=== PATIENT | female | born 1940 | race Caucasian/White ===

== ENCOUNTER → 2017-11-23 17:00 | Outpatient (REF) | payer MEDICARE, SELFPAY ==
[2017-11-23 17:24] LABS: HCT 23.8 % (36.0-46.0); HGB 7.2 g/dL (12.0-15.5)
== END ==
LOC: LBN 17:00
PROVIDERS: PCP Family Medicine; Visit Provider Family Medicine
DX: D63.8 Anemia in other chronic diseases classified elsewhere (principal); D46.9 Myelodysplastic syndrome, unspecified; I50.30 Unspecified diastolic (congestive) heart failure; I10 Essential (primary) hypertension
CPT/HCPCS: 85014; 85018

== ENCOUNTER 2017-12-15 16:42 | Outpatient (REF) | payer MEDICARE, SELFPAY ==
[2017-12-15 19:30] LABS: HGB 5.9 g/dL (12.0-15.5)
[2017-12-15 19:31] LABS: HCT 20.2 % (36.0-46.0)
== END 2017-12-15 17:02 ==
LOC: NCHCN 16:42
PROVIDERS: Family Medicine; PCP Family Medicine; Visit Provider Family Medicine
DX: D64.9 Anemia, unspecified (principal)
CPT/HCPCS: 85014; 85018

== ENCOUNTER 2017-12-15 20:45 | Emergency (ER) | payer MEDICARE, SELFPAY ==
[2017-12-15 20:50] VITALS: BP 103/63; PULSE 67; RESP 16; TEMP 36.4; O2SAT 97
[2017-12-15 21:36] LABS: Abs Immature Grans 0.03 k/cumm (0.0-0.09); Absolute Basophil Count 0.02 k/cumm (0.0-0.2); Absolute Eosinophil Count 0.04 k/cumm (0.0-0.7); Absolute Lymphocyte Count 0.98 k/cumm (1.2-3.4); Absolute Monocyte Count 0.38 k/cumm (0.11-0.7); Absolute Neutrophil Count 3.56 k/cumm (1.2-6.7); Basophils % 0.4; Eosinophils % 0.8; Immature Grans % 0.6; Lymphocytes % 19.6; Mean Corp. HGB Concentration 29.5 g/dL (32.0-36.0); Mean Corpuscular Hemoglobin 31.6 pg (27.0-33.0); Monocytes % 7.6; Platelet Count 248 x1000/uL (130-400); RBC 1.87 m/cumm (4.00-5.20); White Blood Cell Count 5.01 k/cumm (4.4-10.8)
[2017-12-15 21:53] LABS: ALT 10 U/L (12-78); AST 13 U/L (15-37); Albumin 2.9 g/dL (3.4-5.0); Alkaline Phosphatase 150 U/L (46-116); BUN 55 mg/dL (7-18); Bilirubin, Total 0.4 mg/dL (0.2-1.0); CREATININE 1.39 mg/dL (0.55-1.02); Calcium 8.6 mg/dL (8.5-10.1); Chloride 96 mmol/L (98-107); Estimated GFR 36.77 (mL/min/1.73m2); Glucose 135 mg/dL (70-100); Potassium 4.7 mmol/L (3.5-5.1); Sodium 128 mmol/L (136-145); Total Protein 8.4 g/dL (6.4-8.2)
[2017-12-15 22:33] LABS: HGB 5.9 g/dL (12.0-15.5)
[2017-12-15 22:55] LABS: Anisocytosis 3+; Diff Comment Diff Reviewed; Macrocytosis 3+
[2017-12-16] VITALS (21 sets, daily range): BP systolic 96–113; BP diastolic 40–49; PULSE 56–69; RESP 16–18; TEMP 36.5–36.7; O2SAT 98–100
--- NOTE | 2017-12-16 02:20 | W.ED.GENAD ---
Discharge Plan Discharge Details Chief Complaint: GenMedical Clinical Impression: Anemia, MDS (myelodysplastic syndrome) Primary Care Provider: Maude Dickey ED Provider: Cheko Watters Disposition Patient Disposition: HOME Condition: Improving Home Meds and New Rx's Prescriptions: No Action polyethylene glycol 1000(bulk) 500 GM powder 17 gm PO DAILY PRNQty: 500 RF: 12 nitroglycerin [Nitrostat] 0.4 MG tablet, sublingual 0.4 mg Sublingual Q5 MIN PRN X3 PRNQty: 1 RF: 0 escitalopram oxalate 20 MG tablet 20 mg PO DAILY Qty: 90 RF: 12 pen needle, diabetic [BD Ultra-Fine Jessica Pen Needle] 1 EACH needle 1 ea Miscellaneous QID Qty: 400 RF: 4 levothyroxine 75 MCG tablet 75 mcg PO DAILY Qty: 90 RF: 12 sennosides [Senokot] 1 TAB tablet 1 tab PO BID PRN PRNQty: 60 RF: 12 nystatin 15 GM ointment 15 gm Topical BID PRNRF: 0 aspirin 81 MG tablet,delayed release (DR/EC) 81 mg PO DAILY RF: 0 metoprolol tartrate 25 MG tablet 25 mg PO BID RF: 0 ostomy supplies [Stomahesive Protective] 28.3 GM powder 1 - 2 gm Topical TID PRNQty: 28.3 RF: 12 insulin aspart U-100 [Novolog Flexpen U-100 Insulin] 300 UNITS/3 ML insulin pen Sub-Q 0800,1200,1700 Qty: 5 RF: 0 atorvastatin 40 MG tablet 40 mg PO HS Qty: 0 RF: 0 albuterol sulfate 2.5 MG/0.5 ML solution for nebulization 2.5 mg Inhalation QID PRNQty: 100 RF: 2 acetaminophen [Tylenol] 325 MG tablet 2 tab PO PRN PRNRF: 0 simethicone [Gas-X Extra Strength] 125 MG capsule 1 tab PO PRN PRNRF: 0 linagliptin [Tradjenta] 5 MG tablet 5 mg PO DAILY RF: 0 spironolactone 50 MG tablet 25 mg PO BID RF: 0 insulin aspart U-100 [Novolog Flexpen U-100 Insulin] 300 UNITS/3 ML insulin pen 4 units Sub-Q AC RF: 0 furosemide 40 MG tablet 60 mg PO BID RF: 0 potassium chloride [Klor-Con M20] 20 MEQ tablet,ER particles/crystals 20 meq PO .QHS RF: 0 gabapentin 300 MG capsule 300 mg PO BID RF: 0 insulin detemir U-100 [Levemir FlexTouch U-100 Insuln] 100 UNIT/ML insulin pen 15 unit SQ .BEDTIME RF: 0 Discharge Instructions Instructions: Anemia (ED) Additional Instructions: If you notice any worsening of your symptoms, or any new symptoms such as vomiting, diarrhea, fever, chills, shortness of breath, chest pain, numbness, weakness, or fainting , please return immediately to the emergency department for reevaluation. Please follow up with your primary care provider as soon as possible for reassessment and reevaluation. As always, it was a pleasure participating in your medical care today. Referrals: Maude Dickey MD, [place] [Primary Care Provider] - Medical Decision Making MDM Narrative Medical decision making narrative: This is a 76-year-old female with a history of myelodysplastic syndrome, recurrent anemia, secondary to the myelodysplastic syndrome, and multiple previous transfusions. She presents today for evaluation of anemia. Her hemoglobin was noted to be in the fives today at her rehab facility and she was sent in for transfusion. Currently aside for fatigue the patient has no other significant complaints. She denies any red flags of hematochezia, melena, acholic stool, hematemesis, or hematuria. Patient's laboratory workup does demonstrate notable anemia with a hemoglobin of 5.9. Her creatinine is slightly elevated at 1.39. She has been high like this in the past. I do feel that this may be secondary to her anemia and mild dehydration. We will get the patient 2 units of PRBCs, and if she is doing well after transfusion I feel she can be safely discharged back to a rehab facility. 4:22 AM Patient has been given 2 units of PRBCs. She tolerated this very well. She has shown no signs of trolley or taco. Vital signs have remained stable. This point I feel that the patient be safely discharged back to her rehab facility. I have extensively reviewed the treatment plan and discharge instructions with the patient. I have addressed all patient concerns at this time. The patient was made aware of what symptoms to monitor for that would warrant a return to the emergency department. Discussed the plan with the patient, they demonstrate verbal understanding and agreement with our assessment and plan at this time. Lab Data Lab Results 12/15/17 12/15/17 12/15/17 Range/Units 21:25 21:25 21:25 WBC 5.01 (4.4-10.8) k/cumm RBC 1.87 L (4.00-5.20) m/cumm Hgb 5.9 L* (12.0-15.5) g/dL Hct 20.0 L* (36.0-46.0) % MCV 107.0 H (80-95) fL MCH 31.6 (27.0-33.0) pg MCHC 29.5 L (32.0-36.0) g/dL RDW 21.0 H (11.7-14.6) % Plt Count 248 (130-400) x1000/uL MPV (8.0-11.0) fL Immature Gran % 0.6 Neutrophils % 71.0 Lymphocytes % 19.6 Monocytes % 7.6 Eosinophils % 0.8 Basophils % 0.4 Absolute Neutrophils 3.56 (1.2-6.7) k/cumm Absolute Lymphocytes 0.98 L (1.2-3.4) k/cumm Absolute Monocytes 0.38 (0.11-0.7) k/cumm Absolute Eosinophils 0.04 (0.0-0.7) k/cumm Absolute Basophils 0.02 (0.0-0.2) k/cumm Differential Comment Diff reviewed RBC Morphology See below Anisocytosis 3+ Macrocytosis 3+ Sodium 128 L (136-145) mmol/L Potassium 4.7 (3.5-5.1) mmol/L Chloride 96 L (98-107) mmol/L Carbon Dioxide 27.0 (21.0-32.0) mmol/L Anion Gap 5.0 (3-11) mmol/L BUN 55 H (7-18) mg/dL Creatinine 1.39 H (0.55-1.02) mg/dL Estimated GFR/1.73 m2 36.77 (mL/min/1.73m2) Glucose 135 H (70-100) mg/dL Calcium 8.6 (8.5-10.1) mg/dL Total Bilirubin 0.4 (0.2-1.0) mg/dL AST 13 L (15-37) U/L ALT 10 L (12-78) U/L Alkaline Phosphatase 150 H (46-116) U/L Total Protein 8.4 H (6.4-8.2) g/dL Albumin 2.9 L (3.4-5.0) g/dL Patient ABO/Rh B Positive Antibody Screen Negative Crossmatch See Detail HPI - General Adult General Date/Time Provider Initiated Documentation: 12/15/17 20:48. HPI Narrative: This is a pleasant 76-year-old female with a past medical history of myelodysplastic syndrome, COPD, congestive heart failure, diabetes mellitus as well as chronic anemia requiring multiple transfusions, usually on a monthly to bimonthly basis, has a history of bone marrow depletion and lack of appropriate RBC production. She presents today after being sent from a rehab facility for anemia. Daily blood draws revealed hemoglobin of 5. The patient has been fatigued over the last few days, however she denies any fevers, chills, hematochezia, melena, acholic stool, hematemesis, hematuria. She has had extensive workups in the past for the sources of her bleeding, with no history of severe significant GI bleeding. Patient has no other complaints at this time she denies any recent pertinent surgeries, any pertinent family history. She denies IV or illicit drug use Related Data Home Medications Medication Instructions Recorded Confirmed aspirin 81 mg PO DAILY tab-cap 10/20/16 10/13/17 metoprolol tartrate 25 mg PO BID tab-cap 10/20/16 10/13/17 nystatin 15 gm TOPICAL BID PRN 10/20/16 10/13/17 acetaminophen [Tylenol] 2 tab PO PRN PRN 03/15/17 10/13/17 linagliptin [Tradjenta] 5 mg PO DAILY 03/15/17 10/13/17 simethicone [Gas-X Extra Strength] 1 tab PO PRN PRN 03/15/17 10/13/17 gabapentin 300 mg PO BID 10/13/17 10/13/17 insulin detemir U-100 [Levemir 15 unit SQ .BEDTIME 10/13/17 10/13/17 Flextouch] potassium chloride [Klor-Con M20] 20 meq PO .QHS 10/13/17 10/13/17 Previous Rx's Medication Instructions Recorded albuterol sulfate 2.5 mg INHALATION QID PRN #100 dose 01/01/17 atorvastatin 40 mg PO HS #0 tab-cap 01/01/17 insulin aspart U-100 [Novolog See Protocol SUB-Q 0800,1200,1700 01/01/17 Flexpen U-100 Insulin] #5 pkg furosemide 60 mg PO BID tab 03/18/17 insulin aspart U-100 [Novolog 4 units SUB-Q AC pen 03/18/17 Flexpen U-100 Insulin] spironolactone 25 mg PO BID tab 03/18/17 Allergies Allergy/AdvReac Type Severity Reaction Status Date / Time mupirocin Allergy Intermediate BLISTERS Unverified 10/13/17 17:52 Penicillins AdvReac Intermediate STOMACH Unverified 10/13/17 17:52 UPSET aspirin AdvReac Unknown GI Unverified 10/13/17 17:52 ibuprofen AdvReac Unknown Unverified 10/13/17 17:52 metformin AdvReac diarrhea Unverified 10/13/17 17:52 General Stated Complaint: GenMedical MONE: 3 Review of Systems Review of Systems 10 point review of systems was performed, pertinent positives and negatives are noted in the history of present illness. [facility] Social History Smoking/Tobacco Use Status: Former Tobacco Use Surgical History Amputation Cholecystectomy Extraction of cataract (12/13/12) Ligation of fallopian tube bone marrow biopsy (11/05/15) Exam Narrative Exam Narrative: 1.Const: appearing stated age 2.Eyes: PERRL, no conjunctival injection, and symmetrical lids. Mild conjunctival pallor 3.ENT: Atraumatic external nose and ears. Moist MM. Neck: Symmetric, trachea midline, No thyromegaly. 4.CVS: +S1/S2, No murmurs or gallops. Peripheral pulses 2+ and equal in all extremities. Brisk capillary refill in all extremities. 5.RESP: Unlabored respiratory effort. Clear to auscultation bilaterally. No wheezes rales or rhonchi 6.GI: Soft, Nontender/Nondistended, No hepatosplenomegaly. No guarding or rebound. 7.MSK: Normocephalic/Atraumatic, Extremities w/o deformity or ttp No cyanosis or clubbing, Normal movement of all extremities 8.Skin: Slightly pale, warm, Dry. No rashes or lesions. 9.Neuro: acetylene burner II-XII grossly intact. Sensation grossly intact, no focal neurologic deficits. 10.Psych: (AAO) x3. Appropriate mood and affect Course Vital Signs Temperature 36.4 C L 12/15/17 20:50 Pulse 67 12/15/17 20:50 Respiratory Rate 16 12/15/17 20:50 Blood Pressure 103/63 12/15/17 20:50 Pulse Oximetry 97 12/15/17 20:50 Temperature 36.6 C 12/16/17 01:57 Pulse 69 12/16/17 01:57 Respiratory Rate 17 12/16/17 01:57 Blood Pressure 99/43 L 12/16/17 01:57 Pulse Oximetry 99 12/16/17 01:57 Lab/Test Results Lab/Test Results: Laboratory Tests 12/15/17 12/15/17 12/15/17 21:25 21:25 21:25 WBC 5.01 RBC 1.87 L Hgb 5.9 L* Hct 20.0 L* MCV 107.0 H MCH 31.6 MCHC 29.5 L RDW 21.0 H Plt Count 248 MPV Immature Gran % 0.6 Neutrophils % 71.0 Lymphocytes % 19.6 Monocytes % 7.6 Eosinophils % 0.8 Basophils % 0.4 Absolute Neutrophils 3.56 Absolute Lymphocytes 0.98 L Absolute Monocytes 0.38 Absolute Eosinophils 0.04 Absolute Basophils 0.02 Differential Comment Diff reviewed RBC Morphology See below Anisocytosis 3+ Macrocytosis 3+ Sodium 128 L Potassium 4.7 Chloride 96 L Carbon Dioxide 27.0 Anion Gap 5.0 BUN 55 H Creatinine 1.39 H Estimated GFR/1.73 m2 36.77 Glucose 135 H Calcium 8.6 Total Bilirubin 0.4 AST 13 L ALT 10 L Alkaline Phosphatase 150 H Total Protein 8.4 H Albumin 2.9 L Patient ABO/Rh B Positive Antibody Screen Negative Crossmatch See Detail
--- NOTE | 2017-12-16 05:07 | NUR.NOTE ---
Nursing Note: Spoke with Jose to inform them that the patient (their resident) is ready to be discharged from the emergency department, and for them to set up transportation. Then at I spoke with Marlyn Vogt RN at [facility] around 04:50 who informed me that their transportation would be available to get the patient at, or just past 06:00 due to lack of staffing and nurse availability.
== END 2017-12-16 06:06 | disposition home or self-care (01) ==
PROVIDERS: Emergency Provider Student in an Organized Health Care Education/Training Program; PCP Family Medicine
DX: D46.9 Myelodysplastic syndrome, unspecified (principal); D63.8 Anemia in other chronic diseases classified elsewhere; E11.22 Type 2 diabetes mellitus with diabetic chronic kidney disease; Z79.4 Long term (current) use of insulin; N18.9 Chronic kidney disease, unspecified
CPT/HCPCS: 36415; 36430; 80053; 86850; 86900; 86901; 86920; 99285; 85025; 99284; P9016

== ENCOUNTER 2017-12-17 17:38 | Outpatient (REF) | payer MEDICARE, SELFPAY ==
[2017-12-17 18:33] LABS: Bilirubin Negative (Negative); Blood Small (Negative); Clarity Cloudy; Glucose Negative (Negative); Ketones Negative (Negative); Leukocyte Esterase Large (Negative); Nitrite Positive (Negative); Specific Gravity 1.015 (1.005-1.025); Urobilinogen 0.2 EU/dL (Up TO 0.2); pH 8.5 (5-8)
[2017-12-17 19:07] LABS: Bacteria Many HPF (Negative)
[2017-12-17 19:09] LABS: C & S Indicated? Yes; Crystals Many Triple Phos HPF (Negative)
== END 2017-12-17 17:58 ==
LOC: NCHCN 17:38
PROVIDERS: Family Medicine; PCP Family Medicine; Visit Provider Family Medicine
DX: N39.0 Urinary tract infection, site not specified (principal)
CPT/HCPCS: 87077; 81003; 81015; 87086; 87186

== ENCOUNTER 2017-12-30 15:55 | Outpatient (REF) | payer MEDICARE, SELFPAY ==
[2017-12-30 16:56] LABS: HCT 21.8 % (36.0-46.0)
[2017-12-30 17:02] LABS: HGB 6.5 g/dL (12.0-15.5)
== END 2017-12-30 16:15 ==
LOC: LBN 15:55
PROVIDERS: PCP Family Medicine; Visit Provider Family Medicine
DX: D46.9 Myelodysplastic syndrome, unspecified (principal)
CPT/HCPCS: 85014; 85018

== ENCOUNTER 2017-12-31 07:26 | Outpatient (CLI) | payer MEDICARE, SELFPAY | END 2017-12-31 07:46 | PROVIDERS: PCP Family Medicine; Visit Provider Family Medicine | DX: D64.9 Anemia, unspecified (principal); D46.9 Myelodysplastic syndrome, unspecified | CPT/HCPCS: 36415; 85027; 86850; 86900; 86901; 86920 ==

== ENCOUNTER 2017-12-31 10:18 | Outpatient (RCR) | payer MEDICARE, SELFPAY ==
[2017-12-31] VITALS (10 sets, daily range): BP systolic 93–100; BP diastolic 40–62; PULSE 63–68; RESP 18–20; TEMP 36.8–37.2; O2SAT 95–99
[2017-12-31 08:45] LABS: HCT 21.4 % (36.0-46.0); Mean Corp. HGB Concentration 29.9 g/dL (32.0-36.0); Mean Corpuscular Hemoglobin 31.7 pg (27.0-33.0); Mean Corpuscular Volume 105.9 fL (80-95); RBC 2.02 m/cumm (4.00-5.20); White Blood Cell Count 3.17 k/cumm (4.4-10.8)
[2017-12-31 09:02] LABS: HGB 6.4 g/dL (12.0-15.5)
== END 2018-01-09 23:59 | disposition home or self-care (01) ==
LOC: INF 10:18
PROVIDERS: PCP Family Medicine; Visit Provider Family Medicine
DX: D46.9 Myelodysplastic syndrome, unspecified (principal)
CPT/HCPCS: 36415; 36430; 85027; 86850; 86900; 86901; 86920; P9016

== ENCOUNTER 2018-01-13 13:45 | Outpatient (REF) | payer MEDICARE, SELFPAY ==
[2018-01-13 14:19] LABS: HCT 25.1 % (36.0-46.0); HGB 7.3 g/dL (12.0-15.5)
== END 2018-01-13 14:05 ==
LOC: LBN 13:45
PROVIDERS: PCP Family Medicine; Visit Provider Family Medicine
DX: R53.83 Other fatigue (principal); D63.8 Anemia in other chronic diseases classified elsewhere; E03.9 Hypothyroidism, unspecified; D46.9 Myelodysplastic syndrome, unspecified
CPT/HCPCS: 85014; 85018

== ENCOUNTER 2018-01-14 08:07 | Outpatient (REF) | payer MEDICARE, SELFPAY ==
[2018-01-14 12:14] LABS: Bilirubin Small (Negative); Blood Large (Negative); Glucose 100 mg/dL (Negative); Ketones Negative (Negative); Leukocyte Esterase Negative (Negative); Nitrite Negative (Negative); Urobilinogen 0.2 EU/dL (Up TO 0.2); pH 7.5 (5-8)
[2018-01-14 12:16] LABS: RBC >50 (0-2); WBC >50 HPF (0-5)
[2018-01-14 12:17] LABS: Bacteria Many HPF (Negative); C & S Indicated? C&S Done As Ordered; Casts Negative LPF (Negative); Crystals Negative HPF (Negative); Epithelial Cells Negative HPF (Negative); Mucus Negative (Negative)
== END 2018-01-14 08:27 ==
LOC: LBN 08:07
PROVIDERS: Family Medicine; PCP Family Medicine; Visit Provider Nurse Practitioner Family
DX: N39.0 Urinary tract infection, site not specified (principal)
CPT/HCPCS: 36415; 86850; 86900; 86901; 86920; 87077; 81003; 81015; 87086; 87186

== ENCOUNTER 2018-01-14 12:03 | Emergency (ER) | payer MEDICARE, SELFPAY ==
[2018-01-14] VITALS (66 sets, daily range): BP systolic 54–132; BP diastolic 28–71; PULSE 78–89; RESP 15–30; TEMP 36.5–36.8; O2SAT 95–100
--- NOTE | 2018-01-14 12:16 | DI.CT_ITS ---
SYMPTOMS/DIAGNOSIS: HEMATURIA, DIFFUSE ABD PAIN, HYPOTENSIVE, ANEMIA CT SCAN OF THE ABDOMEN AND PELVIS: Noncontrast examination was performed. Mild fibrotic changes are seen in the lungs. The lack of IV contrast does limit evaluation of the abdominal and pelvis organs. There is extensive calcification of the mitral valve. There is some calcification of the aortic valve also. The unenhanced liver, spleen, pancreas and adrenal glands are unremarkable. The patient is status post cholecystectomy. No significant biliary ductal dilatation is seen. There is a 2 mm stone seen in the dependent portion of the renal pelvis. No hydronephrosis is seen. The urinary bladder is distended. There is a Willett catheter in place. Air is seen within the bladder likely reflecting the recent catheterization. There is a large amount of higher density material layering in the urinary bladder. This may represent hemorrhage. An obscured mass can not be excluded. The reproductive organs are unremarkable. The bowel shows no evidence of obstruction or inflammation. There is a large amount of stool seen within the rectal vault. Mild thickening of the wall of the rectum is seen which may reflect stercoral colitis. No findings to suggest an acute appendicitis are present. The abdominal aorta is of normal caliber. No aneurysm is identified. No significant abdominal or pelvic adenopathy, ascites or pneumoperitoneum is seen. There are small bilateral fat containing inguinal hernias. There is a large fat containing supraumbilical hernia in the midline. Moderately severe degenerative changes are seen in the spine. No acute fracture is appreciated. IMPRESSION: Large amount of high density material seen within the urinary bladder most suggestive of hemorrhage. Infection can not be excluded. An underlying mass can not be excluded in this patient. The findings were discussed with the emergency department on the date of the examination.
[2018-01-14 12:24] LABS: Abs Immature Grans 0.09 k/cumm (0.0-0.09); HCT 22.4 % (36.0-46.0); Mean Corpuscular Hemoglobin 29.7 pg (27.0-33.0); Mean Corpuscular Volume 102.3 fL (80-95); RBC 2.19 m/cumm (4.00-5.20); RBC Distribution Width 18.7 % (11.7-14.6); White Blood Cell Count 9.99 k/cumm (4.4-10.8)
[2018-01-14 12:44] LABS: ALT 11 U/L (12-78); AST 21 U/L (15-37); Albumin 2.6 g/dL (3.4-5.0); Alkaline Phosphatase 143 U/L (46-116); Anion Gap 10.7 mmol/L (3-11); BUN 41 mg/dL (7-18); Bilirubin, Total 0.8 mg/dL (0.2-1.0); CO2 26.3 mmol/L (21.0-32.0); CREATININE 2.07 mg/dL (0.55-1.02); Calcium 8.4 mg/dL (8.5-10.1); Chloride 98 mmol/L (98-107); Estimated GFR 23.16 (mL/min/1.73m2); Glucose 214 mg/dL (70-100); INR 1.3 (1.0-3.5); PTT Activated 21.3 sec (21.0-31.4); Potassium 4.8 mmol/L (3.5-5.1); Prothrombin Time 12.4 sec (9.3-10.8); Sodium 135 mmol/L (136-145); Total Protein 7.1 g/dL (6.4-8.2)
[2018-01-14 12:51] LABS: HGB 6.5 g/dL (12.0-15.5)
[2018-01-14 12:54] LABS: Absolute Neutrophil Count 8.59 k/cumm (1.2-6.7); Anisocytosis 3+; Diff Comment Manual Differential; Nucleated RBC 1 /100WBC
[2018-01-14 12:55] LABS: Hypochromasia 2+; Macrocytosis 1+; Microcytosis 1+; Poikilocytes 1+; Polychromasia Present
--- NOTE | 2018-01-14 15:14 | W.ED.GENAD ---
Discharge Plan Disposition Patient Disposition: [facility] Condition: Serious Discharge Details Chief Complaint: Urinary Clinical Impression: Anemia, Hematuria, Bladder hemorrhage, Acute hypotension Reason For Visit: JANICEEX Primary Care Provider: Maude Dickey ED Provider: Cheko Watters Home Meds and New Rx's Prescriptions: No Action polyethylene glycol 1000(bulk) 500 GM powder 17 gm PO DAILY PRNQty: 500 RF: 12 nitroglycerin [Nitrostat] 0.4 MG tablet, sublingual 0.4 mg Sublingual Q5 MIN PRN X3 PRNQty: 1 RF: 0 escitalopram oxalate 20 MG tablet 20 mg PO DAILY Qty: 90 RF: 12 pen needle, diabetic [BD Ultra-Fine Jessica Pen Needle] 1 EACH needle 1 ea Miscellaneous QID Qty: 400 RF: 4 levothyroxine 75 MCG tablet 75 mcg PO DAILY Qty: 90 RF: 12 sennosides [Senokot] 1 TAB tablet 1 tab PO BID PRN PRNQty: 60 RF: 12 aspirin 81 MG tablet,delayed release (DR/EC) 81 mg PO DAILY RF: 0 metoprolol tartrate 25 MG tablet 25 mg PO BID RF: 0 ostomy supplies [Stomahesive Protective] 28.3 GM powder 1 - 2 gm Topical TID PRNQty: 28.3 RF: 12 insulin aspart U-100 [Novolog Flexpen U-100 Insulin] 300 UNITS/3 ML insulin pen Sub-Q 0800,1200,1700 Qty: 5 RF: 0 atorvastatin 40 MG tablet 40 mg PO HS Qty: 0 RF: 0 acetaminophen [Tylenol] 325 MG tablet 2 tab PO PRN PRNRF: 0 linagliptin [Tradjenta] 5 MG tablet 5 mg PO DAILY RF: 0 spironolactone 50 MG tablet 25 mg PO BID RF: 0 insulin aspart U-100 [Novolog Flexpen U-100 Insulin] 300 UNITS/3 ML insulin pen 4 units Sub-Q AC RF: 0 furosemide 40 MG tablet 60 mg PO BID RF: 0 potassium chloride [Klor-Con M20] 20 MEQ tablet,ER particles/crystals 20 meq PO .QHS RF: 0 gabapentin 300 MG capsule 300 mg PO BID RF: 0 insulin detemir U-100 [Levemir FlexTouch U-100 Insuln] 100 UNIT/ML insulin pen 15 unit SQ .BEDTIME RF: 0 Discharge Data Discharge Date/Time-TO BE ENTERED AT DEPARTURE: 01/14/18 15:51 Medical Decision Making This is a 77-year-old female with a past medical history of congestive failure, myelodysplastic anemia, thyroid disease, who presents today for evaluation of bianca hematuria. It was noticed this morning by her nursing facility staff, a Lewis was placed. She had continued and unremitting bleeding and was noted to have notable hypotension, she was sent to the ER for further evaluation. On arrival in the emergency department her systolic blood pressure was 60, she is supposed to receive 2 units of PRBCs today, these were immediately given, along with 1 L of fluid. Patient had no rectal bleeding on exam, no evidence of melanotic stool. Lewis was in place and demonstrated continued clots and bleeding noted in the Lewis bag. Patient did have generalized abdominal tenderness, CT scan was ordered and demonstrates no acute pathology per the radiologist except for evidence of notable clots throughout the entire bladder. Lewis is also in place. Patient's laboratory workup has returned and demonstrates evidence of an acute kidney injury, with an elevation in her creatinine compared to normal, anemia of hemoglobin of 6.5 however I think this is not reflective of her recent bleeding over the past 2-3 hours. In addition to the you 2 units of packed red blood cells, 1-1/2 L of normal saline was also given the patient's blood pressure returned to a quasi normal level with a systolic in the high 90s to low 100s. At this time we do have no urology support, we contacted the [facility] discussed the case with Dr. Viera, he recommended that we contact [facility] prior to any transfer of the patient, we did contact [facility] and discussed the case with Dr. Jimenez the urologist and Dr. Hawkins in the emergency department both of whom agreed to accept the patient for further management. Patient will be transferred via [facility] to [facility]. I have extensively reviewed the treatment plan with the patient. I have addressed all patient concerns at this time. I have also discussed the plan with the admitting physician and they agree with the current assessment and plan and have agreed to assume responsibility for the patient. All parties demonstrate verbal understanding and agreement with our assessment and plan at this time. IMPRESSION: Large amount of high density material seen within the urinary bladder most suggestive of hemorrhage. Infection can not be excluded. An underlying mass can not be excluded in this patient. The findings were discussed with the emergency department on the date of the examination. Social note: The entire plan had been discussed with the 2 family members at bedside, including the need for potential transfer. After I made the calls with [facility] for transfer I went back in and reassessed the patient, and discussed with her the current plan. She agrees with the plan. However there is no other family at bedside and I incorrectly assumed that they had left. [facility] was already on site the patient was transferred within 10 minutes. Shortly thereafter family was found to have stepped out momentarily but then came back in. There was initial concern and frustration that they had not been included in the final decision making process. I certainly understand their frustration, and discussed with them the severity of the patient's illness, her instability, and the imperative need for prompt transfer. I also discussed with them my incorrect assumption that they had left, but I apologized for that incorrect assumption. I had a long discussion with the family regarding the remainder of the patient's treatment plan, all questions were answered, and the conversation was ended with no discontent, unanswered questions, or hard feelings. HPI General Date/Time Provider Initiated Documentation: 01/14/18 12:05. HPI Narrative: This is a 77-year-old female with a past medical history of myelodysplastic syndrome coronary artery disease heart failure diabetes who lives at a rehab facility who presents today for evaluation of bianca hematuria. Nursing staff at her extended care facility state that this morning they noticed significant hematuria for the patient. She is on no blood thinners. They placed a Lewis catheter and she had continued severe bleeding. The blood was maren and maroon in color, no significant bright red blood. Her bleeding persisted, her pressures dropped to the 50 systolic, she was transferred to the ER for further evaluation. She was scheduled to get her regular 2 units of PRBCs for her chronic myelodysplastic anemia today. She has never had significant hematuria like this in the past. She has never had a significant bladder issues recently. She is not on any blood thinners currently. The patient did have a history of being DNR, DNI, however after family discussion and patient request family and patient's of both requested that she is a FULL CODE and that this be changed in the documentation. The patient's father associated complaints of generalized abdominal pain. She denies any diarrhea, vomiting, or any other changes. No other complaints at this time. Related Data Home Medications Medication Instructions Recorded Confirmed escitalopram oxalate 20 mg PO DAILY #90 tab-cap 04/21/16 01/14/18 levothyroxine 75 mcg PO DAILY #90 tab-cap 04/21/16 01/14/18 nitroglycerin [Nitrostat] 0.4 mg SUBLINGUAL Q5 MIN PRN X3 04/21/16 01/14/18 PRN #1 bottle pen needle, diabetic [BD #400 ndl 04/21/16 Ultra-Fine Jessica Pen Needle] polyethylene glycol 1000(bulk) 17 gm PO DAILY PRN #500 gm 04/21/16 sennosides [Senokot] 1 tab PO BID PRN PRN #60 tab 08/05/16 aspirin 81 mg PO DAILY tab-cap 10/20/16 01/14/18 metoprolol tartrate 25 mg PO BID tab-cap 10/20/16 01/14/18 ostomy supplies [Stomahesive #28.3 gm 12/07/16 Protective] atorvastatin 40 mg PO HS #0 tab-cap 01/01/17 01/14/18 insulin aspart U-100 [Novolog See Protocol SUB-Q 0800,1200,1700 01/01/17 01/14/18 Flexpen U-100 Insulin] #5 pkg acetaminophen [Tylenol] 2 tab PO PRN PRN 03/15/17 01/14/18 linagliptin [Tradjenta] 5 mg PO DAILY 03/15/17 01/14/18 furosemide 60 mg PO BID tab 03/18/17 01/14/18 insulin aspart U-100 [Novolog 4 units SUB-Q AC pen 03/18/17 01/14/18 Flexpen U-100 Insulin] spironolactone 25 mg PO BID tab 03/18/17 01/14/18 gabapentin 300 mg PO BID 10/13/17 01/14/18 insulin detemir U-100 [Levemir 15 unit SQ .BEDTIME 10/13/17 01/14/18 Flextouch] potassium chloride [Klor-Con M20] 20 meq PO .QHS 10/13/17 01/14/18 Previous Rx's Medication Instructions Recorded atorvastatin 40 mg PO HS #0 tab-cap 01/01/17 insulin aspart U-100 [Novolog See Protocol SUB-Q 0800,1200,1700 01/01/17 Flexpen U-100 Insulin] #5 pkg furosemide 60 mg PO BID tab 03/18/17 insulin aspart U-100 [Novolog 4 units SUB-Q AC pen 03/18/17 Flexpen U-100 Insulin] spironolactone 25 mg PO BID tab 03/18/17 Allergies Allergy/AdvReac Type Severity Reaction Status Date / Time mupirocin Allergy Intermediate BLISTERS Unverified 01/14/18 13:31 Penicillins AdvReac Intermediate STOMACH Unverified 01/14/18 13:31 UPSET aspirin AdvReac Unknown GI Unverified 01/14/18 13:31 ibuprofen AdvReac Unknown Unverified 01/14/18 13:31 metformin AdvReac diarrhea Unverified 01/14/18 13:31 General Stated Complaint: Urinary MONE: 2 Review of Systems Review of Systems All systems reviewed & are unremarkable except as noted in HPI and below PFSH Social History Smoking/Tobacco Use Status: Former Tobacco Use Surgical History Amputation Cholecystectomy Extraction of cataract (12/13/12) Ligation of fallopian tube bone marrow biopsy (11/05/15) Exam Narrative Exam Narrative: 1.Const: Well-nourished, elderly, pale 2.Eyes: PERRL, no conjunctival injection, and symmetrical lids. 3.ENT: Atraumatic external nose and ears. Dry MM. Neck: Symmetric, trachea midline, No thyromegaly. 4.CVS: +S1/S2, No murmurs or gallops. Peripheral pulses 2+ and equal in all extremities. Sluggish capillary refill in all extremities. 5.RESP: Unlabored respiratory effort. Clear to auscultation bilaterally. No wheezes rales or rhonchi 6.GI: Soft, Nondistended, No hepatosplenomegaly. No guarding or rebound. Mild tenderness throughout. No focal tenderness. Rectal exam demonstrates no gross blood. Hemoccult is negative. Lewis catheter is in place and demonstrates bianca maren colored blood and clot however there is continued dark blood bleeding going into the lewis bag 7.MSK: Normocephalic/Atraumatic, Extremities w/o deformity or ttp No cyanosis or clubbing, Normal movement of all extremities 8.Skin: Warm, Dry. No rashes or lesions. Notably pale. Delayed capillary refill in distal fingertips. 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 Sensation grossly intact, no focal neurologic deficits. Patient does appear slightly lethargic on initial assessment. 10.Psych: (AAO) x3. Course Vital Signs Pulse 88 01/14/18 12:05 Respiratory Rate 16 01/14/18 12:05 Blood Pressure 67/46 L 01/14/18 12:05 Pulse Oximetry 99 01/14/18 12:05 Temperature 36.8 C 01/14/18 14:56 Pulse 88 01/14/18 14:56 Pulse 84 01/14/18 13:51 Respiratory Rate 20 01/14/18 14:56 Blood Pressure 100/43 L 01/14/18 14:56 Blood Pressure Mean 53 01/14/18 13:51 Pulse Oximetry 95 01/14/18 14:56 Oxygen Delivery Method Nasal Cannula 01/14/18 14:56 Oxygen Flow Rate 1 01/14/18 14:56 Lab/Test Results Lab/Test Results: Laboratory Tests Range/Units 01/14/18 01/14/18 01/14/18 08:21 12:10 12:10 WBC (4.4-10.8) k/cumm 9.99 RBC (4.00-5.20) m/cumm 2.19 L Hgb (12.0-15.5) g/dL 6.5 L* Hct (36.0-46.0) % 22.4 L MCV (80-95) fL 102.3 H MCH (27.0-33.0) pg 29.7 MCHC (32.0-36.0) g/dL 29.0 L RDW (11.7-14.6) % 18.7 H Plt Count (130-400) x1000/uL MPV (8.0-11.0) fL Immature Gran % 0.0 Neutrophils % 81.0 Lymphocytes % 5.0 Monocytes % 9.0 Eosinophils % 0.0 Basophils % 0.0 Absolute Neutrophils (1.2-6.7) k/cumm 8.59 H Band Neutrophils % 5.0 Absolute Lymphocytes (1.2-3.4) k/cumm 0.50 L Absolute Monocytes (0.11-0.7) k/cumm 0.90 H Absolute Eosinophils (0.0-0.7) k/cumm 0.00 Absolute Basophils (0.0-0.2) k/cumm 0.00 Nucleated RBCs /100WBC 1 Differential Comment Manual differential RBC Morphology See below Polychromasia Present Hypochromasia 2+ Poikilocytosis 1+ Anisocytosis 3+ Microcytosis 1+ Macrocytosis 1+ PT (9.3-10.8) sec INR (1.0-3.5) APTT (21.0-31.4) sec Sodium (136-145) mmol/L 135 L Potassium (3.5-5.1) mmol/L 4.8 Chloride (98-107) mmol/L 98 Carbon Dioxide (21.0-32.0) mmol/L 26.3 Anion Gap (3-11) mmol/L 10.7 BUN (7-18) mg/dL 41 H Creatinine (0.55-1.02) mg/dL 2.07 H Estimated GFR/1.73 m2 (mL/min/1.73m2) 23.16 Glucose (70-100) mg/dL 214 H Calcium (8.5-10.1) mg/dL 8.4 L Total Bilirubin (0.2-1.0) mg/dL 0.8 AST (15-37) U/L 21 ALT (12-78) U/L 11 L Alkaline Phosphatase (46-116) U/L 143 H Total Protein (6.4-8.2) g/dL 7.1 Albumin (3.4-5.0) g/dL 2.6 L Patient ABO/Rh B Positive Antibody Screen Negative Crossmatch See Detail Range/Units 01/14/18 12:10 WBC (4.4-10.8) k/cumm RBC (4.00-5.20) m/cumm Hgb (12.0-15.5) g/dL Hct (36.0-46.0) % MCV (80-95) fL MCH (27.0-33.0) pg MCHC (32.0-36.0) g/dL RDW (11.7-14.6) % Plt Count (130-400) x1000/uL MPV (8.0-11.0) fL Immature Gran % Neutrophils % Lymphocytes % Monocytes % Eosinophils % Basophils % Absolute Neutrophils (1.2-6.7) k/cumm Band Neutrophils % Absolute Lymphocytes (1.2-3.4) k/cumm Absolute Monocytes (0.11-0.7) k/cumm Absolute Eosinophils (0.0-0.7) k/cumm Absolute Basophils (0.0-0.2) k/cumm Nucleated RBCs /100WBC Differential Comment RBC Morphology Polychromasia Hypochromasia Poikilocytosis Anisocytosis Microcytosis Macrocytosis PT (9.3-10.8) sec 12.4 H INR (1.0-3.5) 1.3 APTT (21.0-31.4) sec 21.3 Sodium (136-145) mmol/L Potassium (3.5-5.1) mmol/L Chloride (98-107) mmol/L Carbon Dioxide (21.0-32.0) mmol/L Anion Gap (3-11) mmol/L BUN (7-18) mg/dL Creatinine (0.55-1.02) mg/dL Estimated GFR/1.73 m2 (mL/min/1.73m2) Glucose (70-100) mg/dL Calcium (8.5-10.1) mg/dL Total Bilirubin (0.2-1.0) mg/dL AST (15-37) U/L ALT (12-78) U/L Alkaline Phosphatase (46-116) U/L Total Protein (6.4-8.2) g/dL Albumin (3.4-5.0) g/dL Patient ABO/Rh Antibody Screen Crossmatch
== END 2018-01-14 15:51 | disposition short-term general hospital (02) ==
PROVIDERS: Nurse Practitioner Family; Emergency Provider Student in an Organized Health Care Education/Training Program; PCP Family Medicine
DX: N32.89 Other specified disorders of bladder (principal); I95.9 Hypotension, unspecified; D46.9 Myelodysplastic syndrome, unspecified; N17.9 Acute kidney failure, unspecified; R10.817 Generalized abdominal tenderness; E11.9 Type 2 diabetes mellitus without complications; Z79.4 Long term (current) use of insulin
CPT/HCPCS: 36415; 36430; 80053; 86850; 86900; 86901; 86920; 99285; 74176; 85025; 85610; 85730; P9016

== ENCOUNTER 2018-01-24 07:50 | Outpatient (REF) | payer MEDICARE, SELFPAY ==
[2018-01-24 09:27] LABS: HCT 25.6 % (36.0-46.0); HGB 7.9 g/dL (12.0-15.5)
[2018-01-24 09:33] LABS: Anion Gap 6.3 mmol/L (3-11); BUN 10 mg/dL (7-18); CO2 27.7 mmol/L (21.0-32.0); Calcium 7.8 mg/dL (8.5-10.1); Chloride 105 mmol/L (98-107); Glucose 162 mg/dL (70-100); Potassium 4.5 mmol/L (3.5-5.1); Sodium 139 mmol/L (136-145)
== END 2018-01-24 08:10 ==
LOC: LBN 07:50
PROVIDERS: PCP Family Medicine; Visit Provider Family Medicine
DX: R31.9 Hematuria, unspecified (principal); D63.8 Anemia in other chronic diseases classified elsewhere; N18.9 Chronic kidney disease, unspecified; I10 Essential (primary) hypertension; D46.9 Myelodysplastic syndrome, unspecified; R30.0 Dysuria
CPT/HCPCS: 80048; 85014; 85018; 85045

== ENCOUNTER 2018-01-26 08:07 | Outpatient (REF) | payer SELFPAY ==
[2018-01-26 08:31] LABS: HCT 23.8 % (36.0-46.0); HGB 7.3 g/dL (12.0-15.5)
== END 2018-01-26 08:27 ==
LOC: LBN 08:07
PROVIDERS: PCP Family Medicine; Visit Provider Family Medicine
DX: D63.8 Anemia in other chronic diseases classified elsewhere (principal); Z01.84 Encounter for antibody response examination; Z01.83 Encounter for blood typing
CPT/HCPCS: 36415; 86850; 86900; 86901; 86920; 85014; 85018

== ENCOUNTER 2018-01-31 11:49 | Outpatient (REF) | payer MEDICARE, SELFPAY ==
[2018-01-31 12:38] LABS: HGB 8.7 g/dL (12.0-15.5)
== END 2018-01-31 12:09 ==
LOC: LBN 11:49
PROVIDERS: PCP Family Medicine; Visit Provider Family Medicine
DX: D63.8 Anemia in other chronic diseases classified elsewhere (principal); N18.9 Chronic kidney disease, unspecified
CPT/HCPCS: 85014; 85018

== ENCOUNTER 2018-02-07 10:38 | Outpatient (REF) | payer MEDICARE, SELFPAY ==
[2018-02-07 11:19] LABS: HCT 26.2 % (36.0-46.0)
== END 2018-02-07 10:58 ==
LOC: LBN 10:38
PROVIDERS: PCP Family Medicine; Visit Provider Family Medicine
DX: D46.9 Myelodysplastic syndrome, unspecified (principal); D63.8 Anemia in other chronic diseases classified elsewhere
CPT/HCPCS: 85014; 85018

== ENCOUNTER 2018-02-11 11:16 | Outpatient (REF) | payer MEDICARE, SELFPAY ==
[2018-02-11 12:28] LABS: Anion Gap 5.8 mmol/L (3-11); BUN 12 mg/dL (7-18); CO2 30.2 mmol/L (21.0-32.0); Calcium 8.1 mg/dL (8.5-10.1); Chloride 103 mmol/L (98-107); Glucose 162 mg/dL (70-100); Potassium 4.3 mmol/L (3.5-5.1); Sodium 139 mmol/L (136-145)
== END 2018-02-11 11:36 ==
LOC: LBN 11:16
PROVIDERS: PCP Family Medicine; Visit Provider Family Medicine
DX: G93.41 Metabolic encephalopathy (principal)
CPT/HCPCS: 80048

== ENCOUNTER 2018-02-14 09:20 | Outpatient (REF) | payer MEDICARE, SELFPAY ==
[2018-02-14 09:47] LABS: HCT 23.5 % (36.0-46.0); HGB 7.2 g/dL (12.0-15.5)
== END 2018-02-14 09:40 ==
LOC: LBN 09:20
PROVIDERS: PCP Family Medicine; Visit Provider Family Medicine
DX: D64.9 Anemia, unspecified (principal)
CPT/HCPCS: 36415; 86850; 86900; 86901; 86920; 85014; 85018

== ENCOUNTER 2018-02-22 09:22 | Outpatient (REF) | payer MEDICARE, SELFPAY ==
[2018-02-22 10:19] LABS: HCT 27.8 % (36.0-46.0); HGB 8.4 g/dL (12.0-15.5)
== END 2018-02-22 09:42 ==
LOC: LBN 09:22
PROVIDERS: PCP Family Medicine; Visit Provider Family Medicine
DX: D61.89 Other specified aplastic anemias and other bone marrow failure syndromes (principal)
CPT/HCPCS: 85014; 85018

== ENCOUNTER 2018-02-28 14:28 | Outpatient (REF) | payer MEDICARE, SELFPAY ==
[2018-02-28 15:01] LABS: HGB 7.7 g/dL (12.0-15.5)
== END 2018-02-28 14:48 ==
LOC: LBN 14:28
PROVIDERS: PCP Family Medicine; Visit Provider Family Medicine
DX: D46.9 Myelodysplastic syndrome, unspecified (principal); I10 Essential (primary) hypertension; D61.89 Other specified aplastic anemias and other bone marrow failure syndromes
CPT/HCPCS: 85014; 85018

== ENCOUNTER 2018-03-01 10:38 | Outpatient (CLI) | payer MEDICARE, SELFPAY | END 2018-03-01 10:58 | PROVIDERS: PCP Family Medicine; Visit Provider Nurse Practitioner Family | DX: R69 Illness, unspecified (principal) | CPT/HCPCS: 85027; 86850; 86900; 86901; 86920 ==

== ENCOUNTER 2018-03-02 01:14 | Outpatient (RCR) | payer MEDICARE, SELFPAY ==
[2018-02-15] VITALS (13 sets, daily range): BP systolic 105–132; BP diastolic 40–65; PULSE 65–81; RESP 16–18; TEMP 35.5–36.7; O2SAT 96–100
[2018-02-15] MEDS: Furosemide 40 MG TAB PO (10:49)
[2018-03-02] VITALS (11 sets, daily range): BP systolic 100–114; BP diastolic 40–52; PULSE 57–78; RESP 17–19; TEMP 36.1–36.8; O2SAT 95–100
== END 2018-03-11 23:59 | disposition home or self-care (01) ==
LOC: INF 01:14
PROVIDERS: PCP Family Medicine; Visit Provider Family Medicine
DX: D46.9 Myelodysplastic syndrome, unspecified (principal)
CPT/HCPCS: 36415; 36430; 85027; 86850; 86900; 86901; 86920; 96365; 96366; P9016

== ENCOUNTER 2018-03-03 02:47 | Outpatient (REF) | payer MEDICARE, SELFPAY ==
[2018-03-03 03:01] LABS: Anion Gap 2.3 mmol/L (3-11); BUN 15 mg/dL (7-18); CO2 32.7 mmol/L (21.0-32.0); CREATININE 0.74 mg/dL (0.55-1.02); Calcium 8.3 mg/dL (8.5-10.1); Chloride 103 mmol/L (98-107); Glucose 175 mg/dL (70-100); Potassium 4.1 mmol/L (3.5-5.1); Sodium 138 mmol/L (136-145)
== END 2018-03-03 03:07 ==
LOC: LBN 02:47
PROVIDERS: PCP Family Medicine; Visit Provider Family Medicine
DX: N18.9 Chronic kidney disease, unspecified (principal); E87.70 Fluid overload, unspecified
CPT/HCPCS: 80048

== ENCOUNTER 2018-03-04 08:27 | Emergency (ER) | payer MEDICARE, SELFPAY ==
[2018-03-04] VITALS (82 sets, daily range): BP systolic 93–134; BP diastolic 33–72; PULSE 70–97; RESP 14–34; TEMP 36.6–36.9; O2SAT 92–100
--- NOTE | 2018-03-04 08:37 | DI.RAD_ITS ---
SYMPTOMS/DIAGNOSIS: SHORTNESS OF BREATH, ? ACUTE DISEASE AP AND LATERAL CHEST: Examination carried out on the stretcher. There is a region of consolidation involving the right lower lobe. Also, an area of infiltration is noted involving the right upper lobe. A moderate-sized associated pleural effusion is seen. The left lung is grossly clear. The heart is not enlarged. Calcification is noted in the mitral valve. Superimposed congestive failure could not be excluded.
--- NOTE | 2018-03-04 08:37 | DI.RAD_ITS ---
SYMPTOMS/DIAGNOSIS: SHORTNESS OF BREATH, ? ACUTE DISEASE AP AND LATERAL CHEST: Examination carried out on the stretcher. There is a region of consolidation involving the right lower lobe. Also, an area of infiltration is noted involving the right upper lobe. A moderate-sized associated pleural effusion is seen. The left lung is grossly clear. The heart is not enlarged. Calcification is noted in the mitral valve and mitral . Superimposed congestive failure could not be excluded.
--- NOTE | 2018-03-04 08:55 | W.ED.GENAD ---
Discharge Plan Disposition Patient Disposition: HOME Condition: Stable Discharge Details Chief Complaint: SOB Clinical Impression: Acute exacerbation of CHF (congestive heart failure), Pneumonia Reason For Visit: JANICEEX Primary Care Provider: Maude Dickey ED Provider: Lolly King Home Meds and New Rx's Prescriptions: New levofloxacin [Levaquin] 750 mg tablet 750 mg PO DAILY 4 Days Qty: 4 RF: 0 Continue nitroglycerin [Nitrostat] 0.4 MG tablet, sublingual 0.4 mg Sublingual Q5 MIN PRN X3 PRNQty: 1 RF: 0 pen needle, diabetic [BD Ultra-Fine Jessica Pen Needle] 1 EACH needle 1 ea Miscellaneous QID Qty: 400 RF: 4 levothyroxine 75 MCG tablet 75 mcg PO DAILY Qty: 90 RF: 12 sennosides [Senokot] 1 TAB tablet 1 tab PO BID PRN PRNQty: 60 RF: 12 aspirin 81 MG tablet,delayed release (DR/EC) 81 mg PO DAILY RF: 0 ostomy supplies [Stomahesive Protective] 28.3 GM powder 1 - 2 gm Topical TID PRNQty: 28.3 RF: 12 insulin aspart U-100 [Novolog Flexpen U-100 Insulin] 300 UNITS/3 ML insulin pen Sub-Q 0800,1200,1700 Qty: 5 RF: 0 acetaminophen [Tylenol] 325 MG tablet 2 tab PO PRN PRNRF: 0 insulin aspart U-100 [Novolog Flexpen U-100 Insulin] 300 UNITS/3 ML insulin pen 4 units Sub-Q AC RF: 0 insulin detemir U-100 [Levemir FlexTouch U-100 Insuln] 100 UNIT/ML insulin pen 10 unit SQ .BEDTIME RF: 0 furosemide [Lasix] 40 mg Tablet 40 mg PO ONCE RF: 0 miconazole nitrate 2 % Powder 1 applic TOPICAL BID RF: 0 magnesium hydroxide [Milk of Magnesia] 400 mg/5 mL Suspension 15 ml PO DAILY PRNRF: 0 sitagliptin [Januvia] 100 mg Tablet 100 mg PO DAILY RF: 0 Discharge Instructions Instructions: Heart Failure (ED), Pneumonia (ED) Additional Instructions: Restart your Lasix and spironolactone as directed. Continue the Levaquin and take your next dose starting tomorrow. Return immediately to the emergency department for any worsening or new concerning symptoms. Discharge Data Discharge Date/Time-TO BE ENTERED AT DEPARTURE: 03/04/18 16:12 Discharge Physician: Lolly King Medical Decision Making 77yo F w/ a h/o COPD, CHF, CAD, DM, myelodysplastic syndrome, chronic anemia w/ multiple transfusions who presents with shortness of breath this morning. Oxygen saturation 90s on 2 L. Patient oriented x2 at baseline. She is somewhat tachypneic RR 20s-30s. Afebrile. She has diminished breath sounds with crackles in bases bilaterally. She has 2+ pitting lower extremity edema. There was report that she had been on Lasix previously but not recently. Differential diagnosis includes acute CHF exacerbation, COPD, pneumonia, elect light abnormality, ACS. Will do a cardiac workup, chest x-ray and give a neb and dose of Lasix. EKG notes a rate of 94, sinus, no acute ST elevation or depression, QTC 473, QRS 114. Left anterior fascicular block and T wave inversion noted in aVL seen in previous EKG. 1130 --patient much more comfortable. Respiratory rate now within normal limits, O2 saturation 99% on room air. Chest x-ray notes acute CHF, may be underlying pneumonia. Due to myelodysplastic syndrome, patient has chronic leukopenia and anemia. White blood cell count 2.87, hemoglobin 9.8, platelet count 149. 4 bands. BNP 1339. Troponin 0.04. D/w Jimmy at rehab and pt received a blood transfusion 1 or 2 units a couple days ago which likely led to chf. He states it does not appear that pt is on lasix and that it was ca'ed. Will start IV abx to cover for HCAP. Allergy to PCN. Will order vanc/levaquin IV. The rehab will continue these antibiotics and lasix. They were notified of lab work, bandemia, and that as pt is in no respiratory distress, can continue this regimen at rehab and instructed to return here immediately if worse. 1450 -- D/w Dr. Cortez at rehab -states she is well familiar with patient and that her Lasix and spironolactone somehow dropped off her list, likely due to her recent blood transfusion and was not restarted. She states she will continue this as directed. Also discussed patient's poor peripheral access, and the possibility of losing her IV access if need to continue IV antibiotics. Agrees with plan for holding on IV antibiotics and treating pneumonia with p.o. Levaquin once daily. HPI General Mode of arrival: EMS. Date/Time Provider Initiated Documentation: 03/04/18 08:35. Limitations to Documentation: no limitations. Information obtained by: patient. HPI Narrative: Patient is a 69-year-old female with a history of diabetes, high cholesterol, hypothyroidism, myelodysplastic syndrome and chronic anemia w/ h/o multiple transfusions presents to the ED with a complaint of shortness of breath this morning. Per report patient had been on Lasix previously but not recently. Past medical history: Diabetes, coronary artery disease, hypertension, COPD, CHF, myelodysplastic syndrome, chronic anemia with multiple transfusions Surgical history: Cataract surgery, cholecystectomy, tubal ligation, bilateral partial salpingectomy Social history: Medications: See list Allergies: Aspirin, penicillin, ibuprofen, mupirocin Related Data Home Medications Medication Instructions Recorded Confirmed levothyroxine 75 mcg PO DAILY #90 tab-cap 04/21/16 03/04/18 nitroglycerin [Nitrostat] 0.4 mg SUBLINGUAL Q5 MIN PRN X3 04/21/16 03/04/18 PRN #1 bottle pen needle, diabetic [BD #400 ndl 04/21/16 Ultra-Fine Jessica Pen Needle] sennosides [Senokot] 1 tab PO BID PRN PRN #60 tab 08/05/16 03/04/18 aspirin 81 mg PO DAILY tab-cap 10/20/16 03/04/18 ostomy supplies [Stomahesive #28.3 gm 12/07/16 Protective] insulin aspart U-100 [Novolog See Protocol SUB-Q 0800,1200,1700 01/01/17 01/14/18 Flexpen U-100 Insulin] #5 pkg acetaminophen [Tylenol] 2 tab PO PRN PRN 03/15/17 03/04/18 insulin aspart U-100 [Novolog 4 units SUB-Q AC pen 03/18/17 03/04/18 Flexpen U-100 Insulin] insulin detemir U-100 [Levemir 10 unit SQ .BEDTIME 10/13/17 03/04/18 FlexTouch U-100 Insuln] furosemide [Lasix] 40 mg PO ONCE 03/04/18 03/04/18 levofloxacin [Levaquin] 750 mg PO DAILY 4 Days #4 tab 03/04/18 magnesium hydroxide [Milk of 15 ml PO DAILY PRN 03/04/18 03/04/18 Magnesia] miconazole nitrate 1 applic TOPICAL BID 03/04/18 03/04/18 sitagliptin [Januvia] 100 mg PO DAILY 03/04/18 03/04/18 Previous Rx's Medication Instructions Recorded insulin aspart U-100 [Novolog See Protocol SUB-Q 0800,1200,1700 01/01/17 Flexpen U-100 Insulin] #5 pkg insulin aspart U-100 [Novolog 4 units SUB-Q AC pen 03/18/17 Flexpen U-100 Insulin] levofloxacin [Levaquin] 750 mg PO DAILY 4 Days #4 tab 03/04/18 Allergies Allergy/AdvReac Type Severity Reaction Status Date / Time mupirocin Allergy Intermediate BLISTERS Unverified 03/04/18 08:44 Penicillins AdvReac Intermediate STOMACH Unverified 03/04/18 08:44 UPSET aspirin AdvReac Unknown GI Unverified 03/04/18 08:44 ibuprofen AdvReac Unknown Unverified 03/04/18 08:44 metformin AdvReac diarrhea Unverified 03/04/18 08:44 General Stated Complaint: SOB MONE: 2 Review of Systems Review of Systems All systems reviewed & are unremarkable except as noted in HPI and below Constitutional Denies chills, Denies excessive sweating, Denies fatigue, Denies fever(s), Denies weakness and Denies weight loss Eyes Reports system reviewed and no additional complaints, except as docu and Denies blurry vision ENT Denies vertigo, Denies dizziness, Denies otalgia, Denies nasal congestion, Denies sore throat and Denies throat swelling Cardiovascular Denies chest pain, Denies syncope, Denies rapid heart rate and Reports dyspnea Respiratory Reports dyspnea Gastrointestinal Denies abdominal pain, Denies diarrhea and Denies vomiting Genitourinary Denies hematuria, Denies dysuria and Denies flank pain Musculoskeletal Denies back pain and Denies joint swelling Integumentary/Breasts Denies lesions and Denies rash Neurologic Denies behavioral changes, Denies confusion, Denies vertigo, Denies dizziness, Denies syncope and Denies weakness Psychiatric Denies behavioral changes, Denies confusion and Denies depression Endocrine Denies excessive sweating and Denies fatigue Hematologic/Lymphatic Denies easy bruising and Denies lymphadenopathy Allergic/Immunologic Denies throat swelling [facility] Social History Smoking/Tobacco Use Status: Former Tobacco Use Surgical History Amputation Cholecystectomy Extraction of cataract (12/13/12) Ligation of fallopian tube bone marrow biopsy (11/05/15) Exam Const General: cooperative and no acute distress Orientation: alert and awake HENOR Head: normal to inspection Ears: hearing grossly normal bilaterally and external ears normal General nose exam: external nose normal Face and sinus: normal facial exam Mouth: mucous membranes dry Eyes General: appearance normal, both eyes and all related structures Eyelids: eyelids normal EOM: EOM intact bilaterally Neck Neck: normal visual inspection Lymphatic: no lymphadenopathy noted Chest Chest: normal inspection of the chest Resp Effort & Inspection: normal respiratory effort and labored (mild ) Auscultation: crackles bilaterally at the base and diminished lung sounds bilaterally Cardio Rate: regular rate Rhythm: regular rhythm GI Inspection: normal to inspection Palpation: soft, not firm, no guarding, no hepatosplenomegaly, no masses and nontender Auscultation: normal bowel sounds Back/Spine/Pelvis Back: no CVA tenderness Skin General skin exam: no rashes or lesions noted Neuro General: alert and awake Cognition: normal cognition Speech: speech normal Gait: normal gait Motor: muscle tone normal throughout Sensory Exam: no sensory deficits noted Extrem General: normal to inspection, full ROM and edema Laterality: bilateral (2+ pitting) Psych Appearance: grossly normal Mental Status: mental status grossly normal Speech and Movement: speech and movement normal Affect: normal affect Thought Process: normal Course Vital Signs Temperature 98.2 F 03/04/18 08:37 Pulse 89 03/04/18 08:37 Respiratory Rate 34 H 03/04/18 08:37 Blood Pressure 134/53 L 03/04/18 08:37 Pulse Oximetry 100 03/04/18 08:37 Temperature 98.2 F 03/04/18 08:37 Temperature Source Oral 03/04/18 08:37 Pulse 89 03/04/18 08:37 Respiratory Rate 34 H 03/04/18 08:41 Respiratory Effort Nasal Flaring 03/04/18 08:43 Respiratory Depth Deep 03/04/18 08:41 Respiratory Pattern Tachypnea 03/04/18 08:41 Blood Pressure 134/53 L 03/04/18 08:37 Blood Pressure Position Sitting 03/04/18 08:37 Pulse Oximetry 100 03/04/18 08:37 Oxygen Delivery Method Nasal Cannula 03/04/18 08:37 Oxygen Flow Rate 3 03/04/18 08:37 Pain Level 3 03/04/18 08:41
--- NOTE | 2018-03-04 09:02 | ED.GENADUL_ITS ---
Discharge Plan Disposition Patient Disposition: HOME Condition: Stable Discharge Details Chief Complaint: SOB Clinical Impression: Acute exacerbation of CHF (congestive heart failure), Pneumonia Reason For Visit: JANICEEX Primary Care Provider: Maude Dickey ED Provider: Lolly King Home Meds and New Rx's Prescriptions: New levofloxacin [Levaquin] 750 mg tablet 750 mg PO DAILY 4 Days Qty: 4 RF: 0 Continue nitroglycerin [Nitrostat] 0.4 MG tablet, sublingual 0.4 mg Sublingual Q5 MIN PRN X3 PRNQty: 1 RF: 0 pen needle, diabetic [BD Ultra-Fine Jessica Pen Needle] 1 EACH needle 1 ea Miscellaneous QID Qty: 400 RF: 4 levothyroxine 75 MCG tablet 75 mcg PO DAILY Qty: 90 RF: 12 sennosides [Senokot] 1 TAB tablet 1 tab PO BID PRN PRNQty: 60 RF: 12 aspirin 81 MG tablet,delayed release (DR/EC) 81 mg PO DAILY RF: 0 ostomy supplies [Stomahesive Protective] 28.3 GM powder 1 - 2 gm Topical TID PRNQty: 28.3 RF: 12 insulin aspart U-100 [Novolog Flexpen U-100 Insulin] 300 UNITS/3 ML insulin pen Sub-Q 0800,1200,1700 Qty: 5 RF: 0 acetaminophen [Tylenol] 325 MG tablet 2 tab PO PRN PRNRF: 0 insulin aspart U-100 [Novolog Flexpen U-100 Insulin] 300 UNITS/3 ML insulin pen 4 units Sub-Q AC RF: 0 insulin detemir U-100 [Levemir FlexTouch U-100 Insuln] 100 UNIT/ML insulin pen 10 unit SQ .BEDTIME RF: 0 furosemide [Lasix] 40 mg Tablet 40 mg PO ONCE RF: 0 miconazole nitrate 2 % Powder 1 applic TOPICAL BID RF: 0 magnesium hydroxide [Milk of Magnesia] 400 mg/5 mL Suspension 15 ml PO DAILY PRNRF: 0 sitagliptin [Januvia] 100 mg Tablet 100 mg PO DAILY RF: 0 Discharge Instructions Instructions: Heart Failure (ED), Pneumonia (ED) Additional Instructions: Restart your Lasix and spironolactone as directed. Continue the Levaquin and take your next dose starting tomorrow. Return immediately to the emergency department for any worsening or new concerning symptoms. Discharge Data Discharge Date/Time-TO BE ENTERED AT DEPARTURE: 03/04/18 16:12 Discharge Physician: Lolly King Medical Decision Making 77yo F w/ a h/o COPD, CHF, CAD, DM, myelodysplastic syndrome, chronic anemia w/ multiple transfusions who presents with shortness of breath this morning. Oxygen saturation 90s on 2 L. Patient oriented x2 at baseline. She is somewhat tachypneic RR 20s-30s. Afebrile. She has diminished breath sounds with crackles in bases bilaterally. She has 2+ pitting lower extremity edema. There was report that she had been on Lasix previously but not recently. Differential diagnosis includes acute CHF exacerbation, COPD, pneumonia, elect light abnormality, ACS. Will do a cardiac workup, chest x-ray and give a neb and dose of Lasix. EKG notes a rate of 94, sinus, no acute ST elevation or depression, QTC 473, QRS 114. Left anterior fascicular block and T wave inversion noted in aVL seen in previous EKG. 1130 --patient much more comfortable. Respiratory rate now within normal limits , O2 saturation 99% on room air. Chest x-ray notes acute CHF, may be underlying pneumonia. Due to myelodysplastic syndrome, patient has chronic leukopenia and anemia. White blood cell count 2.87, hemoglobin 9.8, platelet count 149. 4 bands. BNP 1339. Troponin 0.04. D/w Jimmy at rehab and pt received a blood transfusion 1 or 2 units a couple days ago which likely led to chf. He states it does not appear that pt is on lasix and that it was mi'ed. Will start IV abx to cover for HCAP. Allergy to PCN. Will order vanc/levaquin IV. The rehab will continue these antibiotics and lasix. They were notified of lab work, bandemia, and that as pt is in no respiratory distress, can continue this regimen at rehab and instructed to return here immediately if worse. 1450 -- D/w Dr. Cortez at rehab -states she is well familiar with patient and that her Lasix and spironolactone somehow dropped off her list, likely due to her recent blood transfusion and was not restarted. She states she will continue this as directed. Also discussed patient's poor peripheral access, and the possibility of losing her IV access if need to continue IV antibiotics. Agrees with plan for holding on IV antibiotics and treating pneumonia with p.o. Levaquin once daily. HPI General Mode of arrival: EMS . Date/Time Provider Initiated Documentation: 03/04/18 08:35 . Limitations to Documentation: no limitations . Information obtained by: patient . HPI Narrative: Patient is a 69-year-old female with a history of diabetes, high cholesterol, hypothyroidism, myelodysplastic syndrome and chronic anemia w/ h/o multiple transfusions presents to the ED with a complaint of shortness of breath this morning. Per report patient had been on Lasix previously but not recently. Past medical history: Diabetes, coronary artery disease, hypertension, COPD, CHF , myelodysplastic syndrome, chronic anemia with multiple transfusions Surgical history: Cataract surgery, cholecystectomy, tubal ligation, bilateral partial salpingectomy Social history: Medications: See list Allergies: Aspirin, penicillin, ibuprofen, mupirocin Related Data Home Medications Medication Instructions Recorded Confirmed levothyroxine 75 mcg PO DAILY #90 tab-cap 04/21/16 03/04/18 nitroglycerin [Nitrostat] 0.4 mg SUBLINGUAL Q5 MIN PRN X3 04/21/16 03/04/18 PRN #1 bottle pen needle, diabetic [BD #400 ndl 04/21/16 Ultra-Fine Jessica Pen Needle] sennosides [Senokot] 1 tab PO BID PRN PRN #60 tab 08/05/16 03/04/18 aspirin 81 mg PO DAILY tab-cap 10/20/16 03/04/18 ostomy supplies [Stomahesive #28.3 gm 12/07/16 Protective] insulin aspart U-100 [Novolog See Protocol SUB-Q 0800,1200,1700 01/01/17 Flexpen U-100 Insulin] #5 pkg acetaminophen [Tylenol] 2 tab PO PRN PRN 03/15/17 03/04/18 insulin aspart U-100 [Novolog 4 units SUB-Q AC pen 03/18/17 03/04/18 Flexpen U-100 Insulin] insulin detemir U-100 [Levemir 10 unit SQ .BEDTIME 10/13/17 03/04/18 FlexTouch U-100 Insuln] furosemide [Lasix] 40 mg PO ONCE 03/04/18 03/04/18 levofloxacin [Levaquin] 750 mg PO DAILY 4 Days #4 tab 03/04/18 magnesium hydroxide [Milk of 15 ml PO DAILY PRN 03/04/18 03/04/18 Magnesia] miconazole nitrate 1 applic TOPICAL BID 03/04/18 03/04/18 sitagliptin [Januvia] 100 mg PO DAILY 03/04/18 03/04/18 Previous Rx's Medication Instructions Recorded insulin aspart U-100 [Novolog See Protocol SUB-Q 0800,1200,1700 01/01/17 Flexpen U-100 Insulin] #5 pkg insulin aspart U-100 [Novolog 4 units SUB-Q AC pen 03/18/17 Flexpen U-100 Insulin] levofloxacin [Levaquin] 750 mg PO DAILY 4 Days #4 tab 03/04/18 Allergies Allergy/AdvReac Type Severity Reaction Status Date / Time mupirocin Allergy Intermediate BLISTERS Unverified 03/04/18 08:44 Penicillins AdvReac Intermediate STOMACH Unverified 03/04/18 08:44 UPSET aspirin AdvReac Unknown GI Unverified 03/04/18 08:44 ibuprofen AdvReac Unknown Unverified 03/04/18 08:44 metformin AdvReac diarrhea Unverified 03/04/18 08:44 General Stated Complaint: SOB MONE: 2 Review of Systems Review of Systems All systems reviewed & are unremarkable except as noted in HPI and below Constitutional Denies chills, Denies excessive sweating, Denies fatigue, Denies fever(s), Denies weakness and Denies weight loss Eyes Reports system reviewed and no additional complaints, except as docu and Denies blurry vision ENT Denies vertigo, Denies dizziness, Denies otalgia, Denies nasal congestion, Denies sore throat and Denies throat swelling Cardiovascular Denies chest pain, Denies syncope, Denies rapid heart rate and Reports dyspnea Respiratory Reports dyspnea Gastrointestinal Denies abdominal pain, Denies diarrhea and Denies vomiting Genitourinary Denies hematuria, Denies dysuria and Denies flank pain Musculoskeletal Denies back pain and Denies joint swelling Integumentary/Breasts Denies lesions and Denies rash Neurologic Denies behavioral changes, Denies confusion, Denies vertigo, Denies dizziness, Denies syncope and Denies weakness Psychiatric Denies behavioral changes, Denies confusion and Denies depression Endocrine Denies excessive sweating and Denies fatigue Hematologic/Lymphatic Denies easy bruising and Denies lymphadenopathy Allergic/Immunologic Denies throat swelling PENDING SALE TO [facility] Social History Smoking/Tobacco Use Status: Former Tobacco Use Surgical History Amputation Cholecystectomy Extraction of cataract (12/13/12) Ligation of fallopian tube bone marrow biopsy (11/05/15) Exam Const General: cooperative and no acute distress Orientation: alert and awake HENSD Head: normal to inspection Ears: hearing grossly normal bilaterally and external ears normal General nose exam: external nose normal Face and sinus: normal facial exam Mouth: mucous membranes dry Eyes General: appearance normal, both eyes and all related structures Eyelids: eyelids normal EOM: EOM intact bilaterally Neck Neck: normal visual inspection Lymphatic: no lymphadenopathy noted Chest Chest: normal inspection of the chest Resp Effort & Inspection: normal respiratory effort and labored (mild ) Auscultation: crackles bilaterally at the base and diminished lung sounds bilaterally Cardio Rate: regular rate Rhythm: regular rhythm GI Inspection: normal to inspection Palpation: soft, not firm, no guarding, no hepatosplenomegaly, no masses and nontender Auscultation: normal bowel sounds Back/Spine/Pelvis Back: no CVA tenderness Skin General skin exam: no rashes or lesions noted Neuro General: alert and awake Cognition: normal cognition Speech: speech normal Gait: normal gait Motor: muscle tone normal throughout Sensory Exam: no sensory deficits noted Extrem General: normal to inspection, full ROM and edema Laterality: bilateral (2+ pitting) Psych Appearance: grossly normal Mental Status: mental status grossly normal Speech and Movement: speech and movement normal Affect: normal affect Thought Process: normal Course Vital Signs Temperature 98.2 F 03/04/18 08:37 Pulse 89 03/04/18 08:37 Respiratory Rate 34 H 03/04/18 08:37 Blood Pressure 134/53 L 03/04/18 08:37 Pulse Oximetry 100 03/04/18 08:37 Temperature 98.2 F 03/04/18 08:37 Temperature Source Oral 03/04/18 08:37 Pulse 89 03/04/18 08:37 Respiratory Rate 34 H 03/04/18 08:41 Respiratory Effort Nasal Flaring 03/04/18 08:43 Respiratory Depth Deep 03/04/18 08:41 Respiratory Pattern Tachypnea 03/04/18 08:41 Blood Pressure 134/53 L 03/04/18 08:37 Blood Pressure Position Sitting 03/04/18 08:37 Pulse Oximetry 100 03/04/18 08:37 Oxygen Delivery Method Nasal Cannula 03/04/18 08:37 Oxygen Flow Rate 3 03/04/18 08:37 Pain Level 3 03/04/18 08:41
[2018-03-04 09:10] LABS: HCT 32.1 % (36.0-46.0); HGB 9.8 g/dL (12.0-15.5); Mean Corp. HGB Concentration 30.5 g/dL (32.0-36.0); RBC 3.38 m/cumm (4.00-5.20); RBC Distribution Width 19.4 % (11.7-14.6); White Blood Cell Count 2.87 k/cumm (4.4-10.8)
[2018-03-04 09:32] LABS: ALT 19 U/L (12-78); AST 24 U/L (15-37); Albumin 2.7 g/dL (3.4-5.0); Alkaline Phosphatase 125 U/L (46-116); Anion Gap 6.8 mmol/L (3-11); BUN 16 mg/dL (7-18); Bilirubin, Total 0.6 mg/dL (0.2-1.0); CO2 31.2 mmol/L (21.0-32.0); CREATININE 0.77 mg/dL (0.55-1.02); Calcium 8.4 mg/dL (8.5-10.1); Chloride 102 mmol/L (98-107); Glucose 237 mg/dL (70-100); Magnesium 1.9 mg/dL (1.8-2.4); NT-proBNP 1339 pg/mL; Potassium 3.8 mmol/L (3.5-5.1); Sodium 140 mmol/L (136-145); Total Protein 6.9 g/dL (6.4-8.2); Troponin I 0.04 ng/mL (0.00-0.06)
[2018-03-04 09:48] LABS: Absolute Basophil Count 0.09 k/cumm (0.0-0.2); Absolute Lymphocyte Count 0.57 k/cumm (1.2-3.4); Absolute Monocyte Count 0.11 k/cumm (0.11-0.7); Diff Comment Manual Differential; Platelet Count 149 x1000/uL (130-400)
[2018-03-04 09:49] LABS: Anisocytosis 2+; Hypochromasia 1+; Macrocytosis 1+; Microcytosis 1+; Polychromasia Present
[2018-03-04 09:50] LABS: Poikilocytes 1+
[2018-03-04] MEDS: Albuterol/Ipratropium 3 ML UPD VIAL UPD (10:02)
[2018-03-04] MEDS: Furosemide 40 MG/4 ML VIAL IVP (10:03)
[2018-03-04] MEDS: Normal Saline 1,000 ML 100 ML IV (12:10)
[2018-03-04] MEDS: VANCOMYCIN 1,000 MG in Normal Saline 250 ML 250 MG IV (12:11)
[2018-03-04] MEDS: LEVOFLOXACIN 750 MG/150 ML BAG 150 MG IVPB (14:16)
--- NOTE | 2018-03-04 16:07 | DI.VRAD_ITS ---
EXAM: XR Chest, 2 Views EXAM DATE/TIME: 03/04/2018 3:18 PM CLINICAL HISTORY: 77 years old, female; Signs and symptoms; Shortness of breath TECHNIQUE: XR of the chest, 2 views. COMPARISON: CR CHEST 2 VIEWS PA,LAT 03/15/2017 3:48 AM FINDINGS: Lungs: Hazy attenuation is seen in the left lung base and retrocardiac left lower lobe region. Findings are seen in the left lower lobe on the lateral view. The finding is similar to the prior study. Pleural space: Unremarkable. No pleural effusion. No pneumothorax. Heart/Mediastinum: Unremarkable. No cardiomegaly. Bones/joints: Chronic osseous changes. Diffuse osteopenia. IMPRESSION: Persistent hazy attenuation in the left lower lobe probably from scarring, but superimposed consolidation is not excluded. Dictated and Authenticated by: Kenan Price MD. Ordering:BERTA GOSS MD
== END 2018-03-04 16:12 | disposition home or self-care (01) ==
PROVIDERS: Emergency Provider Physician Assistant; PCP Family Medicine
DX: I50.9 Heart failure, unspecified (principal); J18.9 Pneumonia, unspecified organism; Y95 Nosocomial condition; E11.9 Type 2 diabetes mellitus without complications; Z79.4 Long term (current) use of insulin; J44.9 Chronic obstructive pulmonary disease, unspecified; Z87.891 Personal history of nicotine dependence
CPT/HCPCS: 36415; 80053; 93005; 94640; 96361; 96365; 96366; 96367; 96375; 99285; 71046; 83735; 83880; 84484; 85025; 93010; J1940; J1956; J7620

== ENCOUNTER 2018-03-07 09:15 | Outpatient (REF) | payer MEDICARE, SELFPAY ==
[2018-03-07 10:44] LABS: Anion Gap 5.8 mmol/L (3-11); BUN 10 mg/dL (7-18); CO2 34.2 mmol/L (21.0-32.0); CREATININE 0.81 mg/dL (0.55-1.02); Calcium 8.2 mg/dL (8.5-10.1); Chloride 102 mmol/L (98-107); Glucose 156 mg/dL (70-100); Potassium 3.3 mmol/L (3.5-5.1); Sodium 142 mmol/L (136-145)
[2018-03-07 11:49] LABS: HCT 26.2 % (36.0-46.0)
== END 2018-03-07 09:35 ==
LOC: LBN 09:15
PROVIDERS: PCP Family Medicine; Visit Provider Family Medicine
DX: D64.9 Anemia, unspecified (principal); I10 Essential (primary) hypertension; N18.9 Chronic kidney disease, unspecified
CPT/HCPCS: 80048; 85014; 85018

== ENCOUNTER 2018-03-11 14:33 | Outpatient (REF) | payer MEDICARE, SELFPAY ==
[2018-03-11 16:05] LABS: Potassium 3.5 mmol/L (3.5-5.1)
== END 2018-03-11 14:53 ==
LOC: LBN 14:33
PROVIDERS: PCP Family Medicine; Visit Provider Family Medicine
DX: E87.6 Hypokalemia (principal)
CPT/HCPCS: 84132

== ENCOUNTER 2018-03-15 16:31 | Outpatient (REF) | payer MEDICARE, SELFPAY ==
[2018-03-15 17:27] LABS: Anion Gap 6.3 mmol/L (3-11); BUN 17 mg/dL (7-18); CO2 34.7 mmol/L (21.0-32.0); CREATININE 0.98 mg/dL (0.55-1.02); Calcium 8.7 mg/dL (8.5-10.1); Chloride 96 mmol/L (98-107); Estimated GFR 54.89 (mL/min/1.73m2); Glucose 195 mg/dL (70-100); Potassium 3.7 mmol/L (3.5-5.1); Sodium 137 mmol/L (136-145)
[2018-03-15 18:33] LABS: HCT 29.3 % (36.0-46.0)
== END 2018-03-15 16:51 ==
LOC: LBN 16:31
PROVIDERS: PCP Family Medicine; Visit Provider Family Medicine
DX: N18.9 Chronic kidney disease, unspecified (principal); D61.9 Aplastic anemia, unspecified; E87.6 Hypokalemia
CPT/HCPCS: 80048; 84132; 85014; 85018

== ENCOUNTER 2018-03-23 10:45 | Outpatient (REF) | payer MEDICARE, SELFPAY ==
[2018-03-23 11:03] LABS: HCT 24.4 % (36.0-46.0); HGB 7.5 g/dL (12.0-15.5)
[2018-03-23 11:06] LABS: BUN 26 mg/dL (7-18); CREATININE 0.91 mg/dL (0.55-1.02); Calcium 8.5 mg/dL (8.5-10.1); Chloride 98 mmol/L (98-107); Estimated GFR 59.79 (mL/min/1.73m2); Glucose 135 mg/dL (70-100); Potassium 4.4 mmol/L (3.5-5.1); Sodium 137 mmol/L (136-145)
== END 2018-03-23 11:05 ==
LOC: LBN 10:45
PROVIDERS: PCP Family Medicine; Visit Provider Family Medicine
DX: D46.9 Myelodysplastic syndrome, unspecified (principal); D64.9 Anemia, unspecified; N18.9 Chronic kidney disease, unspecified; E11.9 Type 2 diabetes mellitus without complications; E78.5 Hyperlipidemia, unspecified
CPT/HCPCS: 36415; 80048; 86850; 86900; 86901; 86920; 85014; 85018

== ENCOUNTER 2018-03-24 01:54 | Outpatient (RCR) | payer MEDICARE, MEDICAID, SELFPAY ==
[2018-03-24] VITALS (11 sets, daily range): BP systolic 113–127; BP diastolic 47–60; PULSE 66–74; RESP 14–18; TEMP 36.4–36.7; O2SAT 95–100
[2018-03-24] MEDS: Normal Saline Flush 10 ML SYR IVP (09:04)
[2018-03-24] MEDS: Furosemide 40 MG TAB PO (10:30)
== END 2018-04-11 23:59 | disposition home or self-care (01) ==
LOC: INF 01:54
PROVIDERS: PCP Family Medicine; Visit Provider Family Medicine
DX: D46.9 Myelodysplastic syndrome, unspecified (principal)
CPT/HCPCS: 36415; 36430; 86850; 86900; 86901; 86920; P9016

== ENCOUNTER 2018-04-04 17:24 | Outpatient (REF) | payer MEDICARE, SELFPAY ==
[2018-04-04 18:50] LABS: HCT 28.2 % (36.0-46.0); HGB 8.8 g/dL (12.0-15.5)
== END 2018-04-04 17:44 ==
LOC: LBN 17:24
PROVIDERS: PCP Family Medicine; Visit Provider Family Medicine
DX: D63.8 Anemia in other chronic diseases classified elsewhere (principal); I10 Essential (primary) hypertension; E11.9 Type 2 diabetes mellitus without complications; E78.5 Hyperlipidemia, unspecified
CPT/HCPCS: 85014; 85018

== ENCOUNTER 2018-04-11 13:54 | Outpatient (REF) | payer MEDICARE, SELFPAY ==
[2018-04-11 14:30] LABS: HGB 7.5 g/dL (12.0-15.5)
[2018-04-11 14:39] LABS: Sodium 137 mmol/L (136-145)
== END 2018-04-11 14:14 ==
LOC: LBN ADD 13:54
PROVIDERS: PCP Family Medicine; Visit Provider Family Medicine
DX: D63.8 Anemia in other chronic diseases classified elsewhere (principal); D61.89 Other specified aplastic anemias and other bone marrow failure syndromes; E03.9 Hypothyroidism, unspecified; I10 Essential (primary) hypertension
CPT/HCPCS: 84295; 85014; 85018

== ENCOUNTER 2018-04-14 16:29 | Outpatient (REF) | payer MEDICARE, SELFPAY ==
[2018-04-14 17:08] LABS: HCT 30.1 % (36.0-46.0); HGB 9.7 g/dL (12.0-15.5); Mean Corp. HGB Concentration 32.2 g/dL (32.0-36.0); Mean Corpuscular Hemoglobin 30.3 pg (27.0-33.0); Mean Corpuscular Volume 94.1 fL (80-95); RBC Distribution Width 18.2 % (11.7-14.6); White Blood Cell Count 2.37 k/cumm (4.4-10.8)
[2018-04-14 17:28] LABS: Anion Gap 5.8 mmol/L (3-11); BUN 25 mg/dL (7-18); CO2 31.2 mmol/L (21.0-32.0); CREATININE 1.09 mg/dL (0.55-1.02); Calcium 8.6 mg/dL (8.5-10.1); Chloride 98 mmol/L (98-107); Estimated GFR 48.55 (mL/min/1.73m2); Glucose 373 mg/dL (70-100); Potassium 4.4 mmol/L (3.5-5.1); Sodium 135 mmol/L (136-145)
[2018-04-14 18:10] LABS: Absolute Eosinophil Count 0.05 k/cumm (0.0-0.7); Absolute Monocyte Count 0.12 k/cumm (0.11-0.7); Atypical Lymphocytes % 2
[2018-04-14 18:11] LABS: Anisocytosis 2+; Diff Comment Manual Differential; Poikilocytes 2+; Polychromasia Present
== END 2018-04-14 16:49 ==
LOC: LBN 16:29
PROVIDERS: PCP Family Medicine; Visit Provider Family Medicine
DX: D64.9 Anemia, unspecified (principal)
CPT/HCPCS: 80048; 85025

== ENCOUNTER 2018-04-19 18:20 | Outpatient (REF) | payer MEDICARE, SELFPAY ==
[2018-04-19 18:57] LABS: HCT 30.5 % (36.0-46.0); HGB 9.3 g/dL (12.0-15.5)
[2018-04-19 19:49] LABS: Anion Gap 5.8 mmol/L (3-11); BUN 25 mg/dL (7-18); CO2 32.2 mmol/L (21.0-32.0); CREATININE 1.07 mg/dL (0.55-1.02); Calcium 8.8 mg/dL (8.5-10.1); Chloride 100 mmol/L (98-107); Glucose 171 mg/dL (70-100); Potassium 4.5 mmol/L (3.5-5.1); Sodium 138 mmol/L (136-145)
== END 2018-04-19 18:40 ==
LOC: LBN 18:20
PROVIDERS: PCP Family Medicine; Visit Provider Family Medicine
DX: D46.9 Myelodysplastic syndrome, unspecified (principal); D63.8 Anemia in other chronic diseases classified elsewhere
CPT/HCPCS: 80048; 85014; 85018

== ENCOUNTER 2018-04-22 10:05 | Outpatient (REF) | payer MEDICARE, SELFPAY ==
[2018-04-22 10:45] LABS: HCT 28.5 % (36.0-46.0); HGB 8.8 g/dL (12.0-15.5)
[2018-04-22 10:51] LABS: Potassium 4.1 mmol/L (3.5-5.1)
== END 2018-04-22 10:25 ==
LOC: LBN 10:05
PROVIDERS: PCP Family Medicine; Visit Provider Family Medicine
DX: D61.89 Other specified aplastic anemias and other bone marrow failure syndromes (principal); D46.9 Myelodysplastic syndrome, unspecified; E03.9 Hypothyroidism, unspecified; I10 Essential (primary) hypertension
CPT/HCPCS: 84132; 85014; 85018

== ENCOUNTER 2018-04-25 17:26 | Outpatient (REF) | payer MEDICARE, SELFPAY ==
[2018-04-25 18:05] LABS: HCT 28.2 % (36.0-46.0)
[2018-04-25 18:29] LABS: Potassium 3.7 mmol/L (3.5-5.1)
== END 2018-04-25 17:46 ==
LOC: LBO 17:26
PROVIDERS: PCP Family Medicine; Visit Provider Family Medicine
DX: D61.89 Other specified aplastic anemias and other bone marrow failure syndromes (principal)
CPT/HCPCS: 84132; 85014; 85018

== ENCOUNTER 2018-05-02 12:05 | Outpatient (REF) | payer MEDICARE, SELFPAY ==
[2018-05-02 13:15] LABS: HCT 24.3 % (36.0-46.0); HGB 7.3 g/dL (12.0-15.5)
== END 2018-05-02 12:25 ==
LOC: LBN 12:05
PROVIDERS: PCP Family Medicine; Visit Provider Family Medicine
DX: D64.9 Anemia, unspecified (principal)
CPT/HCPCS: 85014; 85018

== ENCOUNTER 2018-05-03 11:13 | Outpatient (CLI) | payer MEDICARE, SELFPAY | END 2018-05-03 11:33 | PROVIDERS: PCP Family Medicine; Visit Provider Family Medicine | DX: D63.8 Anemia in other chronic diseases classified elsewhere (principal); D46.9 Myelodysplastic syndrome, unspecified | CPT/HCPCS: 36415; 86850; 86900; 86901; 86920 ==

== ENCOUNTER 2018-05-04 01:54 | Outpatient (RCR) | payer MEDICARE, MEDICAID, SELFPAY ==
[2018-04-13] VITALS (9 sets, daily range): BP systolic 100–117; BP diastolic 44–52; PULSE 70–76; RESP 18; TEMP 36.5–36.7; O2SAT 98–99
[2018-04-13] MEDS: Normal Saline Flush 10 ML SYR IVP (08:10)
[2018-04-13] MEDS: Furosemide 40 MG TAB PO (12:56)
[2018-05-04] VITALS (12 sets, daily range): BP systolic 96–140; BP diastolic 46–56; PULSE 74–81; RESP 18–22; TEMP 36–37; O2SAT 90–98
[2018-05-04] MEDS: Normal Saline Flush 10 ML SYR IVP (10:10)
[2018-05-04] MEDS: Furosemide 40 MG TAB PO (10:10)
== END 2018-05-12 23:59 | disposition home or self-care (01) ==
LOC: INF 01:54
PROVIDERS: PCP Family Medicine; Visit Provider Family Medicine
DX: D46.9 Myelodysplastic syndrome, unspecified (principal)
CPT/HCPCS: 36415; 36430; 86850; 86900; 86901; 86920; P9016

== ENCOUNTER 2018-05-09 11:08 | Outpatient (REF) | payer MEDICARE, SELFPAY ==
[2018-05-09 12:06] LABS: HCT 26.2 % (36.0-46.0); HGB 8.2 g/dL (12.0-15.5)
== END 2018-05-09 11:28 ==
LOC: LBN 11:08
PROVIDERS: PCP Family Medicine; Visit Provider Family Medicine
DX: D61.89 Other specified aplastic anemias and other bone marrow failure syndromes (principal); E03.9 Hypothyroidism, unspecified; E27.40 Unspecified adrenocortical insufficiency; D46.9 Myelodysplastic syndrome, unspecified; E11.9 Type 2 diabetes mellitus without complications; E03.8 Other specified hypothyroidism; I10 Essential (primary) hypertension
CPT/HCPCS: 84132; 85014; 85018

== ENCOUNTER 2018-05-16 09:22 | Outpatient (REF) | payer MEDICARE, SELFPAY ==
[2018-05-16 11:11] LABS: HCT 24.1 % (36.0-46.0); HGB 7.3 g/dL (12.0-15.5)
== END 2018-05-16 09:42 ==
LOC: LBN 09:22
PROVIDERS: PCP Family Medicine; Visit Provider Family Medicine
DX: D64.9 Anemia, unspecified (principal)
CPT/HCPCS: 85014; 85018

== ENCOUNTER 2018-05-16 13:02 | Outpatient (CLI) | payer MEDICARE, SELFPAY | END 2018-05-16 13:22 | PROVIDERS: PCP Family Medicine; Visit Provider Family Medicine | DX: D64.9 Anemia, unspecified (principal) | CPT/HCPCS: 36415; 86850; 86900; 86901; 86920 ==

== ENCOUNTER 2018-05-23 15:24 | Outpatient (CLI) | payer MEDICARE, SELFPAY ==
[2018-05-23 18:06] LABS: Potassium 4.5 mmol/L (3.5-5.1)
[2018-05-23 18:38] LABS: HCT 30.7 % (36.0-46.0); HGB 9.3 g/dL (12.0-15.5)
== END 2018-05-23 15:44 ==
PROVIDERS: PCP Family Medicine; Visit Provider Family Medicine
DX: D61.89 Other specified aplastic anemias and other bone marrow failure syndromes (principal); E87.6 Hypokalemia
CPT/HCPCS: 84132; 85014; 85018

== ENCOUNTER 2018-05-30 11:08 | Outpatient (REF) | payer MEDICARE, SELFPAY ==
[2018-05-30 12:59] LABS: HCT 26.4 % (36.0-46.0); HGB 8.1 g/dL (12.0-15.5)
[2018-05-30 13:02] LABS: Potassium 4.1 mmol/L (3.5-5.1)
== END 2018-05-30 11:28 ==
LOC: LBN 11:08
PROVIDERS: PCP Family Medicine; Visit Provider Family Medicine
DX: D61.89 Other specified aplastic anemias and other bone marrow failure syndromes (principal)
CPT/HCPCS: 84132; 85014; 85018

== ENCOUNTER 2018-06-06 13:11 | Outpatient (REF) | payer MEDICARE, SELFPAY ==
[2018-06-06 14:16] LABS: HCT 25.1 % (36.0-46.0); HGB 7.6 g/dL (12.0-15.5)
[2018-06-06 14:54] LABS: Potassium 4.3 mmol/L (3.5-5.1)
== END 2018-06-06 13:31 ==
LOC: LBN 13:11
PROVIDERS: PCP Family Medicine; Visit Provider Family Medicine
DX: D63.8 Anemia in other chronic diseases classified elsewhere (principal); D46.9 Myelodysplastic syndrome, unspecified; I10 Essential (primary) hypertension; E11.9 Type 2 diabetes mellitus without complications
CPT/HCPCS: 84132; 85014; 85018

== ENCOUNTER 2018-06-08 00:33 | Outpatient (RCR) | payer MEDICARE, MEDICAID, SELFPAY ==
[2018-05-17] VITALS (10 sets, daily range): BP systolic 106–118; BP diastolic 52–58; PULSE 58–75; RESP 18–22; TEMP 36.4–36.7; O2SAT 95–99
[2018-05-17] MEDS: Normal Saline Flush 10 ML SYR IVP (08:35)
[2018-05-17] MEDS: Furosemide 40 MG TAB PO (09:32)
[2018-06-08] VITALS (11 sets, daily range): BP systolic 92–111; BP diastolic 40–55; PULSE 60–76; RESP 17–20; TEMP 36.4–36.8; O2SAT 98–100
[2018-06-08] MEDS: Normal Saline Flush 10 ML SYR IVP (08:30)
[2018-06-08] MEDS: Furosemide 40 MG TAB PO (10:39)
== END 2018-06-09 23:59 | disposition home or self-care (01) ==
LOC: INF 00:33
PROVIDERS: PCP Family Medicine; Visit Provider Internal Medicine
DX: D46.9 Myelodysplastic syndrome, unspecified (principal)
CPT/HCPCS: 36415; 36430; 86850; 86900; 86901; 86920; P9016

== ENCOUNTER 2018-06-13 12:30 | Outpatient (REF) | payer MEDICARE, SELFPAY ==
[2018-06-13 13:52] LABS: Absolute Neutrophil Count 1.11 k/cumm (1.2-6.7); HCT 30.1 % (36.0-46.0); HGB 9.1 g/dL (12.0-15.5); Mean Corp. HGB Concentration 30.2 g/dL (32.0-36.0); Mean Corpuscular Hemoglobin 30.8 pg (27.0-33.0); RBC 2.95 m/cumm (4.00-5.20); RBC Distribution Width 16.1 % (11.7-14.6); White Blood Cell Count 2.14 k/cumm (4.4-10.8)
[2018-06-13 14:19] LABS: Anion Gap 5.2 mmol/L (3-11); BUN 25 mg/dL (7-18); CO2 32.8 mmol/L (21.0-32.0); CREATININE 0.93 mg/dL (0.55-1.02); Calcium 8.5 mg/dL (8.5-10.1); Chloride 101 mmol/L (98-107); Estimated GFR 58.31 (mL/min/1.73m2); Glucose 214 mg/dL (70-100); Platelet Count 139 x1000/uL (130-400); Potassium 4.5 mmol/L (3.5-5.1); Sodium 139 mmol/L (136-145)
[2018-06-13 14:39] LABS: Absolute Monocyte Count 0.24 k/cumm (0.11-0.7); Atypical Lymphocytes % 0; Nucleated RBC 1 /100WBC
[2018-06-13 14:40] LABS: Absolute Lymphocyte Count 0.77 k/cumm (1.2-3.4); Anisocytosis 2+; Diff Comment Manual Differential
[2018-06-13 14:41] LABS: Poikilocytes 2+; Polychromasia Present
== END 2018-06-13 12:50 ==
LOC: LBN 12:30
PROVIDERS: PCP Family Medicine; Visit Provider Family Medicine
DX: D64.9 Anemia, unspecified (principal); E87.6 Hypokalemia; E11.9 Type 2 diabetes mellitus without complications
CPT/HCPCS: 80048; 85025

== ENCOUNTER 2018-06-20 12:21 | Outpatient (REF) | payer MEDICARE, SELFPAY ==
[2018-06-20 13:24] LABS: HCT 27.4 % (36.0-46.0); HGB 8.5 g/dL (12.0-15.5)
[2018-06-20 14:07] LABS: Potassium 3.8 mmol/L (3.5-5.1)
== END 2018-06-20 12:41 ==
LOC: LBN 12:21
PROVIDERS: PCP Family Medicine; Visit Provider Family Medicine
DX: D64.9 Anemia, unspecified (principal); I10 Essential (primary) hypertension; E78.5 Hyperlipidemia, unspecified; E11.9 Type 2 diabetes mellitus without complications
CPT/HCPCS: 84132; 85014; 85018

== ENCOUNTER 2018-06-27 11:42 | Outpatient (REF) | payer MEDICARE, SELFPAY ==
[2018-06-27 13:08] LABS: Potassium 4.3 mmol/L (3.5-5.1)
== END 2018-06-27 12:02 ==
LOC: LBN 11:42
PROVIDERS: PCP Family Medicine; Visit Provider Family Medicine
DX: D64.9 Anemia, unspecified (principal); E87.6 Hypokalemia
CPT/HCPCS: 84132

== ENCOUNTER 2018-07-04 13:01 | Outpatient (REF) | payer MEDICARE, SELFPAY ==
[2018-07-04 14:12] LABS: HCT 23.1 % (36.0-46.0); HGB 7.1 g/dL (12.0-15.5)
[2018-07-04 14:22] LABS: Potassium 4.6 mmol/L (3.5-5.1)
== END 2018-07-04 13:21 ==
LOC: LBN 13:01
PROVIDERS: PCP Family Medicine; Visit Provider Family Medicine
DX: D63.8 Anemia in other chronic diseases classified elsewhere (principal); E03.9 Hypothyroidism, unspecified; D46.9 Myelodysplastic syndrome, unspecified; E11.9 Type 2 diabetes mellitus without complications; E78.5 Hyperlipidemia, unspecified; F41.9 Anxiety disorder, unspecified; G93.41 Metabolic encephalopathy
CPT/HCPCS: 36415; 86850; 86900; 86901; 86920; 84132; 85014; 85018

== ENCOUNTER 2018-07-05 01:48 | Outpatient (RCR) | payer MEDICARE, MEDICAID, SELFPAY ==
[2018-07-05] VITALS (9 sets, daily range): BP systolic 90–119; BP diastolic 41–55; PULSE 66–77; RESP 18; TEMP 36–36.5; O2SAT 98–100
[2018-07-05] MEDS: Normal Saline Flush 10 ML SYR IVP (08:00)
[2018-07-05] MEDS: Furosemide 20 MG TAB 40 MG PO (10:50)
== END 2018-07-10 23:59 | disposition home or self-care (01) ==
LOC: INF 01:48
PROVIDERS: PCP Family Medicine; Visit Provider Family Medicine
DX: D46.9 Myelodysplastic syndrome, unspecified (principal)
CPT/HCPCS: 36415; 36430; 86850; 86900; 86901; 86920; P9016

== ENCOUNTER 2018-07-11 18:42 | Outpatient (REF) | payer MEDICARE, SELFPAY ==
[2018-07-11 18:47] LABS: HCT 29.3 % (36.0-46.0); HGB 9.1 g/dL (12.0-15.5)
== END 2018-07-11 19:02 ==
LOC: LBN 18:42
PROVIDERS: PCP Family Medicine; Visit Provider Family Medicine
DX: D64.9 Anemia, unspecified (principal)
CPT/HCPCS: 85014; 85018

== ENCOUNTER 2018-07-14 14:40 | Outpatient (REF) | payer MEDICARE, SELFPAY ==
[2018-07-14 16:10] LABS: BUN 30 mg/dL (7-18); CREATININE 1.07 mg/dL (0.55-1.02); Calcium 8.8 mg/dL (8.5-10.1); Chloride 97 mmol/L (98-107); Glucose 199 mg/dL (70-100); Potassium 4.1 mmol/L (3.5-5.1); Sodium 135 mmol/L (136-145)
== END 2018-07-14 15:00 ==
LOC: LBN 14:40
PROVIDERS: PCP Family Medicine; Visit Provider Family Medicine
DX: D64.9 Anemia, unspecified (principal)
CPT/HCPCS: 80048

== ENCOUNTER 2018-07-18 16:37 | Outpatient (REF) | payer MEDICARE, SELFPAY ==
[2018-07-18 16:14] LABS: HCT 24.6 % (36.0-46.0); HGB 7.6 g/dL (12.0-15.5)
[2018-07-18 16:18] LABS: Potassium 4.2 mmol/L (3.5-5.1)
== END 2018-07-18 16:57 ==
LOC: LBN 16:37
PROVIDERS: PCP Family Medicine; Visit Provider Family Medicine
DX: D64.9 Anemia, unspecified (principal); E87.6 Hypokalemia
CPT/HCPCS: 84132; 85014; 85018

== ENCOUNTER 2018-07-19 00:46 | Outpatient (RCR) | payer MEDICARE, MEDICAID, SELFPAY ==
[2018-07-20] VITALS (10 sets, daily range): BP systolic 100–119; BP diastolic 48–72; PULSE 60–73; RESP 18–19; TEMP 36–36.5; O2SAT 96–100
[2018-07-20] MEDS: Normal Saline Flush 10 ML SYR IVP (09:13)
[2018-07-20] MEDS: Furosemide 40 MG TAB PO (11:01)
== END 2018-08-09 23:59 | disposition home or self-care (01) ==
LOC: INF 00:46
PROVIDERS: PCP Family Medicine; Visit Provider Internal Medicine
DX: D46.9 Myelodysplastic syndrome, unspecified (principal)
CPT/HCPCS: 36415; 36430; 86850; 86900; 86901; 86920; P9016

== ENCOUNTER 2018-07-25 16:03 | Outpatient (REF) | payer MEDICARE, SELFPAY ==
[2018-07-25 17:00] LABS: HCT 32.4 % (36.0-46.0); HGB 9.8 g/dL (12.0-15.5)
[2018-07-25 17:25] LABS: Potassium 4.3 mmol/L (3.5-5.1)
== END 2018-07-25 16:23 ==
LOC: LBN 16:03
PROVIDERS: PCP Family Medicine; Visit Provider Family Medicine
DX: D63.8 Anemia in other chronic diseases classified elsewhere (principal); I10 Essential (primary) hypertension; D46.9 Myelodysplastic syndrome, unspecified
CPT/HCPCS: 84132; 85014; 85018

== ENCOUNTER 2018-08-02 09:22 | Outpatient (CLI) | payer MEDICARE, MEDICAID, SELFPAY ==
[2018-08-02 09:47] LABS: HCT 27.5 % (36.0-46.0); HGB 8.4 g/dL (12.0-15.5)
== END 2018-08-02 09:42 ==
PROVIDERS: PCP Family Medicine; Visit Provider Family Medicine
DX: D61.89 Other specified aplastic anemias and other bone marrow failure syndromes (principal)
CPT/HCPCS: 86900; 86901; 85014; 85018

== ENCOUNTER 2018-08-08 18:28 | Outpatient (REF) | payer MEDICARE, SELFPAY ==
[2018-08-08 18:13] LABS: HCT 24.8 % (36.0-46.0); HGB 7.6 g/dL (12.0-15.5)
[2018-08-08 18:14] LABS: Potassium 4.2 mmol/L (3.5-5.1)
== END 2018-08-08 18:48 ==
LOC: LBN 18:28
PROVIDERS: PCP Family Medicine; Visit Provider Nurse Practitioner Adult Health
DX: D61.89 Other specified aplastic anemias and other bone marrow failure syndromes (principal); M62.81 Muscle weakness (generalized); D63.8 Anemia in other chronic diseases classified elsewhere; I10 Essential (primary) hypertension
CPT/HCPCS: 84132; 85014; 85018

== ENCOUNTER 2018-08-09 15:08 | Outpatient (REF) | payer MEDICARE, SELFPAY | END 2018-08-09 15:28 | LOC: LBO 15:08 | PROVIDERS: PCP Family Medicine; Visit Provider Nurse Practitioner Adult Health | DX: D63.8 Anemia in other chronic diseases classified elsewhere (principal); D46.9 Myelodysplastic syndrome, unspecified | CPT/HCPCS: 36415; 86850; 86900; 86901; 86920; 85014; 85018 ==

== ENCOUNTER 2018-08-16 12:27 | Outpatient (CLI) | payer MEDICARE, MEDICAID, SELFPAY ==
[2018-08-16 13:25] LABS: HCT 30.6 % (36.0-46.0); HGB 9.2 g/dL (12.0-15.5)
[2018-08-16 13:35] LABS: Potassium 4.2 mmol/L (3.5-5.1)
== END 2018-08-16 12:47 ==
LOC: LBO 12:33 → LBN 12:33
PROVIDERS: PCP Family Medicine; Visit Provider Nurse Practitioner Adult Health
DX: D63.8 Anemia in other chronic diseases classified elsewhere (principal); D46.9 Myelodysplastic syndrome, unspecified
CPT/HCPCS: 84132; 85014; 85018

== ENCOUNTER 2018-08-23 11:20 | Outpatient (REF) | payer MEDICARE, MEDICAID, SELFPAY ==
[2018-08-23 11:33] LABS: Abs Immature Grans 0.01 k/cumm (0.0-0.09); Absolute Basophil Count 0.02 k/cumm (0.0-0.2); Absolute Eosinophil Count 0.02 k/cumm (0.0-0.7); Absolute Lymphocyte Count 0.93 k/cumm (1.2-3.4); Absolute Monocyte Count 0.26 k/cumm (0.11-0.7); Absolute Neutrophil Count 2.31 k/cumm (1.2-6.7); Basophils % 0.6; Eosinophils % 0.6; HCT 30.2 % (36.0-46.0); HGB 9.3 g/dL (12.0-15.5); Immature Grans % 0.3; Lymphocytes % 26.2; Mean Corp. HGB Concentration 30.8 g/dL (32.0-36.0); Mean Corpuscular Hemoglobin 32.1 pg (27.0-33.0); Mean Corpuscular Volume 104.1 fL (80-95); Monocytes % 7.3; RBC Distribution Width 17.2 % (11.7-14.6); White Blood Cell Count 3.55 k/cumm (4.4-10.8)
[2018-08-23 12:10] LABS: Diff Comment Diff Reviewed; Hypochromasia 1+; Platelet Count 139 x1000/uL (130-400); Polychromasia Present
== END 2018-08-23 11:40 ==
LOC: LBN 11:20
PROVIDERS: PCP Family Medicine; Visit Provider Nurse Practitioner Adult Health
DX: D46.9 Myelodysplastic syndrome, unspecified (principal); N18.9 Chronic kidney disease, unspecified
CPT/HCPCS: 36415; 86850; 86900; 86901; 85025

== ENCOUNTER 2018-08-30 11:45 | Outpatient (CLI) | payer MEDICARE, MEDICAID, SELFPAY ==
[2018-08-30 11:45] LABS: HCT 26.2 % (36.0-46.0); HGB 7.8 g/dL (12.0-15.5)
[2018-08-30 12:33] LABS: Potassium 4.3 mmol/L (3.5-5.1)
== END 2018-08-30 12:05 ==
PROVIDERS: PCP Family Medicine; Visit Provider Nurse Practitioner Adult Health
DX: I50.30 Unspecified diastolic (congestive) heart failure (principal)
CPT/HCPCS: 36415; 86850; 86900; 86901; 86920; 84132; 85014; 85018

== ENCOUNTER 2018-08-31 02:14 | Outpatient (RCR) | payer MEDICARE, MEDICAID, SELFPAY ==
[2018-08-09 10:05] LABS: HGB 7.9 g/dL (12.0-15.5)
[2018-08-10] VITALS (10 sets, daily range): BP systolic 106–120; BP diastolic 44–58; PULSE 70–78; RESP 18–24; TEMP 35.9–36.7; O2SAT 95–100
[2018-08-10] MEDS: Furosemide 40 MG TAB PO (09:45)
[2018-08-10] MEDS: Normal Saline Flush 10 ML SYR IVP (13:48)
[2018-08-31] VITALS (12 sets, daily range): BP systolic 103–122; BP diastolic 55–79; PULSE 64–78; RESP 17–18; TEMP 36–36.6; O2SAT 97–100
[2018-08-31] MEDS: Normal Saline Flush 10 ML SYR IVP (07:41)
[2018-08-31] MEDS: Furosemide 40 MG TAB (10:39)
== END 2018-09-09 23:59 | disposition home or self-care (01) ==
LOC: INF 02:14
PROVIDERS: Nurse Practitioner Adult Health; PCP Family Medicine; Visit Provider Internal Medicine
DX: D46.9 Myelodysplastic syndrome, unspecified (principal)
CPT/HCPCS: 36415; 36430; 86850; 86900; 86901; 86920; 85014; 85018; P9016

== ENCOUNTER 2018-09-06 10:36 | Outpatient (REF) | payer MEDICARE, MEDICAID, SELFPAY ==
[2018-09-06 13:03] LABS: Potassium 4.1 mmol/L (3.5-5.1)
== END 2018-09-06 10:56 ==
LOC: LBO 10:36
PROVIDERS: PCP Family Medicine; Visit Provider Nurse Practitioner Adult Health
DX: I50.30 Unspecified diastolic (congestive) heart failure (principal)
CPT/HCPCS: 84132

== ENCOUNTER 2018-09-13 10:32 | Outpatient (CLI) | payer MEDICARE, MEDICAID, SELFPAY ==
[2018-09-13 10:48] LABS: HCT 28.5 % (36.0-46.0); HGB 8.6 g/dL (12.0-15.5)
== END 2018-09-13 10:52 ==
PROVIDERS: PCP Family Medicine; Visit Provider Nurse Practitioner Adult Health
DX: D61.89 Other specified aplastic anemias and other bone marrow failure syndromes (principal)
CPT/HCPCS: 86900; 86901; 85014; 85018

== ENCOUNTER 2018-09-20 11:30 | Outpatient (CLI) | payer MEDICARE, MEDICAID, SELFPAY ==
[2018-09-20 12:58] LABS: HCT 28.6 % (36.0-46.0); HGB 8.8 g/dL (12.0-15.5)
[2018-09-20 13:35] LABS: Potassium 4.6 mmol/L (3.5-5.1)
== END 2018-09-20 11:50 ==
LOC: LBO 11:30
PROVIDERS: PCP Family Medicine; Visit Provider Nurse Practitioner Adult Health
DX: N18.9 Chronic kidney disease, unspecified (principal); D63.8 Anemia in other chronic diseases classified elsewhere; D61.89 Other specified aplastic anemias and other bone marrow failure syndromes
CPT/HCPCS: 84132; 85014; 85018

== ENCOUNTER 2018-09-27 07:16 | Outpatient (CLI) | payer MEDICARE, MEDICAID, SELFPAY | END 2018-09-27 07:36 | PROVIDERS: PCP Family Medicine; Visit Provider Nurse Practitioner Adult Health | DX: D63.8 Anemia in other chronic diseases classified elsewhere (principal); N18.9 Chronic kidney disease, unspecified; D46.9 Myelodysplastic syndrome, unspecified | CPT/HCPCS: 86850; 86900; 86901; 86920; 85014; 85018 ==

== ENCOUNTER 2018-09-27 09:57 | Outpatient (RCR) | payer MEDICARE, MEDICAID, SELFPAY ==
[2018-09-27] VITALS (8 sets, daily range): BP systolic 99–118; BP diastolic 49–68; PULSE 62–80; RESP 18; TEMP 36.2–37; O2SAT 95–100
[2018-09-27 08:55] LABS: HCT 24.4 % (36.0-46.0)
[2018-09-27 09:23] LABS: HGB 7.3 g/dL (12.0-15.5)
[2018-09-27] MEDS: Normal Saline Flush 10 ML SYR IVP (11:03)
[2018-09-27] MEDS: Furosemide 40 MG TAB PO (13:09)
== END 2018-10-09 23:59 | disposition home or self-care (01) ==
LOC: INF 09:57
PROVIDERS: Nurse Practitioner Adult Health; PCP Family Medicine; Visit Provider Internal Medicine
DX: D46.9 Myelodysplastic syndrome, unspecified (principal)
CPT/HCPCS: 36430; 86850; 86900; 86901; 86920; 85014; 85018; P9016

== ENCOUNTER 2018-10-04 10:15 | Outpatient (CLI) | payer MEDICARE, MEDICAID, SELFPAY ==
[2018-10-04 11:24] LABS: Potassium 4.6 mmol/L (3.5-5.1)
== END 2018-10-04 10:35 ==
PROVIDERS: PCP Family Medicine; Visit Provider Nurse Practitioner Adult Health
DX: N18.9 Chronic kidney disease, unspecified (principal); E87.6 Hypokalemia
CPT/HCPCS: 36415; 84132

== ENCOUNTER 2018-10-11 09:44 | Outpatient (REF) | payer MEDICARE, MEDICAID, SELFPAY ==
[2018-10-11 10:05] LABS: HCT 25.9 % (36.0-46.0)
== END 2018-10-11 10:04 ==
LOC: LBO 09:44
PROVIDERS: Visit Provider Nurse Practitioner Adult Health
DX: N18.9 Chronic kidney disease, unspecified (principal); I10 Essential (primary) hypertension; D63.8 Anemia in other chronic diseases classified elsewhere
CPT/HCPCS: 86900; 86901; 85014; 85018

== ENCOUNTER 2018-10-18 09:36 | Outpatient (REF) | payer MEDICARE, MEDICAID, SELFPAY ==
[2018-10-18 11:03] LABS: Abs Immature Grans 0.01 k/cumm (0.0-0.09); Absolute Basophil Count 0.02 k/cumm (0.0-0.2); HGB 7.5 g/dL (12.0-15.5); Mean Corpuscular Hemoglobin 31.4 pg (27.0-33.0); Mean Corpuscular Volume 104.6 fL (80-95); RBC 2.39 m/cumm (4.00-5.20); RBC Distribution Width 17.6 % (11.7-14.6); White Blood Cell Count 2.27 k/cumm (4.4-10.8)
[2018-10-18 11:25] LABS: Anion Gap 9.4 mmol/L (3-11); BUN 30 mg/dL (7-18); CO2 28.6 mmol/L (21.0-32.0); Calcium 8.7 mg/dL (8.5-10.1); Chloride 99 mmol/L (98-107); Estimated GFR 39.61 (mL/min/1.73m2); Glucose 207 mg/dL (70-100); Sodium 137 mmol/L (136-145)
[2018-10-18 11:38] LABS: Absolute Eosinophil Count 0.07 k/cumm (0.0-0.7); Absolute Lymphocyte Count 0.82 k/cumm (1.2-3.4); Absolute Monocyte Count 0.09 k/cumm (0.11-0.7); Absolute Neutrophil Count 1.23 k/cumm (1.2-6.7); Platelet Count 148 x1000/uL (130-400)
[2018-10-18 11:40] LABS: Diff Comment Manual Differential; Other Cells 1
[2018-10-18 11:42] LABS: Anisocytosis 2+; Basophilic Stippling Present; Hypochromasia 2+; Macrocytosis 2+; Microcytosis 1+; Polychromasia Present
[2018-10-18 11:43] LABS: Poikilocytes 1+
[2018-10-18 11:47] LABS: Nucleated RBC 1 /100WBC
[2018-10-18 13:58] LABS: Hemoglobin A1C 7.6 % (4.5-6.2)
== END 2018-10-18 09:56 ==
LOC: LBO 09:36
PROVIDERS: Visit Provider Nurse Practitioner Adult Health
DX: E11.40 Type 2 diabetes mellitus with diabetic neuropathy, unspecified (principal); D63.8 Anemia in other chronic diseases classified elsewhere; N18.9 Chronic kidney disease, unspecified; E11.22 Type 2 diabetes mellitus with diabetic chronic kidney disease; I10 Essential (primary) hypertension; E78.5 Hyperlipidemia, unspecified; E03.9 Hypothyroidism, unspecified
CPT/HCPCS: 80048; 86850; 86900; 86901; 86920; 83036; 85025

== ENCOUNTER 2018-10-19 01:17 | Outpatient (RCR) | payer MEDICARE, MEDICAID, SELFPAY ==
[2018-10-19] VITALS (9 sets, daily range): BP systolic 91–111; BP diastolic 51–68; PULSE 60–71; RESP 18–20; TEMP 36.4–36.7; O2SAT 98–100
[2018-10-19] MEDS: Normal Saline Flush 10 ML SYR IVP (08:07)
[2018-10-19] MEDS: Furosemide 40 MG TAB PO (11:10)
== END 2018-11-09 23:59 | disposition home or self-care (01) ==
LOC: INF 01:17
PROVIDERS: PCP Family Medicine; Visit Provider Family Medicine
DX: D46.9 Myelodysplastic syndrome, unspecified (principal)
CPT/HCPCS: 36430; 86850; 86900; 86901; 86920; P9016

== ENCOUNTER 2018-11-01 09:15 | Outpatient (REF) | payer MEDICARE, MEDICAID, SELFPAY ==
[2018-11-01 09:47] LABS: Abs Immature Grans 0.02 k/cumm (0.0-0.09); Absolute Basophil Count 0.02 k/cumm (0.0-0.2); Absolute Eosinophil Count 0.05 k/cumm (0.0-0.7); Absolute Lymphocyte Count 0.72 k/cumm (1.2-3.4); Absolute Monocyte Count 0.19 k/cumm (0.11-0.7); Absolute Neutrophil Count 1.18 k/cumm (1.2-6.7); Basophils % 0.9; Eosinophils % 2.3; HGB 8.7 g/dL (12.0-15.5); Immature Grans % 0.9; Mean Corpuscular Hemoglobin 30.7 pg (27.0-33.0); Mean Corpuscular Volume 102.5 fL (80-95); Monocytes % 8.7; Neutrophils % 54.2; RBC 2.83 m/cumm (4.00-5.20); RBC Distribution Width 17.6 % (11.7-14.6); White Blood Cell Count 2.18 k/cumm (4.4-10.8)
[2018-11-01 09:49] LABS: Potassium 4.1 mmol/L (3.5-5.1)
[2018-11-01 10:01] LABS: Diff Comment Diff Reviewed; Platelet Count 145 x1000/uL (130-400)
[2018-11-01 10:02] LABS: Anisocytosis 2+; Polychromasia Present
== END 2018-11-01 09:35 ==
LOC: LBO 09:15
PROVIDERS: PCP Family Medicine; Visit Provider Nurse Practitioner Adult Health
DX: N18.9 Chronic kidney disease, unspecified (principal)
CPT/HCPCS: 36415; 86900; 86901; 84132; 85025

== ENCOUNTER 2018-11-16 01:10 | Outpatient (RCR) | payer MEDICARE, MEDICAID, SELFPAY ==
[2018-11-15 10:04] LABS: HCT 22.9 % (36.0-46.0)
[2018-11-15 10:49] LABS: Potassium 4.4 mmol/L (3.5-5.1)
[2018-11-15 14:37] LABS: Abs Immature Grans 0.02 k/cumm (0.0-0.09); Absolute Basophil Count 0.01 k/cumm (0.0-0.2); Absolute Eosinophil Count 0.03 k/cumm (0.0-0.7); Absolute Lymphocyte Count 0.84 k/cumm (1.2-3.4); Absolute Monocyte Count 0.24 k/cumm (0.11-0.7); Absolute Neutrophil Count 1.37 k/cumm (1.2-6.7); Basophils % 0.4; Eosinophils % 1.2; Immature Grans % 0.8; Lymphocytes % 33.5; Mean Corp. HGB Concentration 30.3 g/dL (32.0-36.0); Mean Corpuscular Hemoglobin 31.4 pg (27.0-33.0); Mean Corpuscular Volume 103.6 fL (80-95); Monocytes % 9.6; Neutrophils % 54.5; White Blood Cell Count 2.51 k/cumm (4.4-10.8)
[2018-11-15 14:58] LABS: Platelet Count 166 x1000/uL (130-400)
[2018-11-15 14:59] LABS: Anisocytosis 3+; Diff Comment Diff Reviewed; Hypochromasia 1+; Macrocytosis 2+; Ovalocytes 2+
[2018-11-16] VITALS (12 sets, daily range): BP systolic 100–118; BP diastolic 52–77; PULSE 63–78; RESP 18–19; TEMP 36–37; O2SAT 98–100
[2018-11-16] MEDS: Normal Saline Flush 10 ML SYR IVP (08:20)
[2018-11-16] MEDS: Furosemide 40 MG TAB PO (10:38)
== END 2018-12-10 23:59 | disposition home or self-care (01) ==
LOC: INF 01:10
PROVIDERS: PCP Family Medicine; Visit Provider Family Medicine
DX: D46.9 Myelodysplastic syndrome, unspecified (principal)
CPT/HCPCS: 36415; 36430; 86850; 86900; 86901; 86920; 84132; 85014; 85018; 85025; P9016

== ENCOUNTER 2018-11-27 09:49 | Outpatient (CLI) | payer MEDICARE, MEDICAID, SELFPAY ==
[2018-11-27 10:48] LABS: Anion Gap 8.9 mmol/L (3-11); BUN 29 mg/dL (7-18); CO2 27.1 mmol/L (21.0-32.0); CREATININE 1.39 mg/dL (0.55-1.02); Calcium 8.5 mg/dL (8.5-10.1); Chloride 99 mmol/L (98-107); Estimated GFR 36.67 (mL/min/1.73m2); Glucose 345 mg/dL (70-100); Potassium 5.1 mmol/L (3.5-5.1); Sodium 135 mmol/L (136-145)
[2018-11-27 11:24] LABS: Abs Immature Grans 0.01 k/cumm (0.0-0.09); Absolute Basophil Count 0.01 k/cumm (0.0-0.2); Absolute Eosinophil Count 0.01 k/cumm (0.0-0.7); Absolute Lymphocyte Count 0.17 k/cumm (1.2-3.4); Absolute Monocyte Count 0.08 k/cumm (0.11-0.7); Absolute Neutrophil Count 2.45 k/cumm (1.2-6.7); Basophils % 0.4; Eosinophils % 0.4; HCT 28.4 % (36.0-46.0); HGB 8.6 g/dL (12.0-15.5); Immature Grans % 0.4; Lymphocytes % 6.2; Mean Corp. HGB Concentration 30.3 g/dL (32.0-36.0); Mean Corpuscular Hemoglobin 30.4 pg (27.0-33.0); Mean Corpuscular Volume 100.4 fL (80-95); Monocytes % 2.9; Neutrophils % 89.7; RBC 2.83 m/cumm (4.00-5.20); RBC Distribution Width 18.6 % (11.7-14.6); White Blood Cell Count 2.73 k/cumm (4.4-10.8)
[2018-11-27 11:31] LABS: Platelet Count 132 x1000/uL (130-400)
[2018-11-27 11:32] LABS: Anisocytosis 2+; Diff Comment Diff Reviewed; Hypochromasia 1+; Macrocytosis 1+; Poikilocytes 1+; Polychromasia Present
== END 2018-11-27 10:09 ==
PROVIDERS: PCP Family Medicine; Visit Provider Family Medicine
DX: I50.9 Heart failure, unspecified (principal); R05 Cough
CPT/HCPCS: 36415; 80048; 85025

== ENCOUNTER 2018-11-28 19:16 | Inpatient (IN) | payer MEDICARE, MEDICAID, SELFPAY ==
[2018-11-28] VITALS (47 sets, daily range): BP systolic 86–108; BP diastolic 41–54; PULSE 73–96; RESP 19–30; TEMP 36.6–37.4; O2SAT 90–100
--- NOTE | 2018-11-28 20:13 | DI.RAD_ITS ---
SYMPTOM/DIAGNOSIS: COUGH, RALES AP AND LATERAL CHEST: 11/28 The heart may be mildly enlarged. Mild diffuse prominence of pulmonary interstitial markings noted which is nonspecific, scarring vs CHF. There is left pleural effusion and probable small right pleural effusion as well. Probable left lower lobe consolidation also present. CONCLUSION: Findings suggestive of left lower lobe pneumonia, the possibility of mild superimposed CHF not excluded.
[2018-11-28 20:16] LABS: Lactate 2.7 mmol/L (0.6-1.4)
--- NOTE | 2018-11-28 20:17 | W.ED.GENAD ---
Discharge Plan Disposition Patient Disposition: HOME Condition: Critical Discharge Details Chief Complaint: Chest Pain Clinical Impression: Acute non-ST elevation myocardial infarction (NSTEMI), CHF (congestive heart failure), Pneumonia Primary Care Provider: Rosanne Lewis ED Provider: Zi Adam Home Meds and New Rx's Prescriptions: No Action nitroglycerin [Nitrostat] 0.4 MG tablet, sublingual 0.4 mg Sublingual Q5 MIN PRN X3 PRNQty: 1 RF: 0 (DME) pen needle, diabetic [BD Ultra-Fine Jessica Pen Needle] 1 EACH needle 1 ea Miscellaneous QID Qty: 400 RF: 4 levothyroxine 75 MCG tablet 75 mcg PO DAILY Qty: 90 RF: 12 sennosides [Senokot] 1 TAB tablet 1 tab PO BID PRN PRNQty: 60 RF: 12 aspirin 81 MG tablet,delayed release (DR/EC) 81 mg PO DAILY RF: 0 (DME) ostomy supplies [Stomahesive Protective] 28.3 GM powder 1 - 2 gm Topical TID Qty: 28.3 RF: 12 insulin aspart U-100 [Novolog Flexpen U-100 Insulin] 300 UNITS/3 ML insulin pen See Protocol units Sub-Q 0800,1200,1700 Qty: 5 RF: 0 acetaminophen [Tylenol] 325 MG tablet 2 tab PO PRN PRNRF: 0 insulin aspart U-100 [Novolog Flexpen U-100 Insulin] 300 UNITS/3 ML insulin pen 4 units Sub-Q AC RF: 0 insulin detemir U-100 [Levemir FlexTouch U-100 Insuln] 100 UNIT/ML insulin pen 10 unit SQ .BEDTIME RF: 0 furosemide [Lasix] 40 mg Tablet 40 mg PO ONCE RF: 0 miconazole nitrate 2 % Powder 1 applic TOPICAL BID RF: 0 magnesium hydroxide [Milk of Magnesia] 400 mg/5 mL Suspension 15 ml PO DAILY PRNRF: 0 sitagliptin [Januvia] 100 mg Tablet 100 mg PO DAILY RF: 0 Medical Decision Making 20:20 --77-year-old female with multiple medical problems including history of CHF, COPD, dementia, custodial resident, sent for chest discomfort, has shortness of breath and cough for the past few days, mild respiratory distress with tachypnea and rales right greater than left. ECG reviewed and interpreted by me: Sinus rhythm 96 bpm, left axis deviation, no STEMI. Concern for pneumonia versus CHF versus acute COPD exacerbation. Patient is receiving prednisone and has had breathing treatments without relief at custodial. Will give additional duoneb. Plan to obtain labs including blood cultures and lactate. I will initiate light IV fluid bolus given hypotension. Will check chest x-ray. Will initiate antibiotics with cefepime 2 g IV. From review of the patient's medications at custodial it looks like she received a single dose of Levaquin orally today. -- Labs reviewed and lactic acidosis noted. Troponin elevated. BNP elevated. CXR interpreted by radiology IMPRESSION: 1. Left lower lobe pneumonia with possible left pleural effusion. 2. Cardiomegaly. Pulmonary vascular congestion. Suspect NSTEMI with CHF and PNA. Plan to start heparin bolus and gtt. 21:44 -- Called [facility] to request transfer. Awaiting call back. -- Spoke with Dr. Aguilar (cardiology at [facility]) I discussed ED presentation and course including all relevant diagnostics and my concern for potential NSTEMI. He felt that elevated troponin and CHF likely related to demand ischemia related to underlying pneumonia. He recommended aggressive treatment of pneumonia, echocardiogram and stress test. He does not feel cath is warranted at this time and does not feel that transfer is necessary. I will call the hospitalist and plan for admit to ICU. -- Spoke with Dr. Tolliver - he will admit the patient. Requests bridging orders to ICU. HPI General Mode of arrival: ambulatory. Date/Time Provider Initiated Documentation: 11/28/18 19:42. Limitations to Documentation: no limitations. Information obtained by: patient. HPI Narrative: 77-year-old female with multiple medical problems including history of coronary artery disease, congestive heart failure, diabetes, COPD, aortic stenosis, chronic kidney disease, dementia, custodial resident, sent from custodial with concern for chest pain. Patient notes she is had chest discomfort today. History and review of systems limited secondary to dementia. Patient does note she had a cough and daughter confirms cough for few days. She does have some shortness of breath. Patient notes mild central chest discomfort at this time that seems pleuritic in nature. Related Data Home Medications Medication Instructions Recorded Confirmed levothyroxine 75 mcg PO DAILY #90 tab-cap 04/21/16 03/04/18 nitroglycerin [Nitrostat] 0.4 mg SUBLINGUAL Q5 MIN PRN X3 04/21/16 03/04/18 PRN #1 bottle pen needle, diabetic [BD #400 ndl 04/21/16 Ultra-Fine Jessica Pen Needle] sennosides [Senokot] 1 tab PO BID PRN PRN #60 tab 08/05/16 03/04/18 aspirin 81 mg PO DAILY tab-cap 10/20/16 03/04/18 ostomy supplies [Stomahesive #28.3 gm 12/07/16 Protective] insulin aspart U-100 [Novolog See Protocol SUB-Q 0800,1200,1700 01/01/17 01/14/18 Flexpen U-100 Insulin] #5 pkg acetaminophen [Tylenol] 2 tab PO PRN PRN 03/15/17 03/04/18 insulin aspart U-100 [Novolog 4 units SUB-Q AC pen 03/18/17 03/04/18 Flexpen U-100 Insulin] insulin detemir U-100 [Levemir 10 unit SQ .BEDTIME 10/13/17 03/04/18 FlexTouch U-100 Insuln] furosemide [Lasix] 40 mg PO ONCE 03/04/18 03/04/18 magnesium hydroxide [Milk of 15 ml PO DAILY PRN 03/04/18 03/04/18 Magnesia] miconazole nitrate 1 applic TOPICAL BID 03/04/18 03/04/18 sitagliptin [Januvia] 100 mg PO DAILY 03/04/18 03/04/18 Previous Rx's Medication Instructions Recorded insulin aspart U-100 [Novolog See Protocol SUB-Q 0800,1200,1700 01/01/17 Flexpen U-100 Insulin] #5 pkg insulin aspart U-100 [Novolog 4 units SUB-Q AC pen 03/18/17 Flexpen U-100 Insulin] Allergies Allergy/AdvReac Type Severity Reaction Status Date / Time mupirocin Allergy Intermediate BLISTERS Unverified 11/28/18 19:41 Penicillins AdvReac Intermediate STOMACH Unverified 11/28/18 19:41 UPSET aspirin AdvReac Unknown GI Unverified 03/04/18 08:44 ibuprofen AdvReac Unknown Unverified 11/28/18 19:41 metformin AdvReac diarrhea Unverified 11/28/18 19:41 General Stated Complaint: Chest Pain MONE: 2 Review of Systems Constitutional Denies fever(s) Cardiovascular Reports chest pain and Reports dyspnea Respiratory Reports cough and Reports dyspnea PFSH Surgical History Amputation bone marrow biopsy (11/05/15) Cholecystectomy Extraction of cataract (12/13/12) Ligation of fallopian tube Social History Smoking/Tobacco Use Status: Former Tobacco Use Drug use: Never Do you feel safe in your relationship?: Yes Additional Social history: Resident @ . [employer] Ex[employer] Const General: cooperative and well developed HENMO Head: normocephalic Mouth: moist mucous membranes Eyes Conjunctivae: normal conjunctivae Sclera: normal sclerae Neck Neck: trachea midline, supple and no JVD Resp Auscultation: rales bilaterally (Rt>Lt), rhonchi and wheezes Cardio Jugular venous pressure: no JVD Rate: tachycardic Rhythm: regular rhythm GI Palpation: soft, not firm, no guarding, no masses, not rigid and nontender Skin General skin exam: no rashes or lesions noted Neuro General: alert, awake, oriented Patient Orientation: Person and Place and tone normal Extrem General: edema (trace) Laterality: bilateral Psych Appearance: grossly normal Course Vital Signs Temperature 37.4 C 11/28/18 19:20 Pulse 95 H 11/28/18 19:20 Respiratory Rate 29 H 11/28/18 19:20 Blood Pressure 108/54 L 11/28/18 19:20 Pulse Oximetry 94 L 11/28/18 19:20 Temperature 37.4 C 11/28/18 19:20 Temperature Source Skin 11/28/18 19:20 Pulse 95 H 11/28/18 19:20 Respiratory Rate 29 H 11/28/18 19:20 Blood Pressure 108/54 L 11/28/18 19:20 Blood Pressure Position Sitting 11/28/18 19:20 Pulse Oximetry 94 L 11/28/18 19:20 Oxygen Delivery Method Room Air 11/28/18 19:20 Oxygen Flow Rate 0 11/28/18 19:20 Lab/Test Results Lab/Test Results: 11/28/18 20:00 Blood Blood Culture - Pending 11/28/18 20:00 Blood Blood Culture - Pending Laboratory Tests Range/Units 11/28/18 19:27 Lactate (0.6-1.4) mmol/L 2.7 H* Critical Care Time Critical Care Time: Yes Total Critical Care Time: 50 Attestation: I spent greater than 50 minutes addressing this patient's immediate life threats.
[2018-11-28 20:18] LABS: Abs Immature Grans 0.03 k/cumm (0.0-0.09); Absolute Basophil Count 0.01 k/cumm (0.0-0.2); Absolute Lymphocyte Count 0.18 k/cumm (1.2-3.4); Absolute Monocyte Count 0.25 k/cumm (0.11-0.7); Absolute Neutrophil Count 3.11 k/cumm (1.2-6.7); Basophils % 0.3; HCT 27.2 % (36.0-46.0); HGB 8.3 g/dL (12.0-15.5); Immature Grans % 0.8; Mean Corp. HGB Concentration 30.5 g/dL (32.0-36.0); Mean Corpuscular Hemoglobin 30.9 pg (27.0-33.0); Mean Corpuscular Volume 101.1 fL (80-95); Neutrophils % 86.9; RBC 2.69 m/cumm (4.00-5.20); RBC Distribution Width 18.7 % (11.7-14.6); White Blood Cell Count 3.58 k/cumm (4.4-10.8)
[2018-11-28 20:23] LABS: Prothrombin Time 10.4 sec (9.3-11.0)
[2018-11-28 20:33] LABS: ALT 41 U/L (12-78); AST 61 U/L (15-37); Albumin 2.6 g/dL (3.4-5.0); Alkaline Phosphatase 120 U/L (46-116); Anion Gap 7.4 mmol/L (3-11); BUN 39 mg/dL (7-18); Bilirubin, Total 0.5 mg/dL (0.2-1.0); CO2 28.6 mmol/L (21.0-32.0); CREATININE 1.64 mg/dL (0.55-1.02); Calcium 8.4 mg/dL (8.5-10.1); Chloride 100 mmol/L (98-107); Glucose 353 mg/dL (70-100); Potassium 5.1 mmol/L (3.5-5.1); Sodium 136 mmol/L (136-145); Total Protein 7.4 g/dL (6.4-8.2)
[2018-11-28] MEDS: Albuterol/Ipratropium 3 ML UPD VIAL UPD (20:33)
[2018-11-28] MEDS: Normal Saline 250 ML 1000 ML IV (20:33)
[2018-11-28 20:41] LABS: Anisocytosis 2+; Diff Comment Diff Reviewed; Hypochromasia 1+; Macrocytosis 2+; Microcytosis 1+; Platelet Count 151 x1000/uL (130-400)
[2018-11-28 20:42] LABS: NT-proBNP 6650 pg/mL; Poikilocytes 2+; Polychromasia Present
[2018-11-28 20:44] LABS: Troponin I 2.64 ng/mL (0.00-0.06)
[2018-11-28 20:52] LABS: Lactate 3.3 mmol/L (0.6-1.4)
[2018-11-28] MEDS: CEFEPIME 2 GM in Normal Saline 100 ML IVPB (21:05)
--- NOTE | 2018-11-28 21:18 | DI.VRAD_ITS ---
EXAM: XR Chest, 2 Views EXAM DATE/TIME: 11/28/2018 8:14 PM CLINICAL HISTORY: 77 years old, female; Patient HX: Cough, rales TECHNIQUE: Imaging protocol: XR of the chest, 2 views. COMPARISON: CR XR CHEST 2V PA LATERAL 04/03/2018 09:10 FINDINGS: Lungs: Pulmonary vascular congestion with increased perihilar markings. Left lower lobe infiltrate. Left lower lobe pleural-based density consistent with loculated fluid or mass. Pleural space: Unremarkable. No pleural effusion. No pneumothorax. Heart/Mediastinum: Cardiomegaly. Vasculature: Atherosclerotic disease. Bones/joints: Advanced degenerative changes of both shoulders and the thoracic spine. IMPRESSION: 1. Left lower lobe pneumonia with possible left pleural effusion. 2. Cardiomegaly. Pulmonary vascular congestion. Dictated and Authenticated by: Dionne Johnson MD. Ordering:YOSELYN Pinon MD
[2018-11-29] VITALS (91 sets, daily range): BP systolic 84–109; BP diastolic 32–70; PULSE 71–91; RESP 16–36; TEMP 36–36.8; O2SAT 91–100
--- NOTE | 2018-11-29 00:02 | W.PM.HP.N ---
Date of service: 11/28/18 Time of Service: 23:58 Assessment and Plan (1) Sepsis due to pneumonia: Current visit: Yes Status: Acute patient presented with acute dyspnea and chest pain and was found to have pneumonia. cardiology feels that her NSTEMI is secondary to her sepsis. She is DNR and therefore I will not intubate her, however if she decompensates then can try NIPPV. For now she is oxygenating w/ just NC. She has been started on Cefepime at appropriate dosing of 2 gm IV Q12hr (adjusted for her KORY). I do not feel the need to add Vancomycin yet even though she came from [facility]. She has had no documented MRSA infections. If her lactate continues to rise or her procalcitonin rises after 24 hr of Cefepime or her sputum is growing Staph or her nasopharynx swab is MRSA positive then will add Vancomycin. For now supportive care w/ aerosolized bronchodilators. I am going to put her on hydrocortisone for her pneumonia. She was on prednisone so I will give her stress dose levels. (2) Acute kidney injury (nontraumatic): Current visit: Yes Status: Acute supportive care. Treat her CHF and her sepsis and monitor her renal function. She needs lasix drip to treat her overt CHF. Will monitor her daily BMP. (3) Acute on chronic congestive heart failure: Current visit: Yes Status: Acute her last echo showed only mild systolic LV dysfunction in range of 50% LVEF. However she has significant MR and TR and pulmonary HTN. She also has diastolic dysfunction. However w/ her NSTEMI she may have worsening systolic LV function. I did a POCUS exam however I obtained poor quality images and can not comment on her LV function. I will get a formal echo tomorrow. I will begin lasix drip to diurese her. If she becomes hypotensive then she may need dobutamine drip. Qualifiers: Heart failure type: unspecified Qualified Code(s): I50.9 - Heart failure, unspecified (4) Non-STEMI (non-ST elevated myocardial infarction): Current visit: Yes Status: Acute treat her underlying sepsis/pneumonia, continue statin therapy along w/ ASA and heparin drip. In light of her acute CHF, I will withhold BB and because of her low BP on admission, I will withold JONATHAN inhibitors or ARB for now, but use lasix drip to get her euvolemic. History of Present Illness Chief Complaint: chest discomfort, dyspnea, cough Narrative: 77 yr old female resident of local custodial w/ PMH of CHF, COPD, dementia, MDS, CAD, DM II, who was sent to the ER for evaluation of cough, dyspnea and chest discomfort. The dyspnea and cough have been present for a few days. Unclear as to the onset of the chest discomfort. Evaluation in the ER included presenting vitals of afebrile at 37.4 C, SR in the 90's and mildly low BP in the 90's/40's to low 100's over 50's. Workup included routine labs (CBC, coags, CMP, lactate, troponin, BNP), CXR, EKG. Labs demonstrated chronic macrocytic anemia w/ Hb 8.3 gm, low WBC of 3580, normal coags (PT, aPtt), CMP that demonstrated azotemia (BUN 39, creatinine 1.64 which are rising from yesterday at 29 and 1.39), elevated lactate of 2.7 which is rising to 3.3, elevated troponin of 2.62 and BNP of 6650. Her CXR demonstrates LLL pneumonia w/ possible L. pleural effusion and cardiomegaly and pulmonary vascular congestion. EKG demonstrates SR at 96 bpm with old anterior infarct and LAFB (neither are new) but no acute ST elevation. Blood cultures were obtained and patient was begun on cefepime. Dr. Adam called [facility] cardiology and spoke w/ Dr. Aguilar who reviewed the case and the EKG and feels that this is demand ischemia type II NSTEMI due to her pneumonia and probable sepsis. He recommended heparin and ASA and to treat the sepsis and check an echo in the a.m. and when hemodynamically stable get a stress MPI study. He did not feel that there was any need for urgent cardiac cath nor transfer to [facility]. Treatment in the ER included obtaining blood cultures and initiation of cefepime. A liter of iv normal saline was started but then discontinued after a few minutes after realization that she was in acute on chronic CHF. She is now admitted to the ICU for treatment of demand ischemia type 2 NSTEMI in setting of sepsis and pneumonia and KORY w/ acute on chronic CHF. 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 She does not want CPR nor intubation and mechanical ventilation nor artificial feedings according to her written advanced directive. Review of Systems Constitutional Reports system reviewed and no additional complaints, except as docu Cardiovascular Reports chest pain, Reports chest pain at rest, Denies pedal edema, Denies leg edema, Reports dyspnea and Reports dyspnea on exertion Respiratory Reports chest congestion, Reports cough, Reports excessive phlegm production, Reports pain with cough, Reports dyspnea, Reports dyspnea on exertion and Reports wheezing Gastrointestinal Reports system reviewed and no additional complaints, except as docu Genitourinary Reports system reviewed and no additional complaints, except as docu Allergic/Immunologic Reports wheezing [facility] Medical History (Updated 11/29/18 @ 03:16 by Greg Tolliver) Anemia (Chronic) Anxiety disorder (Chronic) CAD (coronary artery disease) (Chronic) Chronic renal insufficiency (Chronic) Depression (Chronic) Gangrene of toe (Inactive) Right heart failure (Chronic) Uncontrolled type 2 diabetes mellitus (Chronic) Surgical History Amputation bone marrow biopsy (11/05/15) Cholecystectomy Extraction of cataract (12/13/12) Ligation of fallopian tube Social History Smoking/Tobacco Use Status: Former Tobacco Use Drug use: Never Do you feel safe in your relationship?: Yes Additional Social history: Resident @ [facility] Medications Medication Instructions Recorded Confirmed Type levothyroxine 75 mcg PO DAILY #90 tab-cap 04/21/16 11/29/18 History nitroglycerin [Nitrostat] 0.4 mg SUBLINGUAL Q5 MIN PRN X3 04/21/16 11/28/18 History PRN #1 bottle pen needle, diabetic [BD #400 ndl 04/21/16 History Ultra-Fine Jessica Pen Needle] sennosides [Senokot] 1 tab PO BID PRN PRN #60 tab 08/05/16 11/29/18 History aspirin 81 mg PO DAILY tab-cap 10/20/16 11/29/18 History ostomy supplies [Stomahesive #28.3 gm 12/07/16 History Protective] acetaminophen [Tylenol] 2 tab PO Q4H PRN PRN 03/15/17 11/29/18 History Novolog Flexpen U-100 Insulin 6 units SUB-Q AC pen 03/18/17 11/29/18 Rx Levemir FlexTouch U-100 Insuln 12 unit SQ .BEDTIME 10/13/17 11/29/18 History furosemide [Lasix] 40 mg PO BID 03/04/18 11/28/18 History magnesium hydroxide [Milk of 30 ml PO HS PRN PRN 03/04/18 11/29/18 History Magnesia] miconazole nitrate 1 applic TOPICAL BID 03/04/18 03/04/18 History Novolog Flexpen U-100 Insulin See Rx Instructions .ROUTE .COMPLEX 11/28/18 11/29/18 History atorvastatin 40 mg PO QHS 11/28/18 11/29/18 History bisacodyl [Dulcolax (bisacodyl)] 10 mg NC DAILY PRN 11/28/18 11/28/18 History docusate sodium [Colace] 100 mg PO BID PRN 11/28/18 11/28/18 History escitalopram oxalate 20 mg PO DAILY 11/28/18 11/28/18 History glucagon (human recombinant) 1 mg IM PRN PRN 11/28/18 11/28/18 History [GlucaGen HypoKit] ipratropium-albuterol 3 ml INHALATION Q6H PRN 11/28/18 11/29/18 History levofloxacin [Levaquin] 250 mg PO Q OTHER DAY 11/28/18 11/28/18 History ondansetron HCl [Zofran] 4 mg PO Q6H PRN 11/28/18 11/29/18 History polyethylene glycol 3350 [Miralax] 17 g PO DAILY 11/28/18 11/29/18 History potassium chloride 40 meq PO DAILY 11/28/18 11/29/18 History prednisone 40 mg PO DAILY 11/28/18 11/29/18 History spironolactone 12.5 mg PO BID 11/28/18 11/29/18 History guaifenesin 200 mg PO Q4H PRN 11/29/18 11/29/18 History Allergies Allergy/AdvReac Type Severity Reaction Status Date / Time mupirocin Allergy Intermediate BLISTERS Unverified 11/28/18 19:41 Penicillins AdvReac Intermediate STOMACH Unverified 11/28/18 19:41 UPSET aspirin AdvReac Unknown GI Unverified 03/04/18 08:44 ibuprofen AdvReac Unknown Unverified 11/28/18 19:41 metformin AdvReac diarrhea Unverified 11/28/18 19:41 Exam Const General: cooperative, acute distress mild (secondary to dyspnea) and ill appearing acutely Nutritional Appearance: underweight Orientation: alert, awake, oriented to person and oriented to place [facility] Head: normal to inspection, no palpable skull fracture, normocephalic and atraumatic Mouth: oral mucosae normal, lip normal, tongue normal and oropharynx normal Neck Neck: normal visual inspection, full ROM, no lymphadenopathy, no meningeal signs, trachea midline, supple and no JVD Thyroid: thyroid normal Carotids: normal carotid upstroke Lymphatic: no lymphadenopathy noted Resp Effort & Inspection: tachypneic Auscultation: crackles bilaterally at the base, rhonchi upper bilaterally and lower bilaterally and wheezes scattered wheezes Cardio Jugular venous pressure: no JVD Palpation: normal PMI Rate: regular rate Rhythm: regular rhythm Heart Sounds: S1 normal, S2 normal and murmur systolic holo, II/ and at the apex Bruits: no abdominal aortic bruits and no carotid bruits Pulses: posterior tibial pulses present bilaterally 1+ and diminished and dorsalis pedis pulses present bilaterally 1+ and diminished Skin General skin exam: no rashes or lesions noted, dry skin and other (shiny bronze stasis dermatitis changes over both tibia) Nails: dystrophic Neuro General: alert, awake, oriented Patient Orientation: Person and Place, moves all extremities and no focal motor deficits Speech: speech normal Motor: muscle tone normal throughout, strength 5/5 throughout and no movement abnormalities noted Sensory Exam: no sensory deficits noted Extrem General: normal to inspection, full ROM, no clubbing, cyanosis or edema, no pedal edema and no calf tenderness Right lower extremity: foot Details: other (s\p L. great toe amputation) Results Imaging Chest x-ray: image reviewed EKG: image reviewed Labs : 11/28/18 19:27 11/28/18 19:27 Laboratory Results - last 24 hr 11/28/18 11/28/18 11/28/18 19:27 19:27 19:27 WBC 3.58 L RBC 2.69 L Hgb 8.3 L Hct 27.2 L MCV 101.1 H MCH 30.9 MCHC 30.5 L RDW 18.7 H Plt Count 151 MPV Immature Gran % 0.8 Neutrophils % 86.9 Lymphocytes % 5.0 Monocytes % 7.0 Eosinophils % 0.0 Basophils % 0.3 Absolute Neutrophils 3.11 Absolute Lymphocytes 0.18 L Absolute Monocytes 0.25 Absolute Eosinophils 0.00 Absolute Basophils 0.01 Differential Comment Diff reviewed RBC Morphology See below Polychromasia Present Hypochromasia 1+ Poikilocytosis 2+ Anisocytosis 2+ Microcytosis 1+ Macrocytosis 2+ PT INR Sodium 136 Potassium 5.1 Chloride 100 Carbon Dioxide 28.6 Anion Gap 7.4 BUN 39 H D Creatinine 1.64 H Estimated GFR/1.73 m2 30.30 Glucose 353 H Lactate 2.7 H* Calcium 8.4 L Total Bilirubin 0.5 AST 61 H ALT 41 Alkaline Phosphatase 120 H Troponin I NT-Pro-B Natriuret Pep Total Protein 7.4 Albumin 2.6 L 11/28/18 11/28/18 11/28/18 19:27 19:27 20:30 WBC RBC Hgb Hct MCV MCH MCHC RDW Plt Count MPV Immature Gran % Neutrophils % Lymphocytes % Monocytes % Eosinophils % Basophils % Absolute Neutrophils Absolute Lymphocytes Absolute Monocytes Absolute Eosinophils Absolute Basophils Differential Comment RBC Morphology Polychromasia Hypochromasia Poikilocytosis Anisocytosis Microcytosis Macrocytosis PT 10.4 INR 1.0 Sodium Potassium Chloride Carbon Dioxide Anion Gap BUN Creatinine Estimated GFR/1.73 m2 Glucose Lactate 3.3 H* Calcium Total Bilirubin AST ALT Alkaline Phosphatase Troponin I 2.64 H* NT-Pro-B Natriuret Pep 6650 H Total Protein Albumin Last Vital Signs Temp 37.0 C 11/28/18 22:23 Pulse 87 11/28/18 23:15 Resp 24 11/28/18 21:48 BP 93/43 L 11/28/18 23:15 Pulse Ox 100 11/28/18 23:20
[2018-11-29 01:25] LABS: Lactate 2.2 mmol/L (0.6-1.4)
[2018-11-29 01:35] LABS: Troponin I 6.82 ng/mL (0.00-0.06)
[2018-11-29 02:08] LABS: Procalcitonin 0.3 ng/mL
[2018-11-29] MEDS: Aspirin 81 MG CHEW 324 MG CH (02:58)
[2018-11-29] MEDS: Hydrocortisone SOD SUC. 100 MG VIAL 50 MG IVP ×4 (02:59→23:28)
[2018-11-29 04:20] LABS: Abs Immature Grans 0.02 k/cumm (0.0-0.09); HCT 26.6 % (36.0-46.0); HGB 8.1 g/dL (12.0-15.5); Mean Corp. HGB Concentration 30.5 g/dL (32.0-36.0); Mean Corpuscular Hemoglobin 30.8 pg (27.0-33.0); Mean Corpuscular Volume 101.1 fL (80-95); RBC 2.63 m/cumm (4.00-5.20); RBC Distribution Width 18.7 % (11.7-14.6); White Blood Cell Count 3.51 k/cumm (4.4-10.8)
[2018-11-29 04:29] LABS: Bilirubin Negative (Negative); Blood Large (Negative); Clarity Sl Cloudy (Clear); Glucose Negative (Negative); Ketones Negative (Negative); Leukocyte Esterase Large (Negative); Nitrite Positive (Negative); Specific Gravity 1.015 (1.005-1.025); Urobilinogen 0.2 EU/dL (Up TO 0.2)
[2018-11-29 04:37] LABS: Anion Gap 6.8 mmol/L (3-11); BUN 40 mg/dL (7-18); CO2 30.2 mmol/L (21.0-32.0); CREATININE 1.42 mg/dL (0.55-1.02); Calcium 8.4 mg/dL (8.5-10.1); Calculated LDL 51 mg/dL; Chloride 100 mmol/L (98-107); Cholesterol 99 mg/dL (50-200); Estimated GFR 35.78 (mL/min/1.73m2); Glucose 229 mg/dL (70-100); HDL Cholesterol 34 mg/dL (40-60); Potassium 5.2 mmol/L (3.5-5.1); Sodium 137 mmol/L (136-145); Triglyceride 71 mg/dL (30-150)
[2018-11-29 04:40] LABS: C & S Indicated? Yes
[2018-11-29 04:41] LABS: WBC >50 HPF (0-5)
[2018-11-29 04:47] LABS: Troponin I 7.79 ng/mL (0.00-0.06)
[2018-11-29 05:11] LABS: Platelet Count 133 x1000/uL (130-400)
[2018-11-29 05:13] LABS: Absolute Eosinophil Count 0.04 k/cumm (0.0-0.7); Absolute Lymphocyte Count 0.39 k/cumm (1.2-3.4); Absolute Monocyte Count 0.42 k/cumm (0.11-0.7); Absolute Neutrophil Count 2.67 k/cumm (1.2-6.7); Diff Comment Manual Differential
[2018-11-29 05:14] LABS: Anisocytosis 2+; Hypochromasia 1+
[2018-11-29 05:15] LABS: Macrocytosis 2+; Microcytosis 1+; Poikilocytes 2+; Polychromasia Present
[2018-11-29 05:19] LABS: NT-proBNP 9890 pg/mL
--- NOTE | 2018-11-29 07:11 | DI.RAD_ITS ---
SYMPTOM/DIAGNOSIS: PNEUMONIA, CHF PORTABLE AP CHEST: 11/29 7 A.M. Note is again made of left pleural effusion. The right pleural effusion seen on lateral view yesterday is not visible on the frontal film. Again, areas of apparent streaky consolidation noted in left lung base. CONCLUSION: Findings consistent with left lower lobe consolidation, possible mild superimposed CHF. No change from yesterday's examination.
[2018-11-29 08:12] LABS: Lactate 0.8 mmol/L (0.6-1.4)
[2018-11-29 08:35] LABS: Troponin I 5.57 ng/mL (0.00-0.06)
[2018-11-29] MEDS: Polyethylene Glycol 3350 17 GM PACKET PO (08:45)
--- NOTE | 2018-11-29 09:00 | MERGE_ITS ---
*[facility]* *[facility]* [address] [place] [address] Date of study: 11/29/2018 Transthoracic Echocardiography M-mode, complete 2D, complete spectral Doppler, and color Doppler *STUDY CONCLUSIONS* Summary: 1. Left ventricle: The cavity size was normal. There was moderate focal basal hypertrophy of the septum. Systolic function was normal. The estimated ejection fraction was 55-60%. Severe hypokinesis of the mid-apicalanteroseptal and inferoseptal myocardium. Possible severe hypokinesis of the apical myocardium. Findings consistent with diastolic dysfunction. Doppler parameters are consistent with high ventricular filling pressure. 2. Aortic valve: There was mild stenosis. Peak velocity (S): 2.5m/sec. Mean gradient (S): 14.1mm Hg. Valve area (VTI): 1.6cm^2. 3. Mitral valve: Severely calcified annulus. Mobility was restricted. The findings are consistent with stenosis. There was moderate to severe regurgitation. Mean gradient (D): 8mm Hg. 4. Right ventricle: The cavity size was normal. Wall thickness was normal. Systolic function was normal. 5. Pulmonary arteries: Pulmonary systolic pressure was increased, in the range of 40mm Hg to 45mm Hg. *PATIENT PRESENTATION* Height: 165.1cm (65in ) S/D Pressure: 93 / 51 Weight: 83.9kg (184.6lb ) BSA: 1.99m^2 Test start time: 09:10 AM. Test stop time: 10:10 AM. PERFORMING Unknown PERFORMING [facility] REFERRING Casper Tolliver DIV[employer] TRAFFIC SUPERINTENDENT RT Brady MinR)(CT), RDCS *PROCEDURE DATA* Procedure information: The patient was identified by two identifiers. This study was interpreted by [facility]. Pertinent images and digital data are archived for permanent storage and are available for subsequent review. Comparison was made to the study of 12/28/2016. Study status: Routine. Transthoracic echocardiography. M-mode, complete 2D, complete spectral Doppler, and color Doppler. A Transthoracic Echocardiogram was performed. Scanning was performed from the parasternal, apical, subcostal, and suprasternal notch acoustic windows. Images were obtained using an [id number] cardiac ultrasound machine. Image quality was adequate. Study completion: The patient tolerated the procedure well. There were no complications. *CARDIAC ANATOMY* Left ventricle: The cavity size was normal. There was moderate focal basal hypertrophy of the septum. Systolic function was normal. The estimated ejection fraction was 55-60%. Regional wall motion abnormalities: Severe hypokinesis of the mid-apicalanteroseptal and inferoseptal myocardium. Possible severe hypokinesis of the apical myocardium. Findings consistent with diastolic dysfunction. Doppler parameters are consistent with high ventricular filling pressure. Aortic valve: Probably trileaflet; mildly thickened, mildly calcified leaflets. Valve mobility was restricted. Doppler: There was mild stenosis. There was no significant regurgitation. VTI ratio of LVOT to aortic valve: 0.46. Valve area (VTI): 1.6cm^2. Indexed valve area (VTI): 0.8cm^2/m^2. Peak velocity ratio of LVOT to aortic valve: 0.47. Valve area (Vmax): 1.6cm^2. Indexed valve area (Vmax): 0.8cm^2/m^2. Mean velocity ratio of LVOT to aortic valve: 0.47. Valve area (Vmean): 1.6cm^2. Indexed valve area (Vmean): 0.8cm^2/m^2. Mean gradient (S): 14.1mm Hg. Peak gradient (S): 24.9mm Hg. Aorta: Aortic root: The aortic root was normal in size. Ascending aorta: The ascending aorta was normal in size. Mitral valve: Severely calcified annulus. Mobility was restricted. Doppler: The findings are consistent with stenosis. There was moderate to severe regurgitation. Valve area by pressure half-time: 5.5cm^2. Indexed valve area by pressure half-time: 2.8cm^2/m^2. Mean gradient (D): 8mm Hg. Peak gradient (D): 13.5mm Hg. Left atrium: The atrium was normal in size. Right ventricle: The cavity size was normal. Wall thickness was normal. Systolic function was normal. Pulmonic valve: Doppler: Transvalvular velocity was within the normal range. There was no evidence for stenosis. There was no significant regurgitation. Peak gradient (S): 4.5mm Hg. Tricuspid valve: Structurally normal valve. Doppler: Transvalvular velocity was within the normal range. There was no evidence for stenosis. There was mild regurgitation. Pulmonary artery: Pulmonary systolic pressure was increased, in the range of 40mm Hg to 45mm Hg. Right atrium: The atrium was normal in size. Pericardium: There was no pericardial effusion. Systemic veins: Inferior vena cava: Well visualized. The vessel was patent and normal in size. The respirophasic diameter changes were in the normal range (greater than or equal to 50%). Baseline ECG: Normal sinus rhythm. Measurements Left ventricle Value 12/28/2016 Reference LV ID, ED, PLAX 5.5 cm 3.8 3.5 - 6.0 LV ID, ES, PLAX (H) 4.5 cm 2.1 - 4.0 LV PW thickness, ED, PLAX 0.9 cm LV end-diastolic volume, 88 ml 65 1-p A2C LV ejection fraction, 1-p 56 % A2C LV end-diastolic volume, 65 ml 73 1-p A4C LV ejection fraction, 1-p 58 % 48 A4C LV e', lateral 0.05 m/sec LV E/e', lateral 37 LV e', medial 0.04 m/sec LV E/e', medial 46 LV e', average 0.045 m/sec LV E/e', average 41 Ventricular septum Value 12/28/2016 Reference IVS thickness, ED, PLAX 0.9 cm LVOT Value 12/28/2016 Reference LVOT ID, A-P 2.1 cm 2.1 LVOT area 3.4 cm^2 3.3 LVOT peak velocity, S 1.17 m/sec 1.05 LVOT mean velocity, S 0.84 m/sec LVOT VTI, S 28.1 cm 26.2 LVOT peak gradient, S 5.5 mm Hg LVOT mean gradient, S 3.2 mm Hg 2 Stroke volume (SV), LVOT 95 ml DP Stroke index (SV/bsa), 48 ml/m^2 LVOT DP Aortic valve Value 12/28/2016 Reference Aortic valve peak 2.5 m/sec velocity, S Aortic valve mean 1.8 m/sec velocity, S Aortic valve VTI, S 61.0 cm Aortic mean gradient, S 14.1 mm Hg Aortic peak gradient, S 24.9 mm Hg VTI ratio, LVOT/AV 0.46 0.46 Aortic valve area, VTI 1.6 cm^2 1.5 Velocity ratio, peak, 0.47 LVOT/AV Aortic valve area, peak 1.6 cm^2 1.5 velocity Velocity ratio, mean, 0.47 LVOT/AV Aortic valve area, mean 1.6 cm^2 velocity Aortic valve area/bsa, 0.8 cm^2/m^2 mean velocity Aorta Value 12/28/2016 Reference Aortic root ID, ED 3.1 cm 3.1 Ascending aorta ID, A-P, S 3.5 cm 3.5 Left atrium Value 12/28/2016 Reference LA volume/bsa, ES, 1-p A4C 37 ml/m^2 35 LA volume, ES, 2-p 83 ml LA volume/bsa, ES, 2-p 42 ml/m^2 Mitral valve Value 12/28/2016 Reference Mitral E-wave peak 1.84 m/sec 2.12 velocity Mitral A-wave peak 1.6 m/sec 0.94 velocity Mitral deceleration time (L) 138 ms 150 - 230 Mitral pressure half-time 40 ms 48 Mitral mean gradient, D 8 mm Hg Mitral peak gradient, D 13.5 mm Hg 17.9 Mitral E/A ratio, peak 1.14 2.24 Mitral valve area, PHT, DP 5.5 cm^2 4.6 Pulmonary veins Value 12/28/2016 Reference Pulmonary vein peak 0.67 m/sec 0.45 velocity, S Pulmonary vein peak 0.48 m/sec 0.68 velocity, D Pulmonary vein velocity 1.41 0.66 ratio, peak, S/D Tricuspid valve Value 12/28/2016 Reference Tricuspid regurg peak 3.3 m/sec 3.4 velocity Tricuspid peak RV-RA 42.9 mm Hg 47.3 gradient Right atrium Value 12/28/2016 Reference RA area, ES, A4C 18.9 cm^2 20.5 8.3 - 19.5 Pulmonic valve Value 12/28/2016 Reference Pulmonic peak gradient, S 4.5 mm Hg Legend: (L) and (H) beata values outside specified reference range. I have personally reviewed the images and have reviewed and edited the reported findings. Electronically signed by Adrian Li 11/29/2018 10:45
[2018-11-29] MEDS: Pantoprazole 40 MG TABCR PO (09:04)
[2018-11-29] MEDS: Escitalopram 20 MG TAB PO (09:04)
[2018-11-29] MEDS: CEFEPIME 2 GM in Normal Saline 100 ML IVPB ×2 (09:05→21:39)
[2018-11-29] MEDS: Potassium Chloride 20 MEQ TABCR 40 MEQ PO (09:05)
[2018-11-29] MEDS: guaiFENesin 600 MG TABCR 1200 MG PO ×2 (09:05→21:39)
[2018-11-29] MEDS: Sucralfate 1 GM TAB PO ×4 (09:05→21:39)
[2018-11-29] MEDS: Aspirin E.C. 81 MG TABEC PO (09:06)
[2018-11-29] MEDS: Insulin Aspart 300 UNITS/3 ML PEN SC ×4 (09:21→17:45)
[2018-11-29] MEDS: Insulin NPH-Human 300 UNITS/3 ML PEN 25 UNIT SC ×2 (09:23→21:41)
[2018-11-29 10:33] LABS: PTT Activated 41.5 sec (21.0-31.4)
[2018-11-29] MEDS: Mylanta Suspension 30 ML CUP PO (11:11)
--- NOTE | 2018-11-29 11:17 | PHARADMIT ---
Addendum entered by Gertrude Vargas 12/07/18 17:43: Morphine increased to 1mg/hr, 3 bolus' overnight Addendum entered by Gertrude Vargas 12/06/18 14:12: Not eating well, no speech therapist avail for swallow study, Pneumonia treatment complete but huge aspiration. Balancing CHF with diuresis but worsening Scr. Family not interested in feeding tube. Pt status changed to FINANCE MANAGER Morphine 250mg/250ml IV starting @ 0.5mg/hr Scheduled meds dc'd Addendum entered by Francisca Isbell 12/05/18 13:56: Pharmacy Note Subjective nursing reported pt possibly aspirated this morning when taking medication Objective BP-109/58 other VS okay SCr-2.17(up) h/h-9.6/30.8(down) BG-167 Assessment vanco and cefepime discontinued (finished 7 days) MD ordered barium swallow today, speech did not think the pt would be able to tolerate this today palliative consult today Plan watch for steroid taper continue to watch renal function and h/h not all of the pts PO meds can be crushed, watch for changes following palliative care (aspirin, EC to chewable) Addendum entered by Francisca Isbell 12/04/18 10:35: Pharmacy Note Subjective MD concerned about poor PO intake, palliative consult ordered to discuss goals of care Objective BP-106/58 other VS okay SCr-1.63(up) BUN-58(up) h/h-10.1/32.65(up) troponin-0.75(down) BG-266 Assessment furosemide drip discontinued due to renal function insulin glargine scheduled daily methylprednisolone changed to prednisone vanco and cefepime continue (day6) Plan vanco trough ordered for tomorrow morning continue to watch renal function and h/h watch for d/c of abx tomorrow afternoon/evening Addendum entered by Francisca Isbell 12/03/18 10:20: Pharmacy Note Subjective pt. having a harder time trying to swallow, and vomited this morning per morning report Objective BP-99/48 other VS okay SCr-1.39(up) h/h-8.7/28.8(up slightly) troponin-1.02(down) BG-179 Assessment guaifenesin, nitroglycerin infusion and PO potassium discontinued pantoprazole and ondansetron changed from IV to PO vanco and cefepime continue (day 5/7) methylprednisolone restarted today (was discontinued after it was started yesterday) furosemide drip decreased to 2.5 mg/hr Plan transfusion today due to H/H in setting of ACS (per progress note) watch h/h and SCr Addendum entered by Juan José Horta III 12/02/18 10:18: Pharmacy Note Subjective Patient had increased respirations over night into this morning. Speech evaluation for aspiration precautions. Low BPs, has leaking Mitral valve issues. Objective BP-100/44 RR:19-29, K+3.8 Mag-1.8 SCr-1.28 H&H- 8.5/28.1 BG-164 Troponin-1.37 BNP-15,505 Wgt-87.8 kg No BM noted Assessment Lasix drip off, considering continuing PO , pending BP. Solui-medrol 40mg IV q8hrs started Vancomycin trough (24.5) dose held & re-started as 1gm IV q22hrs, Cefepime continues for Pneumonia Plan Patient still confused (baseline dementia) and breathing has worsened. Addendum entered by Francisca Isbell 12/01/18 12:30: Pharmacy Note Subjective pt improving per nursing report Objective BP-103/41 other VS okay K+3.3 mag-1.9 SCr-1.27 h/h-9.1/29.5 BG-49 troponin-2.26(down) Assessment furosemide infusion changed to PO heparin drip stopped/ heparin IVP ordered hydrocortisone changed from Q12H to daily insulin detemir discontinued and IV fluids containing dextrose ordered PO mag and K+ replacement ordered blood cultures no growth@48 hours cefepime and vanco continue (day 3) Plan watch BG levels, troponins, culture results vanco trough ordered for tomorrow @0700 Addendum entered by Judy Mariee 11/30/18 10:37: Pharmacy Note Subjective demented pt with CHF, NSTEMI and UTI and Pneumonia Objective wt up and down ?? today 88.6kg, I/O -711ml yesterday. H/H 7.5/24.7 needs tranfusion Assessment started vancomycin due to MRSA in history, heparin and furosemide drips Plan follow wt, I/O, H/H, steroid taper, lasix daily order once drip stops Original Note: Admission Pharmacy Clinical Review Code Status DNR/DNI Current Weight 97.6 kg Renally Cleared and Narrow Therapeutic Index Meds CrCl 36.3 ml/min (based off of abw) QTc Value / Action Taken QTc 479, escitalopram (medium risk qt prolongation) BP Control, Fever BP 100/46, afebrile Electrolytes reviewed Na 137, K+ 5.2, Mag 2.2 DVT Prophylaxis Heparin gtt Opiate Usage / Scheduled Bowel Regimen Ordered No opiates, BM reg ordered Plt/SCr for Heparin / Enoxaparin Plt 133, SCr 1.42 (down from 1.62) INR for Warfarin 1.0 H/H stable, WBC/Bands H/H 26.6/8.1 -- gets chronic transfusions Antibiotic appropriateness Cefepime 2g q12, Vanco q24h Cultures and Sensitivities few gram + in sputum, other pending Surgical ABX d/c within 24 hr DM control / Insulin Dosing Detemir 12U HS, NPH 25U q12, Aspart per SS Heart Failure (Check EF%) (JONATHAN's, B-Block, Diuretics) Lasix gtt, nitro gtt, spironolactone IV to PO Switch Home Meds Reviewed yes Home Meds Not Ordered Spironolactone Levofloxacin 250mg QOD escitalopram - ordered upon admission but DC'd due to prolonged QT Comments Septic -- adding Vanco to cefepime as pt does have a history of MRSA in 2016; elevated Troponin likely demand ischemia but is trending down
--- NOTE | 2018-11-29 11:21 | PGE_ITS ---
Date of Service Date of service: 11/29/18 Time of Service: 11:21 Assessment and Plan (1) Sepsis: Current visit: Yes Status: Acute Diagnosis of sepsis based on findings of tachypnea, hypotension, mental status altered from baseline, and evidence of organ dysfunction with elevated Lactic Acid and KORY - likely in setting of pneumonia as well as UTI. - Await Blood and Urine Cultures - collect sputum if able. - Continue Cefepime in elderly prison resident. Given history of MRSA infection in past will also initiate Vancomycin. - Appears to be improving with normalized Lactate and decrease in creatinine. (2) Pneumonia: Current visit: Yes Status: Acute Treatment as above. (3) UTI (urinary tract infection): Current visit: Yes Status: Acute Await Urine Cultures and continue antibiotics. (4) Non-STEMI (non-ST elevated myocardial infarction): Current visit: Yes Status: Acute Elevated Troponin, with a peak at 7.7 in elderly female with known history of CAD, in setting of sepsis and infection - likely demand related. - Continue ASA and high potency statin. - Hold off on BB therapy given acute CHF. - Troponin declining with treatment - continue to trend. - Currently on Heparin gtt - plan on 48 hours of anticoagulation if continued treatment. - Check ECHO for evidence of drop in EF or wall motion abnormalities. (5) Acute on chronic congestive heart failure: Current visit: Yes Status: Acute ECHO pending as above. Awaiting ECHO results for determination of faith tment plan going forward. Qualifiers: Heart failure type: unspecified Qualified Code(s): I50.9 - Heart failure, unspecified (6) DVT prophylaxis: Current visit: Yes Status: Acute Currently on Heparin gtt as above. On PPI therapy for GI Prophylaxis. (7) Advance directive on file: Current visit: Yes Status: Acute DNR/DNI. Subjective Interval history since last seen: 77 year old female resident of a local prison with a prior history of CAD, admitted from [facility] Emergency Department with a diagnosis of PNA, UTI, Sepsis, CHF, and NSTEMI. Mrs. Moncada has a Past Medical History significant for CHF, COPD, MDS with chronic transfusion dependent anemia, DM, and Dementia. She was sent to the ED for evaluation of a cough, dyspnea, and chest discomfort. Initial work-up was pertinent for an elevated lactate, hypotension, elevated troponin of 2.6, and a BNP of over 6000. Further work-up was significant for evidence of a LLL PNA and mild volume overload by CXR. ECG was negative for any acute ischemic changes. The patient was initiated on heparin and lasix gtt, started on IV Cefepime, and admitted for treatement of Sepsis, PNA, and likely demand related ischemia / NSTEMI. Following admission Mrs. Moncada's troponin value increased and peaked at 7.7, and she developed KORY with a creatinine of 1.64. Her lactate also worsened to 3.3, and a urinalysis also showed evidence of a potential UTI. After treatment was initiated the patient's troponin has finally downtrended this morning, and her renal function appears improved and lactate has normalized. She continues to complain of chest discomfort, but unclear if this is pleuritic and related to cough, as related by admitting attending and overnight nurses. Review of prior culture results with evidence of MRSA in a wound culture from 2016. No other events reported. She remains afebrile. Exam Narrative Exam Narrative: General: Patient appears acutely ill but not toxic, asleep but arousable, baseline dementia noted Neck: Supple CV: Regular, nontachycardic, S1S2, No rubs, murmurs, or gallops. Pulmonary: Tachypneic by inspection. Bibasilar crackles, Rhonchi at the left base, scattered wheezing on limited anterior and lateral exam. Abdomen: + Bowel Sounds, soft, nontender, nondistended Vascular: No lower extremity edema Psych: Normal mood and affect. Objective Objective Clinical Data: Abnormal lab results 11/28/18 11/28/18 11/28/18 Range/Units 19:27 19:27 19:27 WBC 3.58 L (4.4-10.8) k/cumm RBC 2.69 L (4.00-5.20) m/cumm Hgb 8.3 L (12.0-15.5) g/dL Hct 27.2 L (36.0-46.0) % MCV 101.1 H (80-95) fL MCHC 30.5 L (32.0-36.0) g/dL RDW 18.7 H (11.7-14.6) % Absolute Lymphocytes 0.18 L (1.2-3.4) k/cumm APTT (21.0-31.4) sec Potassium (3.5-5.1) mmol/L BUN 39 H D (7-18) mg/dL Creatinine 1.64 H (0.55-1.02) mg/dL Glucose 353 H (70-100) mg/dL Lactate 2.7 H* (0.6-1.4) mmol/L Calcium 8.4 L (8.5-10.1) mg/dL AST 61 H (15-37) U/L Alkaline Phosphatase 120 H (46-116) U/L Troponin I (0.00-0.06) ng/mL NT-Pro-B Natriuret Pep ( - 299) pg/mL Albumin 2.6 L (3.4-5.0) g/dL HDL Cholesterol (40-60) mg/dL Urine Protein (Negative) mg/dL Urine Blood (Negative) Urine Nitrite (Negative) Ur Leukocyte Esterase (Negative) 11/28/18 11/28/18 11/29/18 Range/Units 19:27 20:30 01:00 WBC (4.4-10.8) k/cumm RBC (4.00-5.20) m/cumm Hgb (12.0-15.5) g/dL Hct (36.0-46.0) % MCV (80-95) fL MCHC (32.0-36.0) g/dL RDW (11.7-14.6) % Absolute Lymphocytes (1.2-3.4) k/cumm APTT (21.0-31.4) sec Potassium (3.5-5.1) mmol/L BUN (7-18) mg/dL Creatinine (0.55-1.02) mg/dL Glucose (70-100) mg/dL Lactate 3.3 H* (0.6-1.4) mmol/L Calcium (8.5-10.1) mg/dL AST (15-37) U/L Alkaline Phosphatase (46-116) U/L Troponin I 2.64 H* 6.82 H* (0.00-0.06) ng/mL NT-Pro-B Natriuret Pep 6650 H ( - 299) pg/mL Albumin (3.4-5.0) g/dL HDL Cholesterol (40-60) mg/dL Urine Protein (Negative) mg/dL Urine Blood (Negative) Urine Nitrite (Negative) Ur Leukocyte Esterase (Negative) 11/29/18 11/29/18 11/29/18 Range/Units 01:00 03:40 04:05 WBC (4.4-10.8) k/cumm RBC (4.00-5.20) m/cumm Hgb (12.0-15.5) g/dL Hct (36.0-46.0) % MCV (80-95) fL MCHC (32.0-36.0) g/dL RDW (11.7-14.6) % Absolute Lymphocytes (1.2-3.4) k/cumm APTT (21.0-31.4) sec Potassium (3.5-5.1) mmol/L BUN (7-18) mg/dL Creatinine (0.55-1.02) mg/dL Glucose (70-100) mg/dL Lactate 2.2 H* (0.6-1.4) mmol/L Calcium (8.5-10.1) mg/dL AST (15-37) U/L Alkaline Phosphatase (46-116) U/L Troponin I 7.79 H* (0.00-0.06) ng/mL NT-Pro-B Natriuret Pep ( - 299) pg/mL Albumin (3.4-5.0) g/dL HDL Cholesterol (40-60) mg/dL Urine Protein Trace H (Negative) mg/dL Urine Blood Large H (Negative) Urine Nitrite Positive H (Negative) Ur Leukocyte Esterase Large H (Negative) 11/29/18 11/29/18 11/29/18 Range/Units 04:05 04:05 08:05 WBC 3.51 L (4.4-10.8) k/cumm RBC 2.63 L (4.00-5.20) m/cumm Hgb 8.1 L (12.0-15.5) g/dL Hct 26.6 L (36.0-46.0) % MCV 101.1 H (80-95) fL MCHC 30.5 L (32.0-36.0) g/dL RDW 18.7 H (11.7-14.6) % Absolute Lymphocytes 0.39 L (1.2-3.4) k/cumm APTT (21.0-31.4) sec Potassium 5.2 H (3.5-5.1) mmol/L BUN 40 H (7-18) mg/dL Creatinine 1.42 H (0.55-1.02) mg/dL Glucose 229 H D (70-100) mg/dL Lactate (0.6-1.4) mmol/L Calcium 8.4 L (8.5-10.1) mg/dL AST (15-37) U/L Alkaline Phosphatase (46-116) U/L Troponin I 5.57 H* (0.00-0.06) ng/mL NT-Pro-B Natriuret Pep 9890 H ( - 299) pg/mL Albumin (3.4-5.0) g/dL HDL Cholesterol 34 L (40-60) mg/dL Urine Protein (Negative) mg/dL Urine Blood (Negative) Urine Nitrite (Negative) Ur Leukocyte Esterase (Negative) 11/29/18 Range/Units 10:12 WBC (4.4-10.8) k/cumm RBC (4.00-5.20) m/cumm Hgb (12.0-15.5) g/dL Hct (36.0-46.0) % MCV (80-95) fL MCHC (32.0-36.0) g/dL RDW (11.7-14.6) % Absolute Lymphocytes (1.2-3.4) k/cumm APTT 41.5 H (21.0-31.4) sec Potassium (3.5-5.1) mmol/L BUN (7-18) mg/dL Creatinine (0.55-1.02) mg/dL Glucose (70-100) mg/dL Lactate (0.6-1.4) mmol/L Calcium (8.5-10.1) mg/dL AST (15-37) U/L Alkaline Phosphatase (46-116) U/L Troponin I (0.00-0.06) ng/mL NT-Pro-B Natriuret Pep ( - 299) pg/mL Albumin (3.4-5.0) g/dL HDL Cholesterol (40-60) mg/dL Urine Protein (Negative) mg/dL Urine Blood (Negative) Urine Nitrite (Negative) Ur Leukocyte Esterase (Negative) Vital Signs Temperature 36 C L 11/29/18 07:30 Temperature Source Temporal Artery Scan 11/29/18 07:30 Pulse 80 11/29/18 08:01 Pulse 81 11/29/18 08:01 Respiratory Rate 21 11/29/18 08:01 Respiratory Effort 11/29/18 07:30 Respiratory Depth Shallow 11/29/18 07:30 Respiratory Pattern Tachypnea 11/29/18 07:30 Blood Pressure 100/46 L 11/29/18 08:01 Blood Pressure Mean 60 11/29/18 08:01 Blood Pressure Position Supine 11/29/18 07:30 Pulse Oximetry 99 11/29/18 08:41 Oxygen Delivery Method Nasal Cannula 11/29/18 08:41 Oxygen Flow Rate 1 11/29/18 08:41 Pain Level 4 11/29/18 07:30 Intake & Output 11/28/18 11/28/18 11/29/18 11:59 23:59 11:59 Intake Total 350 / 350 127 / 127 Output Total 950 / 950 Balance 350 / 350 -823 / -823 Weight 83.915 kg 97.6 kg Intake: IV 350 / 350 127 / 127 Output: Urine 950 / 950 Other: Urine Color Pale Urine Appearance Cloudy Comment pt has had 125 out in 1 hour # Voids 1 Laboratory Results WBC 3.51 k/cumm (4.4-10.8) L 11/29/18 04:05 RBC 2.63 m/cumm (4.00-5.20) L 11/29/18 04:05 Hgb 8.1 g/dL (12.0-15.5) L 11/29/18 04:05 Hct 26.6 % (36.0-46.0) L 11/29/18 04:05 MCV 101.1 fL (80-95) H 11/29/18 04:05 MCH 30.8 pg (27.0-33.0) 11/29/18 04:05 MCHC 30.5 g/dL (32.0-36.0) L 11/29/18 04:05 RDW 18.7 % (11.7-14.6) H 11/29/18 04:05 Plt Count 133 x1000/uL (130-400) 11/29/18 04:05 MPV fL (8.0-11.0) 11/29/18 04:05 Immature Gran % 0.0 11/29/18 04:05 73.0 11/29/18 04:05 3.0 % 11/29/18 04:05 11.0 11/29/18 04:05 12.0 11/29/18 04:05 1.0 11/29/18 04:05 0.0 11/29/18 04:05 Absolute Neutrophils 2.67 k/cumm (1.2-6.7) 11/29/18 04:05 Absolute Lymphocytes 0.39 k/cumm (1.2-3.4) L 11/29/18 04:05 Absolute Monocytes 0.42 k/cumm (0.11-0.7) 11/29/18 04:05 Absolute Eosinophils 0.04 k/cumm (0.0-0.7) 11/29/18 04:05 Absolute Basophils 0.00 k/cumm (0.0-0.2) 11/29/18 04:05 Manual differential 11/29/18 04:05 RBC Morphology See below 11/29/18 04:05 Present 11/29/18 04:05 1+ 11/29/18 04:05 2+ 11/29/18 04:05 2+ 11/29/18 04:05 1+ 11/29/18 04:05 2+ 11/29/18 04:05 PT 10.4 sec (9.3-11.0) 11/28/18 19:27 INR 1.0 (0.9-1.1) 11/28/18 19:27 APTT 41.5 sec (21.0-31.4) H 11/29/18 10:12 Sodium 137 mmol/L (136-145) 11/29/18 04:05 Potassium 5.2 mmol/L (3.5-5.1) H 11/29/18 04:05 Chloride 100 mmol/L (98-107) 11/29/18 04:05 Carbon Dioxide 30.2 mmol/L (21.0-32.0) 11/29/18 04:05 6.8 mmol/L (3-11) 11/29/18 04:05 BUN 40 mg/dL (7-18) H 11/29/18 04:05 1.42 mg/dL (0.55-1.02) H 11/29/18 04:05 35.78 (mL/min/1.73m2) 11/29/18 04:05 Glucose 229 mg/dL (70-100) H D 11/29/18 04:05 0.8 mmol/L (0.6-1.4) 11/29/18 08:05 Calcium 8.4 mg/dL (8.5-10.1) L 11/29/18 04:05 0.5 mg/dL (0.2-1.0) 11/28/18 19: AST 61 U/L (15-37) H 11/28/18 19:27 ALT 41 U/L (12-78) 11/28/18 19: 120 U/L (46-116) H 11/28/18 19:27 5.57 ng/mL (0.00-0.06) H* 11/29/18 08:05 NT-Pro-B Natriuret Pep 9890 pg/mL (-299) H 11/29/18 04:05 7.4 g/dL (6.4-8.2) 11/28/18 19:27 2.6 g/dL (3.4-5.0) L 11/28/18 19:27 Triglycerides 71 mg/dL (30-150) 11/29/18 04:05 99 mg/dL (50-200) 11/29/18 04:05 LDL Cholesterol, Calc 51 mg/dL 11/29/18 04:05 34 mg/dL (40-60) L 11/29/18 04:05 0.3 ng/mL 11/29/18 01:00 Yellow (Yellow) 11/29/18 03:40 Sl cloudy (Clear) 11/29/18 03:40 7.0 (5-8) 11/29/18 03:40 Ur Specific Maxwell 1.015 (1.005-1.025) 11/29/18 03:40 Trace mg/dL (Negative) H 11/29/18 03:40 Negative mg/dL (Negative) 11/29/18 03:40 Large (Negative) H 11/29/18 03:40 Positive (Negative) H 11/29/18 03:40 Negative (Negative) 11/29/18 03:40 0.2 EU/dL (Up TO 0.2) 11/29/18 03:40 Ur Leukocyte Esterase Large (Negative) H 11/29/18 03:40 Not Applicable 11/29/18 03:40 >50 HPF (0-5) 11/29/18 03:40 Ur Epithelial Cells Not Applicable 11/29/18 03:40 Not Applicable 11/29/18 03:40 Not Applicable 11/29/18 03:40 Not Applicable 11/29/18 03:40 Ur Culture Indicated? Yes 11/29/18 03:40 Negative mg/dL (Negative) 11/29/18 03:40
[2018-11-29 12:15] LABS: Magnesium 2.2 mg/dL (1.8-2.4)
[2018-11-29] MEDS: MORPHine 2 MG/ML SYR IVP (13:28)
[2018-11-29 14:14] LABS: Troponin I 4.65 ng/mL (0.00-0.06)
--- NOTE | 2018-11-29 14:31 | CHAPLAIN ---
Eleni was asleep a few times when checked in on her. I left her a prayer shawl.
--- NOTE | 2018-11-29 15:17 | PDOC.CMIN ---
- If Service Date Differs Date of service: 11/29/18 Time of Service: 15:17 Care Management Initial Assess REASON FOR HOSPITALIZATION:: Chest pain, NSTEMI, PNA PAST MEDICAL HISTORY/PAST SURGICAL HISTORY:: Per Previous H&P: CAD, CHF, Hyperlipidemia, Aortic stenosis, Constipation, Diverticulosis, Gastritis, Obesity, Anemia NOS, Myelodysplastic syndrome w/ pancytopenia, Depression, Peripheral neuropathy, Chronic renal insuff, Type II diabetes, Hypothyroidism, Cholecystectomy, Cataract removal Bilateral, Tubal ligation, (R) first toe amputation PREVIOUS FUNCTIONAL STATUS/SOCIAL/FAMILY SUPPORTS:: Eleni currently resides at [facility] and receives all of her assistance through LTC. Her daughter sees Wendy see her frequently. CURRENT FUNCTIONAL STATUS:: Eleni is lying in bed being attended to by primary nurse. CM will return when she is more alert and able to engage [facility] CM. ADVANCE DIRECTIVES:: On file - shanika Nguyen Has patient been provided with information about the portal?: No Did the patient sign up for the portal?: No CODE STATUS:: DNR/DNI INSURANCE COVERAGE / FINANCIAL ISSUES:: Medicare, Medicaid CURRENT HOME/COMMUNITY SERVICES/EQUIPMENT:: [facility] PRIMARY CARE PHYSICIAN:: POTENTIAL DISCHARGE NEEDS:: Return to [facility] when medically ready. PATIENT/FAMILY EDUCATION NEEDS:: Discharge education, limitations and follow up plan of care, follow up with [facility] discharged planning. ANTICIPATED BARRIERS TO DISCHARGE:: none TRANSPORTATION:: Via wheelchair van PLAN:: Eleni is septic and receiving IV antibioitcs, she remains ICU level of care. Continue to monitor labs, she has an echo pending. Anticipate she will be discharged to [facility] when she is medically ready.
[2018-11-29] MEDS: Atorvastatin 40 MG TAB PO (21:39)
[2018-11-29] MEDS: Docusate Sodium 100 MG CAP PO (21:46)
[2018-11-29] MEDS: Normal Saline Flush 10 ML SYR IVP (21:46)
[2018-11-29] MEDS: Acetaminophen 325 MG TAB PO (23:28)
[2018-11-30] VITALS (56 sets, daily range): BP systolic 80–122; BP diastolic 35–77; PULSE 61–89; RESP 14–34; TEMP 36.5–37.2; O2SAT 90–100
[2018-11-30] MEDS: Hydrocortisone SOD SUC. 100 MG VIAL 50 MG IVP ×2 (06:08→17:08)
[2018-11-30] MEDS: Levothyroxine 75 MCG TAB PO (06:08)
[2018-11-30] MEDS: Normal Saline Flush 10 ML SYR IVP ×3 (06:09→19:04)
[2018-11-30 06:57] LABS: Abs Immature Grans 0.01 k/cumm (0.0-0.09); HCT 24.7 % (36.0-46.0); HGB 7.5 g/dL (12.0-15.5); Mean Corp. HGB Concentration 30.4 g/dL (32.0-36.0); Mean Corpuscular Hemoglobin 30.9 pg (27.0-33.0); Mean Corpuscular Volume 101.6 fL (80-95); RBC 2.43 m/cumm (4.00-5.20); RBC Distribution Width 18.7 % (11.7-14.6); White Blood Cell Count 4.15 k/cumm (4.4-10.8)
[2018-11-30 07:27] LABS: Anion Gap 7.7 mmol/L (3-11); BUN 45 mg/dL (7-18); CO2 29.3 mmol/L (21.0-32.0); CREATININE 1.29 mg/dL (0.55-1.02); Calcium 8.3 mg/dL (8.5-10.1); Chloride 103 mmol/L (98-107); Estimated GFR 39.97 (mL/min/1.73m2); Glucose 115 mg/dL (70-100); Magnesium 2.1 mg/dL (1.8-2.4); Potassium 3.3 mmol/L (3.5-5.1); Sodium 140 mmol/L (136-145)
[2018-11-30 07:33] LABS: Absolute Eosinophil Count 0.04 k/cumm (0.0-0.7); Absolute Lymphocyte Count 0.62 k/cumm (1.2-3.4); Absolute Monocyte Count 0.12 k/cumm (0.11-0.7); Absolute Neutrophil Count 3.36 k/cumm (1.2-6.7); Diff Comment Manual Differential
[2018-11-30 07:34] LABS: Anisocytosis 2+; Hypochromasia 2+; Platelet Count 127 x1000/uL (130-400)
[2018-11-30 07:35] LABS: Troponin I 3.36 ng/mL (0.00-0.06)
[2018-11-30 07:56] LABS: PTT Activated 46.3 sec (21.0-31.4)
[2018-11-30] MEDS: CEFEPIME 2 GM in Normal Saline 100 ML IVPB ×2 (08:32→19:52)
[2018-11-30] MEDS: Potassium Chloride 20 MEQ TABCR 40 MEQ PO ×2 (08:33→13:36)
[2018-11-30] MEDS: guaiFENesin 600 MG TABCR 1200 MG PO ×2 (08:33→19:03)
[2018-11-30] MEDS: Sucralfate 1 GM TAB PO ×4 (08:33→22:20)
[2018-11-30] MEDS: Aspirin E.C. 81 MG TABEC PO (08:34)
[2018-11-30] MEDS: Pantoprazole 40 MG TABCR PO (08:34)
[2018-11-30] MEDS: Polyethylene Glycol 3350 17 GM PACKET PO (08:35)
[2018-11-30] MEDS: MORPHine 2 MG/ML SYR IVP ×3 (08:53→22:00)
[2018-11-30] MEDS: Insulin NPH-Human 300 UNITS/3 ML PEN 25 UNIT SC ×2 (09:42→19:50)
--- NOTE | 2018-11-30 10:56 | PGE_ITS ---
Date of Service Date of service: 11/30/18 Time of Service: 10:56 Assessment and Plan (1) Sepsis: Current visit: No Status: Acute Diagnosis of sepsis based on findings of tachypnea, hypotension, mental status altered from baseline, and evidence of organ dysfunction with elevated Lactic Acid and KORY - likely in setting of pneumonia as well as UTI. - Continue to monitor Blood, sputum, and Urine Cultures. - Continue Cefepime in elderly correction resident. Given history of MRSA infection in past Vancomycin was also initiated - currently day #2. - Appears to be improving with normalized Lactate and decrease in creatinine. (2) Pneumonia: Current visit: No Status: Acute Treatment as above. (3) UTI (urinary tract infection): Current visit: No Status: Acute Await Urine Cultures and continue antibiotics. (4) Non-STEMI (non-ST elevated myocardial infarction): Current visit: No Status: Acute Elevated Troponin, with a peak at 7.7 in elderly female with known history of CAD, in setting of sepsis and infection - likely demand related. - Continue ASA and high potency statin. - Hold off on BB therapy given acute CHF. - Clopidogrel initiated following conversation with cardiology. - Troponin declining nicelywith treatment - continue to trend. - Currently on Heparin gtt - plan on 48 hours of anticoagulation if continued treatment. - ECHO appears to show a very small area of wall motion abnormality in the apical myocardium. Discussed this at length with cardiology at [facility] - either induced by stress (ie Takotsubo) or ischemia - would not be going through a catheterization at this time. Recommendations for continuation of optimized medical care, followed by stress test once acute illness has resolved. (5) Acute on chronic congestive heart failure: Current visit: No Status: Acute ECHO with normal LVEF, but with diastolic CHF and moderate to severe MR. Currently diuresing gently - will monitor weight, UOP, and renal function. Plan on changing lasix gtt to home oral formulation soon. Qualifiers: Heart failure type: unspecified Qualified Code(s): I50.9 - Heart failure, unspecified (6) DVT prophylaxis: Current visit: No Status: Acute Currently on Heparin gtt as above. On PPI therapy for GI Prophylaxis. (7) Advance directive on file: Current visit: No Status: Acute DNR/DNI. Subjective Interval history since last seen: 77 year old female resident of a local correction with a prior history of CAD, admitted from [facility] Emergency Department with a diagnosis of PNA, UTI, Sepsis, CHF, and NSTEMI. Mrs. Moncada has a Past Medical History significant for CHF, COPD, MDS with chronic transfusion dependent anemia, DM, and Dementia. She was sent to the ED for evaluation of a cough, dyspnea, and chest discomfort. Initial work-up was pertinent for an elevated lactate, hypotension, elevated troponin of 2.6, and a BNP of over 6000. Further work-up was significant for evidence of a LLL PNA and mild volume overload by CXR. ECG was negative for any acute ischemic changes. The patient was initiated on heparin and lasix gtt, started on IV Cefepime, and admitted for treatement of Sepsis, PNA, and likely demand related ischemia / NSTEMI. Following admission Mrs. Moncada's troponin value increased and peaked at 7.7, and she developed KORY with a creatinine of 1.64. Her lactate also worsened to 3.3, and a urinalysis also showed evidence of a potential UTI. After treatment was initiated the patient's troponin did downtrend, and her renal function appears improved and lactate has normalized. She is no longer complaining of chest discomfort. Review of prior culture results revealed evidence of MRSA in a wound culture from 2016, and Vancomycin was added. No other events reported. She remains afebrile. Exam Narrative Exam Narrative: General: Patient no longer appears acutely ill, awake and alert, baseline dementia noted Neck: Supple CV: Regular, nontachycardic, S1S2, 2/6 LLSB murmur appreciated. Pulmonary: less tachypneic by inspection. Bibasilar crackles improved, Rhonchi at the left base, scattered wheezing on limited anterior and lateral exam that appears improved. Abdomen: + Bowel Sounds, soft, nontender, nondistended Vascular: No lower extremity edema Psych: Normal mood and affect. Objective Objective Clinical Data: Abnormal lab results 11/29/18 11/30/18 11/30/18 Range/Units 13:43 06:20 06:20 WBC (4.4-10.8) k/cumm RBC (4.00-5.20) m/cumm Hgb (12.0-15.5) g/dL Hct (36.0-46.0) % MCV (80-95) fL MCHC (32.0-36.0) g/dL RDW (11.7-14.6) % Plt Count (130-400) x1000/uL Absolute Lymphocytes (1.2-3.4) k/cumm APTT 46.3 H (21.0-31.4) sec Potassium 3.3 L D (3.5-5.1) mmol/L BUN 45 H (7-18) mg/dL Creatinine 1.29 H (0.55-1.02) mg/dL Glucose 115 H D (70-100) mg/dL Calcium 8.3 L (8.5-10.1) mg/dL Troponin I 4.65 H* 3.36 H* (0.00-0.06) ng/mL Crossmatch 11/30/18 11/30/18 Range/Units 06:20 06:20 WBC 4.15 L (4.4-10.8) k/cumm RBC 2.43 L (4.00-5.20) m/cumm Hgb 7.5 L (12.0-15.5) g/dL Hct 24.7 L (36.0-46.0) % MCV 101.6 H (80-95) fL MCHC 30.4 L (32.0-36.0) g/dL RDW 18.7 H (11.7-14.6) % Plt Count 127 L (130-400) x1000/uL Absolute Lymphocytes 0.62 L (1.2-3.4) k/cumm APTT (21.0-31.4) sec Potassium (3.5-5.1) mmol/L BUN (7-18) mg/dL Creatinine (0.55-1.02) mg/dL Glucose (70-100) mg/dL Calcium (8.5-10.1) mg/dL Troponin I (0.00-0.06) ng/mL Crossmatch See Detail Vital Signs Temperature 37.2 C 11/30/18 04:00 Temperature Source Temporal Artery Scan 11/30/18 04:00 Pulse 72 11/30/18 09:32 Pulse 76 11/30/18 06:01 Respiratory Rate 16 11/30/18 09:32 Respiratory Effort 11/30/18 09:32 Respiratory Depth Normal 11/30/18 09:32 Respiratory Pattern Normal 11/30/18 09:32 Blood Pressure 85/63 L 11/30/18 09:32 Blood Pressure Mean 70 11/30/18 09:32 Blood Pressure Position Supine 11/29/18 21:00 Pulse Oximetry 98 11/30/18 09:32 Oxygen Delivery Method Room Air 11/30/18 09:32 Oxygen Flow Rate 0 11/30/18 09:32 Pain Level 3 11/30/18 09:46 Intake & Output 11/29/18 11/29/18 11/30/18 11:59 23:59 11:59 Intake Total 127 / 2897.709 3271.416 / 1293.416 544.833 / 544.833 Output Total 950 / 2004 1055 / 2005 1620 / 1620 Balance -823 / -711.584 111.416 / -711.584 -1075.167 / -1075.167 Weight 97.6 kg 88.6 kg Intake: IV 127 / 743.416 616.416 / 743.416 344.833 / 344.833 Oral 550 / 550 200 / 200 Output: Urine 950 / 2004 1055 / 2005 1620 / 1620 Other: Urine Color Pale Yellow Yellow Urine Appearance Cloudy Clear Clear Comment pt has had 125 out in 1 hour foely patent lewis to gravity Laboratory Results WBC 4.15 k/cumm (4.4-10.8) L 11/30/18 06:20 RBC 2.43 m/cumm (4.00-5.20) L 11/30/18 06:20 Hgb 7.5 g/dL (12.0-15.5) L 11/30/18 06:20 Hct 24.7 % (36.0-46.0) L 11/30/18 06:20 MCV 101.6 fL (80-95) H 11/30/18 06:20 MCH 30.9 pg (27.0-33.0) 11/30/18 06:20 MCHC 30.4 g/dL (32.0-36.0) L 11/30/18 06:20 RDW 18.7 % (11.7-14.6) H 11/30/18 06:20 Plt Count 127 x1000/uL (130-400) L 11/30/18 06:20 MPV fL (8.0-11.0) 11/30/18 06:20 Immature Gran % See Differential 11/30/18 06:20 76.0 11/30/18 06:20 5.0 % 11/30/18 06:20 15.0 11/30/18 06:20 3.0 11/30/18 06:20 1.0 11/30/18 06:20 0.0 11/30/18 06:20 Absolute Neutrophils 3.36 k/cumm (1.2-6.7) 11/30/18 06:20 Absolute Lymphocytes 0.62 k/cumm (1.2-3.4) L 11/30/18 06:20 Absolute Monocytes 0.12 k/cumm (0.11-0.7) 11/30/18 06:20 Absolute Eosinophils 0.04 k/cumm (0.0-0.7) 11/30/18 06:20 Absolute Basophils 0.00 k/cumm (0.0-0.2) 11/30/18 06:20 Manual differential 11/30/18 06:20 RBC Morphology See below 11/30/18 06:20 Present 11/29/18 04:05 2+ 11/30/18 06:20 2+ 11/29/18 04:05 2+ 11/30/18 06:20 1+ 11/29/18 04:05 2+ 11/29/18 04:05 PT 10.4 sec (9.3-11.0) 11/28/18 19:27 INR 1.0 (0.9-1.1) 11/28/18 19:27 APTT 46.3 sec (21.0-31.4) H 11/30/18 06:20 Sodium 140 mmol/L (136-145) 11/30/18 06:20 Potassium 3.3 mmol/L (3.5-5.1) L D 11/30/18 06:20 Chloride 103 mmol/L (98-107) 11/30/18 06:20 Carbon Dioxide 29.3 mmol/L (21.0-32.0) 11/30/18 06:20 7.7 mmol/L (3-11) 11/30/18 06:20 BUN 45 mg/dL (7-18) H 11/30/18 06:20 1.29 mg/dL (0.55-1.02) H 11/30/18 06:20 39.97 (mL/min/1.73m2) 11/30/18 06:20 Glucose 115 mg/dL (70-100) H D 11/30/18 06:20 0.8 mmol/L (0.6-1.4) 11/29/18 08:05 Calcium 8.3 mg/dL (8.5-10.1) L 11/30/18 06:20 Magnesium 2.1 mg/dL (1.8-2.4) 11/30/18 06:20 0.5 mg/dL (0.2-1.0) 11/28/18 19:27 AST 61 U/L (15-37) H 11/28/18 19:27 ALT 41 U/L (12-78) 11/28/18 19:27 120 U/L (46-116) H 11/28/18 19:27 3.36 ng/mL (0.00-0.06) H* 11/30/18 06:20 NT-Pro-B Natriuret Pep 9890 pg/mL (-299) H 11/29/18 04:05 7.4 g/dL (6.4-8.2) 11/28/18 19:27 2.6 g/dL (3.4-5.0) L 11/28/18 19:27 Triglycerides 71 mg/dL (30-150) 11/29/18 04:05 99 mg/dL (50-200) 11/29/18 04:05 LDL Cholesterol, Calc 51 mg/dL 11/29/18 04:05 34 mg/dL (40-60) L 11/29/18 04:05 0.3 ng/mL 11/29/18 01:00 Yellow (Yellow) 11/29/18 03:40 Sl cloudy (Clear) 11/29/18 03:40 7.0 (5-8) 11/29/18 03:40 Ur Specific [place] 1.015 (1.005-1.025) 11/29/18 03:40 Trace mg/dL (Negative) H 11/29/18 03:40 Negative mg/dL (Negative) 11/29/18 03:40 Large (Negative) H 11/29/18 03:40 Positive (Negative) H 11/29/18 03:40 Negative (Negative) 11/29/18 03:40 0.2 EU/dL (Up TO 0.2) 11/29/18 03:40 Ur Leukocyte Esterase Large (Negative) H 11/29/18 03:40 Not Applicable 11/29/18 03:40 >50 HPF (0-5) 11/29/18 03:40 Ur Epithelial Cells Not Applicable 11/29/18 03:40 Not Applicable 11/29/18 03:40 Not Applicable 11/29/18 03:40 Not Applicable 11/29/18 03:40 Ur Culture Indicated? Yes 11/29/18 03:40 Negative mg/dL (Negative) 11/29/18 03:40 Legionella Source (see note) 11/29/18 03:40 Legionella Reprt Status (see note) 11/29/18 03:40 Legionella Final Result (see note) 11/29/18 03:40 Crossmatch See Detail 11/30/18 06:20
[2018-11-30] MEDS: Insulin Aspart 300 UNITS/3 ML PEN SC (13:36)
--- NOTE | 2018-11-30 15:07 | PDOC.CMPRO ---
- If Service Date Differs Date of service: 11/30/18 Time of Service: 15:07 Care Management Progress Note S/O: Eleni is lying in bed when CM into visit. She continues on IV antibiotics and will have a transfusion, and will continue on heparin due to the NSTEMI. She is also receiving IV lasix in the setting of CHF. She remains ICU level of care today. CM to continue to provide support discharge planning and disposition. She has seen in the past for palliative will request a consult during this admission. A: Eleni is a 77 year old female admitted with sepsis, UTI and Pneumonia P:Eleni [facility] to [facility] when she is medically ready for discharge. She will transport via wheelchair van.
[2018-11-30 15:17] LABS: Streptococcus Pneumoniae Ag, U Negative (Negative)
[2018-11-30] MEDS: POTASSIUM CHLORIDE 20 MEQ, POTASSIUM CHLORIDE 10 MEQ 30 MEQ PO (17:07)
[2018-11-30] MEDS: Albuterol/Ipratropium 3 ML UPD VIAL UPD (17:07)
[2018-11-30] MEDS: Senna TAB 1 TAB PO (19:04)
[2018-11-30] MEDS: Docusate Sodium 100 MG CAP PO (19:04)
[2018-11-30 19:38] LABS: HCT 29.9 % (36.0-46.0); HGB 9.3 g/dL (12.0-15.5)
[2018-11-30 20:03] LABS: Troponin I 2.26 ng/mL (0.00-0.06)
[2018-11-30] MEDS: Atorvastatin 40 MG TAB PO (22:20)
[2018-12-01] VITALS (59 sets, daily range): BP systolic 76–133; BP diastolic 34–111; PULSE 63–89; RESP 4–33; TEMP 36.3–36.9; O2SAT 92–100
[2018-12-01 06:36] LABS: Abs Immature Grans 0.04 k/cumm (0.0-0.09); HCT 29.5 % (36.0-46.0); HGB 9.1 g/dL (12.0-15.5); Mean Corp. HGB Concentration 30.8 g/dL (32.0-36.0); Mean Corpuscular Hemoglobin 30.2 pg (27.0-33.0); RBC 3.01 m/cumm (4.00-5.20); RBC Distribution Width 18.5 % (11.7-14.6); White Blood Cell Count 6.61 k/cumm (4.4-10.8)
[2018-12-01] MEDS: Hydrocortisone SOD SUC. 100 MG VIAL 50 MG IVP (06:41)
[2018-12-01 06:42] LABS: Anion Gap 8.1 mmol/L (3-11); BUN 46 mg/dL (7-18); CO2 30.9 mmol/L (21.0-32.0); CREATININE 1.27 mg/dL (0.55-1.02); Calcium 8.4 mg/dL (8.5-10.1); Chloride 105 mmol/L (98-107); Magnesium 1.9 mg/dL (1.8-2.4); Potassium 3.3 mmol/L (3.5-5.1); Sodium 144 mmol/L (136-145)
[2018-12-01] MEDS: Levothyroxine 75 MCG TAB PO (06:44)
[2018-12-01] MEDS: Sucralfate 1 GM TAB PO ×4 (06:44→21:04)
[2018-12-01 06:55] LABS: Glucose 49 mg/dL (70-100)
[2018-12-01 07:00] LABS: PTT Activated 46.1 sec (21.0-31.4)
[2018-12-01 07:58] LABS: Platelet Count 192 x1000/uL (130-400)
[2018-12-01 07:59] LABS: Absolute Lymphocyte Count 1.52 k/cumm (1.2-3.4); Absolute Monocyte Count 0.33 k/cumm (0.11-0.7); Absolute Neutrophil Count 4.63 k/cumm (1.2-6.7)
[2018-12-01 08:01] LABS: Anisocytosis 2+; Diff Comment Manual Differential; Hypochromasia 2+; Polychromasia Present
[2018-12-01 08:02] LABS: Poikilocytes 1+
[2018-12-01] MEDS: CEFEPIME 2 GM in Normal Saline 100 ML IVPB ×2 (08:09→20:15)
[2018-12-01] MEDS: guaiFENesin 600 MG TABCR 1200 MG PO ×2 (08:10→20:24)
[2018-12-01] MEDS: Aspirin E.C. 81 MG TABEC PO (08:10)
[2018-12-01] MEDS: Pantoprazole 40 MG TABCR PO (08:10)
[2018-12-01] MEDS: Clopidogrel 75 MG TAB PO (08:10)
[2018-12-01] MEDS: Polyethylene Glycol 3350 17 GM PACKET PO (08:30)
[2018-12-01] MEDS: Potassium Chloride 20 MEQ TABCR 40 MEQ PO ×2 (08:30→15:47)
[2018-12-01] MEDS: Albuterol/Ipratropium 3 ML UPD VIAL UPD ×2 (09:15→19:59)
--- NOTE | 2018-12-01 10:07 | PGE_ITS ---
Date of Service Date of service: 12/01/18 Time of Service: 10:07 Assessment and Plan (1) Sepsis: Current visit: No Status: Acute Diagnosis of sepsis based on findings of tachypnea, hypotension, mental status altered from baseline, and evidence of organ dysfunction with elevated Lactic Acid and KORY - likely in setting of pneumonia. - Continue to monitor Blood and sputum cultures. - Continue Cefepime in elderly halfway resident. Given history of MRSA infection in past Vancomycin was also initiated - currently day #3. - Appears resolved. (2) Pneumonia: Current visit: No Status: Acute Treatment as above. (3) UTI (urinary tract infection): Current visit: No Status: Ruled-out Culture does not support infection. (4) Non-STEMI (non-ST elevated myocardial infarction): Current visit: No Status: Acute Elevated Troponin, with a peak at 7.7 in elderly female with known history of CAD, in setting of sepsis and infection - likely demand related. - Continue ASA and high potency statin. - Hold off on BB therapy given acute CHF, but will consider low dose soon. - Clopidogrel initiated following conversation with cardiology. - Troponin declined nicely with treatment - last checked at 2.26 on 11/30. Will repeat once more tomorrow morning. - Received 48 hours of Heparin gtt - now discontinued. - ECHO appears to show a very small area of wall motion abnormality in the apical myocardium. Discussed this at length with cardiology [place] [facility] - either induced by stress (ie Takotsubo) or ischemia - would not be going through a catheterization at this time until medically stable. Recommendations for c ontinuation of optimized medical care, followed by stress test once acute illness has resolved, if family is interested ultimately in intervention. (5) Acute on chronic congestive heart failure: Current visit: No Status: Acute ECHO with normal LVEF, but with diastolic CHF and moderate to severe MR. Currently improved with diuresis - will monitor weight, UOP, and renal function. Changed lasix gtt to home oral formulation. Qualifiers: Heart failure type: unspecified Qualified Code(s): I50.9 - Heart failure, unspecified (6) DVT prophylaxis: Current visit: No Status: Acute Was on Heparin gtt as above, will initiate heparin SC later today. On PPI therapy for GI Prophylaxis. (7) Advance directive on file: Current visit: No Status: Acute DNR/DNI. Subjective Interval history since last seen: 77 year old female resident of a local halfway with a prior history of CAD, admitted from [facility] Emergency Department with a diagnosis of PNA, UTI, Sepsis, CHF, and NSTEMI. Mrs. Moncada has a Past Medical History significant for CHF, COPD, MDS with chronic transfusion dependent anemia, DM, and Dementia. She was sent to the ED for evaluation of a cough, dyspnea, and chest discomfort. Initial work-up was pertinent for an elevated lactate, hypotension, elevated troponin of 2.6, and a BNP of over 6000. Further work-up was significant for evidence of a LLL PNA and mild volume overload by CXR. ECG was negative for any acute ischemic changes. The patient was initiated on heparin and lasix gtt, started on IV Cefepime, and admitted for treatement of Sepsis, PNA, and likely demand related ischemia / NSTEMI. Following admission Mrs. Moncada's troponin value increased and peaked at 7.7, and she developed KORY with a creatinine of 1.64. Her lactate also worsened to 3.3, and a urinalysis also showed evidence of a potential UTI, but with cultures remaining without significant growth. After treatment was initiated the patient's troponin did downtrend, and her renal function appears improved and lactate has normalized. She is no longer complaining of chest discomfort. Review of prior culture results revealed evidence of MRSA in a wound culture from 2016, and Vancomycin was added. She has diuresed gently on lasix gtt, and respiratory symptoms appear improved. No other events reported. She remains afebrile. Exam Narrative Exam Narrative: General: Patient no longer appears acutely ill, awake and alert, baseline dementia noted Neck: Supple CV: Regular, nontachycardic, S1S2, 2/6 LLSB murmur appreciated. Pulmonary:Bibasilar crackles improved, Rhonchi at the left base resolved, scattered wheezing on limited anterior and lateral exam that appears improved again by exam. Abdomen: + Bowel Sounds, soft, nontender, nondistended Vascular: No lower extremity edema Psych: Normal mood and affect. Objective Objective Clinical Data: Abnormal lab results 11/30/18 11/30/18 11/30/18 Range/Units 06:20 17:23 17:23 RBC (4.00-5.20) m/cumm Hgb 9.3 L (12.0-15.5) g/dL Hct 29.9 L D (36.0-46.0) % MCV (80-95) fL MCHC (32.0-36.0) g/dL RDW (11.7-14.6) % APTT (21.0-31.4) sec Potassium (3.5-5.1) mmol/L BUN (7-18) mg/dL Creatinine (0.55-1.02) mg/dL Glucose (70-100) mg/dL Calcium (8.5-10.1) mg/dL Troponin I 2.26 H* (0.00-0.06) ng/mL Crossmatch See Detail 12/01/18 12/01/18 12/01/18 Range/Units 06:10 06:10 06:10 RBC 3.01 L (4.00-5.20) m/cumm Hgb 9.1 L (12.0-15.5) g/dL Hct 29.5 L (36.0-46.0) % MCV 98.0 H D (80-95) fL MCHC 30.8 L (32.0-36.0) g/dL RDW 18.5 H (11.7-14.6) % APTT 46.1 H (21.0-31.4) sec Potassium 3.3 L (3.5-5.1) mmol/L BUN 46 H (7-18) mg/dL Creatinine 1.27 H (0.55-1.02) mg/dL Glucose 49 L D (70-100) mg/dL Calcium 8.4 L (8.5-10.1) mg/dL Troponin I (0.00-0.06) ng/mL Crossmatch Vital Signs Temperature 36.6 C 12/01/18 09:38 Temperature Source Temporal Artery Scan 12/01/18 09:38 Pulse 72 12/01/18 09:38 Pulse 69 12/01/18 06:01 Respiratory Rate 20 12/01/18 09:38 Respiratory Effort 12/01/18 09:38 Respiratory Depth Normal 12/01/18 09:38 Respiratory Pattern Normal 12/01/18 09:38 Blood Pressure 120/46 L 12/01/18 09:38 Blood Pressure Mean 70 12/01/18 09:38 Blood Pressure Position Supine 12/01/18 09:38 Pulse Oximetry 98 12/01/18 09:38 Oxygen Delivery Method Room Air 12/01/18 09:38 Oxygen Flow Rate 0 12/01/18 09:38 Pain Level 3 12/01/18 09:38 Intake & Output 11/30/18 11/30/18 12/01/18 11:59 23:59 11:59 Intake Total 544.833 / 4830.732 4912.667 / 1882.500 300 / 300 Output Total 1620 / 2300 680 / 2300 1450 / 1450 Balance -1075.167 / -417.500 657.667 / -417.500 -1150 / -1150 Weight 88.6 kg 89 kg Intake: IV 344.833 / 898.500 553.667 / 898.500 100 / 100 Oral 200 / 637 437 / 637 200 / 200 Blood Product 347 / 347 Rbc Leuko Reduced Unit 347 / 347 [id number] Output: Urine 1620 / 2300 680 / 2300 1450 / 1450 Other: Urine Color Yellow Yellow Yellow Urine Appearance Clear Clear Clear Comment lewis to gravity pt has indwelling lewis, urine sl cloudy fan lewis to gravity Laboratory Results WBC 6.61 k/cumm (4.4-10.8) D 12/01/18 06:10 RBC 3.01 m/cumm (4.00-5.20) L 12/01/18 06:10 Hgb 9.1 g/dL (12.0-15.5) L 12/01/18 06:10 Hct 29.5 % (36.0-46.0) L 12/01/18 06:10 MCV 98.0 fL (80-95) H D 12/01/18 06:10 MCH 30.2 pg (27.0-33.0) 12/01/18 06:10 MCHC 30.8 g/dL (32.0-36.0) L 12/01/18 06:10 RDW 18.5 % (11.7-14.6) H 12/01/18 06:10 Plt Count 192 x1000/uL (130-400) 12/01/18 06:10 MPV fL (8.0-11.0) 12/01/18 06:10 Immature Gran % See Differential 12/01/18 06:10 61.0 12/01/18 06:10 9.0 % 12/01/18 06:10 23.0 12/01/18 06:10 5.0 12/01/18 06:10 0.0 12/01/18 06:10 0.0 12/01/18 06:10 1.0 % 12/01/18 06:10 1.0 % 12/01/18 06:10 Absolute Neutrophils 4.63 k/cumm (1.2-6.7) 12/01/18 06:10 Absolute Lymphocytes 1.52 k/cumm (1.2-3.4) 12/01/18 06:10 Absolute Monocytes 0.33 k/cumm (0.11-0.7) 12/01/18 06:10 Absolute Eosinophils 0.00 k/cumm (0.0-0.7) 12/01/18 06:10 Absolute Basophils 0.00 k/cumm (0.0-0.2) 12/01/18 06:10 Manual differential 12/01/18 06:10 RBC Morphology See below 12/01/18 06:10 Present 12/01/18 06:10 2+ 12/01/18 06:10 1+ 12/01/18 06:10 2+ 12/01/18 06:10 1+ 11/29/18 04:05 2+ 11/29/18 04:05 PT 10.4 sec (9.3-11.0) 11/28/18 19:27 INR 1.0 (0.9-1.1) 11/28/18 19:27 APTT 46.1 sec (21.0-31.4) H 12/01/18 06:10 Sodium 144 mmol/L (136-145) 12/01/18 06:10 Potassium 3.3 mmol/L (3.5-5.1) L 12/01/18 06:10 Chloride 105 mmol/L (98-107) 12/01/18 06:10 Carbon Dioxide 30.9 mmol/L (21.0-32.0) 12/01/18 06:10 8.1 mmol/L (3-11) 12/01/18 06:10 BUN 46 mg/dL (7-18) H 12/01/18 06:10 1.27 mg/dL (0.55-1.02) H 12/01/18 06:10 40.70 (mL/min/1.73m2) 12/01/18 06:10 Glucose 49 mg/dL (70-100) L D 12/01/18 06:10 0.8 mmol/L (0.6-1.4) 11/29/18 08:05 Calcium 8.4 mg/dL (8.5-10.1) L 12/01/18 06:10 Magnesium 1.9 mg/dL (1.8-2.4) 12/01/18 06:10 0.5 mg/dL (0.2-1.0) 11/28/18 19:27 AST 61 U/L (15-37) H 11/28/18 19:27 ALT 41 U/L (12-78) 11/28/18 19:27 120 U/L (46-116) H 11/28/18 19:27 2.26 ng/mL (0.00-0.06) H* 11/30/18 17:23 NT-Pro-B Natriuret Pep 9890 pg/mL (-299) H 11/29/18 04:05 7.4 g/dL (6.4-8.2) 11/28/18 19:27 2.6 g/dL (3.4-5.0) L 11/28/18 19:27 Triglycerides 71 mg/dL (30-150) 11/29/18 04:05 99 mg/dL (50-200) 11/29/18 04:05 LDL Cholesterol, Calc 51 mg/dL 11/29/18 04:05 34 mg/dL (40-60) L 11/29/18 04:05 0.3 ng/mL 11/29/18 01:00 Yellow (Yellow) 11/29/18 03:40 Sl cloudy (Clear) 11/29/18 03:40 7.0 (5-8) 11/29/18 03:40 Ur Specific [place] 1.015 (1.005-1.025) 11/29/18 03:40 Trace mg/dL (Negative) H 11/29/18 03:40 Negative mg/dL (Negative) 11/29/18 03:40 Large (Negative) H 11/29/18 03:40 Positive (Negative) H 11/29/18 03:40 Negative (Negative) 11/29/18 03:40 0.2 EU/dL (Up TO 0.2) 11/29/18 03:40 Ur Leukocyte Esterase Large (Negative) H 11/29/18 03:40 Not Applicable 11/29/18 03:40 >50 HPF (0-5) 11/29/18 03:40 Ur Epithelial Cells Not Applicable 11/29/18 03:40 Not Applicable 11/29/18 03:40 Not Applicable 11/29/18 03:40 Not Applicable 11/29/18 03:40 Ur Culture Indicated? Yes 11/29/18 03:40 Negative mg/dL (Negative) 11/29/18 03:40 Legionella Source (see note) 11/29/18 03:40 Legionella Reprt Status (see note) 11/29/18 03:40 Legionella Final Result (see note) 11/29/18 03:40 M. pneumoniae Source Cancelled 11/29/18 04:37 M. pneumoniae (PCR) Cancelled 11/29/18 04:37 Ur Strep pneumoniae Ag Negative (Negative) 11/29/18 03:40 Patient ABO/Rh B Positive 11/30/18 06:20 Antibody Screen Negative 11/30/18 06:20 Crossmatch See Detail 11/30/18 06:20
[2018-12-01] MEDS: Magnesium Oxide 400 MG TAB 800 MG PO (10:19)
[2018-12-01] MEDS: DEXTROSE 5%-0.45% SALINE 1,000 ML 50 ML IV (10:20)
--- NOTE | 2018-12-01 10:29 | PDOC.CMPRO ---
- If Service Date Differs Date of service: 12/01/18 Time of Service: 10:29 Care Management Progress Note S/O: Eleni is lying in bed when CM into visit. She smiles when CM into visit she thinks that she may be feeling a little better. She continues to have some difficulty with her breathing and her congestion is apparent from the bedside. Nursing reports she appears improved today. She request that CM contact her daughter Wendy and provide an update. Anticipate she will not return to the Rehab until Wednesday. A: Eleni is a 77 year old female admitted with sepsis, UTI and Pneumonia P:Eleni will [facility] to [facility] when she is medically ready for discharge. She will transport via wheelchair van.
[2018-12-01] MEDS: Heparin 5,000 UNITS/ML VIAL 5000 UNITS SC ×2 (11:47→20:02)
--- NOTE | 2018-12-01 12:19 | IN_ITS ---
Date of service: 12/01/18 Time of Service: 11:50 PT Notes Inpatient Physical Therapy Evaluation Date: 12/01/18 Referring Doctor: Dr. Rainey PT Orders: PT CONSULT: eval and treat Precautions: none Patient Profile/Admitting Diagnosis: Patient admitted 11/29/18 for management of sepsis, pneumonia, NSTEMI, in addition to KORY, CHF (acute on chronic), UTI. PMHX: CAD, CHF, Hyperlipidemia, Aortic stenosis, Constipation, Diverticulosis, Gastritis, Obesity, Anemia NOS, Myelodysplastic syndrome w/ pancytopenia, Depression, Peripheral neuropathy, Chronic renal insuff, Type II diabetes, Hypothyroidism, Cholecystectomy, Cataract removal Bilateral, Tubal ligation, (R) first toe amputation Social History/Home Situation: Patient is a retirement resident of [facility]. She transfers via Angel lift. She is dependent for all ADLs and self-care Equipment Owned/DME: LT resident Subjective: Eleni states that she is very tired. She's agreeable to PT consultation. Objective: General Observation: Resting in bed with HOB at 40 degrees. Willett catheter in place. IV to bilat UEs. Patient dyspneic at rest, which is baseline, per nursing. Mental Status: Alert. Patient is not oriented to place or time. Asks for her , who is , on several occasions. Vital Signs: monitored on telemetry ROM: Right Upper Extremity: Shoulder flexion to 80 degrees. Elbow motion WFL. Able to form full flame cutting machine operator helper and full hand opening bilat. Left Upper Extremity: Shoulder flexion to 80 degrees. Elbow motion WFL. Able to form full flame cutting machine operator helper and full hand opening bilat. Right Lower Extremity: Bilat knee flexion contractures to ~15 degrees. Ankle DF allows neutral only. Left Lower Extremity: Bilat knee flexion contractures to ~15 degrees. Ankle DF allows neutral only. Strength: Right Upper Extremity: Shoulder flexion 3-/5. Elbow flexion 3+/5. Triceps 3+/5. Bolt Cutter is weak, but equal. Left Upper Extremity: Shoulder flexion 3-/5. Elbow flexion 4/5. Triceps 4/5. Bolt Cutter is weak, but equal. Right Lower Extremity: Functionally able to perform SLR. Ankle motions are 3/5. Left Lower Extremity:Functionally able to perform SLR. Ankle motions are 3/5. Bed Mobility/Transfers: Patient is dependent for all bed mobility and transfers. She transfers via Angel lift at baseline. Gait: Unable Balance: Static Sitting: unable Dynamic Sitting: unable Static Standing: unable Dynamic Standing: unable Special Tests: Mobility Limitations Standardized Measure [facility] AM-PAC 6 clicks Basic Mobility Inpatient Short Form: Raw Score: 6 CMS Score: 100% deficit Informed Consent/Education: Patient instructed in purpose of PT consult and plan of care. Treatment: Today's session consisted of evaluation, followed by instruction in bed exercises as noted on flowsheet. Patient requires continuous verbal cues and tactile feedback for effective completion. She demonstrates increasing JUAN, with breathing rate of 26bpm during therex. She requires rest periods between activities. Assessment: Patient is a 77 year old female referred to physical therapy services with the diagnosis of decreased functional mobility related to acute medical issues. Patient presents with clinical signs and symptoms consistent with diagnosis. Patient has impaired mobility at baseline, and is a long-term [facility]. Unfortunately, she is demonstrating significantly diminished activity tolerance and ability to participate in transfers related to her acute medical issues. She will benefit from PT intervention for progressive therapeutic exercises to maximize activity tolerance and allow for safe transition back to [facility] once medically stable. She currently demonstrates the following impairment level findings: 1. Decreased activity tolerance with significant JUAN with even light activity 2. Decreased upper extremity range of motion 3. Decreased upper extremity strength 4. Decreased lower extremity range of motion 5. Decreased lower extremity strength Impairments are contributing to the following functional limitations: 1. Severe deconditioning in acutely ill geriatric patient with chronic mobility issues Patient is assessed as High [id number] complexity based on the following: History: 77-year-old female with severe mobility deficits, managed in acute care due to sepsis, pneumonia, NSTEMI in addition to KORY, acute on chronic CHF and UTI. Examination: Functional limitations as noted above Presentation: Unstable Decision Making: High complexity Goals: Goals X1 week 1. Patient able to tolerate introduction of bed exercises for range of motion and strengthening Plan of Care/Treatment Plan: 1-2x/day, 7 days/week x 1 week. Plan of care has been reviewed with the SHEETER HELPER providing the service under Physical Therapy direction. Initiate Physical Therapy intervention for strengthening, bed mobility, and generalized activity tolerance. Treatment will consist of instruction in bed exercises, and patient will continue to be transferred via Angel lift, as this is her baseline level of function. DISCHARGE RECOMMENDATIONS: Long-term care TREATMENT CODE/TIME: 1150?1210 ([id number]) Marisol Metcalf, PT, DPT [facility]
[2018-12-01] MEDS: Acetaminophen 325 MG TAB PO ×2 (13:49→20:22)
[2018-12-01] MEDS: Albuterol 2.5 MG/3 ML INH SOLN VIAL UPD (13:54)
--- NOTE | 2018-12-01 14:38 | W.INDIABCONS ---
Date of service: 12/01/18 Time of Service: 14:38 Diabetes Inpatient Consult DESCRIPTION/ASSESSMENT: Appreciate diabetes consult for Eleni Moncada who is hospitalized with pneumonia and sepsis. BMI 34 A1c 7.6 Eleni had high blood sugar at admission 353 but has corrected nicely to the 100s yesterday and today. She received Levemir 12u which is her usual dosing, but in addition received 25u NPH twice daily. She also received moderate insulin correction and insulin:carb 1:10. She was hypoglycemic this AM at 46mg/dl. The Levemir was discontinued. She is eating poorly here. At her residence she receives the Levemir as well as 6u Novolog per meal plus correction. A1c has remained less than 8 for the past few tests. Prednisone is on her outpatient medication list and she receives hydrocortisone IV at this time. INTERVENTION: Given that she is currently receiving more insulin than her usual dose of 12 basal, suggest decreasing the NPH to closer to her usual basal rate of 12units given her current tight glycemic control and hypoglycemia. Because she lives in residential care and she has had self management in the past, will defer self management support at this time. PLAN: Will follow blood sugars F/u as indicated Time Spent in Nutritional Counseling and Treatment: 0 minutes face to face
[2018-12-01] MEDS: Normal Saline Flush 10 ML SYR IVP (15:55)
[2018-12-01] MEDS: Insulin Aspart 300 UNITS/3 ML PEN SC (17:30)
[2018-12-01] MEDS: Normal Saline 500 ML IV (20:00)
[2018-12-01] MEDS: Atorvastatin 40 MG TAB PO (20:23)
[2018-12-01] MEDS: Senna TAB 1 TAB PO (20:24)
[2018-12-01] MEDS: Docusate Sodium 100 MG CAP PO (20:31)
[2018-12-01] MEDS: Insulin NPH-Human 300 UNITS/3 ML PEN 25 UNIT SC (20:39)
[2018-12-02] VITALS (46 sets, daily range): BP systolic 97–132; BP diastolic 39–66; PULSE 67–84; RESP 4–30; TEMP 36–37.4; O2SAT 94–100
[2018-12-02] MEDS: Heparin 5,000 UNITS/ML VIAL 5000 UNITS SC ×3 (04:06→20:07)
[2018-12-02] MEDS: Levothyroxine 75 MCG TAB PO (06:12)
[2018-12-02] MEDS: Albuterol 2.5 MG/3 ML INH SOLN VIAL UPD (06:55)
[2018-12-02 07:15] LABS: Abs Immature Grans 0.03 k/cumm (0.0-0.09); Absolute Basophil Count 0.01 k/cumm (0.0-0.2); Absolute Eosinophil Count 0.03 k/cumm (0.0-0.7); Absolute Lymphocyte Count 0.64 k/cumm (1.2-3.4); Absolute Monocyte Count 0.35 k/cumm (0.11-0.7); Absolute Neutrophil Count 2.28 k/cumm (1.2-6.7); Basophils % 0.3; Eosinophils % 0.9; HCT 28.1 % (36.0-46.0); HGB 8.5 g/dL (12.0-15.5); Immature Grans % 0.9; Lymphocytes % 19.2; Mean Corp. HGB Concentration 30.2 g/dL (32.0-36.0); Mean Corpuscular Volume 99.3 fL (80-95); Monocytes % 10.5; Neutrophils % 68.2; RBC 2.83 m/cumm (4.00-5.20); RBC Distribution Width 18.3 % (11.7-14.6); White Blood Cell Count 3.34 k/cumm (4.4-10.8)
[2018-12-02 07:27] LABS: Vancomycin, Trough 24.5 ug/mL (10.0-20.0)
[2018-12-02 07:29] LABS: Anion Gap 7.7 mmol/L (3-11); BUN 41 mg/dL (7-18); CO2 30.3 mmol/L (21.0-32.0); CREATININE 1.28 mg/dL (0.55-1.02); Calcium 8.3 mg/dL (8.5-10.1); Chloride 104 mmol/L (98-107); Estimated GFR 40.33 (mL/min/1.73m2); Glucose 164 mg/dL (70-100); Magnesium 1.8 mg/dL (1.8-2.4); NT-proBNP 15505 pg/mL; Potassium 3.8 mmol/L (3.5-5.1); Sodium 142 mmol/L (136-145)
[2018-12-02 07:34] LABS: Troponin I 1.37 ng/mL (0.00-0.06)
--- NOTE | 2018-12-02 07:40 | W.PM.PROGNOT ---
Date of Service Date of service: 12/02/18 Time of Service: 07:40 Assessment and Plan (1) Sepsis: Current visit: No Status: Acute Diagnosis of sepsis based on findings of tachypnea, hypotension, mental status altered from baseline, and evidence of organ dysfunction with elevated Lactic Acid and KORY - likely in setting of pneumonia. - Continue to monitor Blood and sputum cultures. - Continue Cefepime in elderly long term resident. Given history of MRSA infection in past Vancomycin was also initiated (although MRSA swab negative) - currently day #4. - Sepsis appears resolved. (2) Pneumonia: Current visit: No Status: Acute Breathing appears worse this morning, with improvement in crackles but now worsening wheezing. Troponin continues to trend down - patient's breathing has worsened as stress dosed steroids were weaned. - Initiate IV Solumedrol, provide duonebs, and reinitiate lasix when ready. Continue to monitor symptoms closely. Continue antibiotics as above. - Given change in respiratory status, repeat CXR now. (3) UTI (urinary tract infection): Current visit: No Status: Ruled-out Culture does not support infection. (4) Non-STEMI (non-ST elevated myocardial infarction): Current visit: No Status: Acute Elevated Troponin, with a peak at 7.7 in elderly female with known history of CAD, in setting of sepsis and infection - likely demand related. - Continue ASA and high potency statin. - Hold off on BB therapy given acute CHF and current wheezing, but consider low dose soon. - Clopidogrel initiated following conversation with cardiology. - Troponin declined nicely with treatment - last checked at 1.37 this morning. - Received 48 hours of Heparin gtt - now discontinued. - ECHO appears to show a very small area of wall motion abnormality in the apical myocardium. Discussed this at length with cardiology at [facility] - either induced by stress (ie Takotsubo) or ischemia - would not be going through a catheterization at this time until medically stable and infection treatment. Recommendations for continuation of optimized medical care, followed by stress test once acute illness has resolved, if family is interested ultimately in intervention. For now continue optimized medical management. (5) Acute on chronic congestive heart failure: Current visit: No Status: Acute ECHO with normal LVEF, but with diastolic CHF and moderate to severe MR. Currently improved with diuresis - will monitor weight, UOP, and renal function. Holding lasix currently. Qualifiers: Heart failure type: unspecified Qualified Code(s): I50.9 - Heart failure, unspecified (6) Diabetes mellitus: Current visit: Yes Status: Chronic On basal insulin at home - currently on hold due to development of hypoglycemia. Also with poor oral intake. - Continue ISS. (7) KORY (acute kidney injury): Current visit: Yes Status: Acute In setting of infection, sepsis, NSTEMI, and diuresis. - Creatinine appears improved and stable, but not yet at baseline. Diuresis on hold as above. Continue to monitor, renally dose medications, and avoid nephrotoxins. (8) DVT prophylaxis: Current visit: No Status: Acute On heparin SC. On PPI therapy for GI Prophylaxis. (9) Advance directive on file: Current visit: No Status: Acute DNR/DNI. Subjective Interval history since last seen: 77 year old female resident of a local long term with a prior history of CAD, admitted from [facility] with a diagnosis of PNA, UTI, Sepsis, CHF, and NSTEMI. Mrs. Moncada has a Past Medical History significant for CHF, COPD, MDS with chronic transfusion dependent anemia, DM, and Dementia. She was sent to the ED for evaluation of a cough, dyspnea, and chest discomfort. Initial work-up was pertinent for an elevated lactate, hypotension, elevated troponin of 2.6, and a BNP of over 6000. Further work-up was significant for evidence of a LLL PNA and mild volume overload by CXR. ECG was negative for any acute ischemic changes. The patient was initiated on heparin and lasix gtt, started on IV Cefepime, and admitted for treatement of Sepsis, PNA, and likely demand related ischemia / NSTEMI. Following admission Mrs. Moncada's troponin value initially increased and peaked at 7.7 before downtrending with treatment. She also developed KORY with a creatinine of 1.64, also improved and stable, but not yet at baseline. Her lactate has also normalized. She is no longer complaining of chest discomfort. She has diuresed gently on lasix gtt, but developed hypotension overnight necessitating discontinuation of diuretic therapy - her weight is lower this morning, and she has diuresed approximately 3L. Respiratory symptoms appeared worse this morning with increased wheezing. No other events reported. She remains afebrile. Exam Narrative Exam Narrative: General: Patient no longer appears acutely ill, awake and alert, baseline dementia noted Neck: Supple CV: Regular, nontachycardic, S1S2, 2/6 LLSB murmur appreciated. Pulmonary:Bibasilar crackles improved, Rhonchi at the left base resolved, scattered wheezing on limited anterior and lateral exam that appears worsening by exam. Abdomen: + Bowel Sounds, soft, nontender, nondistended Vascular: No lower extremity edema Psych: Normal mood and affect. Objective Objective Clinical Data: Abnormal lab results 12/01/18 12/02/18 12/02/18 Range/Units 06:10 06:55 06:55 RBC 3.01 L (4.00-5.20) m/cumm Hgb 9.1 L (12.0-15.5) g/dL Hct 29.5 L (36.0-46.0) % MCV 98.0 H D (80-95) fL MCHC 30.8 L (32.0-36.0) g/dL RDW 18.5 H (11.7-14.6) % BUN 41 H (7-18) mg/dL Creatinine 1.28 H (0.55-1.02) mg/dL Glucose 164 H D (70-100) mg/dL Calcium 8.3 L (8.5-10.1) mg/dL Troponin I 1.37 H* (0.00-0.06) ng/mL NT-Pro-B Natriuret Pep 84189 H ( - 299) pg/mL Vancomycin Trough 24.5 H* (10.0-20.0) ug/mL Vital Signs Temperature 36.4 C L 12/02/18 03:00 Temperature Source Temporal Artery Scan 12/02/18 03:00 Pulse 75 12/02/18 07:01 Pulse 78 12/02/18 07:01 Respiratory Rate 25 H 12/02/18 07:01 Respiratory Effort 12/02/18 03:00 Respiratory Depth Normal 12/02/18 03:00 Respiratory Pattern Normal 12/02/18 03:00 Blood Pressure 104/44 L 12/02/18 07:01 Blood Pressure Mean 59 12/02/18 07:01 Blood Pressure Position Supine 12/01/18 12:05 Pulse Oximetry 100 12/02/18 07:01 Oxygen Delivery Method Room Air 12/02/18 06:47 Oxygen Flow Rate 0 12/02/18 06:47 Pain Level 0 08/23/19 03:00 Intake & Output 12/01/18 12/01/18 12/02/18 11:59 23:59 11:59 Intake Total 300 / 4315.013 6248.467 / 1780.467 135 / 135 Output Total 1450 / 2610 1160 / 2610 1050 / 1050 Balance -1150 / -829.533 320.467 / -829.533 -915 / -915 Weight 89 kg 87.7 kg Intake: IV 100 / 1767.905 1560.467 / 1160.467 Oral 200 / 620 420 / 620 135 / 135 Output: Urine 1450 / 2610 1160 / 2610 1050 / 1050 Other: Urine Color Yellow Yellow Pale Yellow Urine Appearance Clear Clear Clear Comment lewis to gravity Lewis in place draining clear urine. Lewis in place draining clear yellow urine QS. Laboratory Results WBC 6.61 k/cumm (4.4-10.8) D 12/01/18 06:10 RBC 3.01 m/cumm (4.00-5.20) L 12/01/18 06:10 Hgb 9.1 g/dL (12.0-15.5) L 12/01/18 06:10 Hct 29.5 % (36.0-46.0) L 12/01/18 06:10 MCV 98.0 fL (80-95) H D 12/01/18 06:10 MCH 30.2 pg (27.0-33.0) 12/01/18 06:10 MCHC 30.8 g/dL (32.0-36.0) L 12/01/18 06:10 RDW 18.5 % (11.7-14.6) H 12/01/18 06:10 Plt Count 192 x1000/uL (130-400) 12/01/18 06:10 MPV fL (8.0-11.0) 12/01/18 06:10 Immature Gran % See Differential 12/01/18 06:10 61.0 12/01/18 06:10 9.0 % 12/01/18 06:10 23.0 12/01/18 06:10 5.0 12/01/18 06:10 0.0 12/01/18 06:10 0.0 12/01/18 06:10 1.0 % 12/01/18 06:10 1.0 % 12/01/18 06:10 Absolute Neutrophils 4.63 k/cumm (1.2-6.7) 12/01/18 06:10 Absolute Lymphocytes 1.52 k/cumm (1.2-3.4) 12/01/18 06:10 Absolute Monocytes 0.33 k/cumm (0.11-0.7) 12/01/18 06:10 Absolute Eosinophils 0.00 k/cumm (0.0-0.7) 12/01/18 06:10 Absolute Basophils 0.00 k/cumm (0.0-0.2) 12/01/18 06:10 Manual differential 12/01/18 06:10 RBC Morphology See below 12/01/18 06:10 Present 12/01/18 06:10 2+ 12/01/18 06:10 1+ 12/01/18 06:10 2+ 12/01/18 06:10 1+ 11/29/18 04:05 2+ 11/29/18 04:05 PT 10.4 sec (9.3-11.0) 11/28/18 19:27 INR 1.0 (0.9-1.1) 11/28/18 19:27 APTT 46.1 sec (21.0-31.4) H 12/01/18 06:10 Sodium 142 mmol/L (136-145) 12/02/18 06:55 Potassium 3.8 mmol/L (3.5-5.1) 12/02/18 06:55 Chloride 104 mmol/L (98-107) 12/02/18 06:55 Carbon Dioxide 30.3 mmol/L (21.0-32.0) 12/02/18 06:55 7.7 mmol/L (3-11) 12/02/18 06:55 BUN 41 mg/dL (7-18) H 12/02/18 06:55 1.28 mg/dL (0.55-1.02) H 12/02/18 06:55 40.33 (mL/min/1.73m2) 12/02/18 06:55 Glucose 164 mg/dL (70-100) H D 12/02/18 06:55 0.8 mmol/L (0.6-1.4) 11/29/18 08:05 Calcium 8.3 mg/dL (8.5-10.1) L 12/02/18 06:55 Magnesium 1.8 mg/dL (1.8-2.4) 12/02/18 06:55 0.5 mg/dL (0.2-1.0) 11/28/18 19:27 AST 61 U/L (15-37) H 11/28/18 19:27 ALT 41 U/L (12-78) 11/28/18 19:27 120 U/L (46-116) H 11/28/18 19:27 1.37 ng/mL (0.00-0.06) H* 12/02/18 06:55 NT-Pro-B Natriuret Pep 71495 pg/mL (-299) H 12/02/18 06:55 7.4 g/dL (6.4-8.2) 11/28/18 19:27 2.6 g/dL (3.4-5.0) L 11/28/18 19:27 Triglycerides 71 mg/dL (30-150) 11/29/18 04:05 99 mg/dL (50-200) 11/29/18 04:05 LDL Cholesterol, Calc 51 mg/dL 11/29/18 04:05 34 mg/dL (40-60) L 11/29/18 04:05 0.3 ng/mL 11/29/18 01:00 Yellow (Yellow) 11/29/18 03:40 Sl cloudy (Clear) 11/29/18 03:40 7.0 (5-8) 11/29/18 03:40 Ur Specific [place] 1.015 (1.005-1.025) 11/29/18 03:40 Trace mg/dL (Negative) H 11/29/18 03:40 Negative mg/dL (Negative) 11/29/18 03:40 Large (Negative) H 11/29/18 03:40 Positive (Negative) H 11/29/18 03:40 Negative (Negative) 11/29/18 03:40 0.2 EU/dL (Up TO 0.2) 11/29/18 03:40 Ur Leukocyte Esterase Large (Negative) H 11/29/18 03:40 Not Applicable 11/29/18 03:40 >50 HPF (0-5) 11/29/18 03:40 Ur Epithelial Cells Not Applicable 11/29/18 03:40 Not Applicable 11/29/18 03:40 Not Applicable 11/29/18 03:40 Not Applicable 11/29/18 03:40 Ur Culture Indicated? Yes 11/29/18 03:40 Negative mg/dL (Negative) 11/29/18 03:40 Vancomycin Trough 24.5 ug/mL (10.0-20.0) H* 12/02/18 06:55 Legionella Source (see note) 11/29/18 03:40 Legionella Reprt Status (see note) 11/29/18 03:40 Legionella Final Result (see note) 11/29/18 03:40 M. pneumoniae Source Cancelled 11/29/18 04:37 M. pneumoniae (PCR) Cancelled 11/29/18 04:37 Ur Strep pneumoniae Ag Negative (Negative) 11/29/18 03:40 Patient ABO/Rh B Positive 11/30/18 06:20 Antibody Screen Negative 11/30/18 06:20 Crossmatch See Detail 11/30/18 06:20
[2018-12-02] MEDS: Sucralfate 1 GM TAB PO ×4 (07:43→20:07)
[2018-12-02] MEDS: Pantoprazole 40 MG TABCR PO (07:43)
[2018-12-02 07:48] LABS: Platelet Count 135 x1000/uL (130-400)
[2018-12-02 07:49] LABS: Anisocytosis 2+; Diff Comment PLT Morph Reviewed; Hypochromasia 1+; Poikilocytes 1+; Polychromasia Present
[2018-12-02] MEDS: CEFEPIME 2 GM in Normal Saline 100 ML IVPB ×2 (07:59→20:07)
--- NOTE | 2018-12-02 07:59 | DI.RAD_ITS ---
SYMPTOM/DIAGNOSIS: WORSENING DYSPNEA PORTABLE AP CHEST: Comparison is made with 11/28/18 and 11/29/18. The cardiac silhouette is within normal limits. There is again seen intense calcification of the mitral valve. There is mild prominence of the pulmonary vasculature. Since 11/29/18, there does appear to be improved aeration of the left lung base suggesting improving basilar infiltrate/pneumonia. There is persistent mild prominence of the pulmonary vasculature. No new infiltrates are seen. No pneumothorax is identified. IMPRESSION: 1. Improved appearance of the left lung base suggesting improved pneumonia/infiltrate. 2. Persistent prominence of the pulmonary vasculature and pulmonary edema cannot be excluded.
[2018-12-02] MEDS: methylPREDNISolone SUCC 40 MG VIAL IVP (08:16)
[2018-12-02] MEDS: Insulin Aspart 300 UNITS/3 ML PEN SC ×3 (08:44→17:31)
[2018-12-02] MEDS: MORPHine 2 MG/ML SYR IVP ×2 (08:47→13:51)
[2018-12-02] MEDS: Polyethylene Glycol 3350 17 GM PACKET PO (09:00)
[2018-12-02] MEDS: Aspirin E.C. 81 MG TABEC PO (09:01)
[2018-12-02] MEDS: Potassium Chloride 20 MEQ TABCR 40 MEQ PO (09:01)
[2018-12-02] MEDS: Clopidogrel 75 MG TAB PO (09:01)
[2018-12-02] MEDS: guaiFENesin 600 MG TABCR 1200 MG PO ×2 (09:01→20:06)
--- NOTE | 2018-12-02 09:27 | OT.INIE ---
Occupational Therapy Notes Inpatient Occupational Therapy Evaluation Date: 12/02/18 Referring Doctor:Dr. Rainey OT Orders: Eval and Treat PATIENT PROFILE/ADMITTING DIAGNOSIS: Pt is an 77 year old female who was admitted through the ER from [facility] for Acute non-ST elevation myocardial infarction (NSTEMI), CHF (congestive heart failure), Pneumonia. Past Medical History: CAD, CHF, Hyperlipidemia, Aortic stenosis, Constipation, Diverticulosis, Gastritis, Obesity, Anemia NOS, Myelodysplastic syndrome w/ pancytopenia, Depression, Peripheral neuropathy, Chronic renal insuff, Type II diabetes, Hypothyroidism, Cholecystectomy, Cataract removal Bilateral, Tubal ligation, (R) first toe amputation Social History/Home Situation: Pt is a intermediate [facility] at [facility]. Per pts EMR pt is dependent for all ADLs/IADLs and transfers with a angel lift with (A) per nursing. Equipment owned/DME: Pt resides at [facility] and has all DME needs met. SUBJECTIVE: Pt was sitting in bed with her eyes closed, she was agreeable to OT session. OBJECTIVE: General Observation: Sitting in bed, telemetry, BP cuff Mental Status: A to name and knows she is in the hospital but orientation is confused. Pain: pain in (B) UE with AROM ROM: RUE shoulder flexion limited to 110*, elbow WNL, hand and final operations technician is WNL L UE shoulder flexion limited to 110*, elbow WNL, hand and final operations technician is WNL STRENGTH: RUE Shoulder flexion is 2/5, elbow 2/5, final operations technician is weak LUE Shoulder flexion is 2/5, elbow 2/5, final operations technician is weak FUNCTIONAL MOBILITY/ADLS: Transfers performed with via Angel lift. BATHING Sitting in bed with max (A) set up Bathing UE Pt was able to wash her face and (B) shoulders crossing midline with mod vc and pt was weak with minimal pressure. Bathing LE NT pt is able to functionally touch her knees but she was tired. DRESSING Unable to test. GROOMING Sitting in bed pt was able to perform hair brushing with vc and demonstrated functional weakness and decreased functional activity tolerance. TOILETING Unable to assess EATING max (A) with hand to mouth. BALANCE: Not able to assess based on pts (I) with bed mobility. SPECIAL TESTS: Daily Activity Limitations Standardized Measure [facility] AM -PAC ?6 clicks? Daily Activity Inpatient Short Form: Raw score: 7 Standardized score: 20.13 CMS score: 92.44% INFORMED CONSENT/EDUCATION: Pt instructed in purpose of OT Consult and plan of care. ASSESSMENT: Patient is a 77-year-old female referred to occupational therapy services with diagnosis of Acute non-ST elevation myocardial infarction (NSTEMI), CHF (congestive heart failure), Pneumonia. Patient presents with clinical signs and symptoms consistent with dx, as demonstrated by the following impairment level findings/ functional limitations: Transfers via angel lift with decreased functional mobility, unable to perform ADLs/IADLs without (A), decreased functional gross and fine motor control of (B) UE, pain with functional mobility and UE movements, pt is confused and unable to open her eyes fully throughout session, pt does require max (A) at baseline level of function. Based on OT evaluation, OT does not feel that pt would benefit from OT services based on her current level of function as pt is very weak and demonstrating fatigue and decreased functional activity tolerance. OT will plan to discharge pt from skilled OT services at this time. AMPAC score 7, CMS score 92.44% Patient is assessed as a high [id number] complexity based on the following: History: See Above Examination: See Above Presentation: Evolving Decision Making: AMPAC score 7, CMS score 92.44% GOALS N/A PLAN OF CARE/TREATMENT PLAN: Discharge from skilled OT services DISCHARGE RECOMMENDATIONS Return to [facility] when medically cleared per MD. TREATMENT TIME/MINUTES/CODES 77209, [id number], 25 minutes [facility]
--- NOTE | 2018-12-02 09:40 | W.SPEECHEVAL ---
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 Previous Status: snf resident at [facility] with modified diet (dys adv/thin). Medical History (Include any history of Dysphagia, Aspiration, and/or Pneumonia): DM II, CHF, anxiety, PNEU, KORY Current Diet/Liquid Consistency: Consistent Carb, regular/thin Recommended Diet/Liquid Consistency: soft and bite sized/thin, standard aspiration precautions, no straws, aggressive oral care. Feeding Method: set up assist Respiratory Status: room air Positioning and Mobility: bed with support Cognitive Status: baseline Oral Peripheral Exam: Facial - WFL Lips - WFL Tongue - WFL, dry Jaw - WFL Hard Palate - WFL Soft Palate - WFL Uvula - WFL Dentition- edentulous, upper dentures Pharyngeal Exam: Volitional Cough - WFL Volitional Swallow - WFL Gag Reflex : not tested Soft Palate - WFL Vocal Quality: weak, gurgly breathing sounds prior to and following PO trials Comments: Trial Consistencies: Thin_x__ Nectar___ Honey___ Pudding___ Regular_x__Bite size___Chopped___Mechanical Soft_x__Ground___Puree_x__Pudding___ Oral Preparatory Phase: Lip seal via spoon/cup: WFL_x__ Impaired___ Bolus Containment: WFL_x__ Impaired___ Oral Stage: Bolus Formation: WFL___ Impaired__x_ (regular solids) Bolus Propulsion: WFL___ Impaired_x__ (regular solids) Bolus Accumulation: WFL_x__ Impaired___ Mastication: WFL___ Impaired_x__ (regular solids- extended mastication) Pharyngeal Stage: Laryngeal Elevation: WFL __x_ Impaired ___ Vocal Quality after swallow: voice clear but gurgly breath sounds prior to and following evaluation Swallow Reflex Time: delayed (1-3 seconds) Coughing: No___ Yes _x__ Before Swallow__x_ During Swallow___ After Swallow_x__ (delayed cough x1 on sip of thin liquid via straw, no s/sx aspiration or penetration noted with cup sips) Clinical Summary: Pt presents to therapy with delayed swallow initiation and impairments in mastication and bolus preparation. Recommended Diet/Liquid Consistency: soft and bite sized/thin, standard aspiration precautions, no straws, aggressive oral care. Plan of Treatment (check all that apply): Aspiration Precautions__x_ Reflux Precautions_x__ Therapeutic Feeding Sessions_x__ Compensatory Strategies for Safe Swallowing_x__ Therapeutic Exercises___ Therapeutic Activities___ Other: Assisted Goals: 1. Pt will consume least restrictive diet textures and liquid consistencies with <10% overt s/sx aspiration or penetration. Short Term Goals: 1. Pt will demonstrate use of trained swallow strategies during meal time with 1 verbal cue. 2. Pt will consume regular textures with <10% overt s/sx aspiration or penetration., 3. AUTOMOBILE SERVICE STATION MECHANIC to provide education and training to nursing staff about swallow strategies and oral care. Frequency/Duration of Treatment: 3x week for 1 week. AUTOMO[employer] STATION MECHANIC Printed Name: Hillary Garcia Signature/License #:Hillary Garcia MA [facility]/ [employer]ICE STATION MECHANIC, [place] [phone]
--- NOTE | 2018-12-02 11:14 | PT.INNT ---
Date of service: 12/02/18 Time of Service: 11:14 PT Notes 12/02/18 Hold per nursing, as patient is fatigued following bed change/bed bath this morning.
[2018-12-02] MEDS: Atorvastatin 40 MG TAB PO (20:07)
--- NOTE | 2018-12-02 22:08 | NUR.NOTE ---
pt experienced lots of coughing for a good hour after drinking. She had been sitting upright for drinking and medication, no straw used per [employer] SUPERVISOR evaluation. She remained upright until coughing slowed about one hour post drinking, then was reclined per her request to go to bed. Pt continues occasional coughing. Nursing Note:
[2018-12-03] VITALS (57 sets, daily range): BP systolic 88–118; BP diastolic 38–72; PULSE 64–82; RESP 15–39; TEMP 36.2–37.2; O2SAT 93–99
[2018-12-03] MEDS: MORPHine 2 MG/ML SYR IVP (02:04)
[2018-12-03] MEDS: Normal Saline Flush 10 ML SYR IVP ×5 (02:04→21:15)
[2018-12-03] MEDS: Heparin 5,000 UNITS/ML VIAL 5000 UNITS SC ×3 (04:12→21:33)
[2018-12-03] MEDS: Levothyroxine 75 MCG TAB PO (06:23)
[2018-12-03 06:34] LABS: Abs Immature Grans 0.01 k/cumm (0.0-0.09); Absolute Basophil Count 0.02 k/cumm (0.0-0.2); Absolute Eosinophil Count 0.04 k/cumm (0.0-0.7); Absolute Lymphocyte Count 0.78 k/cumm (1.2-3.4); Absolute Monocyte Count 0.37 k/cumm (0.11-0.7); Absolute Neutrophil Count 2.78 k/cumm (1.2-6.7); Basophils % 0.5; HCT 28.2 % (36.0-46.0); HGB 8.7 g/dL (12.0-15.5); Immature Grans % 0.3; Lymphocytes % 19.5; Mean Corp. HGB Concentration 30.9 g/dL (32.0-36.0); Mean Corpuscular Hemoglobin 30.7 pg (27.0-33.0); Mean Corpuscular Volume 99.6 fL (80-95); Monocytes % 9.3; Neutrophils % 69.4; RBC 2.83 m/cumm (4.00-5.20)
[2018-12-03 07:06] LABS: Diff Comment RBC Morph Reviewed; Platelet Count 123 x1000/uL (130-400)
[2018-12-03 07:07] LABS: Anisocytosis 1+; Hypochromasia 1+
[2018-12-03 07:47] LABS: Anion Gap 5.1 mmol/L (3-11); BUN 44 mg/dL (7-18); CO2 32.9 mmol/L (21.0-32.0); CREATININE 1.39 mg/dL (0.55-1.02); Calcium 8.5 mg/dL (8.5-10.1); Chloride 103 mmol/L (98-107); Estimated GFR 36.67 (mL/min/1.73m2); Glucose 179 mg/dL (70-100); Potassium 3.8 mmol/L (3.5-5.1); Sodium 141 mmol/L (136-145)
--- NOTE | 2018-12-03 08:01 | CMPROGNOTE_ITS ---
- If Service Date Differs Date of service: 12/03/18 Time of Service: 08:02 Care Management Progress Note S/O: Eleni was visiting with family when CM initially came to see her. Spoke briefly with family and agreed to return in a bit. During second CM visit, Eleni was receiving medications from her nurse. When asked, she stated she was not feeling so good. She stated her arm hurt and that she was tired. Eleni also stated that she was really thirsty I could drink a barrell! A: Eleni is a 77 year old female admitted with sepsis, UTI and Pneumonia P:Eleni will return to [facility] when she is medically ready for discharge. She will transport via wheelchair van. CM will continue to support patient, family and discharge planning process.
--- NOTE | 2018-12-03 08:19 | W.PM.PROGNOT ---
Date of Service Date of service: 12/03/18 Time of Service: : Assessment and Plan (1) Sepsis: Current visit: No Status: Resolved Due to LLL pneumonia, present on admission, suspected to be due to aspiration. Given h/o MRSA, agree with continuing vancomycin/cefepime (Day 5). As she still appears ill today and may have re-aspirated due to her emesis, I would like to continue antbiotics through the weekend. Blood and sputum cultures are negative. Defervesced. Leucocytosis resolved. (2) Pneumonia: Current visit: No Status: Acute As above. CXR repeated today due to possible re-aspiration event - looks better to me, official read pending. Continue abx for a total of 7 days. Steroids added for bronchospasm. I had made the fluids nectar thick. We are awaiting re-consultation with speech therapy. (3) UTI (urinary tract infection): Current visit: No Status: Ruled-out Culture does not support infection. (4) Non-STEMI (non-ST elevated myocardial infarction): Current visit: No Status: Acute Elevated Troponin, with a peak at 7.7 in elderly female with known history of CAD, in setting of sepsis and infection. - transfuse 1 unit pRBC's for a target H/H in ACS of 02/08. - Continue ASA, plavix, statin if able to tolerate PO. - Continue to hold BB (acute CHF). - Diurese. - ECHO with a small area of wall motion abnormality in the apical myocardium. Per [facility], this is Takotsubo's cardiomyopathy or ischemia. Continue medical management. Stress test and/or cardiac cath are expected - not clear if this is inpatient or outpatient. Will reach out to [facility] cardiology once clinically stable. I think it would be appropriate to have the stress test done at a tertiary care facility with interventional cardiology back up available since clinical suspicion for underlying coronary thrombosis is high, and stress test could precipitate ischemia. (5) Acute on chronic congestive heart failure: Current visit: No Status: Acute Diastolic CHF complicated by moderate to severe MR. Continue lasix gtt. Diurese post transfusion as well. Qualifiers: Heart failure type: unspecified Qualified Code(s): I50.9 - Heart failure, unspecified (6) Diabetes mellitus: Current visit: Yes Status: Chronic Continue corrective insulin AC & HS. (7) KORY (acute kidney injury): Current visit: Yes Status: Acute In setting of infection, sepsis, NSTEMI, and diuresis. Slightly worse today - lasix drip rate dropped to 2.5 mg/hr. Will recheck tomorrow am - expect will improve post transfusion. (8) Anemia: Current visit: No Status: Chronic Due to MDS. While H/H is stable, will transfuse 1 unit of pRBC's for a target H/H of 10/30 in setting of ACS. (9) MDS (myelodysplastic syndrome): Current visit: Yes Status: Acute As above (10) Dysphagia: Current visit: Yes Status: Acute Observed by nursing overnight. I changed the fluid consistency to mildly thickened. Speech therapy to be called back. (11) Vomiting: Current visit: Yes Status: Acute Possibly due to antibiotics or constipation. No BM since 11/29 per nursing. Patient will receive a suppository today. If vomiting recurs, will consider abdominal imaging. (12) Dementia: Current visit: Yes Status: Chronic My impression is that this is at baseline. Monitor for bevaviors. (13) Discharge planning issues: Current visit: Yes Status: Acute If family indeed would like to pursue a cardiac cath/stress test, we would need to discuss possible transfer with [facility]. She is not ready for this yet. DNR/DNI. WIll keep in ICU one more night. (14) DVT prophylaxis: Current visit: No Status: Acute On heparin SC. On PPI therapy for GI Prophylaxis. Subjective Interval history since last seen: Nursing notes that the patient's PO has been getting poorer. In addition, she seems to have a lot of coughing when drinking thin liquids with meds. Vomited this morning. The patient nods to when we ask her if she is having pain (my sides, but won't tell us if it's in the chest or her abdomen), reports shortness of breath, nausea. The patient moans to other questions but does not answer them verbally. She said I want Wendy. No BM since 11/29, per nursing. Afebrile, not requring O2, wheezing and tachypneic overnight, received a dose of morphine. Planned for a transfusion of 1 unit pRBC's. No bleeding noted. Exam Narrative Exam Narrative: Genera: Frail elderly female, A&Ox1, sitting up in bed, seen vomiting in bed - emetic contents yellow. Appears uncomfortable. HEENT: EOMI, MMM Heart: RRR, mildly tachycardic, it is hard to hear any murmurs due to tachypnea Lungs: Tachypneic, both ronchi and rales heard. GI: abdomen is soft, + bowel sounds, seemingly nontender Extremities: wearing green socks/TEDs, no visible edema Objective Objective Clinical Data: Abnormal lab results 11/30/18 12/03/18 12/03/18 Range/Units 06:20 06:12 06:12 WBC 4.00 L (4.4-10.8) k/cumm RBC 2.83 L (4.00-5.20) m/cumm Hgb 8.7 L (12.0-15.5) g/dL Hct 28.2 L (36.0-46.0) % MCV 99.6 H (80-95) fL MCHC 30.9 L (32.0-36.0) g/dL RDW 18.0 H (11.7-14.6) % Plt Count 123 L (130-400) x1000/uL Absolute Lymphocytes 0.78 L (1.2-3.4) k/cumm Carbon Dioxide 32.9 H (21.0-32.0) mmol/L BUN 44 H (7-18) mg/dL Creatinine 1.39 H (0.55-1.02) mg/dL Glucose 179 H (70-100) mg/dL Crossmatch See Detail 12/03/18 Range/Units 07:39 WBC (4.4-10.8) k/cumm RBC (4.00-5.20) m/cumm Hgb (12.0-15.5) g/dL Hct (36.0-46.0) % MCV (80-95) fL MCHC (32.0-36.0) g/dL RDW (11.7-14.6) % Plt Count (130-400) x1000/uL Absolute Lymphocytes (1.2-3.4) k/cumm Carbon Dioxide (21.0-32.0) mmol/L BUN (7-18) mg/dL Creatinine (0.55-1.02) mg/dL Glucose (70-100) mg/dL Crossmatch See Detail Vital Signs Temperature 37.2 C 12/03/18 04:05 Temperature Source Temporal Artery Scan 12/03/18 04:05 Pulse 65 12/03/18 06:01 Pulse 77 12/03/18 06:01 Respiratory Rate 26 H 12/03/18 06:01 Respiratory Effort 12/03/18 04:05 Respiratory Depth Normal 12/03/18 04:05 Respiratory Pattern Tachypnea 12/03/18 04:05 Blood Pressure 112/72 12/03/18 06:01 Blood Pressure Mean 79 12/03/18 06:01 Blood Pressure Position Supine 12/01/18 12:05 Pulse Oximetry 97 12/03/18 06:01 Oxygen Delivery Method Room Air 12/03/18 04:05 Oxygen Flow Rate 0 12/03/18 04:05 Pain Level 0 12/03/18 04:05 Intake & Output 12/02/18 12/02/18 12/03/18 11:59 23:59 11:59 Intake Total 260 / 1078.667 818.667 / 1078.667 59.209 / 59.209 Output Total 1250 / 2755 1505 / 2755 1150 / 1150 Balance -990 / -1676.333 -686.333 / -1676.333 -1090.791 / -1090.791 Weight 87.7 kg 86.3 kg Intake: IV 100 / 418.667 318.667 / 418.667 59.209 / 59.209 Oral 160 / 660 500 / 660 Output: Urine 1250 / 2755 1505 / 2755 1150 / 1150 Other: Urine Color Yellow Yellow Pale Urine Appearance Clear Clear Clear Comment lewis to gravity lewis in place. lewis in place. Laboratory Results WBC 4.00 k/cumm (4.4-10.8) L 12/03/18 06:12 RBC 2.83 m/cumm (4.00-5.20) L 12/03/18 06:12 Hgb 8.7 g/dL (12.0-15.5) L 12/03/18 06:12 Hct 28.2 % (36.0-46.0) L 12/03/18 06:12 MCV 99.6 fL (80-95) H 12/03/18 06:12 MCH 30.7 pg (27.0-33.0) 12/03/18 06:12 MCHC 30.9 g/dL (32.0-36.0) L 12/03/18 06:12 RDW 18.0 % (11.7-14.6) H 12/03/18 06:12 Plt Count 123 x1000/uL (130-400) L 12/03/18 06:12 MPV fL (8.0-11.0) 12/03/18 06:12 Immature Gran % 0.3 12/03/18 06:12 69.4 12/03/18 06:12 9.0 % 12/01/18 06:10 19.5 12/03/18 06:12 9.3 12/03/18 06:12 1.0 12/03/18 06:12 0.5 12/03/18 06:12 1.0 % 12/01/18 06:10 1.0 % 12/01/18 06:10 Absolute Neutrophils 2.78 k/cumm (1.2-6.7) 12/03/18 06:12 Absolute Lymphocytes 0.78 k/cumm (1.2-3.4) L 12/03/18 06:12 Absolute Monocytes 0.37 k/cumm (0.11-0.7) 12/03/18 06:12 Absolute Eosinophils 0.04 k/cumm (0.0-0.7) 12/03/18 06:12 Absolute Basophils 0.02 k/cumm (0.0-0.2) 12/03/18 06:12 Rbc morph reviewed 12/03/18 06:12 RBC Morphology See below 12/03/18 06:12 Present 12/02/18 06:55 1+ 12/03/18 06:12 1+ 12/02/18 06:55 1+ 12/03/18 06:12 1+ 11/29/18 04:05 2+ 11/29/18 04:05 PT 10.4 sec (9.3-11.0) 11/28/18 19:27 INR 1.0 (0.9-1.1) 11/28/18 19:27 APTT 46.1 sec (21.0-31.4) H 12/01/18 06:10 Sodium 141 mmol/L (136-145) 12/03/18 06:12 Potassium 3.8 mmol/L (3.5-5.1) 12/03/18 06:12 Chloride 103 mmol/L (98-107) 12/03/18 06:12 Carbon Dioxide 32.9 mmol/L (21.0-32.0) H 12/03/18 06:12 5.1 mmol/L (3-11) 12/03/18 06:12 BUN 44 mg/dL (7-18) H 12/03/18 06:12 1.39 mg/dL (0.55-1.02) H 12/03/18 06:12 36.67 (mL/min/1.73m2) 12/03/18 06:12 Glucose 179 mg/dL (70-100) H 12/03/18 06:12 0.8 mmol/L (0.6-1.4) 11/29/18 08:05 Calcium 8.5 mg/dL (8.5-10.1) 12/03/18 06:12 Magnesium 2.0 mg/dL (1.8-2.4) 12/03/18 06:12 0.5 mg/dL (0.2-1.0) 11/28/18 19:27 AST 61 U/L (15-37) H 11/28/18 19:27 ALT 41 U/L (12-78) 11/28/18 19:27 120 U/L (46-116) H 11/28/18 19:27 1.37 ng/mL (0.00-0.06) H* 12/02/18 06:55 NT-Pro-B Natriuret Pep 96498 pg/mL (-299) H 12/02/18 06:55 7.4 g/dL (6.4-8.2) 11/28/18 19:27 2.6 g/dL (3.4-5.0) L 11/28/18 19:27 Triglycerides 71 mg/dL (30-150) 11/29/18 04:05 99 mg/dL (50-200) 11/29/18 04:05 LDL Cholesterol, Calc 51 mg/dL 11/29/18 04:05 34 mg/dL (40-60) L 11/29/18 04:05 0.3 ng/mL 11/29/18 01:00 Yellow (Yellow) 11/29/18 03:40 Sl cloudy (Clear) 11/29/18 03:40 7.0 (5-8) 11/29/18 03:40 Ur Specific [place] 1.015 (1.005-1.025) 11/29/18 03:40 Trace mg/dL (Negative) H 11/29/18 03:40 Negative mg/dL (Negative) 11/29/18 03:40 Large (Negative) H 11/29/18 03:40 Positive (Negative) H 11/29/18 03:40 Negative (Negative) 11/29/18 03:40 0.2 EU/dL (Up TO 0.2) 11/29/18 03:40 Ur Leukocyte Esterase Large (Negative) H 11/29/18 03:40 Not Applicable 11/29/18 03:40 >50 HPF (0-5) 11/29/18 03:40 Ur Epithelial Cells Not Applicable 11/29/18 03:40 Not Applicable 11/29/18 03:40 Not Applicable 11/29/18 03:40 Not Applicable 11/29/18 03:40 Ur Culture Indicated? Yes 11/29/18 03:40 Negative mg/dL (Negative) 11/29/18 03:40 Vancomycin Trough 24.5 ug/mL (10.0-20.0) H* 12/02/18 06:55 Legionella Source (see note) 11/29/18 03:40 Legionella Reprt Status (see note) 11/29/18 03:40 Legionella Final Result (see note) 11/29/18 03:40 M. pneumoniae Source Cancelled 11/29/18 04:37 M. pneumoniae (PCR) Cancelled 11/29/18 04:37 Ur Strep pneumoniae Ag Negative (Negative) 11/29/18 03:40 Patient ABO/Rh B Positive 11/30/18 06:20 Antibody Screen Negative 11/30/18 06:20 Crossmatch See Detail 12/03/18 07:39 CXR: per my read, improvement in LLL infiltrate EKG: NSR, HR of 77, mild ST depressions inferiolaterally.
[2018-12-03 08:25] LABS: TSH 2.78 uIU/mL (0.36-3.74)
--- NOTE | 2018-12-03 08:28 | DI.RAD_ITS ---
SYMPTOM/DIAGNOSIS: VOMITING, SUSPECTED ASPIRATION PORTABLE CHEST: Comparison is made with 02 December 2018. The heart is enlarged. Mitral valve calcification is again noted. There is again noted to be blunting at the left costophrenic angle which may represent scarring vs small effusion. There is also question of increased interstitial markings which could indicate mild CHF. IMPRESSION: Small left pleural effusion vs pleural thickening or scarring. Question of mild CHF.
[2018-12-03] MEDS: methylPREDNISolone SUCC 125 MG VIAL 60 MG IVP ×2 (08:42→21:32)
[2018-12-03] MEDS: CEFEPIME 2 GM in Normal Saline 100 ML IVPB ×2 (08:42→21:29)
[2018-12-03] MEDS: Ondansetron 4 MG/2 ML VIAL IVP (08:42)
[2018-12-03] MEDS: Normal Saline 500 ML 30 ML IV (08:43)
--- NOTE | 2018-12-03 08:51 | DI.VRAD_ITS ---
EXAM: XR Chest, 1 View EXAM DATE/TIME: 12/03/2018 8:09 AM CLINICAL HISTORY: 77 years old, female; Other: Vomiting, suspected aspiration TECHNIQUE: Imaging protocol: XR of the chest, 1 view. COMPARISON: CR XR PORTABLE CHEST AP 12/02/2018 7:57 AM FINDINGS: Lungs: Opacity in left base may represent atelectasis or pneumonia or aspiration. Pleural space: There may be mild left pleural effusion. Heart/Mediastinum: Mild cardiomegaly Significant cardiac valve calcification Vasculature: Tortuous aorta Bones/joints: Healing left humerus fracture Degenerative changes in the right glenohumeral joint IMPRESSION: 1. Opacity in left base may represent atelectasis or pneumonia or aspiration. 2. There may be mild left pleural effusion. Dictated and Authenticated by: Dulce Gamboa MD. Ordering:JAUN Pepper MD
[2018-12-03 09:02] LABS: Troponin I 1.02 ng/mL (0.00-0.06)
[2018-12-03] MEDS: POTASSIUM CHLORIDE 20 MEQ/100 ML BAG 50 MEQ IVPB ×2 (09:59→12:38)
--- NOTE | 2018-12-03 10:00 | PT.INTREAT ---
Date of service: 12/03/18 Time of Service: 09:40 PT Notes Inpatient Physical Therapy Treatment Note [facility] Date: 12/03/18 PRECAUTIONS:[] SUBJECTIVE: Nursing reports that pt had vomited and they completed more diagnostics. THEREX: Pt completed UE and LE strengthening ther ex as per flow sheet with VC's. Pt did require rest periods and did seemed fatigued today. ASSESSMENT: Pt tolerated today's session fairly well considering how she was feeling. She did seem very fatigued but willing to try her ther ex. PLAN: Cont as per PT POC. TREATMENT CODE/TIME: 9:40-9:50 (10) TP
[2018-12-03] MEDS: Insulin Aspart 300 UNITS/3 ML PEN SC ×3 (11:29→21:49)
[2018-12-03] MEDS: Clopidogrel 75 MG TAB PO (11:34)
[2018-12-03] MEDS: Aspirin E.C. 81 MG TABEC PO (11:34)
[2018-12-03] MEDS: Sucralfate 1 GM TAB PO ×3 (11:34→21:32)
[2018-12-03] MEDS: Senna TAB 1 TAB PO (12:51)
[2018-12-03] MEDS: Polyethylene Glycol 3350 17 GM PACKET PO (12:51)
--- NOTE | 2018-12-03 13:22 | STVN_ITS ---
Date of service: 12/03/18 Time of Service: 12:30 Speech Therapy Visit Note Note: S: Pt seen at bedside with RN for noon meal. RN reports difficulty with thin liquid and recent downgrade to moderately thick liquids. Reports emesis in AM. O: To assess meal tolerance, PO intake and manage dysphagia. A: Pt unwilling to accept most PO intake. Significantly delayed swallow initiation with thin and moderately thick liquids, as well as soft textures and puree. Swallow time improved with verbal cues to swallow. Immediate cough with thin liquids. Reduced coughing with moderately thick liquids and 1:1 verbal cues. Instructed nursing in recommended swallow precautions and strategies (no straws, remove dentures, use small cup, pills in puree, verbal cues, upright positioning) with return of understanding. P: Downgrade diet to moderately thick liquids and puree solids. Impairments ap pear oral (delayed swallow initiation, poor bolus organization). Pt can access fiberoptic evaluation of swallow (FEES) at [facility] pending discharge. RN CARDIOVASCULAR can perform modified barium swallow study Wednesday12/05/18 if MD requests.
[2018-12-03] MEDS: Bisacodyl 10 MG SUPP PR (14:42)
[2018-12-03] MEDS: Furosemide 20 MG/2 ML VIAL IVP (20:11)
[2018-12-03] MEDS: Atorvastatin 40 MG TAB PO (21:32)
[2018-12-04] VITALS (51 sets, daily range): BP systolic 93–124; BP diastolic 45–77; PULSE 72–85; RESP 14–36; TEMP 36.1–37.1; O2SAT 93–100
[2018-12-04] MEDS: Levothyroxine 75 MCG TAB PO (04:33)
[2018-12-04] MEDS: Heparin 5,000 UNITS/ML VIAL 5000 UNITS SC ×3 (04:33→20:03)
[2018-12-04 06:48] LABS: Abs Immature Grans 0.03 k/cumm (0.0-0.09); Absolute Monocyte Count 0.12 k/cumm (0.11-0.7); HCT 32.5 % (36.0-46.0); HGB 10.1 g/dL (12.0-15.5); Mean Corp. HGB Concentration 31.1 g/dL (32.0-36.0); Mean Corpuscular Hemoglobin 30.3 pg (27.0-33.0); Mean Corpuscular Volume 97.6 fL (80-95); RBC 3.33 m/cumm (4.00-5.20); RBC Distribution Width 18.7 % (11.7-14.6); White Blood Cell Count 3.95 k/cumm (4.4-10.8)
[2018-12-04 07:13] LABS: Anion Gap 9.6 mmol/L (3-11); BUN 58 mg/dL (7-18); CO2 29.4 mmol/L (21.0-32.0); CREATININE 1.63 mg/dL (0.55-1.02); Calcium 8.8 mg/dL (8.5-10.1); Chloride 102 mmol/L (98-107); Estimated GFR 30.51 (mL/min/1.73m2); Glucose 266 mg/dL (70-100); Magnesium 2.2 mg/dL (1.8-2.4); Potassium 4.2 mmol/L (3.5-5.1); Sodium 141 mmol/L (136-145)
[2018-12-04 07:15] LABS: Troponin I 0.75 ng/mL (0.00-0.06)
[2018-12-04 07:29] LABS: Absolute Lymphocyte Count 0.28 k/cumm (1.2-3.4); Absolute Neutrophil Count 3.56 k/cumm (1.2-6.7); Diff Comment Manual Differential; Platelet Count 124 x1000/uL (130-400)
[2018-12-04 07:30] LABS: Anisocytosis 2+
--- NOTE | 2018-12-04 07:49 | CMPROGNOTE_ITS ---
- If Service Date Differs Date of service: 12/04/18 Time of Service: 07:49 Care Management Progress Note S/O: Eleni was sitting up in bed when CM came to visit her. She was smiling and pleasant but appeared fatigued. When asked, she responded that she was very tired. She states that she feels a little bit better, I guess. Eleni commented on the bright necklace CM was wearing, smiling , saying it was pretty. 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 A Palliative Consult has been ordered for Eleni. A: Eleni is a 77 year old female admitted with sepsis, UTI and Pneumonia P:Eleni will return to [facility] when she is medically ready for discharge. She will transport via wheelchair van. CM will continue to support patient, family and discharge planning process.
--- NOTE | 2018-12-04 08:05 | W.PM.PROGNOT ---
Date of Service Date of service: 12/04/18 Time of Service: 08:05 Assessment and Plan (1) Sepsis: Current visit: No Status: Resolved Due to LLL pneumonia, present on admission, suspected to be due to aspiration. Continuing vancomycin/cefepime (Day 6/7). Blood and sputum cultures are negative. Defervesced. Leucocytosis resolved. (2) Pneumonia: Current visit: No Status: Acute As above. Continue abx for a total of 7 days. Decrease steroids On a modified diet. May benefit from modified barium swallow, per speech therapy. (3) UTI (urinary tract infection): Current visit: No Status: Ruled-out Culture does not support infection. (4) Non-STEMI (non-ST elevated myocardial infarction): Current visit: No Status: Acute Elevated Troponin, with a peak at 7.7. - does have h/o CAD, but this occured in setting of sepsis and infection. - H/H at target after transfusion of 1 unit of pRBC's 12/03/18. - Continue ASA, plavix, statin if able to tolerate PO. - Continue to hold BB (acute CHF). - Diuretics placed on hold due to KORY. - ECHO with a small area of wall motion abnormality in the apical myocardium. Per [facility] cardiology, this is Takotsubo's cardiomyopathy or ischemia. Continue medical management. Stress test and/or cardiac cath. - consult palliative care as the patient is declining from nutritive stand point - I do not feel she would be the best candidate for a cardiac cath. (5) Acute on chronic congestive heart failure: Current visit: No Status: Acute Diastolic CHF complicated by moderate to severe MR. Hold diuresis due to worsening kidney function. Qualifiers: Heart failure type: unspecified Qualified Code(s): I50.9 - Heart failure, unspecified (6) Diabetes mellitus: Current visit: Yes Status: Chronic Continue corrective insulin AC & HS. (7) KORY (acute kidney injury): Current visit: Yes Status: Acute In setting of infection, sepsis, NSTEMI, and diuresis. Worse today - diuretics on hold. (8) Anemia: Current visit: No Status: Chronic Due to MDS. While H/H is stable, will transfuse 1 unit of pRBC's for a target H/H of 10/30 in setting of ACS. (9) MDS (myelodysplastic syndrome): Current visit: Yes Status: Acute As above (10) Dysphagia: Current visit: Yes Status: Acute Diet changed to pureed with moderately thickened fluids. I placed the order for a modified barium swallow. (11) Vomiting: Current visit: Yes Status: Resolved Possibly due to antibiotics or constipation. Resolved. (12) Dementia: Current visit: Yes Status: Chronic My impression is that this is at baseline. Monitor for bevaviors. I am concerned about the poor PO intake - perhaps, this is due to dementia. Consult palliative care for discussion of goals of care. (13) Discharge planning issues: Current visit: Yes Status: Acute As above - consulting palliative care. If family indeed would like to pursue a cardiac cath/stress test, we would need to discuss possible transfer with [facility]. She is not ready for this yet. DNR/DNI. Ok to transfer out of ICU to med surg with tele. (14) DVT prophylaxis: Current visit: No Status: Acute On heparin SC. On PPI therapy for GI Prophylaxis. Subjective Interval history since last seen: Ms Moncada does not answer most of my questions. She nods to feeling short of breath, to being in pain (does not tell me where or point to where), sticks her tongue at me, nods to being nauseated. She does not answer any of the questions verbally other than to say she is at the hospital. s/p 1 unit for pRBC's yesterday - tolerated well. Still wheezing, wet cough - productive. SR - occasional PAC's/PVC's. Trace edema. Poor PO intake. No more vomiting. Reevaluated by speech therapy yesterday - diet changed to pureed/moderately thickened. Exam Narrative Exam Narrative: Genera: Frail elderly female, A&Ox2, confused, sitting up in bed, looks more comfortably today HEENT: EOMI, dry tongue and mucuous membranes; food is stuck to the tongue Heart: RRR, + quiet ANJELICA Lungs: No tachypnea appreciated today. Quiet rales and rhonchi GI: abdomen is soft, + bowel sounds, seemingly nontender Extremities: wearing green socks/TEDs, trace edema in feet Objective Objective Clinical Data: Abnormal lab results 11/30/18 12/03/18 12/03/18 Range/Units 06:20 06:12 07:39 WBC (4.4-10.8) k/cumm RBC (4.00-5.20) m/cumm Hgb (12.0-15.5) g/dL Hct (36.0-46.0) % MCV (80-95) fL MCHC (32.0-36.0) g/dL RDW (11.7-14.6) % Plt Count (130-400) x1000/uL Absolute Lymphocytes (1.2-3.4) k/cumm Carbon Dioxide 32.9 H (21.0-32.0) mmol/L BUN 44 H (7-18) mg/dL Creatinine 1.39 H (0.55-1.02) mg/dL Glucose 179 H (70-100) mg/dL Troponin I 1.02 H* (0.00-0.06) ng/mL Crossmatch See Detail See Detail 12/04/18 12/04/18 Range/Units 06:15 06:15 WBC 3.95 L (4.4-10.8) k/cumm RBC 3.33 L (4.00-5.20) m/cumm Hgb 10.1 L (12.0-15.5) g/dL Hct 32.5 L (36.0-46.0) % MCV 97.6 H (80-95) fL MCHC 31.1 L (32.0-36.0) g/dL RDW 18.7 H (11.7-14.6) % Plt Count 124 L (130-400) x1000/uL Absolute Lymphocytes 0.28 L (1.2-3.4) k/cumm Carbon Dioxide (21.0-32.0) mmol/L BUN 58 H D (7-18) mg/dL Creatinine 1.63 H (0.55-1.02) mg/dL Glucose 266 H (70-100) mg/dL Troponin I 0.75 H* (0.00-0.06) ng/mL Crossmatch Vital Signs Temperature 36.8 C 12/04/18 04:00 Temperature Source Temporal Artery Scan 12/04/18 04:00 Pulse 81 12/04/18 07:00 Pulse 80 12/04/18 07:00 Respiratory Rate 22 12/04/18 07:00 Respiratory Effort 12/04/18 04:00 Respiratory Depth Shallow 12/04/18 04:00 Respiratory Pattern Tachypnea 12/04/18 04:00 Blood Pressure 106/58 L 12/04/18 07:00 Blood Pressure Mean 68 12/04/18 07:00 Blood Pressure Position Supine 12/03/18 11:42 Pulse Oximetry 96 12/04/18 06:30 Oxygen Delivery Method Room Air 12/04/18 04:00 Oxygen Flow Rate 0 12/04/18 04:00 Pain Level 0 12/04/18 00:00 Intake & Output 12/03/18 12/03/18 12/04/18 11:59 23:59 11:59 Intake Total 184.209 / 0397.144 7029.708 / 1306.917 130.875 / 130.875 Output Total 1465 / 2330 760 / 2330 675 / 675 Balance -1280.791 / -1023.083 362.708 / -1023.083 -544.125 / -544.125 Weight 86.3 kg 81.8 kg Intake: IV 169.209 / 816.917 647.708 / 816.917 130.875 / 130.875 Oral 15 / 165 150 / 165 Blood Product 325 / 325 Rbc Leuko Reduced Unit 325 / 325 [id number] Output: Urine 1465 / 2330 760 / 2330 675 / 675 Other: Urine Color Pale Yellow Yellow Urine Appearance Clear Clear Clear Comment Lasix gtt 2.5ml/hr Willett in place Willett in place Stool Size Large Stool Characteristics Soft Brown Emesis Description Bile Laboratory Results WBC 3.95 k/cumm (4.4-10.8) L 12/04/18 06:15 RBC 3.33 m/cumm (4.00-5.20) L 12/04/18 06:15 Hgb 10.1 g/dL (12.0-15.5) L 12/04/18 06:15 Hct 32.5 % (36.0-46.0) L 12/04/18 06:15 MCV 97.6 fL (80-95) H 12/04/18 06:15 MCH 30.3 pg (27.0-33.0) 12/04/18 06:15 MCHC 31.1 g/dL (32.0-36.0) L 12/04/18 06:15 RDW 18.7 % (11.7-14.6) H 12/04/18 06:15 Plt Count 124 x1000/uL (130-400) L 12/04/18 06:15 MPV fL (8.0-11.0) 12/04/18 06:15 Immature Gran % 0.0 12/04/18 06:15 80.0 12/04/18 06:15 10.0 % 12/04/18 06:15 7.0 12/04/18 06:15 3.0 12/04/18 06:15 0.0 12/04/18 06:15 0.0 12/04/18 06:15 1.0 % 12/01/18 06:10 1.0 % 12/01/18 06:10 Absolute Neutrophils 3.56 k/cumm (1.2-6.7) 12/04/18 06:15 Absolute Lymphocytes 0.28 k/cumm (1.2-3.4) L 12/04/18 06:15 Absolute Monocytes 0.12 k/cumm (0.11-0.7) 12/04/18 06:15 Absolute Eosinophils 0.00 k/cumm (0.0-0.7) 12/04/18 06:15 Absolute Basophils 0.00 k/cumm (0.0-0.2) 12/04/18 06:15 Manual differential 12/04/18 06:15 RBC Morphology See below 12/04/18 06:15 Present 12/02/18 06:55 1+ 12/03/18 06:12 1+ 12/02/18 06:55 2+ 12/04/18 06:15 1+ 11/29/18 04:05 2+ 11/29/18 04:05 PT 10.4 sec (9.3-11.0) 11/28/18 19:27 INR 1.0 (0.9-1.1) 11/28/18 19:27 APTT 46.1 sec (21.0-31.4) H 12/01/18 06:10 Sodium 141 mmol/L (136-145) 12/04/18 06:15 Potassium 4.2 mmol/L (3.5-5.1) 12/04/18 06:15 Chloride 102 mmol/L (98-107) 12/04/18 06:15 Carbon Dioxide 29.4 mmol/L (21.0-32.0) 12/04/18 06:15 9.6 mmol/L (3-11) 12/04/18 06:15 BUN 58 mg/dL (7-18) H D 12/04/18 06:15 1.63 mg/dL (0.55-1.02) H 12/04/18 06:15 30.51 (mL/min/1.73m2) 12/04/18 06:15 Glucose 266 mg/dL (70-100) H 12/04/18 06:15 0.8 mmol/L (0.6-1.4) 11/29/18 08:05 Calcium 8.8 mg/dL (8.5-10.1) 12/04/18 06:15 Magnesium 2.2 mg/dL (1.8-2.4) 12/04/18 06:15 0.5 mg/dL (0.2-1.0) 11/28/18 19:27 AST 61 U/L (15-37) H 11/28/18 19:27 ALT 41 U/L (12-78) 11/28/18 19:27 120 U/L (46-116) H 11/28/18 19:27 0.75 ng/mL (0.00-0.06) H* 12/04/18 06:15 NT-Pro-B Natriuret Pep 63550 pg/mL (-299) H 12/02/18 06:55 7.4 g/dL (6.4-8.2) 11/28/18 19:27 2.6 g/dL (3.4-5.0) L 11/28/18 19:27 Triglycerides 71 mg/dL (30-150) 11/29/18 04:05 99 mg/dL (50-200) 11/29/18 04:05 LDL Cholesterol, Calc 51 mg/dL 11/29/18 04:05 34 mg/dL (40-60) L 11/29/18 04:05 0.3 ng/mL 11/29/18 01:00 TSH 2.78 uIU/mL (0.36-3.74) 12/03/18 06:12 Yellow (Yellow) 11/29/18 03:40 Sl cloudy (Clear) 11/29/18 03:40 7.0 (5-8) 11/29/18 03:40 Ur Specific [place] 1.015 (1.005-1.025) 11/29/18 03:40 Trace mg/dL (Negative) H 11/29/18 03:40 Negative mg/dL (Negative) 11/29/18 03:40 Large (Negative) H 11/29/18 03:40 Positive (Negative) H 11/29/18 03:40 Negative (Negative) 11/29/18 03:40 0.2 EU/dL (Up TO 0.2) 11/29/18 03:40 Ur Leukocyte Esterase Large (Negative) H 11/29/18 03:40 Not Applicable 11/29/18 03:40 >50 HPF (0-5) 11/29/18 03:40 Ur Epithelial Cells Not Applicable 11/29/18 03:40 Not Applicable 11/29/18 03:40 Not Applicable 11/29/18 03:40 Not Applicable 11/29/18 03:40 Ur Culture Indicated? Yes 11/29/18 03:40 Negative mg/dL (Negative) 11/29/18 03:40 Vancomycin Trough 24.5 ug/mL (10.0-20.0) H* 12/02/18 06:55 Legionella Source (see note) 11/29/18 03:40 Legionella Reprt Status (see note) 11/29/18 03:40 Legionella Final Result (see note) 11/29/18 03:40 M. pneumoniae Source Cancelled 11/29/18 04:37 M. pneumoniae (PCR) Cancelled 11/29/18 04:37 Ur Strep pneumoniae Ag Negative (Negative) 11/29/18 03:40 Patient ABO/Rh Cancelled 12/03/18 07:39 Antibody Screen Negative 11/30/18 06:20 Crossmatch See Detail 12/03/18 07:39
[2018-12-04] MEDS: Insulin Aspart 300 UNITS/3 ML PEN SC ×7 (08:21→21:28)
[2018-12-04] MEDS: Aspirin E.C. 81 MG TABEC PO (08:30)
[2018-12-04] MEDS: Clopidogrel 75 MG TAB PO (08:30)
[2018-12-04] MEDS: Sucralfate 1 GM TAB PO ×4 (08:30→21:27)
[2018-12-04] MEDS: methylPREDNISolone SUCC 125 MG VIAL 60 MG IVP (08:30)
[2018-12-04] MEDS: Pantoprazole 40 MG VIAL IVP (08:31)
[2018-12-04] MEDS: Insulin Glargine 300 UNITS/3 ML PEN SC (08:32)
[2018-12-04] MEDS: CEFEPIME 2 GM in Normal Saline 100 ML IVPB ×2 (08:49→19:53)
[2018-12-04] MEDS: Sodium Chloride 0.9% for Inhalation 3 ML VIAL (08:50)
--- NOTE | 2018-12-04 11:23 | W.SPEECHNOTE ---
Date of service: 12/05/18 Time of Service: 10:50 Speech Therapy Visit Note Note: S: Pt seen in bed for dysphagia treatment. WELDING OPERATOR states breakfast went well. O: To assess diet tolerance, teach swallow strategies and provide education. A: Directed PO trial of mildly thick liquids via cup. Pt states she's very thirsty. Review of education re: rationale behind thickened liquids with inconsistent return of understanding. Of 4oz via cup, pt demonstrated delayed cough x4. Puree bites x4 with inconsistent oral clearance cleared with cued double swallow and liquid wash. P: Continue with current plan of care.
[2018-12-04] MEDS: Normal Saline Flush 10 ML SYR IVP (16:15)
[2018-12-04] MEDS: Atorvastatin 40 MG TAB PO (21:26)
[2018-12-05] VITALS (9 sets, daily range): BP systolic 104–113; BP diastolic 58–72; PULSE 74–82; RESP 19–36; TEMP 36.5–36.9; O2SAT 92–98
[2018-12-05] MEDS: Heparin 5,000 UNITS/ML VIAL 5000 UNITS SC ×3 (04:35→19:36)
[2018-12-05 05:23] LABS: Abs Immature Grans 0.06 k/cumm (0.0-0.09); HCT 30.8 % (36.0-46.0); HGB 9.6 g/dL (12.0-15.5); Mean Corp. HGB Concentration 31.2 g/dL (32.0-36.0); Mean Corpuscular Hemoglobin 30.2 pg (27.0-33.0); Mean Corpuscular Volume 96.9 fL (80-95); RBC 3.18 m/cumm (4.00-5.20); RBC Distribution Width 18.3 % (11.7-14.6); White Blood Cell Count 3.95 k/cumm (4.4-10.8)
[2018-12-05 05:37] LABS: Anion Gap 9.1 mmol/L (3-11); BUN 74 mg/dL (7-18); CO2 29.9 mmol/L (21.0-32.0); CREATININE 2.17 mg/dL (0.55-1.02); Calcium 8.7 mg/dL (8.5-10.1); Chloride 104 mmol/L (98-107); Estimated GFR 21.93 (mL/min/1.73m2); Glucose 167 mg/dL (70-100); Magnesium 2.3 mg/dL (1.8-2.4); Potassium 3.7 mmol/L (3.5-5.1); Sodium 143 mmol/L (136-145)
[2018-12-05 05:46] LABS: Vancomycin, Trough 37.6 ug/mL (10.0-20.0)
[2018-12-05] MEDS: Levothyroxine 75 MCG TAB PO (06:02)
[2018-12-05 06:11] LABS: INR 1.1 (0.9-1.1); PTT Activated 26.1 sec (21.0-31.4); Prothrombin Time 11.3 sec (9.3-11.0)
[2018-12-05 06:30] LABS: Absolute Eosinophil Count 0.08 k/cumm (0.0-0.7); Absolute Lymphocyte Count 0.63 k/cumm (1.2-3.4); Absolute Monocyte Count 0.08 k/cumm (0.11-0.7); Absolute Neutrophil Count 3.04 k/cumm (1.2-6.7); Atypical Lymphocytes % 0; Nucleated RBC 3 /100WBC
[2018-12-05 06:31] LABS: Anisocytosis 2+; Diff Comment Manual Differential; Microcytosis 2+
--- NOTE | 2018-12-05 07:29 | NUR.NOTE ---
Nursing Note: 0605: nursing in to administer levothyroxine as ordered. pill crushed as pt unable to swallow whole pills. pill in pudding. pt takes 2 small bites, approximately 1/2 tsp with medication. pt able to tolerate first bite but does appear to aspirate with the second bite. pt able manage own secretion, hard cough, pt able to cough when instructed. pt HOB at greater than 40 at this time. pt repositioned to complete upright position. RN assesses pt's mouth, no pudding present, no pocketing at this time. suction is set up but was not needed as pt had purposeful cough. continue to monitor.
[2018-12-05] MEDS: CEFEPIME 2 GM in Normal Saline 100 ML IVPB (07:54)
[2018-12-05] MEDS: Normal Saline Flush 10 ML SYR IVP (07:54)
[2018-12-05] MEDS: Pantoprazole 40 MG VIAL IVP (07:55)
[2018-12-05] MEDS: Insulin Glargine 300 UNITS/3 ML PEN SC (07:55)
[2018-12-05 08:38] LABS: Platelet Count 124 x1000/uL (130-400)
[2018-12-05 09:04] LABS: Bilirubin Negative (Negative); Blood Moderate (Negative); Clarity Cloudy (Clear); Glucose Negative (Negative); Ketones 15 mg/dL (Negative); Leukocyte Esterase Small (Negative); Nitrite Negative (Negative); Urobilinogen 0.2 EU/dL (Up TO 0.2); pH 5.5 (5-8)
[2018-12-05 09:17] LABS: Bacteria Moderate HPF (Negative); C & S Indicated? Yes; Casts Negative LPF (Negative); Crystals Many Amorphous HPF (Negative); Epithelial Cells Few HPF (Negative); Mucus Negative (Negative); Other Cells Few Renal (Negative); RBC >50 (0-2)
[2018-12-05] MEDS: predniSONE 20 MG TAB 40 MG PO (09:53)
--- NOTE | 2018-12-05 10:04 | STVN_ITS ---
Date of service: 12/05/18 Time of Service: 09:30 Speech Therapy Visit Note Note: S: Pt seen at bedside for dysphagia treatment. Pt continues to be confused and highly distractable. RN states pt 'aspirated' pill this morning. O: To assess diet tolerance and provide CG education. A: Assisted RN with pill intake. RN crushed pill and added puree. Demonstrated use of 1:1 verbal cues and intermittent tactile cues. Educated RN in need for oral care. RN removed and cleaned dentures; encouraged leaving them out and providing consistent oral care. Pt demonstrated delayed cough x2 of 2 oz moderately thick liquid via cup. Decreased environmental distractions to improve participation. Provided room visual for safe swallow strategies. P: Based on cognition, it is not likely that pt would tolerate a modified barium swallow study today. Deficits appear be oral and related to cognition at this time. If pt needs a swallow study, she will have access to FEES upon discharge to [facility].
--- NOTE | 2018-12-05 13:23 | PGE_ITS ---
Date of Service Date of service: 12/05/18 Time of Service: 13:25 Assessment and Plan (1) Sepsis: Start date: 12/05/18 Start time: 13:35 Current visit: No Status: Resolved Due to LLL pneumonia, present on admission, resolved at this time. Dcd cefepime and vanco after 7 days. Blood and sputum cultures are negative. Defervesced. Leucocytosis resolved. (2) Pneumonia: Start date: 12/05/18 Start time: 13:36 Current visit: No Status: Acute As above. Abx dcd after 7 days. Decrease steroids On a modified diet. Unable to have barium swallow at this time due. (3) UTI (urinary tract infection): Start date: 12/05/18 Start time: 13:37 Current visit: No Status: Ruled-out Culture does not support infection. (4) Non-STEMI (non-ST elevated myocardial infarction): Start date: 12/05/18 Start time: 13:37 Current visit: No Status: Acute Elevated Troponin, with a peak at 7.7. - does have h/o CAD, but this occured in setting of sepsis and infection. - H/H at target after transfusion of 1 unit of pRBC's 12/03/18. - Continue ASA, plavix, statin if able to tolerate PO. - Continue to hold BB (acute CHF). - Diuretics placed on hold due to KORY. - ECHO with a small area of wall motion abnormality in the apical myocardium. Per [facility] cardiology, this is Takotsubo's cardiomyopathy or ischemia. Continue medical management. Stress test and/or cardiac cath. - palliative care consulted as the patient is declining from nutritive stand point - I do not feel she would be the best candidate for a cardiac cath. (5) Acute on chronic congestive heart failure: Start date: 12/05/18 Start time: 13:38 Current visit: No Status: Acute Diastolic CHF complicated by moderate to severe MR. Hold diuresis due to worsening kidney function. Continue to monitor kidney function Qualifiers: Heart failure type: unspecified Qualified Code(s): I50.9 - Heart failure, unspecified (6) Diabetes mellitus: Start date: 12/05/18 Start time: 13:38 Current visit: Yes Status: Chronic Continue corrective insulin AC & HS. (7) KORY (acute kidney injury): Start date: 12/05/18 Start time: 13:38 Current visit: Yes Status: Acute In setting of infection, sepsis, NSTEMI, and diuresis. Worse today - diuretics on hold. Continue to monitor. (8) Anemia: Start date: 12/05/18 Start time: 13:38 Current visit: No Status: Chronic Due to MDS. While H/H is stable, did receive 1 unit PRBC (9) MDS (myelodysplastic syndrome): Start date: 12/05/18 Start time: 13:39 Current visit: Yes Status: Acute As above (10) Dysphagia: Start date: 12/05/18 Start time: 13:39 Current visit: Yes Status: Acute Diet changed to pureed with moderately thickened fluids. Aspirated this am on pudding. Will need verbal cueing when eating to swallow. May need tertiary care if family wants to pursue all healthcare needs, for barium swallow. Palliative to see patient and family (11) Vomiting: Start date: 12/05/18 Start time: 13:41 Current visit: Yes Status: Resolved Resolved. (12) Dementia: Start date: 12/05/18 Start time: 13:41 Current visit: Yes Status: Chronic My impression is that this is at baseline. Monitor for bevaviors. I am concerned about the poor PO intake - perhaps, this is due to dementia. Consult palliative care for discussion of goals of care. (13) Discharge planning issues: Start date: 12/05/18 Start time: 13:41 Current visit: Yes Status: Acute As above - consulting palliative care. If family indeed would like to pursue a cardiac cath/stress test, we would need to discuss possible transfer with [facility]. She is not ready for this yet. DNR/DNI. (14) DVT prophylaxis: Start date: 12/05/18 Start time: 13:41 Current visit: No Status: Acute On heparin SC. On PPI therapy for GI Prophylaxis. Subjective Patient reports: other Interval history since last seen: Appears to have worsening lung sounds. Per nursing patient aspirated on pudding this am. Unable to do barium swallow no Speech available. Palliative care to meet with family. CXR ordered for patient test pending. Exam Narrative Exam Narrative: Genera: Frail elderly female, A&Ox2, confused, sitting up in bed, does not answer questions HEENT: EOMI, dry tongue and mucuous membranes; food is stuck to the tongue Heart: RRR, + quiet ANJELICA, no jvd Lungs: No tachypnea appreciated today. Harsh rhonchi breath sounds no crackels GI: abdomen is soft, + bowel sounds, seemingly nontender Extremities: wearing green socks/TEDs, trace edema in knees. No edema to toes or feet. Const General: cooperative, acute distress mild (secondary to dyspnea) and ill appearing acutely Nutritional Appearance: underweight Orientation: alert, awake, oriented to person and oriented to place [facility] Head: normal to inspection, no palpable skull fracture, normocephalic and atraumatic Mouth: oral mucosae normal, lip normal, tongue normal and oropharynx normal Neck Neck: normal visual inspection, full ROM, no lymphadenopathy, no meningeal signs, trachea midline, supple and no JVD Thyroid: thyroid normal Carotids: normal carotid upstroke Lymphatic: no lymphadenopathy noted Resp Effort & Inspection: tachypneic Auscultation: crackles bilaterally at the base, rhonchi upper bilaterally and lower bilaterally and wheezes scattered wheezes Cardio Jugular venous pressure: no JVD Palpation: normal PMI Rate: regular rate Rhythm: regular rhythm Heart Sounds: S1 normal, S2 normal and murmur systolic holo, II/ and at the a pex Bruits: no abdominal aortic bruits and no carotid bruits Pulses: posterior tibial pulses present bilaterally 1+ and diminished and dorsalis pedis pulses present bilaterally 1+ and diminished Skin General skin exam: no rashes or lesions noted, dry skin and other (shiny bronze stasis dermatitis changes over both tibia) Nails: dystrophic Neuro General: alert, awake, oriented Patient Orientation: Person and Place, moves all extremities and no focal motor deficits Speech: speech normal Motor: muscle tone normal throughout, strength 5/5 throughout and no movement abnormalities noted Sensory Exam: no sensory deficits noted Extrem General: normal to inspection, full ROM, no clubbing, cyanosis or edema, no pedal edema and no calf tenderness Right lower extremity: foot Details: other (s\p L. great toe amputation) Objective Objective Clinical Data: Abnormal lab results 12/05/18 12/05/18 12/05/18 Range/Units 05:05 05:05 05:05 WBC 3.95 L (4.4-10.8) k/cumm RBC 3.18 L (4.00-5.20) m/cumm Hgb 9.6 L (12.0-15.5) g/dL Hct 30.8 L (36.0-46.0) % MCV 96.9 H (80-95) fL MCHC 31.2 L (32.0-36.0) g/dL RDW 18.3 H (11.7-14.6) % Plt Count 124 L (130-400) x1000/uL Absolute Lymphocytes 0.63 L (1.2-3.4) k/cumm Absolute Monocytes 0.08 L (0.11-0.7) k/cumm PT (9.3-11.0) sec BUN 74 H D (7-18) mg/dL Creatinine 2.17 H (0.55-1.02) mg/dL Glucose 167 H D (70-100) mg/dL Urine Protein (Negative) mg/dL Urine Ketones (Negative) mg/dL Urine Blood (Negative) Ur Leukocyte Esterase (Negative) Urine RBC (0-2) Vancomycin Trough 37.6 H* (10.0-20.0) ug/mL 12/05/18 12/05/18 Range/Units 05:05 08:05 WBC (4.4-10.8) k/cumm RBC (4.00-5.20) m/cumm Hgb (12.0-15.5) g/dL Hct (36.0-46.0) % MCV (80-95) fL MCHC (32.0-36.0) g/dL RDW (11.7-14.6) % Plt Count (130-400) x1000/uL Absolute Lymphocytes (1.2-3.4) k/cumm Absolute Monocytes (0.11-0.7) k/cumm PT 11.3 H (9.3-11.0) sec BUN (7-18) mg/dL Creatinine (0.55-1.02) mg/dL Glucose (70-100) mg/dL Urine Protein 100 H (Negative) mg/dL Urine Ketones 15 H (Negative) mg/dL Urine Blood Moderate H (Negative) Ur Leukocyte Esterase Small H (Negative) Urine RBC >50 H (0-2) Vancomycin Trough (10.0-20.0) ug/mL Vital Signs Temperature 36.5 C 12/05/18 11:20 Temperature Source Tympanic 12/05/18 11:20 Pulse 82 12/05/18 11:20 Pulse Rhythm Regular 12/05/18 07:45 Pulse 75 12/04/18 14:01 Respiratory Rate 19 12/05/18 11:20 Respiratory Effort 12/05/18 07:45 Respiratory Depth Normal 12/05/18 07:45 Respiratory Pattern Hyperpnea 12/05/18 07:45 Blood Pressure 109/58 L 12/05/18 11:20 Blood Pressure Mean 59 12/04/18 14:00 Blood Pressure Position Supine 12/03/18 11:42 Pulse Oximetry 95 12/05/18 11:20 Oxygen Delivery Method Room Air 12/05/18 11:20 Oxygen Flow Rate 0 12/05/18 11:20 Pain Level 6 12/05/18 11:20 Intake & Output 12/04/18 12/05/18 12/05/18 23:59 11:59 23:59 Intake Total 416.875 / 767.750 100 / 100 Output Total 325 / 1000 250 / 250 Balance 91.875 / -232.250 -150 / -150 Weight 81.2 kg Intake: IV 376.875 / 607.750 100 / 100 Oral 40 / 160 Output: Urine 325 / 1000 250 / 250 Other: Urine Color Yellow Dark Makeda Straw Urine Appearance Clear Sediment Urine Odor Normal Stool Size Moderate Stool Characteristics Soft Emesis Description None Voiding Methods Indwelling Catheter Laboratory Results WBC 3.95 k/cumm (4.4-10.8) L 12/05/18 05:05 RBC 3.18 m/cumm (4.00-5.20) L 12/05/18 05:05 Hgb 9.6 g/dL (12.0-15.5) L 12/05/18 05:05 Hct 30.8 % (36.0-46.0) L 12/05/18 05:05 MCV 96.9 fL (80-95) H 12/05/18 05:05 MCH 30.2 pg (27.0-33.0) 12/05/18 05:05 MCHC 31.2 g/dL (32.0-36.0) L 12/05/18 05:05 RDW 18.3 % (11.7-14.6) H 12/05/18 05:05 Plt Count 124 x1000/uL (130-400) L 12/05/18 05:05 MPV fL (8.0-11.0) 12/05/18 05:05 Immature Gran % 0.0 12/05/18 05:05 75.0 12/05/18 05:05 2.0 % 12/05/18 05:05 16.0 12/05/18 05:05 Atypical Lymphs % 0 12/05/18 05:05 2.0 12/05/18 05:05 2.0 12/05/18 05:05 0.0 12/05/18 05:05 2.0 % 12/05/18 05:05 1.0 % 12/01/18 06:10 Absolute Neutrophils 3.04 k/cumm (1.2-6.7) 12/05/18 05:05 Absolute Lymphocytes 0.63 k/cumm (1.2-3.4) L 12/05/18 05:05 Absolute Monocytes 0.08 k/cumm (0.11-0.7) L 12/05/18 05:05 Absolute Eosinophils 0.08 k/cumm (0.0-0.7) 12/05/18 05:05 Absolute Basophils 0.00 k/cumm (0.0-0.2) 12/05/18 05:05 Nucleated RBCs 3 /100WBC 12/05/18 05:05 Manual differential 12/05/18 05:05 RBC Morphology See below 12/05/18 05:05 Present 12/02/18 06:55 1+ 12/03/18 06:12 1+ 12/02/18 06:55 2+ 12/05/18 05:05 2+ 12/05/18 05:05 2+ 11/29/18 04:05 PT 11.3 sec (9.3-11.0) H 12/05/18 05:05 INR 1.1 (0.9-1.1) 12/05/18 05:05 APTT 26.1 sec (21.0-31.4) 12/05/18 05:05 Sodium 143 mmol/L (136-145) 12/05/18 05:05 Potassium 3.7 mmol/L (3.5-5.1) 12/05/18 05:05 Chloride 104 mmol/L (98-107) 12/05/18 05:05 Carbon Dioxide 29.9 mmol/L (21.0-32.0) 12/05/18 05:05 9.1 mmol/L (3-11) 12/05/18 05:05 BUN 74 mg/dL (7-18) H D 12/05/18 05:05 2.17 mg/dL (0.55-1.02) H 12/05/18 05:05 21.93 (mL/min/1.73m2) 12/05/18 05:05 Glucose 167 mg/dL (70-100) H D 12/05/18 05:05 0.8 mmol/L (0.6-1.4) 11/29/18 08:05 Calcium 8.7 mg/dL (8.5-10.1) 12/05/18 05:05 Magnesium 2.3 mg/dL (1.8-2.4) 12/05/18 05:05 0.5 mg/dL (0.2-1.0) 11/28/18 19:27 AST 61 U/L (15-37) H 11/28/18 19:27 ALT 41 U/L (12-78) 11/28/18 19:27 120 U/L (46-116) H 11/28/18 19:27 0.75 ng/mL (0.00-0.06) H* 12/04/18 06:15 NT-Pro-B Natriuret Pep 74160 pg/mL (-299) H 12/02/18 06:55 7.4 g/dL (6.4-8.2) 11/28/18 19:27 2.6 g/dL (3.4-5.0) L 11/28/18 19:27 Triglycerides 71 mg/dL (30-150) 11/29/18 04:05 99 mg/dL (50-200) 11/29/18 04:05 LDL Cholesterol, Calc 51 mg/dL 11/29/18 04:05 34 mg/dL (40-60) L 11/29/18 04:05 0.3 ng/mL 11/29/18 01:00 TSH 2.78 uIU/mL (0.36-3.74) 12/03/18 06:12 Yellow (Yellow) 12/05/18 08:05 Cloudy (Clear) 12/05/18 08:05 5.5 (5-8) 12/05/18 08:05 Ur Specific [place] 1.020 (1.005-1.025) 12/05/18 08:05 100 mg/dL (Negative) H 12/05/18 08:05 15 mg/dL (Negative) H 12/05/18 08:05 Moderate (Negative) H 12/05/18 08:05 Negative (Negative) 12/05/18 08:05 Negative (Negative) 12/05/18 08:05 0.2 EU/dL (Up TO 0.2) 12/05/18 08:05 Ur Leukocyte Esterase Small (Negative) H 12/05/18 08:05 >50 (0-2) H 12/05/18 08:05 10-20 HPF (0-5) 12/05/18 08:05 Ur Epithelial Cells Few HPF (Negative) 12/05/18 08:05 Many amorphous HPF (Negative) 12/05/18 08:05 Moderate HPF (Negative) 12/05/18 08:05 Negative LPF (Negative) 12/05/18 08:05 Negative (Negative) 12/05/18 08:05 Few renal (Negative) 12/05/18 08:05 Ur Culture Indicated? Yes 12/05/18 08:05 Negative mg/dL (Negative) 12/05/18 08:05 Vancomycin Trough 37.6 ug/mL (10.0-20.0) H* 12/05/18 05:05 Legionella Source (see note) 11/29/18 03:40 Legionella Reprt Status (see note) 11/29/18 03:40 Legionella Final Result (see note) 11/29/18 03:40 M. pneumoniae Source Cancelled 11/29/18 04:37 M. pneumoniae (PCR) Cancelled 11/29/18 04:37 Ur Strep pneumoniae Ag Negative (Negative) 11/29/18 03:40 Patient ABO/Rh Cancelled 12/03/18 07:39 Antibody Screen Negative 11/30/18 06:20 Crossmatch See Detail 12/03/18 07:39
--- NOTE | 2018-12-05 13:53 | DI.RAD_ITS ---
SYMPTOM/DIAGNOSIS: SOB, WORSENING BREATH SOUNDS AP AND LATERAL CHEST: Comparison is made with previous exams. The heart size is within normal limits. Mitral valve calcification is again noted. There is stable blunting at the left costophrenic angle. There is an old right proximal clavicle fracture and an old left upper humeral fracture. IMPRESSION: Stable left pleural effusion.
--- NOTE | 2018-12-05 14:12 | PT.INTREAT ---
Date of service: 12/05/18 Time of Service: 14:13 PT Notes Inpatient Physical Therapy Treatment Note [facility] Date: 12/05/18 PRECAUTIONS: Non-ambulatory SUBJECTIVE: Eleni reports stomach pain to Radha Torres NP, although is agreeable to participating in PT. OBJECTIVE: PAIN: See subjective above. BED MOBILITY/TRANSFERS Rolling L/R: Max A to L THEREX: Patient completed ankle pumps, SLR, hip abduction, shoulder flexion, forward reaches, and elbow flexion/extension, all with assist for completion, as per flow sheet. ASSESSMENT: Patient was able to tolerate participating in a ther ex program, performed in a supine position, with assist for completion of each exercise. PLAN: Continue with PT's POC TREATMENT CODE/TIME: 15 minutes; [id number]
--- NOTE | 2018-12-05 14:51 | PDOC.CMPRO ---
Care Management Progress Note S/O: CM spoke with Eleni's daughter, Wendy and Dr. Lozada and Esa of Palliative Care to coordinate consult per Dr. Garnett's order. Dr. Lozada will meet with Eleni and Dr. Lozada at 1615 today. CM notified MED/SURG Conchita redding and Dr. Garnett. CM continues to follow. A: Eleni is a 77 year old female admitted with sepsis, UTI and Pneumonia P: Eleni will return to [facility] when she is medically ready for discharge. She will transport via wheelchair van. CM will continue to support patient, family and discharge planning process.
[2018-12-05] MEDS: Insulin Aspart 300 UNITS/3 ML PEN SC ×3 (16:54→22:08)
[2018-12-05] MEDS: Sucralfate 1 GM TAB PO ×2 (16:54→22:08)
--- NOTE | 2018-12-05 21:31 | PCNE_ITS ---
Date of service: 12/05/18 History of Present Illness Chief Complaint: [facility] discussion re: feeding tube, cardiac cath, etc Narrative: Eleni is a PC patient who usually sees Dr Dickey. Dr Dickey had clinic today and could not see her; I was asked to see Eleni instead. Dr Garnett wanted clarity around Eleni's wishes. There was concern that Vane might want 1. a feeding tubel; 2. a cardiac cath; and 3. transfer to a tertiary care center, either [facility] or [facility]. I met with Eleni, her daughter Wendy Ruiz who is her medical DPOA, her daughter Caridad Tolliver, and her [id number] Yadira Moncada. Eleni's dementia has progressed to the point where she cannot make her own medical decisions. Wendy, the DPOA, likes to make decisions in consensus. Eleni's son, Irving, was not present. He does not visit his mother at the [facility] and [facility], where she has lived for a few years. He hates nursing homes. He does come to the hospital. He saw her for the first time in 2 years on this admission-- which was a great comfort to Eleni. He has granted his say to his , Yadira. Everyone agreed that Eleni would NOT want a feeding tube. She would NOT want a cardiac cath. She would NOT want to be transferre [facility] or to [facility]. BUT She would want to be readmitted to [facility]. After the family meeting and discussion, we filled out an updated COLST form indicating these wishes. Consults Consult date: 12/05/18 Requesting physician: Shantelle Garnett Assessment and Plan (1) Goals of care, counseling/discussion: Current visit: Yes Status: Acute Family in agreement: No feeding tube. No transfer to tertiary care. Antibiotics ok for COMFORT. Ok to admit to [facility] only; limited interventions. IVF ok; TPN not. 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 Wants to admit to [facility] for acute problem. New COLST DONE, (2) Palliative care patient: Current visit: Yes Status: Acute Usually seen by Dr Hsu; she was unable to see her today. (3) Vascular dementia: Current visit: Yes Status: Acute Much more advanced from last time I saw Eleni. Has lost weight. More confused. Dysphagia much worse. Hand-feeding required with reminders to swallow. Would be hospice eligible for her dementia IF and WHEN her family want it, (4) POLST (Physician Orders for Life-Sustaining Treatment): Current visit: Yes Status: Acute Done 12.05.18. Signed by Wendy for her mother. Review of Systems Constitutional Reports daytime sleepiness, Reports fatigue, Reports poor appetite, Reports weakness and Reports weight loss Eyes Reports change in vision, Reports dry eyes and Reports requires corrective lenses ENT Reports hearing loss and Reports disequilibrium Cardiovascular Reports chest pain (now resolved; has NSTEMI on admission), Reports rapid heart rate, Reports dyspnea and Reports dyspnea on exertion Respiratory Reports dyspnea and Reports dyspnea on exertion Gastrointestinal Reports constipation, Reports early satiety and Reports fecal incontinence Genitourinary Reports urinary incontinence (has Willett in place) Musculoskeletal Reports atrophy, Reports muscle weakness and Reports stiffness Integumentary/Breasts Reports dry skin Neurologic Reports abnormal speech, Reports behavioral changes, Reports confusion, Reports lack of coordination, Reports memory loss, Reports disequilibrium and Reports weakness Comments: too weak to stand, requires Angel for tranfers Psychiatric Reports abnormal sleep pattern (sleeps a lot, night and day), Reports behavioral changes, Reports confusion, Reports difficulty concentrating and Reports memory loss Endocrine Reports fatigue Hematologic/Lymphatic Reports easy bruising [facility] Medical History (Updated 12/05/18 @ 21:47 by Danuta Lozada MD) Anemia (Chronic) Anxiety disorder (Chronic) CAD (coronary artery disease) (Chronic) Chronic renal insufficiency (Chronic) Dementia (Chronic) Depression (Chronic) DNI (do not intubate) (Acute) DNR (do not resuscitate) (Acute) Gangrene of toe (Inactive) Goals of care, counseling/discussion (Acute) MDS (myelodysplastic syndrome) (Acute) Palliative care patient (Acute) POLST (Physician Orders for Life-Sustaining Treatment) (Acute) Right heart failure (Chronic) Uncontrolled type 2 diabetes mellitus (Chronic) Vascular dementia (Acute) Surgical History Amputation bone marrow biopsy (11/05/15) Cholecystectomy Extraction of cataract (12/13/12) Ligation of fallopian tube Family History (Updated 12/05/18 @ 21:43 by Danuta Lozada MD) Daughter Depression Anxiety Obesity Daughter No problems noted. Son No problems noted. Social History (Updated 12/05/18 @ 21:46 by Danuta Lozada MD) Smoking/Tobacco Use Status: Former Tobacco Use Tobacco: How many years used: 50 Second Hand Exposure: Yes Alcohol Intake: former Drug use: Never Caregiver/Support person: Yes Household members: other Details: lives at [facility]; daughters visit Housing: skilled nursing Number of Children: 3 Communication Needs: Hard of Hearing and Corrective Lenses Education Level: middle school Do you need help understanding health information?: Always current occupation: retired Pets and animals: No What is your relationship status?: How often do you talk on the phone with friends or family?: never How often do you get together with friends or relatives?: three or more times per week Panel score (0-1 are the most socially isolated patients): 1 What type of physical activity do you participate in: none, bed-bound and sedentary lifestyle Special leonides needs: No Agree to transfusion: Yes Seatbelt use: always Do you feel safe at home: Yes Do you feel safe in your relationship?: Yes Additional Social history: Resident @ [facility]; gets transfusions 2 x per month; wants to continue these for now; no transfers to tertiary care; avoid ICU if possible COLST done 12/05/18 for limited treatment, 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 Harsh rhonchi breath sounds no crackels GI: abdomen is soft, + bowel sounds, seemingly nontender Extremities: wearing green socks/TEDs, trace edema in knees. No edema to toes or feet. Const General: cooperative, acute distress and ill appearing Nutritional Appearance: underweight Orientation: alert, awake, oriented to person and oriented to place [facility] Head: normal to inspection, no palpable skull fracture, normocephalic and atraumatic Mouth: oral mucosae normal, lip normal, tongue normal and oropharynx normal Neck Neck: normal visual inspection, full ROM, no lymphadenopathy, no meningeal sign s, trachea midline, supple and no JVD Thyroid: thyroid normal Carotids: normal carotid upstroke Lymphatic: no lymphadenopathy noted Resp Effort & Inspection: tachypneic Auscultation: crackles, rhonchi and wheezes Cardio Jugular venous pressure: no JVD Palpation: normal PMI Rate: regular rate Rhythm: regular rhythm Heart Sounds: S1 normal, S2 normal and murmur Bruits: no abdominal aortic bruits and no carotid bruits Pulses: posterior tibial pulses present and dorsalis pedis pulses present Skin General skin exam: no rashes or lesions noted, dry skin and other (shiny bronze stasis dermatitis changes over both tibia) Nails: dystrophic Neuro General: alert, awake, oriented, moves all extremities and no focal motor deficits Speech: speech normal Motor: muscle tone normal throughout, strength 5/5 throughout and no movement abnormalities noted Sensory Exam: no sensory deficits noted Extrem General: normal to inspection, full ROM, no clubbing, cyanosis or edema, no pedal edema and no calf tenderness Right lower extremity: foot Results Last Vital Signs Temp 98.2 F 12/05/18 18:10 Pulse 76 12/05/18 18:44 Resp 36 H 12/05/18 18:10 BP 113/66 12/05/18 18:10 Pulse Ox 96 12/05/18 18:10 Labs : 12/05/18 05:05 12/05/18 05:05 Laboratory Results - last 24 hr 12/05/18 12/05/18 12/05/18 05:05 05:05 05:05 WBC 3.95 L RBC 3.18 L Hgb 9.6 L Hct 30.8 L MCV 96.9 H MCH 30.2 MCHC 31.2 L RDW 18.3 H Plt Count 124 L MPV Immature Gran % 0.0 Neutrophils % 75.0 Band Neutrophils % 2.0 Lymphocytes % 16.0 Atypical Lymphs % 0 Monocytes % 2.0 Eosinophils % 2.0 Basophils % 0.0 Metamyelocytes % 2.0 Absolute Neutrophils 3.04 Absolute Lymphocytes 0.63 L Absolute Monocytes 0.08 L Absolute Eosinophils 0.08 Absolute Basophils 0.00 Nucleated RBCs 3 Differential Comment Manual differential RBC Morphology See below Anisocytosis 2+ Microcytosis 2+ PT INR APTT Sodium 143 Potassium 3.7 Chloride 104 Carbon Dioxide 29.9 Anion Gap 9.1 BUN 74 H D Creatinine 2.17 H Estimated GFR/1.73 m2 21.93 Glucose 167 H D Calcium 8.7 Magnesium 2.3 Urine Color Urine Clarity Urine pH Ur Specific [place] Urine Protein Urine Ketones Urine Blood Urine Nitrite Urine Bilirubin Urine Urobilinogen Ur Leukocyte Esterase Urine RBC Urine WBC Ur Epithelial Cells Urine Crystals Urine Bacteria Urine Casts Urine Mucus Urine Other Ur Culture Indicated? Urine Glucose Vancomycin Trough 37.6 H* 12/05/18 12/05/18 05:05 08:05 WBC RBC Hgb Hct MCV MCH MCHC RDW Plt Count MPV Immature Gran % Neutrophils % Band Neutrophils % Lymphocytes % Atypical Lymphs % Monocytes % Eosinophils % Basophils % Metamyelocytes % Absolute Neutrophils Absolute Lymphocytes Absolute Monocytes Absolute Eosinophils Absolute Basophils Nucleated RBCs Differential Comment RBC Morphology Anisocytosis Microcytosis PT 11.3 H INR 1.1 APTT 26.1 Sodium Potassium Chloride Carbon Dioxide Anion Gap BUN Creatinine Estimated GFR/1.73 m2 Glucose Calcium Magnesium Urine Color Yellow Urine Clarity Cloudy Urine pH 5.5 Ur Specific [place] 1.020 Urine Protein 100 H Urine Ketones 15 H Urine Blood Moderate H Urine Nitrite Negative Urine Bilirubin Negative Urine Urobilinogen 0.2 Ur Leukocyte Esterase Small H Urine RBC >50 H Urine WBC 10-20 Ur Epithelial Cells Few Urine Crystals Many amorphous Urine Bacteria Moderate Urine Casts Negative Urine Mucus Negative Urine Other Few renal Ur Culture Indicated? Yes Urine Glucose Negative Vancomycin Trough
[2018-12-05] MEDS: Atorvastatin 40 MG TAB PO (22:08)
[2018-12-06 00:15] VITALS: BP 110/65; PULSE 74; RESP 26; TEMP 36.8; O2SAT 95
[2018-12-06] MEDS: Heparin 5,000 UNITS/ML VIAL 5000 UNITS SC (03:34)
[2018-12-06 04:05] VITALS: BP 109/65; PULSE 74; RESP 25; TEMP 37; O2SAT 95
[2018-12-06] MEDS: Levothyroxine 75 MCG TAB PO (06:08)
[2018-12-06 06:52] LABS: Abs Immature Grans 0.03 k/cumm (0.0-0.09); HCT 31.4 % (36.0-46.0); HGB 9.7 g/dL (12.0-15.5); Mean Corp. HGB Concentration 30.9 g/dL (32.0-36.0); Mean Corpuscular Hemoglobin 29.9 pg (27.0-33.0); Mean Corpuscular Volume 96.9 fL (80-95); RBC 3.24 m/cumm (4.00-5.20); RBC Distribution Width 18.3 % (11.7-14.6); White Blood Cell Count 3.85 k/cumm (4.4-10.8)
[2018-12-06 07:07] LABS: Anion Gap 8.5 mmol/L (3-11); CO2 29.5 mmol/L (21.0-32.0); CREATININE 2.55 mg/dL (0.55-1.02); Calcium 8.9 mg/dL (8.5-10.1); Chloride 106 mmol/L (98-107); Estimated GFR 18.21 (mL/min/1.73m2); Glucose 186 mg/dL (70-100); Magnesium 2.4 mg/dL (1.8-2.4); Potassium 3.7 mmol/L (3.5-5.1); Sodium 144 mmol/L (136-145)
[2018-12-06 07:12] LABS: BUN 90 mg/dL (7-18)
[2018-12-06 07:20] VITALS: BP 104/58; PULSE 75; RESP 30; TEMP 36.7; O2SAT 92
[2018-12-06 07:32] LABS: Absolute Lymphocyte Count 0.89 k/cumm (1.2-3.4); Absolute Neutrophil Count 2.73 k/cumm (1.2-6.7); Atypical Lymphocytes % 1; Platelet Count 121 x1000/uL (130-400)
[2018-12-06 07:33] LABS: Absolute Monocyte Count 0.23 k/cumm (0.11-0.7); Anisocytosis 2+; Diff Comment Manual Differential; Hypochromasia 1+; Macrocytosis 1+; Microcytosis 1+; Polychromasia Present
[2018-12-06] MEDS: predniSONE 20 MG TAB 40 MG PO (08:15)
[2018-12-06] MEDS: Sucralfate 1 GM TAB PO ×3 (08:15→21:21)
[2018-12-06] MEDS: Clopidogrel 75 MG TAB PO (08:15)
[2018-12-06] MEDS: Normal Saline Flush 10 ML SYR IVP (08:21)
[2018-12-06] MEDS: Pantoprazole 40 MG VIAL IVP (08:21)
[2018-12-06] MEDS: Insulin Glargine 300 UNITS/3 ML PEN SC (08:21)
[2018-12-06] MEDS: Insulin Aspart 300 UNITS/3 ML PEN SC (08:22)
--- NOTE | 2018-12-06 08:30 | CMPROGNOTE_ITS ---
Care Management Progress Note S/O: Palliative Consult with Dr. Lozada completed yesterday with Eleni, Eleni's daughters, Caridad Nguyen and daughter in law, Yadira. Per Dr. Lozada the consensus of the family was that Eleni would not want a feeding tube, cardiac cath or to transfer to a tertiary center. Please refer to her note for further details. Eleni and her family again participated in a Palliative Consult today due to rising concerns of Eleni's ability to recover. After a period of discussion the family decided with Dr. Garnett and Dr. Lozada that Eleni should transfer to [facility] in order to remain comfortable at this time. Eleni was lying in bed, eyes fluttering, surrounded by family when CM checked in. CM continues to follow. A: Eleni is a 77 year old female admitted with sepsis, UTI and Pneumonia, transitioned to [facility] 12/06/18. P: Eleni will likely remain at [facility] for end of life care due to pain management. Anticipate if her pain becomes well managed and she is not imminent she may return to [facility]. CM will continue to support patient, family and discharge planning process.
--- NOTE | 2018-12-06 10:47 | PGE_ITS ---
Date of Service Date of service: 12/06/18 Time of Service: 10:47 Assessment and Plan (1) Sepsis: Current visit: No Status: Resolved Due to LLL pneumonia, present on admission, suspected to be due to aspiration. Finished 7 days of antibiotics. Blood and sputum cultures are negative. Defervesced. Leucocytosis resolved. (2) Pneumonia: Current visit: No Status: Acute As above. Finished antibiotics, but will always remain a huge aspiration risk due to her worsening dementia. Family is not interested in a feeding tube. Continue modified diet with assisted feedings and verbal cues. We are unable to obtain a modified swallow study due to lack of speech therapy at this time. (3) UTI (urinary tract infection): Current visit: No Status: Ruled-out Culture does not support infection. (4) Non-STEMI (non-ST elevated myocardial infarction): Current visit: No Status: Acute Elevated Troponin, with a peak at 7.7. - does have h/o CAD, but this occured in setting of sepsis and infection. - family is no longer interested in cardiac cath/stress testing after having met with palliative care - I think, this is more than appropriate given overall prognosis. - Continue ASA, plavix, statin if able to tolerate PO. No longer monitoring on tele. - Echo with a small area of wall motion abnormality in the apical myocardium. Per [facility] cardiology, this is Takotsubo's cardiomyopathy or ischemia. Continue medical management. Stress test and/or cardiac cath. - Diuretics placed on hold due to KORY - Cr is worse, even though diuretics are on hold, and clinically she is fluid overloaded today. I think patient is fail ing treatment and is likely not going to improve despite anything that we do for her. She is dying. -we are asking palliative care to attempt talking to the family again about instituting comfort measures, which in my opinion are appropriate at this time. (5) Acute on chronic congestive heart failure: Current visit: No Status: Acute Diastolic CHF complicated by moderate to severe MR. As above Qualifiers: Heart failure type: unspecified Qualified Code(s): I50.9 - Heart failure, unspecified (6) Diabetes mellitus: Current visit: Yes Status: Chronic Continue corrective insulin AC & HS. (7) KORY (acute kidney injury): Current visit: Yes Status: Acute Worsening Cr despite holding of lasix and vancomycin. I cannot safely diurese this patient without risking her kidneys. We are asking palliative care to reapproach family. (8) Anemia: Current visit: No Status: Chronic Due to MDS. Per discussion with palliative care, the family is interested in continuing transfusions. I think that transfusions would make this patient's CHF worse at this time and likely worsen her respiratory status. (9) MDS (myelodysplastic syndrome): Current visit: Yes Status: Acute As above (10) Dysphagia: Current visit: Yes Status: Acute Continue pureed with moderately thickened fluids, assistance and verbal cues - the patient forgets to swallow, which is a function of her worsening dementia. We are unable to obtain a modified barium swallow study due to lack of speech therapy coverage at this time. (11) Vomiting: Current visit: Yes Status: Resolved Possibly due to antibiotics or constipation. Resolved. (12) Dementia: Current visit: Yes Status: Chronic My impression is that this is at baseline, but severe and the patient is forgetting to swallow. Monitor. Consider comfort measures. (13) Discharge planning issues: Current visit: Yes Status: Acute As above - I think this patient is appropriate for comfort measures at this time. Palliative care on board. We are no longer pursuing cardiac workup or monitoring. DNR/DNI. Disposition is being clarified. (14) DVT prophylaxis: Current visit: No Status: Acute On heparin SC. On PPI therapy for GI Prophylaxis. Subjective Interval history since last seen: The patient has been tachypneic and uncomfortable. She does not verbally answer my questions today, but nods and shakes her head to some questions. She nods when I ask her if she has pain and nods when I ask her if she is short of breath. She does not answer when I ask her if she is comfortable. Per nursing aides, the patient needs a lot of assistance with cuing to remind her to swallow. Family met with palliative care last evening - the family is no longer interested in stress test/cardiac cath, but is still interested in blood transf usions. Exam Narrative Exam Narrative: Genera: Frail elderly female, nonverbal with me today, communicates by nodding/shaking head, visibly tachypneic and uncomfortable, anxious. HEENT: EOMI, dry MM Heart: RRR, + quiet ANJELICA Lungs: Tachypenic, rales/rhonchi auscultated. GI: abdomen is soft, + bowel sounds, seemingly nontender Extremities: wearing green socks/TEDs, trace edema in feet Objective Objective Clinical Data: Abnormal lab results 12/06/18 12/06/18 Range/Units 06:20 06:20 WBC 3.85 L (4.4-10.8) k/cumm RBC 3.24 L (4.00-5.20) m/cumm Hgb 9.7 L (12.0-15.5) g/dL Hct 31.4 L (36.0-46.0) % MCV 96.9 H (80-95) fL MCHC 30.9 L (32.0-36.0) g/dL RDW 18.3 H (11.7-14.6) % Plt Count 121 L (130-400) x1000/uL Absolute Lymphocytes 0.89 L (1.2-3.4) k/cumm BUN 90 H* D (7-18) mg/dL Creatinine 2.55 H (0.55-1.02) mg/dL Glucose 186 H (70-100) mg/dL Vital Signs Temperature 36.7 C 12/06/18 07:20 Temperature Source Tympanic 12/06/18 07:20 Pulse 75 12/06/18 07:20 Pulse Rhythm Regular 12/06/18 04:52 Pulse 75 12/04/18 14:01 Respiratory Rate 30 H 12/06/18 07:20 Respiratory Effort 12/06/18 04:52 Respiratory Depth Normal 12/06/18 04:52 Respiratory Pattern Normal 12/06/18 04:52 Blood Pressure 104/58 L 12/06/18 07:20 Blood Pressure Mean 59 12/04/18 14:00 Blood Pressure Position Supine 12/03/18 11:42 Pulse Oximetry 92 L 12/06/18 07:20 Oxygen Delivery Method Room Air 12/06/18 07:20 Oxygen Flow Rate 0 12/06/18 07:20 Pain Level 0 12/06/18 04:05 Intake & Output 12/05/18 12/05/18 12/06/18 11:59 23:59 11:59 Intake Total 100 / 570 470 / 570 50 / 50 Output Total 250 / 500 250 / 500 250 / 250 Balance -150 / 70 220 / 70 -200 / -200 Weight 81.2 kg 82.1 kg Intake: IV 100 / 120 20 / 120 Oral 450 / 450 50 / 50 Output: Urine 250 / 500 250 / 500 250 / 250 Other: Urine Color Dark [place] Yellow Straw Urine Appearance Sediment Cloudy Cloudy Urine Odor Normal Stool Size Smear Stool Characteristics Soft Brown Emesis Description None Voiding Methods Indwelling Catheter Laboratory Results WBC 3.85 k/cumm (4.4-10.8) L 12/06/18 06:20 RBC 3.24 m/cumm (4.00-5.20) L 12/06/18 06:20 Hgb 9.7 g/dL (12.0-15.5) L 12/06/18 06:20 Hct 31.4 % (36.0-46.0) L 12/06/18 06:20 MCV 96.9 fL (80-95) H 12/06/18 06:20 MCH 29.9 pg (27.0-33.0) 12/06/18 06:20 MCHC 30.9 g/dL (32.0-36.0) L 12/06/18 06:20 RDW 18.3 % (11.7-14.6) H 12/06/18 06:20 Plt Count 121 x1000/uL (130-400) L 12/06/18 06:20 MPV fL (8.0-11.0) 12/06/18 06:20 Immature Gran % 0.0 12/06/18 06:20 62.0 12/06/18 06:20 9.0 % 12/06/18 06:20 22.0 12/06/18 06:20 Atypical Lymphs % 1 12/06/18 06:20 6.0 12/06/18 06:20 0.0 12/06/18 06:20 0.0 12/06/18 06:20 2.0 % 12/05/18 05:05 1.0 % 12/01/18 06:10 Absolute Neutrophils 2.73 k/cumm (1.2-6.7) 12/06/18 06:20 Absolute Lymphocytes 0.89 k/cumm (1.2-3.4) L 12/06/18 06:20 Absolute Monocytes 0.23 k/cumm (0.11-0.7) 12/06/18 06:20 Absolute Eosinophils 0.00 k/cumm (0.0-0.7) 12/06/18 06:20 Absolute Basophils 0.00 k/cumm (0.0-0.2) 12/06/18 06:20 Nucleated RBCs 3 /100WBC 12/05/18 05:05 Manual differential 12/06/18 06:20 RBC Morphology See below 12/06/18 06:20 Present 12/06/18 06:20 1+ 12/06/18 06:20 1+ 12/02/18 06:55 2+ 12/06/18 06:20 1+ 12/06/18 06:20 1+ 12/06/18 06:20 PT 11.3 sec (9.3-11.0) H 12/05/18 05:05 INR 1.1 (0.9-1.1) 12/05/18 05:05 APTT 26.1 sec (21.0-31.4) 12/05/18 05:05 Sodium 144 mmol/L (136-145) 12/06/18 06:20 Potassium 3.7 mmol/L (3.5-5.1) 12/06/18 06:20 Chloride 106 mmol/L (98-107) 12/06/18 06:20 Carbon Dioxide 29.5 mmol/L (21.0-32.0) 12/06/18 06:20 8.5 mmol/L (3-11) 12/06/18 06:20 BUN 90 mg/dL (7-18) H* D 12/06/18 06:20 2.55 mg/dL (0.55-1.02) H 12/06/18 06:20 18.21 (mL/min/1.73m2) 12/06/18 06:20 Glucose 186 mg/dL (70-100) H 12/06/18 06:20 0.8 mmol/L (0.6-1.4) 11/29/18 08:05 Calcium 8.9 mg/dL (8.5-10.1) 12/06/18 06:20 Magnesium 2.4 mg/dL (1.8-2.4) 12/06/18 06:20 0.5 mg/dL (0.2-1.0) 11/28/18 19:27 AST 61 U/L (15-37) H 11/28/18 19:27 ALT 41 U/L (12-78) 11/28/18 19:27 120 U/L (46-116) H 11/28/18 19:27 0.75 ng/mL (0.00-0.06) H* 12/04/18 06:15 NT-Pro-B Natriuret Pep 29740 pg/mL (-299) H 12/02/18 06:55 7.4 g/dL (6.4-8.2) 11/28/18 19:27 2.6 g/dL (3.4-5.0) L 11/28/18 19:27 Triglycerides 71 mg/dL (30-150) 11/29/18 04:05 99 mg/dL (50-200) 11/29/18 04:05 LDL Cholesterol, Calc 51 mg/dL 11/29/18 04:05 34 mg/dL (40-60) L 11/29/18 04:05 0.3 ng/mL 11/29/18 01:00 TSH 2.78 uIU/mL (0.36-3.74) 12/03/18 06:12 Yellow (Yellow) 12/05/18 08:05 Cloudy (Clear) 12/05/18 08:05 5.5 (5-8) 12/05/18 08:05 Ur Specific [place] 1.020 (1.005-1.025) 12/05/18 08:05 100 mg/dL (Negative) H 12/05/18 08:05 15 mg/dL (Negative) H 12/05/18 08:05 Moderate (Negative) H 12/05/18 08:05 Negative (Negative) 12/05/18 08:05 Negative (Negative) 12/05/18 08:05 0.2 EU/dL (Up TO 0.2) 12/05/18 08:05 Ur Leukocyte Esterase Small (Negative) H 12/05/18 08:05 >50 (0-2) H 12/05/18 08:05 10-20 HPF (0-5) 12/05/18 08:05 Ur Epithelial Cells Few HPF (Negative) 12/05/18 08:05 Many amorphous HPF (Negative) 12/05/18 08:05 Moderate HPF (Negative) 12/05/18 08:05 Negative LPF (Negative) 12/05/18 08:05 Negative (Negative) 12/05/18 08:05 Few renal (Negative) 12/05/18 08:05 Ur Culture Indicated? Yes 12/05/18 08:05 Negative mg/dL (Negative) 12/05/18 08:05 Vancomycin Trough 37.6 ug/mL (10.0-20.0) H* 12/05/18 05:05 Legionella Source (see note) 11/29/18 03:40 Legionella Reprt Status (see note) 11/29/18 03:40 Legionella Final Result (see note) 11/29/18 03:40 M. pneumoniae Source Cancelled 11/29/18 04:37 M. pneumoniae (PCR) Cancelled 11/29/18 04:37 Ur Strep pneumoniae Ag Negative (Negative) 11/29/18 03:40 Patient ABO/Rh Cancelled 12/03/18 07:39 Antibody Screen Negative 11/30/18 06:20 Crossmatch See Detail 12/03/18 07:39
[2018-12-06 11:30] VITALS: BP 108/60; PULSE 71; RESP 28; TEMP 36.7; O2SAT 95
[2018-12-06] MEDS: Scopolamine 1 MG/3 DAYS PATCH TD (13:10)
[2018-12-06] MEDS: Normal Saline 500 ML 30 ML IV (13:32)
[2018-12-06] MEDS: MORPHine 250 MG in Normal Saline 245 ML IV (13:32)
--- NOTE | 2018-12-06 14:26 | CHAPLAIN ---
Eleni was sleeping the first time I visited, and then was awake this afternoon talking to family member, Yadira Nguyen and a niece and nephew from [place]. Eleni was getting some custard that [employer] Jacque was feeding to her. She agreed to have some music playing and Jacque go the iPad and PC cart for Eleni. Eleni was responding to questions, although it took her some to respond to most. Wendy is working to assist her daughter Cathleen is getting here from the [facility]. Eleni seems comfortable and seems to be enjoying having her family around her.
[2018-12-06 15:10] VITALS: RESP 24
--- NOTE | 2018-12-06 21:26 | PCPN_ITS ---
Date of service: 12/06/18 Assessment and Plan (1) Dying care: Current visit: Yes Status: Acute Eleni has transitioned over the last 24 hrs. She is now minimally responsive. She has not received any sedating medicatons prior to my exam; I confirmed with primary nurse and nursing township supervisor. Her sedation is metabolic. I explained that both her heart and kidneys were shutting down. I explained the cardiorenal syndrome, and what this means for Eleni at this time in her life. Family believes that she is dying. They would like her to stay at [facility]. COmfort measure order set put in, after consultation with Dr Garnett who was with me during the visit. (2) KORY (acute kidney injury): Current visit: Yes Status: Acute On ESRD. Can no longer tolerate diuretics. Can no longer process fluid loads, such as IVF and transfusions. (3) MDS (myelodysplastic syndrome): Current visit: Yes Status: Acute Heart and lung function have worsened to point where she can no longer tolerate blood transfusions, which she had been getting about 2 x per month. (4) Goals of care, counseling/discussion: Current visit: No Status: Acute Revisited Eleni's new condition. Previously, was going to go back to Rehab. Now, she has declared herself closer to than previously thought. Family would like her to stay at [facility]. (5) Acute on chronic congestive heart failure: Current visit: No Status: Acute Another leading cause of her decline and impending decline. Unable to diurese her due to poor functional status of kidneys. Qualifiers: Heart failure type: unspecified Qualified Code(s): I50.9 - Heart failure, unspecified Subjective Patient reports: shortness of breath Interval history since last seen: Eleni looks significantly worse than she did yesterday. Met with Dr Garnett and discussed evidence of Eleni's decline. Her kidney function is worse. She cannot tolerate her diuretics, and with this discontinuation of diuretics, her breathing/hyoxia is worse. She is less responsive, sleeping most of the time. She has told her family that she is tired, has had enough, wants to see her and mother. Both kidneys and heart are failing. This was discussed with DPIVELISSE daughter Wendy and son Marino (?) in person, and then with Yadira Coral, [id number] by phone. Exam Narrative Exam Narrative: General: Frail elderly female, nonverbal, communicates by nodding/shaking head, visibly tachypneic and uncomfortable HEENT: EOMI, dry MM Heart: RRR, + quiet ANJELICA Lungs: Tachypenic, rales/rhonchi auscultated. GI: abdomen is soft, + bowel sounds, seemingly nontender Extremities: wearing green socks/TEDs, trace edema in feet Skin: dry, shi Psych: no evidence of anxiety during my exam; reportedly some anxiety later in day Objective Objective Clinical Data: Abnormal lab results 12/06/18 12/06/18 Range/Units 06:20 06:20 WBC 3.85 L (4.4-10.8) k/cumm RBC 3.24 L (4.00-5.20) m/cumm Hgb 9.7 L (12.0-15.5) g/dL Hct 31.4 L (36.0-46.0) % MCV 96.9 H (80-95) fL MCHC 30.9 L (32.0-36.0) g/dL RDW 18.3 H (11.7-14.6) % Plt Count 121 L (130-400) x1000/uL Absolute Lymphocytes 0.89 L (1.2-3.4) k/cumm BUN 90 H* D (7-18) mg/dL Creatinine 2.55 H (0.55-1.02) mg/dL Glucose 186 H (70-100) mg/dL Vital Signs Temperature 98.1 F 12/06/18 11:30 Temperature Source Tympanic 12/06/18 11:30 Pulse 71 12/06/18 11:30 Pulse Rhythm Regular 12/06/18 17:57 Pulse 75 12/04/18 14:01 Respiratory Rate 28 H 12/06/18 11:30 Respiratory Effort Incrsd Work of Breathing 12/06/18 19:02 Respiratory Depth Shallow 12/06/18 19:02 Respiratory Pattern Tachypnea 12/06/18 19:02 Blood Pressure 108/60 12/06/18 11:30 Blood Pressure Mean 59 12/04/18 14:00 Blood Pressure Position Supine 12/03/18 11:42 Pulse Oximetry 95 12/06/18 11:30 Oxygen Delivery Method Room Air 12/06/18 11:30 Oxygen Flow Rate 0 12/06/18 11:30 Pain Level 0 12/06/18 04:05 Intake & Output 12/05/18 12/06/18 12/06/18 23:59 11:59 23:59 Intake Total 470 / 570 50 / 50 Output Total 250 / 500 250 / 250 Balance 220 / 70 -200 / -200 Weight 180 lb 15.992 oz Intake: IV 20 / 120 Oral 450 / 450 50 / 50 Output: Urine 250 / 500 250 / 250 Other: Urine Color Yellow Straw Straw Urine Appearance Cloudy Cloudy Cloudy Comment Willett in place Stool Size Smear Stool Characteristics Soft Brown Laboratory Results WBC 3.85 k/cumm (4.4-10.8) L 12/06/18 06:20 RBC 3.24 m/cumm (4.00-5.20) L 12/06/18 06:20 Hgb 9.7 g/dL (12.0-15.5) L 12/06/18 06:20 Hct 31.4 % (36.0-46.0) L 12/06/18 06:20 MCV 96.9 fL (80-95) H 12/06/18 06:20 MCH 29.9 pg (27.0-33.0) 12/06/18 06:20 MCHC 30.9 g/dL (32.0-36.0) L 12/06/18 06:20 RDW 18.3 % (11.7-14.6) H 12/06/18 06:20 Plt Count 121 x1000/uL (130-400) L 12/06/18 06:20 MPV fL (8.0-11.0) 12/06/18 06:20 Immature Gran % 0.0 12/06/18 06:20 62.0 12/06/18 06:20 9.0 % 12/06/18 06:20 22.0 12/06/18 06:20 Atypical Lymphs % 1 12/06/18 06:20 6.0 12/06/18 06:20 0.0 12/06/18 06:20 0.0 12/06/18 06:20 2.0 % 12/05/18 05:05 1.0 % 12/01/18 06:10 Absolute Neutrophils 2.73 k/cumm (1.2-6.7) 12/06/18 06:20 Absolute Lymphocytes 0.89 k/cumm (1.2-3.4) L 12/06/18 06:20 Absolute Monocytes 0.23 k/cumm (0.11-0.7) 12/06/18 06:20 Absolute Eosinophils 0.00 k/cumm (0.0-0.7) 12/06/18 06:20 Absolute Basophils 0.00 k/cumm (0.0-0.2) 12/06/18 06:20 Nucleated RBCs 3 /100WBC 12/05/18 05:05 Manual differential 12/06/18 06:20 RBC Morphology See below 12/06/18 06:20 Present 12/06/18 06:20 1+ 12/06/18 06:20 1+ 12/02/18 06:55 2+ 12/06/18 06:20 1+ 12/06/18 06:20 1+ 12/06/18 06:20 PT 11.3 sec (9.3-11.0) H 12/05/18 05:05 INR 1.1 (0.9-1.1) 12/05/18 05:05 APTT 26.1 sec (21.0-31.4) 12/05/18 05:05 Sodium 144 mmol/L (136-145) 12/06/18 06:20 Potassium 3.7 mmol/L (3.5-5.1) 12/06/18 06:20 Chloride 106 mmol/L (98-107) 12/06/18 06:20 Carbon Dioxide 29.5 mmol/L (21.0-32.0) 12/06/18 06:20 8.5 mmol/L (3-11) 12/06/18 06:20 BUN 90 mg/dL (7-18) H* D 12/06/18 06:20 2.55 mg/dL (0.55-1.02) H 12/06/18 06:20 18.21 (mL/min/1.73m2) 12/06/18 06:20 Glucose 186 mg/dL (70-100) H 12/06/18 06:20 0.8 mmol/L (0.6-1.4) 11/29/18 08:05 Calcium 8.9 mg/dL (8.5-10.1) 12/06/18 06:20 Magnesium 2.4 mg/dL (1.8-2.4) 12/06/18 06:20 0.5 mg/dL (0.2-1.0) 11/28/18 19:27 AST 61 U/L (15-37) H 11/28/18 19:27 ALT 41 U/L (12-78) 11/28/18 19:27 120 U/L (46-116) H 11/28/18 19:27 0.75 ng/mL (0.00-0.06) H* 12/04/18 06:15 NT-Pro-B Natriuret Pep 57939 pg/mL (-299) H 12/02/18 06:55 7.4 g/dL (6.4-8.2) 11/28/18 19:27 2.6 g/dL (3.4-5.0) L 11/28/18 19:27 Triglycerides 71 mg/dL (30-150) 11/29/18 04:05 99 mg/dL (50-200) 11/29/18 04:05 LDL Cholesterol, Calc 51 mg/dL 11/29/18 04:05 34 mg/dL (40-60) L 11/29/18 04:05 0.3 ng/mL 11/29/18 01:00 TSH 2.78 uIU/mL (0.36-3.74) 12/03/18 06:12 Yellow (Yellow) 12/05/18 08:05 Cloudy (Clear) 12/05/18 08:05 5.5 (5-8) 12/05/18 08:05 Ur Specific [place] 1.020 (1.005-1.025) 12/05/18 08:05 100 mg/dL (Negative) H 12/05/18 08:05 15 mg/dL (Negative) H 12/05/18 08:05 Moderate (Negative) H 12/05/18 08:05 Negative (Negative) 12/05/18 08:05 Negative (Negative) 12/05/18 08:05 0.2 EU/dL (Up TO 0.2) 12/05/18 08:05 Ur Leukocyte Esterase Small (Negative) H 12/05/18 08:05 >50 (0-2) H 12/05/18 08:05 10-20 HPF (0-5) 12/05/18 08:05 Ur Epithelial Cells Few HPF (Negative) 12/05/18 08:05 Many amorphous HPF (Negative) 12/05/18 08:05 Moderate HPF (Negative) 12/05/18 08:05 Negative LPF (Negative) 12/05/18 08:05 Negative (Negative) 12/05/18 08:05 Few renal (Negative) 12/05/18 08:05 Ur Culture Indicated? Yes 12/05/18 08:05 Negative mg/dL (Negative) 12/05/18 08:05 Vancomycin Trough 37.6 ug/mL (10.0-20.0) H* 12/05/18 05:05 Legionella Source (see note) 11/29/18 03:40 Legionella Reprt Status (see note) 11/29/18 03:40 Legionella Final Result (see note) 11/29/18 03:40 M. pneumoniae Source Cancelled 11/29/18 04:37 M. pneumoniae (PCR) Cancelled 11/29/18 04:37 Ur Strep pneumoniae Ag Negative (Negative) 11/29/18 03:40 Patient ABO/Rh Cancelled 12/03/18 07:39 Antibody Screen Negative 11/30/18 06:20 Crossmatch See Detail 12/03/18 07:39
[2018-12-06 21:30] VITALS: RESP 26
--- NOTE | 2018-12-07 00:53 | NUR.NOTE ---
Nursing Note: Pt was turned and reposition at midnight, Received morphine bolus administered by slot shift supervisor nurse. Pt placed on semi moore's position lying on her back with mouth opened, Responsed to verbal stimuli by blinking both eyes. Breathing is irregular, deep, shallow and with episodes of apnea. Color of face changes to grayish. Family member at bedside mentioned of calling other family members at this time. Will closely monitored.
[2018-12-07] MEDS: Normal Saline 500 ML 30 ML IV ×2 (04:45→20:58)
[2018-12-07] MEDS: Normal Saline Flush 10 ML SYR IVP (08:48)
[2018-12-07] MEDS: Glycopyrrolate 0.2 MG/1 ML VIAL IVP (08:48)
[2018-12-07] MEDS: LORazepam 2 MG/ML VIAL IV/SC (08:48)
[2018-12-07] MEDS: Refresh PLUS Eye Drops 0.4ml OU (08:48)
--- NOTE | 2018-12-07 10:07 | CMPROGNOTE_ITS ---
Care Management Progress Note S/O: Eleni is now on comfort measures only, and appears comfortable when CM enters the room. Per MD, Eleni required three boluses through the night, therefore will have an increase in her medication today. CM continues to follow. A: Eleni is a 77 year old female admitted with sepsis, UTI and Pneumonia, transitioned to AIR TRAFFIC CONTROL SPECIALIST 12/06/18. P: Eleni will likely remain at [facility] for end of life care due to pain management. Anticipate if her pain becomes well managed and she is not imminent she may return to [facility]. CM will continue to support patient, family and discharge planning process.
--- NOTE | 2018-12-07 10:53 | W.PM.PROGNOT ---
Date of Service Date of service: 12/07/18 Time of Service: 10:53 Assessment and Plan (1) Palliative care patient: Current visit: No Status: Acute continue comfort measures only. comfortable on morphine drip. medications for comfort if needed. family at bedside, continue support as needed. palliative care following (2) Discharge planning issues: Current visit: Yes Status: Acute anticipate end of life care here at [facility] DNR/DNI Subjective Interval history since last seen: patient continues to rest comfortably, staff providing bolus morphine as needed. no other active issues. Exam Const General: no acute distress Orientation: obtunded Resp Effort & Inspection: normal respiratory effort (respirations even and unlabored) Neuro General: obtunded Objective Objective Clinical Data: Vital Signs Temperature 36.7 C 12/06/18 11:30 Temperature Source Tympanic 12/06/18 11:30 Pulse 71 12/06/18 11:30 Pulse Rhythm Regular 12/06/18 17:57 Pulse 75 12/04/18 14:01 Respiratory Rate 26 H 12/06/18 21:30 Respiratory Effort 12/06/18 23:55 Respiratory Depth Shallow 12/06/18 23:55 Respiratory Pattern Normal 12/06/18 23:55 Blood Pressure 108/60 12/06/18 11:30 Blood Pressure Mean 59 12/04/18 14:00 Blood Pressure Position Supine 12/03/18 11:42 Pulse Oximetry 95 12/06/18 11:30 Oxygen Delivery Method Room Air 12/06/18 21:30 Oxygen Flow Rate 0 12/06/18 21:30 Pain Level 0 12/06/18 04:05 Intake & Output 12/06/18 12/06/18 12/07/18 11:59 23:59 11:59 Intake Total 50 / 50 465.901 / 465.901 Output Total 250 / 575 325 / 575 175 / 175 Balance -200 / -525 -325 / -525 290.901 / 290.901 Weight 82.1 kg Intake: IV 465.901 / 465.901 Oral 50 / 50 0 / 0 Output: Urine 250 / 575 325 / 575 175 / 175 Other: Urine Color Straw Light Makeda Yellow Urine Appearance Cloudy Clear Cloudy Comment Willett in place SLIGHTLY CLOUDY Laboratory Results WBC 3.85 k/cumm (4.4-10.8) L 12/06/18 06:20 RBC 3.24 m/cumm (4.00-5.20) L 12/06/18 06:20 Hgb 9.7 g/dL (12.0-15.5) L 12/06/18 06:20 Hct 31.4 % (36.0-46.0) L 12/06/18 06:20 MCV 96.9 fL (80-95) H 12/06/18 06:20 MCH 29.9 pg (27.0-33.0) 12/06/18 06:20 MCHC 30.9 g/dL (32.0-36.0) L 12/06/18 06:20 RDW 18.3 % (11.7-14.6) H 12/06/18 06:20 Plt Count 121 x1000/uL (130-400) L 12/06/18 06:20 MPV fL (8.0-11.0) 12/06/18 06:20 Immature Gran % 0.0 12/06/18 06:20 62.0 12/06/18 06:20 9.0 % 12/06/18 06:20 22.0 12/06/18 06:20 Atypical Lymphs % 1 12/06/18 06:20 6.0 12/06/18 06:20 0.0 12/06/18 06:20 0.0 12/06/18 06:20 2.0 % 12/05/18 05:05 1.0 % 12/01/18 06:10 Absolute Neutrophils 2.73 k/cumm (1.2-6.7) 12/06/18 06:20 Absolute Lymphocytes 0.89 k/cumm (1.2-3.4) L 12/06/18 06:20 Absolute Monocytes 0.23 k/cumm (0.11-0.7) 12/06/18 06:20 Absolute Eosinophils 0.00 k/cumm (0.0-0.7) 12/06/18 06:20 Absolute Basophils 0.00 k/cumm (0.0-0.2) 12/06/18 06:20 Nucleated RBCs 3 /100WBC 12/05/18 05:05 Manual differential 12/06/18 06:20 RBC Morphology See below 12/06/18 06:20 Present 12/06/18 06:20 1+ 12/06/18 06:20 1+ 12/02/18 06:55 2+ 12/06/18 06:20 1+ 12/06/18 06:20 1+ 12/06/18 06:20 PT 11.3 sec (9.3-11.0) H 12/05/18 05:05 INR 1.1 (0.9-1.1) 12/05/18 05:05 APTT 26.1 sec (21.0-31.4) 12/05/18 05:05 Sodium 144 mmol/L (136-145) 12/06/18 06:20 Potassium 3.7 mmol/L (3.5-5.1) 12/06/18 06:20 Chloride 106 mmol/L (98-107) 12/06/18 06:20 Carbon Dioxide 29.5 mmol/L (21.0-32.0) 12/06/18 06:20 8.5 mmol/L (3-11) 12/06/18 06:20 BUN 90 mg/dL (7-18) H* D 12/06/18 06:20 2.55 mg/dL (0.55-1.02) H 12/06/18 06:20 18.21 (mL/min/1.73m2) 12/06/18 06:20 Glucose 186 mg/dL (70-100) H 12/06/18 06:20 0.8 mmol/L (0.6-1.4) 11/29/18 08:05 Calcium 8.9 mg/dL (8.5-10.1) 12/06/18 06:20 Magnesium 2.4 mg/dL (1.8-2.4) 12/06/18 06:20 0.5 mg/dL (0.2-1.0) 11/28/18 19:27 AST 61 U/L (15-37) H 11/28/18 19:27 ALT 41 U/L (12-78) 11/28/18 19:27 120 U/L (46-116) H 11/28/18 19:27 0.75 ng/mL (0.00-0.06) H* 12/04/18 06:15 NT-Pro-B Natriuret Pep 64929 pg/mL (-299) H 12/02/18 06:55 7.4 g/dL (6.4-8.2) 11/28/18 19:27 2.6 g/dL (3.4-5.0) L 11/28/18 19:27 Triglycerides 71 mg/dL (30-150) 11/29/18 04:05 99 mg/dL (50-200) 11/29/18 04:05 LDL Cholesterol, Calc 51 mg/dL 11/29/18 04:05 34 mg/dL (40-60) L 11/29/18 04:05 0.3 ng/mL 11/29/18 01:00 TSH 2.78 uIU/mL (0.36-3.74) 12/03/18 06:12 Yellow (Yellow) 12/05/18 08:05 Cloudy (Clear) 12/05/18 08:05 5.5 (5-8) 12/05/18 08:05 Ur Specific [place] 1.020 (1.005-1.025) 12/05/18 08:05 100 mg/dL (Negative) H 12/05/18 08:05 15 mg/dL (Negative) H 12/05/18 08:05 Moderate (Negative) H 12/05/18 08:05 Negative (Negative) 12/05/18 08:05 Negative (Negative) 12/05/18 08:05 0.2 EU/dL (Up TO 0.2) 12/05/18 08:05 Ur Leukocyte Esterase Small (Negative) H 12/05/18 08:05 >50 (0-2) H 12/05/18 08:05 10-20 HPF (0-5) 12/05/18 08:05 Ur Epithelial Cells Few HPF (Negative) 12/05/18 08:05 Many amorphous HPF (Negative) 12/05/18 08:05 Moderate HPF (Negative) 12/05/18 08:05 Negative LPF (Negative) 12/05/18 08:05 Negative (Negative) 12/05/18 08:05 Few renal (Negative) 12/05/18 08:05 Ur Culture Indicated? Yes 12/05/18 08:05 Negative mg/dL (Negative) 12/05/18 08:05 Vancomycin Trough 37.6 ug/mL (10.0-20.0) H* 12/05/18 05:05 Legionella Source (see note) 11/29/18 03:40 Legionella Reprt Status (see note) 11/29/18 03:40 Legionella Final Result (see note) 11/29/18 03:40 M. pneumoniae Source Cancelled 11/29/18 04:37 M. pneumoniae (PCR) Cancelled 11/29/18 04:37 Ur Strep pneumoniae Ag Negative (Negative) 11/29/18 03:40 Patient ABO/Rh Cancelled 12/03/18 07:39 Antibody Screen Negative 11/30/18 06:20 Crossmatch See Detail 12/03/18 07:39
--- NOTE | 2018-12-07 14:06 | CHAPLAIN ---
Eleni is minimally responsive today and family members say her breathing has changed. Several family members are in the room. They brought lots of family photos over [facility] When she was speaking, Eleni told family members she was ready to see her and mom, who have both .
--- NOTE | 2018-12-07 18:46 | W.PALPGNOTE ---
Date of service: 12/07/18 Assessment and Plan (1) Dying care: Current visit: Yes Status: Acute Discussion with family today included our awareness that Eleni has now developed cardiorenal syndrome. They understand that both her heart and kidneys are failing. She is on morphine drip, low dose. No need to increase parameters at this time. (2) Vascular dementia: Current visit: No Status: Acute primary underlying health problem leading to her admission to [facility] and R initially has continued to develop/worsen health problems over last year (3) Palliative care patient: Current visit: No Status: Acute Dr Garnett aware that PC team is available for consult if needed. Dr Dickey not available 8.29 but will be, I believe am of 8.30. She is covering all next week. Subjective Patient reports: pain is less Interval history since last seen: Eleni is surrounded by family members, most of her grandchildren's generation. Daughter Caridad Tolliver was out in the hallway and saw me as I prepared to visit a different family. She asked if I would see her mother, too, as I'd seen her 8.26 and 8.27. SHe is on FRUIT GRADING SUPERVISOR status. She is on a low-dose morphine drip. She is comfortable. Occasionally, she wakes up and interacts with those around her. She does not look to be in pain. She is not anxious. Family reports that they have no immediate needs, either. Spoke to Dr Garnett about Eleni. She has no concerns. I put in FRUIT GRADING SUPERVISOR order set yesterday. Expect that her is imminent, within hours to days. Exam Narrative Exam Narrative: General: Frail elderly female, eyes closed, nonverbal, episodes of documented apnea lasting 30-45 seconds HEENT: dry MM, good mouth care, no lesions Heart: RRR, + quiet ANJELICA Lungs: rales/rhonchi auscultated.+ apnea during my exam GI: abdomen is soft, + bowel sounds, nontender Extremities: trace edema in feet, cool but no mottling Skin: dry, shi Psych: no evidence of anxiety during my exam; comfortable, intermittently aware, well attended by loving family Objective Objective Clinical Data: Vital Signs Temperature 98.1 F 12/06/18 11:30 Temperature Source Tympanic 12/06/18 11:30 Pulse 71 12/06/18 11:30 Pulse Rhythm Regular 12/06/18 17:57 Pulse 75 12/04/18 14:01 Respiratory Rate 26 H 12/06/18 21:30 Respiratory Effort 12/07/18 15:20 Respiratory Depth Shallow 12/07/18 15:20 Respiratory Pattern Apnea 12/07/18 15:20 Blood Pressure 108/60 12/06/18 11:30 Blood Pressure Mean 59 12/04/18 14:00 Blood Pressure Position Supine 12/03/18 11:42 Pulse Oximetry 95 12/06/18 11:30 Oxygen Delivery Method Room Air 12/06/18 21:30 Oxygen Flow Rate 0 12/06/18 21:30 Pain Level 0 12/06/18 04:05 Intake & Output 12/06/18 12/07/18 12/07/18 23:59 11:59 23:59 Intake Total 485.901 / 610.376 124.475 / 610.376 Output Total 325 / 575 175 / 325 150 / 325 Balance -325 / -525 310.901 / 285.376 -25.525 / 285.376 Intake: IV 485.901 / 490.376 4.475 / 490.376 Oral 0 / 120 120 / 120 Output: Urine 325 / 575 175 / 325 150 / 325 Other: Urine Color Light Makeda Yellow Yellow Urine Appearance Clear Cloudy Clear Comment Willett in place SLIGHTLY CLOUDY Laboratory Results WBC 3.85 k/cumm (4.4-10.8) L 12/06/18 06:20 RBC 3.24 m/cumm (4.00-5.20) L 12/06/18 06:20 Hgb 9.7 g/dL (12.0-15.5) L 12/06/18 06:20 Hct 31.4 % (36.0-46.0) L 12/06/18 06:20 MCV 96.9 fL (80-95) H 12/06/18 06:20 MCH 29.9 pg (27.0-33.0) 12/06/18 06:20 MCHC 30.9 g/dL (32.0-36.0) L 12/06/18 06:20 RDW 18.3 % (11.7-14.6) H 12/06/18 06:20 Plt Count 121 x1000/uL (130-400) L 12/06/18 06:20 MPV fL (8.0-11.0) 12/06/18 06:20 Immature Gran % 0.0 12/06/18 06:20 62.0 12/06/18 06:20 9.0 % 12/06/18 06:20 22.0 12/06/18 06:20 Atypical Lymphs % 1 12/06/18 06:20 6.0 12/06/18 06:20 0.0 12/06/18 06:20 0.0 12/06/18 06:20 2.0 % 12/05/18 05:05 1.0 % 12/01/18 06:10 Absolute Neutrophils 2.73 k/cumm (1.2-6.7) 12/06/18 06:20 Absolute Lymphocytes 0.89 k/cumm (1.2-3.4) L 12/06/18 06:20 Absolute Monocytes 0.23 k/cumm (0.11-0.7) 12/06/18 06:20 Absolute Eosinophils 0.00 k/cumm (0.0-0.7) 12/06/18 06:20 Absolute Basophils 0.00 k/cumm (0.0-0.2) 12/06/18 06:20 Nucleated RBCs 3 /100WBC 12/05/18 05:05 Manual differential 12/06/18 06:20 RBC Morphology See below 12/06/18 06:20 Present 12/06/18 06:20 1+ 12/06/18 06:20 1+ 12/02/18 06:55 2+ 12/06/18 06:20 1+ 12/06/18 06:20 1+ 12/06/18 06:20 PT 11.3 sec (9.3-11.0) H 12/05/18 05:05 INR 1.1 (0.9-1.1) 12/05/18 05:05 APTT 26.1 sec (21.0-31.4) 12/05/18 05:05 Sodium 144 mmol/L (136-145) 12/06/18 06:20 Potassium 3.7 mmol/L (3.5-5.1) 12/06/18 06:20 Chloride 106 mmol/L (98-107) 12/06/18 06:20 Carbon Dioxide 29.5 mmol/L (21.0-32.0) 12/06/18 06:20 8.5 mmol/L (3-11) 12/06/18 06:20 BUN 90 mg/dL (7-18) H* D 12/06/18 06:20 2.55 mg/dL (0.55-1.02) H 12/06/18 06:20 18.21 (mL/min/1.73m2) 12/06/18 06:20 Glucose 186 mg/dL (70-100) H 12/06/18 06:20 0.8 mmol/L (0.6-1.4) 11/29/18 08:05 Calcium 8.9 mg/dL (8.5-10.1) 12/06/18 06:20 Magnesium 2.4 mg/dL (1.8-2.4) 12/06/18 06:20 0.5 mg/dL (0.2-1.0) 11/28/18 19:27 AST 61 U/L (15-37) H 11/28/18 19:27 ALT 41 U/L (12-78) 11/28/18 19:27 120 U/L (46-116) H 11/28/18 19:27 0.75 ng/mL (0.00-0.06) H* 12/04/18 06:15 NT-Pro-B Natriuret Pep 70525 pg/mL (-299) H 12/02/18 06:55 7.4 g/dL (6.4-8.2) 11/28/18 19:27 2.6 g/dL (3.4-5.0) L 11/28/18 19:27 Triglycerides 71 mg/dL (30-150) 11/29/18 04:05 99 mg/dL (50-200) 11/29/18 04:05 LDL Cholesterol, Calc 51 mg/dL 11/29/18 04:05 34 mg/dL (40-60) L 11/29/18 04:05 0.3 ng/mL 11/29/18 01:00 TSH 2.78 uIU/mL (0.36-3.74) 12/03/18 06:12 Yellow (Yellow) 12/05/18 08:05 Cloudy (Clear) 12/05/18 08:05 5.5 (5-8) 12/05/18 08:05 Ur Specific [place] 1.020 (1.005-1.025) 12/05/18 08:05 100 mg/dL (Negative) H 12/05/18 08:05 15 mg/dL (Negative) H 12/05/18 08:05 Moderate (Negative) H 12/05/18 08:05 Negative (Negative) 12/05/18 08:05 Negative (Negative) 12/05/18 08:05 0.2 EU/dL (Up TO 0.2) 12/05/18 08:05 Ur Leukocyte Esterase Small (Negative) H 12/05/18 08:05 >50 (0-2) H 12/05/18 08:05 10-20 HPF (0-5) 12/05/18 08:05 Ur Epithelial Cells Few HPF (Negative) 12/05/18 08:05 Many amorphous HPF (Negative) 12/05/18 08:05 Moderate HPF (Negative) 12/05/18 08:05 Negative LPF (Negative) 12/05/18 08:05 Negative (Negative) 12/05/18 08:05 Few renal (Negative) 12/05/18 08:05 Ur Culture Indicated? Yes 12/05/18 08:05 Negative mg/dL (Negative) 12/05/18 08:05 Vancomycin Trough 37.6 ug/mL (10.0-20.0) H* 12/05/18 05:05 Legionella Source (see note) 11/29/18 03:40 Legionella Reprt Status (see note) 11/29/18 03:40 Legionella Final Result (see note) 11/29/18 03:40 M. pneumoniae Source Cancelled 11/29/18 04:37 M. pneumoniae (PCR) Cancelled 11/29/18 04:37 Ur Strep pneumoniae Ag Negative (Negative) 11/29/18 03:40 Patient ABO/Rh Cancelled 12/03/18 07:39 Antibody Screen Negative 11/30/18 06:20 Crossmatch See Detail 12/03/18 07:39
[2018-12-08] MEDS: Glycopyrrolate 0.2 MG/1 ML VIAL IVP (07:34)
[2018-12-08] MEDS: LORazepam 2 MG/ML VIAL IV/SC (07:35)
[2018-12-08] MEDS: Refresh PLUS Eye Drops 0.4ml OU (07:35)
[2018-12-08] MEDS: Normal Saline Flush 10 ML SYR IVP (07:35)
--- NOTE | 2018-12-08 09:18 | W.PM.DS.N ---
Date of service: 12/08/18 Time of Service: 09:18 DS: Diagnosis Discharge Diagnosis (1) Dying care: Status: Acute (2) Vascular dementia: Status: Acute (3) Palliative care patient: Status: Acute Discharge Plan Disposition Patient Disposition: [facility] BED LEVEL 1 Condition: Critical Discharge Details Chief Complaint: Chest Pain Clinical Impression: Acute non-ST elevation myocardial infarction (NSTEMI), CHF (congestive heart failure), Pneumonia Reason For Visit: CHF, NSTEMI, PNA Admit Date/Time: 11/28/18 22:14 Admit Provider: Greg Tolliver Attending Provider: Greg Tolliver Primary Care Provider: Rosanne Lewis ED Provider: Zi Adam Hospital Course Hospital Course: this is a 77 yr old female resident of local group home with an extensive medical history who was sent to the ER for evaluation of cough, dyspnea and chest discomfort. work up concerning for demand ischemia type II NSTEMI due to her pneumonia and probable sepsis. Recommended[place] by [facility] [place] included heparin and ASA and to treat the sepsis and check an echo in the a.m. and when hemodynamically stable get a stress MPI study. Treatment in the ER included obtaining blood cultures and initiation of cefepime. A liter of iv normal saline was started but then discontinued after a few minutes after realization that she was in acute on chronic CHF. She was admitted to the ICU for treatment of demand ischemia type 2 NSTEMI in setting of sepsis and pneumonia and KOYR w/ acute on chronic CHF. She is DNR however she is not TERMINOLOGIST and she wishes to continue treatment that will alleviate her suffering. She did not want CPR nor intubation and mechanical ventilation nor artificial feedings according to her written advanced directive. she had a significant decline overnight with worsening kidney functions and altered mental status. She was verbalizing wanting to see her and mother. Palliative care consult and discussion with family and due to her ongoing decline despite appropriate treatment, she was made comfort care. she has been maintained on a morphine drip and has remained comfortable. she will be discharged to [facility] for end of life care. Home Meds and New Rx's Prescriptions: No Action nitroglycerin [Nitrostat] 0.4 MG tablet, sublingual 0.4 mg Sublingual Q5 MIN PRN X3 PRNQty: 1 RF: 0 (DME) pen needle, diabetic [BD Ultra-Fine Jessica Pen Needle] 1 EACH needle 1 ea Miscellaneous QID Qty: 400 RF: 4 levothyroxine 75 MCG tablet 75 mcg PO DAILY Qty: 90 RF: 12 sennosides [Senokot] 1 TAB tablet 1 tab PO BID PRN PRNQty: 60 RF: 12 aspirin 81 MG tablet,delayed release (DR/EC) 81 mg PO DAILY RF: 0 (DME) ostomy supplies [Stomahesive Protective] 28.3 GM powder 1 - 2 gm Topical TID Qty: 28.3 RF: 12 acetaminophen [Tylenol] 325 MG tablet 2 tab PO Q4H PRN PRNRF: 0 Novolog Flexpen U-100 Insulin 300 UNITS/3 ML insulin pen 6 units Sub-Q AC RF: 0 Levemir FlexTouch U-100 Insuln 100 UNIT/ML insulin pen 12 unit SQ .BEDTIME RF: 0 furosemide [Lasix] 40 mg Tablet 40 mg PO BID RF: 0 miconazole nitrate 2 % Powder 1 applic TOPICAL BID RF: 0 magnesium hydroxide [Milk of Magnesia] 400 mg/5 mL Suspension 30 ml PO HS PRN PRNRF: 0 atorvastatin 40 mg Tablet 40 mg PO QHS RF: 0 ipratropium-albuterol 0.5 mg-3 mg(2.5 mg base)/3 mL Solution For Nebulization 3 ml INHALATION Q6H PRNRF: 0 bisacodyl [Dulcolax (bisacodyl)] 10 mg Suppository 10 mg VT DAILY PRNRF: 0 GlucaGen HypoKit 1 mg Recon Soln 1 mg IM PRN PRNRF: 0 docusate sodium [Colace] 100 mg Capsule 100 mg PO BID PRNRF: 0 levofloxacin [Levaquin] 500 mg Tablet 250 mg PO Q OTHER DAY RF: 0 escitalopram oxalate 20 mg Tablet 20 mg PO DAILY RF: 0 ondansetron HCl [Zofran] 4 mg Tablet 4 mg PO Q6H PRNRF: 0 prednisone 20 mg Tablet 40 mg PO DAILY RF: 0 spironolactone 25 mg Tablet 12.5 mg PO BID RF: 0 polyethylene glycol 3350 [Miralax] 17 gram/dose Powder 17 g PO DAILY RF: 0 potassium chloride 20 mEq Tablet Extended Release 40 meq PO DAILY RF: 0 Novolog Flexpen U-100 Insulin 300 UNITS/3 ML insulin pen See Rx Instructions .ROUTE .COMPLEX RF: 0 guaifenesin 100 mg/5 mL Liquid 200 mg PO Q4H PRN (Reason: Cough) RF: 0 Discharge Instructions Activity:: comfort measures Equipment/Supplies:: No Equipment Needed Diet:: Other Exam Const General: no acute distress and frail appearing (at end of life) Nutritional Appearance: average body habitus Resp Effort & Inspection: normal respiratory effort (respirations even and unlabored) Neuro General: obtunded DS: Data Vitals/I&O Vitals and I&O: Vital Signs Temperature 36.7 C 12/06/18 11:30 Temperature Source Tympanic 12/06/18 11:30 Pulse 71 12/06/18 11:30 Pulse Rhythm Regular 12/06/18 17:57 Pulse 75 12/04/18 14:01 Respiratory Rate 26 H 12/06/18 21:30 Respiratory Effort Non-Labored 12/07/18 19:05 Respiratory Depth Normal 12/07/18 19:05 Respiratory Pattern Normal 12/07/18 19:05 Blood Pressure 108/60 12/06/18 11:30 Blood Pressure Mean 59 12/04/18 14:00 Blood Pressure Position Supine 12/03/18 11:42 Pulse Oximetry 95 12/06/18 11:30 Oxygen Delivery Method Room Air 12/06/18 21:30 Oxygen Flow Rate 0 12/06/18 21:30 Pain Level 0 12/06/18 04:05 Intake & Output 12/07/18 12/07/18 12/08/18 11:59 23:59 11:59 Intake Total 485.901 / 1095.376 609.475 / 1095.376 25.783 / 25.783 Output Total 175 / 325 150 / 325 Balance 310.901 / 770.376 459.475 / 770.376 25.783 / 25.783 Intake: IV 485.901 / 975.376 489.475 / 975.376 25.783 / 25.783 Oral 0 / 120 120 / 120 Output: Urine 175 / 325 150 / 325 Other: Urine Color Yellow Yellow Urine Appearance Cloudy Clear Comment SLIGHTLY CLOUDY PFSH Medical History (Updated 12/06/18 @ 21:32 by Danuta Lozada MD) Anemia (Chronic) Anxiety disorder (Chronic) CAD (coronary artery disease) (Chronic) Atypical thest pain. Dobutamine stress echocardiogram, [facility] 2008, normal. Chronic renal insufficiency (Chronic) Dementia (Chronic) Depression (Chronic) DNI (do not intubate) (Acute) DNR (do not resuscitate) (Acute) Dying care (Acute) Gangrene of toe (Inactive) Goals of care, counseling/discussion (Acute) MDS (myelodysplastic syndrome) (Acute) Palliative care patient (Acute) POLST (Physician Orders for Life-Sustaining Treatment) (Acute) Right heart failure (Chronic) Uncontrolled type 2 diabetes mellitus (Chronic) Vascular dementia (Acute) Surgical History Amputation 06/24/15; left great toe bone marrow biopsy (11/05/15) Darryl/Edward Cholecystectomy Extraction of cataract (12/13/12) DR. REDMAN RIGHT EYE EXTRACTION Ligation of fallopian tube BSO Family History (Updated 12/05/18 @ 21:43 by Danuta Lozada MD) Daughter Depression Anxiety Obesity Daughter No problems noted. Son No problems noted. Social History (Updated 12/05/18 @ 21:46 by Danuta Lozada MD) Smoking/Tobacco Use Status: Former Tobacco Use Tobacco: How many years used: 50 Second Hand Exposure: Yes Alcohol Intake: former Drug use: Never Caregiver/Support person: Yes Household members: other Details: lives at [facility]; daughters visit Housing: group home Number of Children: 3 Communication Needs: Hard of Hearing and Corrective Lenses Education Level: middle school Do you need help understanding health information?: Always current occupation: retired Pets and animals: No What is your relationship status?: How often do you talk on the phone with friends or family?: never How often do you get together with friends or relatives?: three or more times per week Panel score (0-1 are the most socially isolated patients): 1 What type of physical activity do you participate in: none, bed-bound and sedentary lifestyle Special leonides needs: No Agree to transfusion: Yes Seatbelt use: always Do you feel safe at home: Yes Do you feel safe in your relationship?: Yes Additional Social history: Resident @ [facility]; gets transfusions 2 x per month; wants to continue these for now; no transfers to tertiary care; avoid ICU if possible COLST done 12/05/18 for limited treatment, NOT customer service engineer, not full
--- NOTE | 2018-12-08 09:48 | CM.SWINGPC ---
Swingbed Plan of Care Plan of care: SWING BED PROGRAM ACTIVITIES/DISCHARGE PLAN OF CARE ACTIVITIES PLAN Date: 12/08/18 Identified Need: End of life Care Intervention/Plan: Swing Bed for continued care. Initials: [facility] DISCHARGE PLAN Date: 12/08/18 Identified Need: Comfort Care Intervention/Plan: Morphine pump for comfort. Medication adjustment, repositioning. Initials: [facility]
== END 2018-12-08 11:09 | disposition swing bed (61) | DRG 871 ==
LOC: ER 22:25 → ICU 23:56 → MS 12-08 09:27 → ICU 12-09 09:38
PROVIDERS: Internal Medicine; Admitting Provider Internal Medicine; Emergency Provider Student in an Organized Health Care Education/Training Program; PCP Family Medicine; Visit Provider Internal Medicine
DX: A41.9 Sepsis, unspecified organism; I21.A1 Myocardial infarction type 2; I50.33 Acute on chronic diastolic (congestive) heart failure; J18.9 Pneumonia, unspecified organism; N17.9 Acute kidney failure, unspecified; I08.1 Rheumatic disorders of both mitral and tricuspid valves; I27.20 Pulmonary hypertension, unspecified; E03.9 Hypothyroidism, unspecified; E11.9 Type 2 diabetes mellitus without complications; F01.50 Vascular dementia, unspecified severity, without behavioral disturbance, psychotic disturbance, mood disturbance, and anxiety; D46.9 Myelodysplastic syndrome, unspecified; R13.10 Dysphagia, unspecified; R11.10 Vomiting, unspecified; D53.9 Nutritional anemia, unspecified; Z71.89 Other specified counseling
CPT/HCPCS: 36415; 36430; 80048; 80053; 80061; 83721; 84145; 86850; 86900; 86901; 86920; 87040; 87081; 87449; 92526; 92610; 93005; 93306; 94640; 96361; 96365; 96366; 96368; 97110; 97163; 97167; 97535; 99232; 99233; 99238; 99255; 99291; 71045; 71046; 80202; 81003; 81015; 83605; 83735; 83880; 84443; 84484; 85014; 85018; 85025; 85610; 85730; 87070; 87086; 87205; 87450; 87581; 92507; 93010; 94667; J1644; J1720; J1940; J1941; J2060; J2270; J2405; J2930; J3370; J3480; J3490; J7512; J7613; J7620; P9016

== ENCOUNTER 2018-12-08 11:09 | Inpatient (IN) | payer MEDICARE, MEDICAID, SELFPAY ==
--- NOTE | 2018-12-08 10:06 | CM.SWINGPC ---
Swingbed Plan of Care Plan of care: SWING BED PROGRAM ACTIVITIES/DISCHARGE PLAN OF CARE ACTIVITIES PLAN Date:Date: 12/08/18 Identified Need: End of life Care Intervention/Plan: Swing Bed for continued care. Initials: [facility] DISCHARGE PLAN Date: 12/08/18 Identified Need: Comfort Care Intervention/Plan: Morphine pump for comfort. Medication adjustment, repositioning. Initials: [facility]
--- NOTE | 2018-12-08 10:10 | CMSA_ITS ---
SB Psychosocial/Act.Assessment - Hospital Admission Admission Date: 11/28/18 Admission From:: [facility] Diagnosis:: CHF, NSTEMI, PNA - Swing Bed Admission Swing Bed Admit Date:: 12/08/18 Swing Bed Level of Care: Level 1/SNF - Social Supports PREVIOUS FUNCTIONAL STATUS/SOCIAL/FAMILY SUPPORTS:: Prior to admission, Eleni resided at [facility] and received all of her assistance through [facility] Medicaid and the facility. She has a supportive family, her daughter Wendy is often at her bedside and accompanies her to the infusion room for transfusion each month. Her other daughters and daughter in law are supportive as well as her sons. - Prior to Admission Living Arrangements/Environment Prior to Admission:: Prior to admission, Eleni resided at [facility] and received all of her assistance through [facility] Medicaid and the facility. - Education Highest Grade Completed:: Middle School - Work History Employment Status:: Retired - Altha: No 's Spouse: No - Benefits Financial: Medicare, Medicaid - Advance Directives for Healthcare Advance Directives for Healthcare: Advance Directives Advance Directive Agent: Wendy daughter-COLST completed - Medical History PAST MEDICAL HISTORY/PAST SURGICAL HISTORY:: Per Previous H&P: CAD, CHF, Hyperlipidemia, Aortic stenosis, Constipation, Diverticulosis, Gastritis, Obesity, Anemia NOS, Myelodysplastic syndrome w/ pancytopenia, Depression, Peripheral neuropathy, Chronic renal insuff, Type II diabetes, Hypothyroidism, Cholecystectomy, Cataract removal Bilateral, Tubal ligation, (R) first toe amputation - Admission Data Reason for Swing Bed Admission:: Comfort and End of Life care. Discharge Plan:: Eleni will remain at [facility] until her passing. Hand Stamper: Ally Dunlap Date Assessment was completed:: 12/08/18
--- NOTE | 2018-12-08 11:02 | W.PM.HP.N ---
Date of service: 12/08/18 Time of Service: 11:02 Assessment and Plan (1) Dying care: Current visit: Yes Status: Acute patient admitted to [facility] for end of life care. continue morphine drip and adjust as needed. continue prn comfort medications prn routine end of life care per nursing. DNR/DNI with palliative care consult (2) Discharge planning issues: Current visit: Yes Status: Acute will remain here for end of life. History of Present Illness Chief Complaint: end of life care Narrative: this is a 77 yr old female resident of local intermediate with an extensive medical history who was sent to the ER for evaluation of cough, dyspnea and chest discomfort. work up concerning for demand ischemia type II NSTEMI due to her pneumonia and probable sepsis. [place] [facility] [place] heparin and ASA and to treat the sepsis and check an echo in the a.m. and when hemodynamically stable get a stress MPI study. Treatment in the ER included obtaining blood cultures and initiation of cefepime. A liter of iv normal saline was started but then discontinued after a few minutes after realization that she was in acute on chronic CHF. She was admitted to the ICU for treatment of demand ischemia type 2 NSTEMI in setting of sepsis and pneumonia and KORY w/ acute on chronic CHF. She is DNR however she is not PATIENT LIAISON and she wishes to continue treatment that will alleviate her suffering. She did not want CPR nor intubation and mechanical ventilation nor artificial feedings according to her written advanced directive. she had a significant decline overnight with worsening kidney functions and altered mental status. She was verbalizing wanting to see her and mother. Palliative care consult and discussion with family and due to her ongoing decline despite appropriate treatment, she was made comfort care. she has been maintained on a morphine drip and has remained comfortable. she will be admitted to [facility] for end of life care. Review of Systems Constitutional Comments: patient mostly unresponsive and appears comfortable. family has been at bedside. unable to obtain [facility] Medical History (Updated 12/06/18 @ 21:32 by Danuta Lozada MD) Anemia (Chronic) Anxiety disorder (Chronic) CAD (coronary artery disease) (Chronic) Atypical thest pain. Dobutamine stress echocardiogram, [facility] 2008, normal. Chronic renal insufficiency (Chronic) Dementia (Chronic) Depression (Chronic) DNI (do not intubate) (Acute) DNR (do not resuscitate) (Acute) Dying care (Acute) Gangrene of toe (Inactive) Goals of care, counseling/discussion (Acute) MDS (myelodysplastic syndrome) (Acute) Palliative care patient (Acute) POLST (Physician Orders for Life-Sustaining Treatment) (Acute) Right heart failure (Chronic) Uncontrolled type 2 diabetes mellitus (Chronic) Vascular dementia (Acute) Surgical History Amputation 06/24/15; left great toe bone marrow biopsy (11/05/15) Darryl/Edward Cholecystectomy Extraction of cataract (12/13/12) DR. REDMAN RIGHT EYE EXTRACTION Ligation of fallopian tube BSO Family History (Updated 12/05/18 @ 21:43 by Danuta Lozada MD) Daughter Depression Anxiety Obesity Daughter No problems noted. Son No problems noted. Social History (Updated 12/05/18 @ 21:46 by Danuta Lozada MD) Smoking/Tobacco Use Status: Former Tobacco Use Tobacco: How many years used: 50 Second Hand Exposure: Yes Alcohol Intake: former Drug use: Never Caregiver/Support person: Yes Household members: other Details: lives at [facility]; daughters visit Housing: intermediate Number of Children: 3 Communication Needs: Hard of Hearing and Corrective Lenses Education Level: middle school Do you need help understanding health information?: Always current occupation: retired Pets and animals: No What is your relationship status?: How often do you talk on the phone with friends or family?: never How often do you get together with friends or relatives?: three or more times per week Panel score (0-1 are the most socially isolated patients): 1 What type of physical activity do you participate in: none, bed-bound and sedentary lifestyle Special leonides needs: No Agree to transfusion: Yes Seatbelt use: always Do you feel safe at home: Yes Do you feel safe in your relationship?: Yes Additional Social history: Resident @ [facility]; gets transfusions 2 x per month; wants to continue these for now; no transfers to tertiary care; avoid ICU if possible COLST done 12/05/18 for limited treatment, NOT steward/stewardess dining room, not full Meds Home Medications Medication Instructions Recorded Confirmed Type levothyroxine 75 mcg PO DAILY #90 tab-cap 04/21/16 11/29/18 History nitroglycerin [Nitrostat] 0.4 mg SUBLINGUAL Q5 MIN PRN X3 04/21/16 11/28/18 History PRN #1 bottle pen needle, diabetic [BD #400 ndl 04/21/16 History Ultra-Fine Jessica Pen Needle] sennosides [Senokot] 1 tab PO BID PRN PRN #60 tab 08/05/16 11/29/18 History aspirin 81 mg PO DAILY tab-cap 10/20/16 11/29/18 History ostomy supplies [Stomahesive #28.3 gm 12/07/16 History Protective] acetaminophen [Tylenol] 2 tab PO Q4H PRN PRN 03/15/17 11/29/18 History Novolog Flexpen U-100 Insulin 6 units SUB-Q AC pen 03/18/17 11/29/18 Rx Levemir FlexTouch U-100 Insuln 12 unit SQ .BEDTIME 10/13/17 11/29/18 History furosemide [Lasix] 40 mg PO BID 03/04/18 11/28/18 History magnesium hydroxide [Milk of 30 ml PO HS PRN PRN 03/04/18 11/29/18 History Magnesia] miconazole nitrate 1 applic TOPICAL BID 03/04/18 03/04/18 History Novolog Flexpen U-100 Insulin See Rx Instructions .ROUTE .COMPLEX 11/28/18 11/29/18 History atorvastatin 40 mg PO QHS 11/28/18 11/29/18 History bisacodyl [Dulcolax (bisacodyl)] 10 mg DE DAILY PRN 11/28/18 11/28/18 History docusate sodium [Colace] 100 mg PO BID PRN 11/28/18 11/28/18 History escitalopram oxalate 20 mg PO DAILY 11/28/18 11/28/18 History glucagon (human recombinant) 1 mg IM PRN PRN 11/28/18 11/28/18 History [GlucaGen HypoKit] ipratropium-albuterol 3 ml INHALATION Q6H PRN 11/28/18 11/29/18 History levofloxacin [Levaquin] 250 mg PO Q OTHER DAY 11/28/18 11/28/18 History ondansetron HCl [Zofran] 4 mg PO Q6H PRN 11/28/18 11/29/18 History polyethylene glycol 3350 [Miralax] 17 g PO DAILY 11/28/18 11/29/18 History potassium chloride 40 meq PO DAILY 11/28/18 11/29/18 History prednisone 40 mg PO DAILY 11/28/18 11/29/18 History spironolactone 12.5 mg PO BID 11/28/18 11/29/18 History guaifenesin 200 mg PO Q4H PRN 11/29/18 11/29/18 History Allergies Allergy/AdvReac Type Severity Reaction Status Date / Time mupirocin Allergy Intermediate BLISTERS Unverified 11/28/18 19:41 Penicillins AdvReac Intermediate STOMACH Unverified 11/28/18 19:41 UPSET aspirin AdvReac Unknown GI Unverified 03/04/18 08:44 ibuprofen AdvReac Unknown Unverified 11/28/18 19:41 metformin AdvReac diarrhea Unverified 11/28/18 19:41 Exam Const General: no acute distress and frail appearing Nutritional Appearance: average body habitus Orientation: obtunded Resp Effort & Inspection: other (respirations even and unlabored) Skin General skin exam: other (ashen) Neuro General: obtunded
--- NOTE | 2018-12-08 12:21 | PHARADMIT ---
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 No boluses required overnight. Original Note: Admission Pharmacy Clinical Review Patient has transferred to Swing Bed today. Below is the acute stay Pharmacy Clinical Interventions: YAIR VASQUEZ Female : 1940 Emr# [id number] 11/29/18 11:17 - Pharmacy Review by Hillary Quintero [facility] Num: [id number] : 1940 Patient Age: 77 Addendum entered by Gertrude Vargas 12/07/18 17:43: Morphine increased to 1mg/hr, 3 bolus' overnight Addendum entered by Gertrude Vargas 12/06/18 14:12: Not eating well, no speech therapist avail for swallow study, Pneumonia treatment complete but huge aspiration. Balancing CHF with diuresis but worsening Scr. Family not interested in feeding tube. 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 CUTTER OPERATOR Morphine 250mg/250ml IV starting @ 0.5mg/hr Scheduled meds dc'd Addendum entered by Francisca Isbell 12/05/18 13:56: Pharmacy Note Subjective nursing reported pt possibly aspirated this morning when taking medication Objective BP-109/58 other VS okay SCr-2.17(up) h/h-9.6/30.8(down) BG-167 Assessment vanco and cefepime discontinued (finished 7 days) MD ordered barium swallow today, speech did not think the pt would be able to tolerate this today palliative consult today Plan watch for steroid taper continue to watch renal function and h/h not all of the pts PO meds can be crushed, watch for changes following palliative care (aspirin, EC to chewable) Addendum entered by Francisca Isbell 12/04/18 10:35: Pharmacy Note Subjective MD concerned about poor PO intake, palliative consult ordered to discuss goals of care Objective BP-106/58 other VS okay SCr-1.63(up) BUN-58(up) h/h-10.1/32.65(up) troponin-0.75(down) BG-266 Assessment furosemide drip discontinued due to renal function insulin glargine scheduled daily methylprednisolone changed to prednisone vanco and cefepime continue (day09/16) Plan vanco trough ordered for tomorrow morning continue to watch renal function and h/h watch for d/c of abx tomorrow afternoon/evening Addendum entered by Francisca Isbell 12/03/18 10:20: Pharmacy Note Subjective pt. having a harder time trying to swallow, and vomited this morning per morning report Objective BP-99/48 other VS okay SCr-1.39(up) h/h-8.7/28.8(up slightly) troponin-1.02(down) BG-179 Assessment guaifenesin, nitroglycerin infusion and PO potassium discontinued pantoprazole and ondansetron changed from IV to PO vanco and cefepime continue (day 08/16) methylprednisolone restarted today (was discontinued after it was started yesterday) furosemide drip decreased to 2.5 mg/hr Plan transfusion today due to H/H in setting of ACS (per progress note) watch h/h and SCr Addendum entered by Juan José Horta III 12/02/18 10:18: Pharmacy Note Subjective Patient had increased respirations over night into this morning. Speech evaluation for aspiration precautions. Low BPs, has leaking Mitral valve issues. Objective BP-100/44 RR:19-29, K+3.8 Mag-1.8 SCr-1.28 H&H- 8.5/28.1 BG-164 Troponin-1.37 BNP-15,505 Wgt-87.8 kg No BM noted Assessment Lasix drip off, considering continuing PO , pending BP. Solui-medrol 40mg IV q8hrs started Vancomycin trough (24.5) dose held & re-started as 1gm IV q22hrs, Cefepime continues for Pneumonia Plan Patient still confused (baseline dementia) and breathing has worsened. Addendum entered by Francisca Isbell 12/01/18 12:30: Pharmacy Note Subjective pt improving per nursing report Objective BP-103/41 other VS okay K+3.3 mag-1.9 SCr-1.27 h/h-9.1/29.5 BG-49 troponin-2.26(down) Assessment furosemide infusion changed to PO heparin drip stopped/ heparin IVP ordered hydrocortisone changed from Q12H to daily insulin detemir discontinued and IV fluids containing dextrose ordered PO mag and K+ replacement ordered blood cultures no growth@48 hours cefepime and vanco continue (day 3) Plan watch BG levels, troponins, culture results vanco trough ordered for tomorrow @0700 Addendum entered by Judy Mariee 11/30/18 10:37: Pharmacy Note Subjective demented pt with CHF, NSTEMI and UTI and Pneumonia Objective wt up and down ?? today 88.6kg, I/O -711ml yesterday. H/H 7.5/24.7 needs tranfusion Assessment started vancomycin due to MRSA in history, heparin and furosemide drips Plan follow wt, I/O, H/H, steroid taper, lasix daily order once drip stops Original Note: Admission Pharmacy Clinical Review Code Status DNR/DNI Current Weight 97.6 kg Renally Cleared and Narrow Therapeutic Index Meds CrCl 36.3 ml/min (based off of abw) QTc Value / Action Taken QTc 479, escitalopram (medium risk qt prolongation) BP Control, Fever BP 100/46, afebrile Electrolytes reviewed Na 137, K+ 5.2, Mag 2.2 DVT Prophylaxis Heparin gtt Opiate Usage / Scheduled Bowel Regimen Ordered No opiates, BM reg ordered Plt/SCr for Heparin / Enoxaparin Plt 133, SCr 1.42 (down from 1.62) INR for Warfarin 1.0 H/H stable, WBC/Bands H/H 26.6/8.1 -- gets chronic transfusions Antibiotic appropriateness Cefepime 2g q12, Vanco q24h Cultures and Sensitivities few gram + in sputum, other pending Surgical ABX d/c within 24 hr DM control / Insulin Dosing Detemir 12U HS, NPH 25U q12, Aspart per SS Heart Failure (Check EF%) (JONATHAN's, B-Block, Diuretics) Lasix gtt, nitro gtt, spironolactone IV to PO Switch Home Meds Reviewed yes Home Meds Not Ordered Spironolactone Levofloxacin 250mg QOD escitalopram - ordered upon admission but DC'd due to prolonged QT Comments Septic -- adding Vanco to cefepime as pt does have a history of MRSA in 2016; elevated Troponin likely demand ischemia but is trending down
[2018-12-08] MEDS: Glycopyrrolate 0.2 MG/1 ML VIAL IVP ×3 (13:25→22:16)
[2018-12-08] MEDS: Normal Saline 500 ML 30 ML IV (13:27)
[2018-12-08] MEDS: MORPHine 250 MG in Normal Saline 245 ML IV (14:24)
--- NOTE | 2018-12-08 14:28 | CHAPLAIN ---
I checked in with Eleni's family. Several family members are with her. They said she is less responsive today and has not spoken to them. She reacted most recently when her son, Irving, whom she hadn't seen in a long time, visited, and she asked yesterday if he would be back to see her. Family members aren't sure if he will be in.
[2018-12-09] MEDS: Glycopyrrolate 0.2 MG/1 ML VIAL IVP ×5 (02:12→11:52)
[2018-12-09] MEDS: Normal Saline 500 ML 30 ML IV (05:04)
[2018-12-09] MEDS: Normal Saline Flush 10 ML SYR IVP (11:51)
[2018-12-09] MEDS: Scopolamine 1 MG/3 DAYS PATCH TD (14:32)
[2018-12-09] MEDS: Patch Removal 1 EACH TP (14:35)
[2018-12-09 16:15] VITALS: RESP 24
--- NOTE | 2018-12-09 16:59 | PT.INDS ---
Date of service: 12/05/18 PT Notes Physical therapy Inpatient Discharge Summary Date: 12/05/18 Referring Doctor: Jose Rainey MD PT Orders: PT CONSULT: eval and treat Precautions: None Patient Profile/Admitting Diagnosis: Patient admitted 11/29/18 for management of sepsis, pneumonia, NSTEMI, in addition to KORY, CHF (acute on chronic), UTI. 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 She transfers via Angel lift. She is dependent for all ADLs and self-care Equipment Owned/DME: LT resident Subjective: NT Objective: General Observation: NT Mental Status: NT Vital Signs: NT ROM: Right Upper Extremity: Shoulder flexion to 80 degrees. Elbow motion WFL. Able to form full recruiting coordinator and full hand opening bilat. Left Upper Extremity: Shoulder flexion to 80 degrees. Elbow motion WFL. Able to form full recruiting coordinator and full hand opening bilat. Right Lower Extremity: Bilat knee flexion contractures to ~15 degrees. Ankle DF allows neutral only. Left Lower Extremity: Bilat knee flexion contractures to ~15 degrees. Ankle DF allows neutral only. Strength: Right Upper Extremity: Shoulder flexion 3-/5. Elbow flexion 3+/5. Triceps 3+/5. Principal Java Developer is weak, but equal. Left Upper Extremity: Shoulder flexion 3-/5. Elbow flexion 4/5. Triceps 4/5. Principal Java Developer is weak, but equal. Right Lower Extremity: Functionally able to perform SLR. Ankle motions are 3/5. Left Lower Extremity:Functionally able to perform SLR. Ankle motions are 3/5. Bed Mobility/Transfers: Patient is dependent for all bed mobility and transfers. She transfers via Angel lift at baseline. 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 Patient is a 77 year old female referred to physical therapy services with the diagnosis of decreased functional mobility related to acute medical issues. Patient presents with clinical signs and symptoms consistent with diagnosis. Patient has impaired mobility at baseline, and is a long-term resident of [facility]. Unfortunately, she is demonstrating significantly diminished activity tolerance and ability to participate in transfers related to her acute medical issues. She will benefit from PT intervention for progressive therapeutic exercises to maximize activity tolerance and allow for safe transition back to [facility] re[facility] once medically stable. She continues to demonstrates the following impairment level findings: 1. Decreased activity tolerance with significant JUAN with even light activity 2. Decreased upper extremity range of motion 3. Decreased upper extremity strength 4. Decreased lower extremity range of motion 5. Decreased lower extremity strength Impairments are contributing to the following functional limitations: 1. Severe deconditioning in acutely ill geriatric patient with chronic mobility issues Goals: Goals X1 week 1. Patient able to tolerate introduction of bed exercises for range of motion and strengthening MET DISCHARGE RECOMMENDATIONS: Long-term care TREATMENT CODE/TIME: NC Thank you very much for this referral. Kathryn Messer PT, DPT, CLT [facility]
--- NOTE | 2018-12-12 21:43 | W.PM.DDS ---
Date of service: 12/09/18 Time of Service: 21:44 Discharge Sum: Prov Provider Consults: 12/08/18 11:11 Palliative Care Consult [CONS] Routine Consultation Status:: Contact made by MD Clarification:: Manage/follow per spec. Reason for consult:: end of life care Discharge Sum: Diag Contributing Factors (1) Dying care: (2) Discharge planning issues: (3) Non-STEMI (non-ST elevated myocardial infarction): (4) Acute on chronic congestive heart failure: (5) Acute kidney injury (nontraumatic): (6) Sepsis due to pneumonia: Discharge Sum: Summary Date and Time Admission Date: 11/29/1907/29/19 11:09 Date of : 12/09/18 Time of : 20:45 Summary Details: See Brenda Lee CNP, admission note from 12/08/2018 for details. In summary the patient had underlying CAD, CHF, CKD, DM type 2 and myelodysplastic syndrome who presente to the hospital on 11/29/2018 w/ pneumonia and sepsis and sustained a non-ST elevated myocardial infarction which led to acute exacerbation of chronic congestive heart failure and development of acute kidney injury in setting of CKD. Despite antibiotics and diuretics and supportive care, her condition declined w/ worsening renal function. Palliative care consult was obtained and the patient and her family opted for comfort measures. Patient was discharged from acute hospital setting to swing bed status for care for her during her dying process. She was placed on morphine drip to ease her discomfort of her dyspnea. She at 20:45 on 12/09/2018. Additional Data Confirmation of as documented by pronouncing clinician: no pulse and no respirations Family: at bedside Attending/PCP notified?: Yes Was code activated?: No Autopsy requested?: No credit union examiner notified?: No Organ bank notified?: No Advance directives: Yes Hospice patient?: No
== END 2018-12-09 20:50 | disposition expired ==
PROVIDERS: Admitting Provider Internal Medicine; PCP Family Medicine; Visit Provider Internal Medicine
DX: I21.4 Non-ST elevation (NSTEMI) myocardial infarction (principal); A41.9 Sepsis, unspecified organism; I50.9 Heart failure, unspecified; E11.22 Type 2 diabetes mellitus with diabetic chronic kidney disease; N18.9 Chronic kidney disease, unspecified; J18.9 Pneumonia, unspecified organism; Z51.5 Encounter for palliative care
CPT/HCPCS: 99305; 99315; J3490